=== PATIENT | female | born 1965 | race Caucasian/White ===

== ENCOUNTER 2020-11-16 09:58 | Outpatient (REF) | payer MEDICAID, SELFPAY ==
--- NOTE | ~2020-11-16 | MR_ITS ---
EXAMINATION: MR LUMBAR SPINE WITHOUT CONTRAST CLINICAL INFORMATION: Lumbago with sciatica. COMPARISON: None TECHNIQUE: MRI of the lumbar spine was obtained using routine sequences without contrast. FINDINGS: The lumbar vertebral bodies maintain normal heights. There is minimal anterolisthesis of L4 on L5. No significant lumbar disc height loss is seen. Mild endplate edema is seen inferiorly at T12. Edema is seen within the right-sided L4 and L5 pedicle compatible with stress response. The distal spinal cord appears normal. The conus medullaris terminates normally at the L1-L2 level. The visualized paraspinal muscles and intra-abdominal and pelvic contents are within normal limits. SPINAL LEVELS: L1-L2: No posterior disc abnormality. No spinal canal or neural foraminal stenosis. L2-L3: No posterior disc abnormality. No spinal canal or neural foraminal stenosis. L3-L4: No posterior disc abnormality. Mild facet arthropathy. No spinal canal or neural foraminal stenosis. L4-L5: Mild anterolisthesis related to moderate to severe facet arthropathy. Mild disc bulging. No spinal canal stenosis. No significant neural foraminal narrowing. L5-S1: Disc bulging with moderate facet arthropathy. No spinal canal or neural foraminal stenosis. MR/MR lumbar spine wo con IMPRESSION: Mild degenerative spondylotic changes. No spinal canal stenosis or nerve root compression identified. Minimal grade 1 anterolisthesis seen at L4-L5 related to facet arthropathy. Stress response seen within the right L4 and L5 pedicle.
== END 2020-11-16 09:59 | disposition home or self-care (01) ==
LOC: HO.MRI 09:58
PROVIDERS: PCP Family Medicine; Visit Provider Family Medicine
DX: M54.42 Lumbago with sciatica, left side (principal)
CPT/HCPCS: 72148

== ENCOUNTER → 2021-01-02 10:48 | Outpatient (BNVA) | payer MEDICAID, SELFPAY | PROVIDERS: Visit Provider Orthopaedic Surgery | DX: M67.431 Ganglion, right wrist (principal) | CPT/HCPCS: 99202 ==

== ENCOUNTER 2021-01-24 07:50 | Day surgery (SDC) | payer MEDICAID, SELFPAY ==
[2021-01-17 19:49] VITALS: BMI 31.7
--- NOTE | 2021-01-23 12:44 | P.CONAN_ITS ---
Documented by User: Ann Howard NP 01/23/21 12:45 HPI - Anesthesia Eval Consult details Narrative: 55yo F for Right Excision of Volar Wrist Ganglion PMFSH Active Problems Active Problems: All Active Problems (Updated 01/17/21 @ 19:48 by Nydia Bradshaw RN) Ganglion cyst of volar aspect of right wrist (Acute) Past Medical History Medical History Asthma Back pain COVID-19 vaccine administered Hypertension Kidney injury Post-menopausal Urinary incontinence Surgical History Surgical History History of kidney surgery Social History Social History Are you a primary healthcare economics consultant to a significant other at home: No Do you presently have visiting nurse or other home services: No Patient Tobacco Use Status: Current everyday Tobacco user Tobacco use type: Cigarette Years Smoked: 20 Smoked in Last 30 Days: Yes Patient Interested in Nicotine Replacement: No Patient Given Instructions on How to Stop Smoking: No Use of substances other than those prescribed or required for medical reasons: Yes Substance Use Frequency: Weekly Have you been hit, kicked, punched, or otherwise hurt by someone within the past year? 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 Allergies Allergy/AdvReac Type Severity Reaction Status Date / Time codeine [CODEINE] Allergy Unknown UNKNNOWN Verified 01/24/21 08:07 lisinopril Allergy rash Verified 01/24/21 08:07 Home Medications Medication Instructions Recorded Confirmed Last Taken Type acetaminophen 325 mg capsule 325 mg PO QID PRN 01/02/21 01/17/21 Unknown History amlodipine 2.5 mg tablet 40 mg PO DAILY 01/02/21 01/17/21 01/24/21 05:30 History apixaban 2.5 mg tablet (Eliquis) 2.5 mg PO BID 01/02/21 01/17/21 01/21/21 History atorvastatin 10 mg tablet 10 mg PO BEDTIME 01/02/21 01/17/21 Unknown History clonidine HCl 0.1 mg tablet 0.1 mg PO BID 01/02/21 01/17/21 01/24/21 05:30 History cyclobenzaprine 5 mg tablet 5 mg PO BEDTIME 01/02/21 01/17/21 Unknown History duloxetine 20 mg capsule,delayed 20 mg PO BID 01/02/21 01/17/21 01/24/21 05:30 History release gabapentin 100 mg capsule 100 mg PO DAILY 01/02/21 01/17/21 Unknown History Exam Exam Date and Time: January 23, 2021 1244 Height,Weight and Vital Signs: Height 5 ft 4 in Weight 83.915 kg Assessment and Plan Assessment Anesthesia Assessment: Chart Reviewed Documented by User: Sav Amaya MD 01/24/21 11:58 [facility] Past Medical History Medical History Asthma Back pain COVID-19 vaccine administered Hypertension Kidney injury Post-menopausal Urinary incontinence Family History Family history of problems with anesthesia: No Surgical History Surgical History History of kidney surgery History of Problems with Anesthesia: No Social History Social History Are you a primary healthcare economics consultant to a significant other at home: No Do you presently have visiting nurse or other home services: No Patient Tobacco Use Status: Current everyday Tobacco user Tobacco use type: Cigarette Years Smoked: 20 Smoked in Last 30 Days: Yes Patient Interested in Nicotine Replacement: No Patient Given Instructions on How to Stop Smoking: No Use of substances other than those prescribed or required for medical reasons: Yes Substance Use Frequency: Weekly Have you been hit, kicked, punched, or otherwise hurt by someone within the past year? 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 Allergies Allergy/AdvReac Type Severity Reaction Status Date / Time codeine [CODEINE] Allergy Unknown UNKNNOWN Verified 01/24/21 08:07 lisinopril Allergy rash Verified 01/24/21 08:07 Home Medications Medication Instructions Recorded Confirmed Last Taken Type acetaminophen 325 mg capsule 325 mg PO QID PRN 01/02/21 01/17/21 Unknown History amlodipine 2.5 mg tablet 40 mg PO DAILY 01/02/21 01/17/21 01/24/21 05:30 History apixaban 2.5 mg tablet (Eliquis) 2.5 mg PO BID 01/02/21 01/17/21 01/21/21 History atorvastatin 10 mg tablet 10 mg PO BEDTIME 01/02/21 01/17/21 Unknown History clonidine HCl 0.1 mg tablet 0.1 mg PO BID 01/02/21 01/17/21 01/24/21 05:30 History cyclobenzaprine 5 mg tablet 5 mg PO BEDTIME 01/02/21 01/17/21 Unknown History duloxetine 20 mg capsule,delayed 20 mg PO BID 01/02/21 01/17/21 01/24/21 05:30 History release gabapentin 100 mg capsule 100 mg PO DAILY 01/02/21 01/17/21 Unknown History Exam Airway Mallampati Class: III TM Dist: >3cm Neck ROM: Full Denture: Upper and Lower Assessment and Plan Assessment Anesthesia Assessment: Anesthesia Plan Discussed Final Anesthetic Review Family History of Problems with Anesthesia: No History of Problems with Anesthesia: No ASA Class: III Final Preanesthetic Review: No Changes in Pt Med Stat, Meds/Allgs Chart Reviewed, Consent Obtained/Reviewed and Anes Risks/Benef Reviewed Patient Risk: Intermediate Procedure Risk: Low Anesthetic Plan Anesthetic Plan: GA Disposition: Standard PACU
[2021-01-24] VITALS (7 sets, daily range): BP systolic 125–144; BP diastolic 59–82; PULSE 71–84; RESP 16–20; TEMP 36.1–36.9; O2SAT 93–100
[2021-01-24] MEDS: Lactated Ringers 1,000 ML 100 ML IVCONT (08:24)
--- NOTE | 2021-01-24 10:57 | MHC.SHP ---
Pre-Procedural Eval Section A Date of Service: 01/24/21 The patient is an INPATIENT: No Changes since office visit: No Cold of Flu in the past 2 weeks, No New Medical Problems, No Changes in Medication and No Patient answered all questions The History & Physical has been completed within 30 days and I have reviewed it.: Yes Section B Chief Complaint: ganglion Allergies: Allergies Allergy/AdvReac Type Severity Reaction Status Date / Time codeine [CODEINE] Allergy Unknown UNKNNOWN Verified 01/24/21 08:07 lisinopril Allergy rash Verified 01/24/21 08:07 Plan I have reviewed the history and physical and performed a pertinent physical examination on my patient. No changes have occurred unless specified.
--- NOTE | 2021-01-24 10:57 | W.PM.OPN ---
Operative Note Operative Note Date of Service: 01/24/21 Narrative: Operative Note Narrative: Preop diagnosis: 1. Right Volar wrist ganglion Postop diagnosis: Same Procedure: 1. Right Volar wrist ganglion excision 2. Right radial artery mobilization Surgeon: Katty Crisostomo MD Anesthesia: General Findings: Multi lobular right volar wrist ganglion situated about the radial artery approximately 2.5 cm proximal to the distal wrist crease Implants: None Tourniquet time: 17 minutes EBL: 5.0 ml Specimen: Volar wrist ganglion Drains: None Complications: None Disposition: Brought to the recovery room in stable condition Plan: Follow-up in 10-14 days for wound check, suture removal and to check pathology Indications: The patient is 55 years old with a right volar wrist ganglion . The risks and benefits of operative treatment, including but not limited to risk of damage to blood vessels, nerves, tendons, infection, recurrence, persistent pain or numbness, incomplete resolution of preoperative symptoms, or need for further surgery were discussed with the patient and they wished to proceed with surgery. Procedure: Once consent was obtained patient was brought back to the operating suite and placed in the operating table in a supine position. . Perioperative antibiotics and anesthesia was administered by the anesthesia team. A tourniquet was applied to the proximal aspect of the right upper extremity and the limb was prepped and draped in a standard surgical fashion. The limb was elevated exsanguinated with Esmarch bandage and the tourniquet inflated to 250 mm of mercury for a total tourniquet time of 17 minutes. A 3 cm longitudinal incision was made centered over the patient's right volar wrist ganglion. The incision was made through the skin the subcutaneous tissues using a 15. Blade. Careful dissection was then made down to the level of the volar wrist ganglion using tenotomy scissors. The ganglion was noted to be multi lobular and situated about the radial artery approximately 2.5 cm proximal to the distal wrist crease. Bipolar electrocautery was utilized to cauterize several of the small arterial branches from about the ganglion. The ganglion was then carefully dissected free from the radial artery using tenotomy and iris scissors. The stalk to the ganglion was then isolated and cauterized using bipolar electrocautery. The ganglion was then removed and placed on the back table to be sent for histopathology. It contained clear viscous fluid consistent with a ganglion. At this point the tourniquet was deflated and hemostasis obtained with a brief period of local pressure and bipolar electrocautery. The wound was copiously irrigated with normal saline. The subcutaneous layer was closed with 4-0 Vicryl suture, and the skin edges were reapproximated with 5-0 nylon suture. The wound was infiltrated with some 1% lidocaine with epinephrine for postop pain control and a sterile dressing was applied. The patient appears to have tolerated the procedure well and with no complications. All digits were well vascularized conclusion of the case.
== END 2021-01-24 13:09 | disposition home or self-care (01) ==
PROVIDERS: PCP Family Medicine; Visit Provider Orthopaedic Surgery
PROC: (CPT 25111; principal; 2021-01-24 09:40)
DX: M67.431 Ganglion, right wrist (principal); I10 Essential (primary) hypertension; Z79.899 Other long term (current) drug therapy; Z88.8 Allergy status to other drugs, medicaments and biological substances; F17.210 Nicotine dependence, cigarettes, uncomplicated
CPT/HCPCS: 25111; 88304; J0690; J1100; J2250; J2405; J3010

== ENCOUNTER 2021-02-04 12:10 | Outpatient (REF) | payer MEDICAID, SELFPAY ==
--- NOTE | ~2021-02-04 | MM_ITS ---
EXAMINATION: MM SCREENING DIGITAL BREAST TOMOSYNTHESIS, BILATERAL CLINICAL INFORMATION: Screening. Asymptomatic. Age 55. No prior breast imaging. Family history breast cancer, mother. The lifetime risk of breast cancer based on the Tyrer-Cuzick Model is 14%. COMPARISON: None (current study represents initial baseline exam). TECHNIQUE: Digital breast tomosynthesis is performed in both the craniocaudal and mediolateral oblique views along with computer-aided detection (CAD). Synthesized 2D images are generated from the tomosynthesis. FINDINGS: There are scattered areas of fibroglandular density (ACR BI-RADS breast composition Category b). There are no significant masses, abnormal calcifications, or other abnormalities. There are 2 dermal lesions overlying the upper outer left breast, both marked with skin markers as well. Skin contours are otherwise smooth. MM/MM tomosynthesis screening BI IMPRESSION: No mammographic evidence of malignancy. ASSESSMENT: BI-RADS 1: Negative RECOMMENDATION: Routine annual mammography screening. This patient's information was entered into a reminder system with a target due date for their next mammogram.
== END 2021-02-04 12:11 | disposition home or self-care (01) ==
LOC: HO.MAMMO 12:10
PROVIDERS: Visit Provider Family Medicine
DX: Z12.31 Encounter for screening mammogram for malignant neoplasm of breast (principal)
CPT/HCPCS: 77063; 77067

== ENCOUNTER → 2021-02-05 13:24 | Outpatient (BNVA) | payer MEDICAID, SELFPAY | PROVIDERS: PCP Family Medicine; Visit Provider Orthopaedic Surgery | DX: M67.431 Ganglion, right wrist (principal) | CPT/HCPCS: 99212 ==

== ENCOUNTER 2021-02-15 09:00 | Outpatient (RCR) | payer MEDICAID, SELFPAY | END 2021-02-21 07:55 | disposition home or self-care (01) | LOC: HO.PT 09:00 | PROVIDERS: PCP Family Medicine; Visit Provider Family Medicine | DX: M54.42 Lumbago with sciatica, left side (principal) | CPT/HCPCS: 97110; 97112; 97162; 97530 ==

== ENCOUNTER 2021-02-22 16:42 | Emergency (ER) | payer MEDICAID, SELFPAY ==
--- NOTE | ~2021-02-22 | CT_ITS ---
EXAMINATION: CT ABDOMEN AND PELVIS WITHOUT CONTRAST CLINICAL INFORMATION: Bilateral flank pain. Rule out kidney stone. COMPARISON: None. TECHNIQUE: Multidetector volumetric imaging was performed from the superior aspect of the liver through the pubic symphysis. Sagittal and coronal reformatted images were obtained on the technologist's workstation. This CT examination was performed using dose optimization techniques as appropriate, variously including the following: *Automated exposure control *Adjustment of mA and/or kV according to patient size (this includes techniques or standardized protocols for targeted exams where dose is matched to indication/reason for exam; i.e. extremities or head) *Use of iterative reconstruction technique DLP: 637 mGy-cm FINDINGS: LUNG BASES: Mild subsegmental atelectases with subtle mosaic attenuation of the lung parenchyma likely reflecting some degree of air trapping. No focal consolidation or pleural effusion. LIVER, GALLBLADDER, AND BILIARY TREE: The liver is normal in size, shape, and attenuation. No focal hepatic lesion or biliary ductal dilatation is present. The gallbladder is contracted without significant inflammatory changes or surrounding free fluid to suspect acute cholecystitis. There is no biliary ductal dilatation. PANCREAS: Fatty infiltration. No discrete lesions. The main pancreatic duct is nondilated. No surrounding inflammatory changes. SPLEEN: Unremarkable. ADRENAL GLANDS: Unremarkable. KIDNEYS AND URETERS: The kidneys are normal in size, shape, and attenuation. There is a 1.3 cm fat-containing lesion in the lateral surface of the right kidney (image 65 of series 7) likely an angiomyolipoma not requiring further workup. There is a 2 cm parapelvic cyst or calyceal diverticulum in the lower pole of the left kidney measuring simple fluid in attenuation. No hydronephrosis, hydroureter, or calculi seen. No perinephric stranding. BLADDER: Unremarkable. GASTROINTESTINAL TRACT: The stomach is mildly distended with food debris. The small bowel is nondilated. Normal appendix. No pericolic inflammatory changes. No bowel obstruction. ABDOMINAL WALL: Tiny fat-containing umbilical hernia. LYMPH NODES: No lymphadenopathy by size criteria. VASCULAR: Scattered atherosclerotic disease. The abdominal aorta is of normal diameter. PELVIC VISCERA: No adnexal lesions. OSSEOUS STRUCTURES: No acute or aggressive osseous abnormalities. There are a few nonaggressive appearing sclerotic lesions in the pelvis, for example in the left iliac bone on image 63 of series 3 which are likely bone islands. CT/CT abdomen pelvis wo con IMPRESSION: No acute abnormalities within the abdomen or pelvis to explain the patient's symptoms. Specifically, there is no evidence of nephrolithiasis or hydronephrosis.
[2021-02-22 16:58] VITALS: BP 134/70; PULSE 95; RESP 18; TEMP 36.9; O2SAT 97; BMI 32.9
[2021-02-22 20:01] LABS: MANUAL DIFF FLAG NO
[2021-02-22 20:03] LABS: Appearance Urine HAZY; Color Urine YELLOW; Glucose Urine UA NEG (NEG); Leukocyte Esterase Urine NEG (NEG); Nitrite Urine NEG (NEG); Urine Blood NEG (NEG); Urine Ketones NEG (NEG); Urine Protein NEG (NEG-TRACE)
[2021-02-22 20:05] LABS: Basophils Absolute Auto 0.1 X10*3/uL (0.0-0.2); Basophils Percent Auto 0.4 % (0-2); Eosinophils Absolute Auto 0.2 X10*3/uL (0.0-0.4); Eosinophils Percent Auto 1.6 % (0-4); Hematocrit 39.4 % (37.0-47.0); Hemoglobin 13.2 g/dl (12.0-16.0); Imm Gran Abs Auto 0.06 X10*3/uL (0.00-0.03); Imm Gran Pct Auto 0.4 % (0.0-0.4); Lymphocytes Absolute Auto 4.4 X10*3/uL (1.2-4.9); Lymphocytes Percent Auto 31.5 % (20-40); Mean Corpuscular HGB Conc 33.5 g/dl (31.0-35.0); Mean Corpuscular Hemoglobin 31.4 pg (27.0-33.0); Mean Corpuscular Volume 93.8 fL (80.0-98.0); Mean Platelet Volume 9.3 fL (9.4-12.3); Monocytes Absolute Auto 0.8 X10*3/uL (0.1-1.2); Monocytes Percent Auto 5.9 % (2-11); Neutrophils Absolute Auto 8.4 x10*3/uL (2.0-8.3); Neutrophils Percent Auto 60.2 % (45-73); Platelet Count 247 X10*3/uL (160-400); Red Cell Distribution Width 13.2 % (11.0-16.0)
[2021-02-22 20:22] LABS: Alanine Aminotransferase 13 U/L (0-31); Alkaline Phosphatase 104 U/L (39-117); Anion Gap 13 (12-20); Aspartate Amino Transferase 14 U/L (5-31); Bilirubin Total 0.2 mg/dL (0.0-1.0); Blood Urea Nitrogen 15 mg/dL (9-16); Calcium 8.9 mg/dL (8.4-10.2); Carbon Dioxide 28 mmol/L (22-29); Chloride 105 mmol/L (96-108); Creatinine Clr Calc Pharmacy 85.8; Estimated Glomerular Filt Rate > 60; Glucose Random 95 mg/dL (60-115); Lipase 88 U/L (8-78); Potassium 3.6 mmol/L (3.3-5.1); Sodium 142 mmol/L (135-145); Total Protein 6.8 g/dL (6.5-8.0)
[2021-02-22 20:43] LABS: Bacteria Urine TRACE /LPF; RBC Urine 0 /HPF (0); Squamous Epithelial Cell Urine 3+ /LPF; WBC Urine 0-2 /HPF (0-4)
--- NOTE | 2021-02-22 20:55 | ED_ITS ---
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 Patient states that the flank pain is constant, it begins as a dull pain, and then it turns into stabbing pain, she states it is a 10/10 on both sides. Nothing makes this pain better or worse. The pain to her suprapubic region, is intermittent, and a dull pain, free of radiation, she states she gets this type of pain from time to time. She states she was seen earlier at the clinic for the same symptoms, where they did a urine sample, and they told her she had blood in her urine, which made her worried. She has not visualized blood in her urine. She states that at baseline she has trouble controlling her bladder, and she has been wearing depends since February, but this is nothing new or acute for her. She also states that she has back pain, however this is chronic in nature. She states this pain is not similar to the pain she had when she had a blood blot, she described that pain as it felt like i was in labor . She denies urinary frequency, urgency, bowel incontinence, weakness, sensory deficits, paresthesias, numbness, tingling, chest pain, shortness of breath, fevers, chills, difficulties ambulating. Patient denies trauma to the area and doesnt recall what she was doing when the pain started. MD elicited complaint: other (b/l flank pain ) Pertinent past history: prior back pain (chronic back pain requiring chronic pain meds for managemnt ) Onset (ago): day(s) (3) Timing: constant Severity: severe Pain scale (0-10): 10 Similar Symptoms Previously: Yes Quality: dull and stabbing Location: left flank and right flank Radiation: none Exacerbating factors: none Relieving factors: none Associated symptoms: denies other symptoms Treatments prior to arrival: other (gabapentin, hydrocodone-acetaminophen) Work related injury: No Related Data Home Medications Medication Instructions Recorded Confirmed acetaminophen 325 mg capsule 325 mg PO QID PRN 01/02/21 01/17/21 amlodipine 2.5 mg tablet 40 mg PO DAILY 01/02/21 01/17/21 apixaban 2.5 mg tablet (Eliquis) 2.5 mg PO BID 01/02/21 01/17/21 atorvastatin 10 mg tablet 10 mg PO BEDTIME 01/02/21 01/17/21 clonidine HCl 0.1 mg tablet 0.1 mg PO BID 01/02/21 01/17/21 cyclobenzaprine 5 mg tablet 5 mg PO BEDTIME 01/02/21 01/17/21 duloxetine 20 mg capsule,delayed 20 mg PO BID 01/02/21 01/17/21 release gabapentin 100 mg capsule 100 mg PO DAILY 01/02/21 01/17/21 Previous Rx's Medication Instructions Recorded hydrocodone 5 mg-acetaminophen 325 1 - 2 tab PO Q6H PRN #10 tab 01/24/21 mg tablet hydrocodone 5 mg-acetaminophen 325 1 - 2 tab PO Q6H PRN #15 tab 01/24/21 mg tablet hydrocodone 5 mg-acetaminophen 325 1 tab PO Q8H PRN #8 tab 02/22/21 mg tablet Allergies Allergy/AdvReac Type Severity Reaction Status Date / Time codeine [CODEINE] Allergy Unknown UNKNNOWN Verified 02/05/21 13:58 lisinopril Allergy rash Verified 02/05/21 13:58 Review of Systems Review of Systems: Constitutional : No Fever, No Chills ENT/Mouth : No sore throat Eyes: No Eye Pain, No Swelling, No Redness Cardiovascular : No Chest Pain, No SOB Respiratory : No Cough, No Sputum, No Wheezing Gastrointestinal : No Nausea, No Vomiting, No Diarrhea, positive abdominal pain Genitourinary : No Dysuria, No urinary frequency, No Hematuria, positive Flank Pain, No hesitancy Musculoskeletal : No joint pain, No Myalgias Skin : No Skin Lesions, No rash Neuro : No Weakness, No Numbness, No Headache Psych : No Anxiety/Panic, No Depression Heme/Lymph: No Bruising, No Lymphadenopathy Endocrine : No Polyuria, No Polydipsia All other systems reviewed and are negative PMFSH Past Medical History Attestation statement: The following information was validated with the patient. Source: old records reviewed and nursing notes reviewed Medical History Asthma Back pain COVID-19 vaccine administered Hypertension Kidney injury Post-menopausal Urinary incontinence Surgical History History of kidney surgery Social History Social History Are you a primary home care assistant to a significant other at home: No Do you presently have visiting nurse or other home services: No Patient Tobacco Use Status: Current everyday Tobacco user Tobacco use type: Cigarette Years Smoked: 20 Advance Directives: No Advance Directives Information Provided: Yes Patient : No Current occupational status: unemployed 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 Oriented X3. No acute distress. ? No accessory muscle use Head: Normal external exam. Normocephalic. Atraumatic. ? Eyes: PERRLA. EOMI. Conjunctiva and sclera normal. Eyelids normal. ? ENT: Pharynx normal. Uvula midline. Moist mucous membranes. ? No trismus noted.? No drooling noted.? No muffled voice noted. Neck: ?Soft full range of motion, no JVD CVS: ?Heart regular rate and rhythm no murmurs and rubs Respiratory: ?Breath sounds are clear to auscultation bilaterally. No wheezing or stridor.? No accessory muscle use noted. Abdomen: ?Soft + tender to suprapubic region, no rebound or guarding positive bowel sounds Skin: Skin warm and dry.? Normal skin color.? Normal skin turgor. No rashes/lesions/lacerations noted. Back: + bilateral CVA tenderness, No paraspinous tenderness to cervical, lumbar, thoracic, sacral region, No midline tenderness Extremities: No lower extremity edema. ? Extremities exhibit normal range of motion.? Extremities nontender. Neuro: Oriented X 3.? No motor deficit to bilateral upper and lower extr emities.? No sensory deficit to bilateral upper and lower extremities.? Reflexes normal 2+ upper and lower extremities. Steady gait. No ataxia. Hand mass spectroscopist normal. No saddle paresthesia Course Reevaluation(s) Reevaluation #1: Lab show no acute infection, no anemia, BUN creatinine normal, liver functions normal, chemistry shows no electrolyte abnormalities, coags normal, lipase slightly elevated however a CT of the abdomen pelvis was done which showed no acute abnormalities, and no nephrolithiasis or hydronephrosis UA negative. Based off laboratory studies, imaging kidney stone is unlikely. Patient's pain improved with Toradol, she appears more comfortable, and she states that it has gotten much better. Patient's pain is likely musculoskeletal in nature. Unlikely that this is any type of embolic event patient's pain has significantly improved with Toradol. This case was discussed with who agrees that this is is likely musculoskeletal in nature, and unlikley embolic. Patient will be DC home with pain medication, she has been encouraged to follow-up with her primary care provider, and has been told to return to the emergency department with new or worsening symptoms. I attest that I have reviewed patients [employer], and at the time prescribing the patient a controlled substance is appropriate based off of patients diagnosis and treatment plan. Time: 22:43 Reevaluation #2: Reviewed discharge instructions, and laboratory findings with the patient, she states she is feeling better at this time. She states she will try to follow up with her primary care provider next week. Safe for discharge home. Vital signs stable. Time: 22:52 MDM - Back Pain/Injury MDM Narrative Medical decision making narrative: 9:10 pm 55-year-old female past medical history significant for HTN, HLD, chronic back pain, urinary incontinence, hx of blood clot to one of the vessels to right kidney on eliquis presents to the emergency department with 3 days of progressively worsening 10/10 bilateral flank pain, described as dull initially, progressing to stabbing pain, and suprapubic abdominal pain that is intermittent in nature. Patient offers no other complaints at this time. Denies numbness, tingling, weakness, fevers, chills, nausea, vomiting, chest pain, shortness of breath, urinary frequency/urgency, hematuria. Patient is not an IV drug user Upon physical examination patient is comfortably resting on the stretcher, in no acute distress. Lungs are clear to auscultation bilaterally, S1 and S2 are appreciated free of murmurs. Abdomen is soft slightly tender to the suprapubic region, nondistended, with normoactive bowel sounds. Patient has 5/5 strength upper and lower extremities. 2+ pulses equal in bilateral upper and lower extremities. Reflexes to upper and lower extremities 2+. No focal neuro deficits. Hand mass spectroscopist strength normal, sensory and motor intact to bilateral upper, and lower extremities. No saddle paresthesias. Patient ambulating with a steady gait, no ataxia. Vital signs are stable, patient is not febrile Patient's history and physical exam were not consistent with cauda equina or epidural abscess. Plan at this time is to obtain basic labs, urine, PTT, PT INR, PT CT abdomen and pelvis without contrast. Patient will be given Toradol for pain and fluids. Medical Records Attestation: I reviewed the patient's medical records. Lab Data Attestation: I reviewed the patient's lab results. Result diagrams: 02/22/21 19:55 02/22/21 19:55 Labs: Lab Results 02/22/21 02/22/21 02/22/21 Range/Units 19:40 19:55 19:55 WBC 14.0 H (4.8-10.8) X10*3/uL RBC 4.20 (4.20-5.50) X10*6/uL Hgb 13.2 (12.0-16.0) g/dl Hct 39.4 (37.0-47.0) % MCV 93.8 (80.0-98.0) fL MCH 31.4 (27.0-33.0) pg MCHC 33.5 (31.0-35.0) g/dl RDW 13.2 (11.0-16.0) % Plt Count 247 (160-400) X10*3/uL MPV 9.3 L (9.4-12.3) fL Immature Gran % (Auto) 0.4 (0.0-0.4) % Neut % (Auto) 60.2 (45-73) % Lymph % (Auto) 31.5 (20-40) % [place] % (Auto) 5.9 (2-11) % Eos % (Auto) 1.6 (0-4) % Baso % (Auto) 0.4 (0-2) % Lymph # (Auto) 4.4 (1.2-4.9) X10*3/uL [place] # (Auto) 0.8 (0.1-1.2) X10*3/uL Eos # (Auto) 0.2 (0.0-0.4) X10*3/uL Baso # (Auto) 0.1 (0.0-0.2) X10*3/uL Abs Immat Gran (auto) 0.06 H (0.00-0.03) X10*3/uL Absolute Neuts (auto) 8.4 H (2.0-8.3) x10*3/uL Absolute Nucleated RBC 0.000 (0.0-0.012) X10*3/uL Nucleated RBC % (auto) 0.0 (0.0-0.2) /100WBC PT (9.9-13.0) SEC INR (0.9-1.1) APTT (24.1-38.0) SEC Sodium 142 (135-145) mmol/L Potassium 3.6 (3.3-5.1) mmol/L Chloride 105 (96-108) mmol/L Carbon Dioxide 28 (22-29) mmol/L Anion Gap 13 (12-20) BUN 15 (9-16) mg/dL Creatinine 0.81 (0.5-1.4) mg/dL Estim Creat Clear Calc 85.8 Estimated GFR > 60 Random Glucose 95 (60-115) mg/dL Calcium 8.9 (8.4-10.2) mg/dL Total Bilirubin 0.2 (0.0-1.0) mg/dL AST 14 (5-31) U/L ALT 13 (0-31) U/L Alkaline Phosphatase 104 (39-117) U/L Total Protein 6.8 (6.5-8.0) g/dL Albumin 4.0 (3.5-5.0) g/dL Lipase 88 H (8-78) U/L Urine Color YELLOW Urine Appearance HAZY Urine pH 6.0 (5.0-8.0) Ur Specific [place] 1.020 (1.005-1.025) Urine Protein NEG (NEG-TRACE) MG/DL Urine Glucose (UA) NEG (NEG) MG/DL Urine Ketones NEG (NEG) MG/DL Urine Blood NEG (NEG) Urine Nitrite NEG (NEG) Ur Leukocyte Esterase NEG (NEG) Urine RBC 0 (0) /HPF Urine WBC 0-2 (0-4) /HPF Ur Squamous Epith Cells 3+ /LPF Urine Bacteria TRACE /LPF 02/22/21 Range/Units 21:21 WBC (4.8-10.8) X10*3/uL RBC (4.20-5.50) X10*6/uL Hgb (12.0-16.0) g/dl Hct (37.0-47.0) % MCV (80.0-98.0) fL MCH (27.0-33.0) pg MCHC (31.0-35.0) g/dl RDW (11.0-16.0) % Plt Count (160-400) X10*3/uL MPV (9.4-12.3) fL Immature Gran % (Auto) (0.0-0.4) % Neut % (Auto) (45-73) % Lymph % (Auto) (20-40) % [place] % (Auto) (2-11) % Eos % (Auto) (0-4) % Baso % (Auto) (0-2) % Lymph # (Auto) (1.2-4.9) X10*3/uL [place] # (Auto) (0.1-1.2) X10*3/uL Eos # (Auto) (0.0-0.4) X10*3/uL Baso # (Auto) (0.0-0.2) X10*3/uL Abs Immat Gran (auto) (0.00-0.03) X10*3/uL Absolute Neuts (auto) (2.0-8.3) x10*3/uL Absolute Nucleated RBC (0.0-0.012) X10*3/uL Nucleated RBC % (auto) (0.0-0.2) /100WBC PT 11.2 (9.9-13.0) SEC INR 1.0 (0.9-1.1) APTT 36.4 (24.1-38.0) SEC Sodium (135-145) mmol/L Potassium (3.3-5.1) mmol/L Chloride (96-108) mmol/L Carbon Dioxide (22-29) mmol/L Anion Gap (12-20) BUN (9-16) mg/dL Creatinine (0.5-1.4) mg/dL Estim Creat Clear Calc Estimated GFR Random Glucose (60-115) mg/dL Calcium (8.4-10.2) mg/dL Total Bilirubin (0.0-1.0) mg/dL AST (5-31) U/L ALT (0-31) U/L Alkaline Phosphatase (39-117) U/L Total Protein (6.5-8.0) g/dL Albumin (3.5-5.0) g/dL Lipase (8-78) U/L Urine Color Urine Appearance Urine pH (5.0-8.0) Ur Specific [place] (1.005-1.025) Urine Protein (NEG-TRACE) MG/DL Urine Glucose (UA) (NEG) MG/DL Urine Ketones (NEG) MG/DL Urine Blood (NEG) Urine Nitrite (NEG) Ur Leukocyte Esterase (NEG) Urine RBC (0) /HPF Urine WBC (0-4) /HPF Ur Squamous Epith Cells /LPF Urine Bacteria /LPF Imaging Data CT scan - abdomen: Attestation: I personally reviewed and interpreted this imaging study as follows: Radiologist's impression: CT/CT abdomen pelvis wo con IMPRESSION: No acute abnormalities within the abdomen or pelvis to explain the patient's symptoms. Specifically, there is no evidence of nephrolithiasis or hydronephrosis.? Critical Care Time Critical Care Time Critical Care Time: No Discharge Plan Discharge Clinical Impression: Bilateral flank pain, Abdominal pain, suprapubic Patient Disposition: Home, Self-Care Instructions: Flank Pain (ED) Additional Instructions: Take your medications as prescribed. Follow-up with your primary care provider this week. Return to the emergency department with new or worsening symptoms. In case of emergency call 911 Prescriptions: New hydrocodone-acetaminophen 5-325 mg tablet 1 tab PO Q8H PRN (Reason: pain) Qty: 8 RF: 0 No Action hydrocodone-acetaminophen 5-325 mg tablet 1 - 2 tab PO Q6H PRN (Reason: pain) Qty: 15 RF: 0 hydrocodone-acetaminophen 5-325 mg tablet 1 - 2 tab PO Q6H PRN (Reason: pain) Qty: 10 RF: 0 Referrals: Raina Cantu [Primary Care Provider] - 3 days Stand Alone Forms: Work/School Release
[2021-02-22 21:13] VITALS: BP 125/70; PULSE 71; RESP 16; TEMP 36.6; O2SAT 96
[2021-02-22] MEDS: 0.9 % Sodium Chloride 1,000 ML 999 ML IV (21:23)
[2021-02-22] MEDS: Ketorolac Tromethamine 15 MG/ML VIAL IVPUSH (21:25)
[2021-02-22 21:44] LABS: Prothrombin Time 11.2 SEC (9.9-13.0)
[2021-02-22 21:46] LABS: Partial Thromboplastin Time 36.4 SEC (24.1-38.0)
[2021-02-22 22:28] VITALS: RESP 16
[2021-02-22 22:59] VITALS: BP 132/65; PULSE 80; RESP 16; O2SAT 95
== END 2021-02-22 23:02 | disposition home or self-care (01) ==
PROVIDERS: Physician Assistant; Emergency Provider Emergency Medicine Emergency Medical Services; PCP Nurse Practitioner
DX: R10.9 Unspecified abdominal pain (principal); R10.30 Lower abdominal pain, unspecified; I10 Essential (primary) hypertension; E78.5 Hyperlipidemia, unspecified; Z79.899 Other long term (current) drug therapy; Z79.01 Long term (current) use of anticoagulants; Z79.02 Long term (current) use of antithrombotics/antiplatelets; F17.200 Nicotine dependence, unspecified, uncomplicated; Z86.718 Personal history of other venous thrombosis and embolism
CPT/HCPCS: 36415; 74176; 80053; 81001; 83690; 85025; 85610; 85730; 96361; 96374; 99284; J1885

== ENCOUNTER → 2021-03-25 09:25 | Outpatient (BNVA) | payer MEDICAID, SELFPAY | PROVIDERS: PCP Family Medicine | DX: R32 Unspecified urinary incontinence (principal) | CPT/HCPCS: 51798; 99202 ==

== ENCOUNTER 2021-03-29 15:12 | Emergency (ER) | payer MEDICAID, SELFPAY ==
--- NOTE | ~2021-03-29 | XR_ITS ---
EXAMINATION: LEFT FOOT AND ANKLE X-RAYS CLINICAL INFORMATION: Pain post fall COMPARISON: None TECHNIQUE: 3 views of the left foot and 3 views of the left ankle FINDINGS: Left foot: Bone alignment is normal. No fracture or dislocation is seen. Joint spaces are normal. Soft tissues are normal. Left ankle: Bone alignment is normal. No fracture or dislocation is seen. The ankle mortise is normal. Soft tissues are normal. XR/XR ankle LT min 3V IMPRESSION: Unremarkable exam.
--- NOTE | ~2021-03-29 | XR_ITS ---
EXAMINATION: LEFT FOOT AND ANKLE X-RAYS CLINICAL INFORMATION: Pain post fall COMPARISON: None TECHNIQUE: 3 views of the left foot and 3 views of the left ankle FINDINGS: Left foot: Bone alignment is normal. No fracture or dislocation is seen. Joint spaces are normal. Soft tissues are normal. Left ankle: Bone alignment is normal. No fracture or dislocation is seen. The ankle mortise is normal. Soft tissues are normal. XR/XR foot LT min 3V IMPRESSION: Unremarkable exam.
[2021-03-29 16:23] VITALS: BP 146/78; PULSE 89; RESP 20; TEMP 36.6; O2SAT 97; BMI 32.8
[2021-03-29] MEDS: Acetaminophen 325 MG TABLET 650 MG PO (20:21)
--- NOTE | 2021-03-29 21:09 | ED_ITS ---
HPI - Fall General Chief Complaint: Fall Stated Complaint: Fall/L ankle pain Time Seen by Provider: 03/29/21 19:41 Source: patient Mode of arrival: ambulatory Limitations: no limitations History of Present Illness HPI Narrative: 55 yo F past medical history significant for hypertension, chronic back pain, hyperlipidemia, urinary incontinence, hx of blood clot to a vessel of right kidney on Eliquis presents to the emergency department with complaints of left ankle pain since this morning. Patient tells me that she was climbing a ladder, in she fell off of the ladder while coming down, she tells me that she landed on her left side onto her foot/ankle. She tells me that she has been having foot/ankle pain since this time, she is having difficulty ambulating, she is ambulating with a limp, and reports that she cannot put much weight on to her left side. She tells me that when she fell she did not hit her head or lose consciousness. She denies chest pain, nausea, vomiting, headache, dizziness, vision changes, shortness of breath, fevers, chills, numbness, tingling. complaint: fall Onset (ago): hour(s) (8) Fall witnessed: no Place fall occurred: home Loss of consciousness: none Prolonged down time: no Symptoms prior to fall: none Location of injury: other (left ankle ) Related Data Home Medications Medication Instructions Recorded Confirmed acetaminophen 325 mg capsule 325 mg PO QID PRN 01/02/21 01/17/21 amlodipine 2.5 mg tablet 40 mg PO DAILY 01/02/21 01/17/21 apixaban 2.5 mg tablet (Eliquis) 2.5 mg PO BID 01/02/21 01/17/21 atorvastatin 10 mg tablet 10 mg PO BEDTIME 01/02/21 01/17/21 clonidine HCl 0.1 mg tablet 0.1 mg PO BID 01/02/21 01/17/21 cyclobenzaprine 5 mg tablet 5 mg PO BEDTIME 01/02/21 01/17/21 duloxetine 20 mg capsule,delayed 20 mg PO BID 01/02/21 01/17/21 release gabapentin 100 mg capsule 100 mg PO DAILY 01/02/21 01/17/21 Previous Rx's Medication Instructions Recorded hydrocodone 5 mg-acetaminophen 325 1 - 2 tab PO Q6H PRN #10 tab 01/24/21 mg tablet hydrocodone 5 mg-acetaminophen 325 1 - 2 tab PO Q6H PRN #15 tab 01/24/21 mg tablet hydrocodone 5 mg-acetaminophen 325 1 tab PO Q8H PRN #8 tab 02/22/21 mg tablet Allergies Allergy/AdvReac Type Severity Reaction Status Date / Time codeine [CODEINE] Allergy Unknown UNKNNOWN Verified 03/25/21 09:27 lisinopril Allergy rash Verified 03/25/21 09:27 Review of Systems Review of Systems: Constitutional : No Weight loss, No Fever, No Chills, No Fatigue, No Malaise ENT/Mouth : No sore throat, No Rhinorrhea Eyes: No Eye Pain, No Swelling, No Redness Cardiovascular : No Chest Pain, No SOB, No Dyspnea on Exertion, No Orthopnea, No Edema, No Palpitations Respiratory : No Cough, No Sputum, No Wheezing Gastrointestinal : No Nausea, No Vomiting, No Diarrhea, No Constipation, No abdominal Pain, No Hematochezia, No Melena Genitourinary : No Dysuria, No Urinary Frequency, No Hematuria, Musculoskeletal : + joint pain, No Myalgias, + Joint Swelling Skin : No Skin Lesions, No rash Neuro : No Weakness, No Numbness, No Dizziness, No Headache All other systems reviewed and are negative Yes all other systems are reviewed and are negative [facility] Past Medical History Attestation statement: The following information was validated with the patient. Source: old records reviewed and nursing notes reviewed Medical History Asthma Back pain COVID-19 vaccine administered Hypertension Kidney injury Post-menopausal Urinary incontinence Surgical History History of kidney surgery Social History Social History Are you a primary pediatric care coordinator to a significant other at home: No Do you presently have visiting nurse or other home services: No Patient Tobacco Use Status: Current everyday Tobacco user Tobacco use type: Cigarette Years Smoked: 20 Advance Directives: No Advance Directives Information Provided: No Current occupational status: unemployed 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 Appearance: Alert.? Oriented X3.? No acute distress.? Head: Normocephalic, atraumatic, no step-offs or deformities Eyes: Pupils equal, round and reactive to light.? ENT: Pharynx normal.? Neck: Normal inspection.? Neck supple.? CVS: Normal heart rate and rhythm.? Pulses normal.? Respiratory: No respiratory distress.? Breath sounds normal.? Abdomen: Soft and nontender.? Skin: Skin warm and dry.? Normal skin color.? Normal skin turgor.? Extremities: No lower extremity edema.?+ swollen left ankle, pain to palpation over entire foot/ankle, no ecchymosis overlying skin changes. 2+ pulses equal bilateral to bilateral lower extremities to dorsalis pedis and posterior tibialis. Patient reports pain with movement of toes on left side, right side within normal limits. No evident ligament or tendon involvement. Back: No midline tenderness, no C-spine tenderness, full range of motion, no CVA tenderness bilaterally Neuro: Oriented X 3.? No motor deficit.? No sensory deficit. Course Reevaluation(s) Reevaluation #1: X-ray of foot and ankle unremarkable. Plan at this time is to place patient in an Aircast, and give patient crutches. She has been advised to return to the emergency department with new or worsening symptoms, I have advised her to follow-up with her PCP, and or orthopedics if symptoms do not resolve within 1-2 weeks. Patient is safe for discharge home. Time: 21:00 MDM - Fall [facility] Narrative Medical decision making narrative: 1940 55-year-old female presents to the emergency department with left ankle pain status post fall off ladder earlier today at home. Patient did not hit her head when she fell, no loss of consciousness. She does not report headache, dizziness, vision changes. Patient tells me that she is on Eliquis, although she did not hit her head I offered for her to get a head CT, but she tells me she does not want as she did not hit her head or lose consciousness. She reiterates that she was strictly here for left ankle pain. Upon physical examination there is a swollen left ankle, pain to palpation over entire foot/ankle, no ecchymosis overlying skin changes. 2+ pulses equal bilateral to bilateral lower extremities to dorsalis pedis and posterior tibialis. Patient reports pain with movement of toes on left side, right side within normal limits. No evident ligament or tendon involvement. The rest of physical examination is benign. Plan at this time is to obtain an x-ray. Medical Records Attestation: I reviewed the patient's medical records. Lab Data Attestation: I reviewed the patient's lab results. Critical Care Time Critical Care Time Critical Care Time: No Discharge Plan Discharge Clinical Impression: Ankle sprain, Fall Patient Disposition: Home, Self-Care Instructions: Ankle Sprain (ED), Crutch Instructions (ED), R.I.C.E. Treatment (ED), Fall Prevention (ED) Additional Instructions: Take your medications as prescribed. Your x-ray showed no fracture. Take ibuprofen every 6 hours, Tylenol every 4 hours as needed for pain. Follow-up with your primary care provider this week. Follow-up with orthopedics if symptoms do not improve within 1-2 weeks Return to the emergency department with new or worsening symptoms. In case of emergency call 911 Prescriptions: No Action hydrocodone-acetaminophen 5-325 mg tablet 1 - 2 tab PO Q6H PRN (Reason: pain) Qty: 15 RF: 0 hydrocodone-acetaminophen 5-325 mg tablet 1 - 2 tab PO Q6H PRN (Reason: pain) Qty: 10 RF: 0 hydrocodone-acetaminophen 5-325 mg tablet 1 tab PO Q8H PRN (Reason: pain) Qty: 8 RF: 0 Referrals: Cali Cortés MD [Physician] - 2 weeks Mary Martin MD [Primary Care Provider] - 2 days Stand Alone Forms: Work/School Release Interventions: ED Discharge Assessment Last Done: 03/29/21 20:41 Discharge Date/Time: 03/29/21 19:52
== END 2021-03-29 19:52 | disposition home or self-care (01) ==
PROVIDERS: Emergency Provider Internal Medicine; PCP Family Medicine
DX: S93.402A Sprain of unspecified ligament of left ankle, initial encounter (principal); M25.572 Pain in left ankle and joints of left foot; W11.XXXA Fall on and from ladder, initial encounter; Y93.9 Activity, unspecified; Y92.009 Unspecified place in unspecified non-institutional (private) residence as the place of occurrence of the external cause; Y99.9 Unspecified external cause status; F17.210 Nicotine dependence, cigarettes, uncomplicated; Z71.6 Tobacco abuse counseling; Z79.899 Other long term (current) drug therapy
CPT/HCPCS: 73610; 73630; 99283; 99284

== ENCOUNTER → 2021-05-27 09:19 | Outpatient (BNVA) | payer MEDICAID, SELFPAY | PROVIDERS: PCP Nurse Practitioner | DX: N81.10 Cystocele, unspecified (principal) | CPT/HCPCS: 57160; 99212 ==

== ENCOUNTER → 2021-05-30 11:05 | Outpatient (BNVA) | payer MEDICAID, SELFPAY | PROVIDERS: PCP Nurse Practitioner; Visit Provider Surgery Vascular Surgery | DX: I73.9 Peripheral vascular disease, unspecified (principal); I70.1 Atherosclerosis of renal artery | CPT/HCPCS: 99202 ==

== ENCOUNTER → 2021-06-03 08:13 | Outpatient (BNVA) | payer MEDICAID, SELFPAY | PROVIDERS: PCP Nurse Practitioner ==

== ENCOUNTER 2021-06-18 09:43 | Outpatient (REF) | payer MEDICAID, SELFPAY ==
--- NOTE | ~2021-06-18 | XR_ITS ---
EXAMINATION: XR HAND, RIGHT CLINICAL INFORMATION: Right hand pain. COMPARISON: None TECHNIQUE: PA, lateral, and oblique views of the right hand. FINDINGS: No acute fracture or dislocation. Mild joint space narrowing with tiny marginal osteophytes at the 1st metacarpophalangeal joint. No osseous erosion. No abnormal soft tissue calcification. 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
== END 2021-06-18 09:44 | disposition home or self-care (01) ==
LOC: HO.HOSX 09:43
PROVIDERS: PCP Nurse Practitioner
DX: M65.4 Radial styloid tenosynovitis [de Quervain] (principal); N81.10 Cystocele, unspecified; N39.41 Urge incontinence; F17.210 Nicotine dependence, cigarettes, uncomplicated; Z87.39 Personal history of other diseases of the musculoskeletal system and connective tissue; Z79.01 Long term (current) use of anticoagulants; Z96.0 Presence of urogenital implants; Z46.6 Encounter for fitting and adjustment of urinary device
CPT/HCPCS: 20550; 57160; 73130; 99212; J1100

== ENCOUNTER 2021-06-25 08:17 | Outpatient (REF) | payer MEDICAID, SELFPAY ==
--- NOTE | ~2021-06-25 | US_ITS ---
EXAMINATION: COLOR-FLOW DUPLEX IMAGING OF THE BILATERAL LOWER EXTREMITY ARTERIAL SYSTEM. VELOCITY MEASUREMENTS THROUGHOUT THE FEMORAL ARTERIES WITH ANKLE-BRACHIAL PERIPHERAL ARTERIAL TESTING. CLINICAL INFORMATION: This is a 55-year-old female with peripheral vascular disease. History of hypertension and smoking. RIGHT FEMORAL RUNOFF VELOCITIES: The right common femoral artery measures 62 cm/s and monophasic. The right profunda femoral artery is 31 cm/s and is monophasic. Right proximal superficial femoral artery measures 47 cm/s and monophasic. Mid superficial femoral artery is 41 cm/s and monophasic. Distal right superficial femoral artery measures 37 cm/s and is monophasic. Right popliteal velocity measures 24 cm/s and is monophasic. The posterior tibial artery velocity measures 23 cm/s and was monophasic. The right ankle-brachial index is 0.60. LEFT FEMORAL RUNOFF VELOCITIES: The left common femoral artery measures 189 cm/s and triphasic. The left profunda femoral artery is 115 cm/s and is triphasic. Left proximal superficial femoral artery measures 89 cm/s and triphasic. Mid superficial femoral artery is 113 cm/s and triphasic. Distal left superficial femoral artery measures 101 cm/s and is triphasic. Left popliteal velocity measures 55 cm/s and is triphasic. The posterior tibial artery velocity measures 83 cm/s and was triphasic. The left ankle-brachial index is 1.31. US/US arterial duplex LE BI IMPRESSION: 1. RIGHT SIDE: There are low velocities and monophasic waveforms throughout the right lower extremity. There is severe disease in the right ankle-brachial index. This is suspicious for hemodynamically significant inflow disease. 2. LEFT SIDE: There are normal velocities with normal waveforms and normal ankle-brachial index throughout the left lower extremity without evidence of hemodynamically significant stenosis.
--- NOTE | ~2021-06-25 | US_ITS ---
EXAMINATION: US RETROPERITONEAL LIMITED (RENAL ONLY) CLINICAL INFORMATION: This is a 55-year-old female with atherosclerosis of the renal arteries. Possible renal vascular hypertension.. COMPARISON: Comparison is made to a limited CT scan dated 02/22/2021. TECHNIQUE: Bilateral renal ultrasound with renovascular Doppler was performed. FINDINGS: The right kidney measures 10.8 x 4.8 x 4.8 cm. The angiomyolipoma noted on the previous CT scan is not apparent on the current study. There is no evidence of hydronephrosis. There is normal echogenicity to the kidney with normal cortical medullary differentiation. No stone or mass is seen. The left kidney measures 11.7 x 5.9 x 4.9 cm. There is normal echogenicity to the kidney with normal cortical medullary differentiation. There is no stone or mass. Color Doppler with spectral waveform analysis and flow was performed. The aorta measures 64 cm/s. The right renal artery measured 136-166 cm/s. The left renal artery measured 97-342 cm/s. The renal aortic ratio was 2.6 on the right and 5.3 on the left. There was no post stenotic turbulence. The renal veins appear to be patent. US/US renal BI IMPRESSION: 1. There is elevation of the left renal aortic ratio and the distal left renal artery velocity. This is suspicious for hemodynamically significant left renal artery stenosis. 2. There is likely early stenosis on the right side but it is not hemodynamically significant present time.
--- NOTE | ~2021-06-25 | US_ITS ---
EXAMINATION: COLOR-FLOW DUPLEX IMAGING OF THE BILATERAL LOWER EXTREMITY ARTERIAL SYSTEM. VELOCITY MEASUREMENTS THROUGHOUT THE FEMORAL ARTERIES WITH ANKLE-BRACHIAL PERIPHERAL ARTERIAL TESTING. CLINICAL INFORMATION: This is a 55-year-old female with peripheral vascular disease. History of hypertension and smoking. RIGHT FEMORAL RUNOFF VELOCITIES: The right common femoral artery measures 62 cm/s and monophasic. The right profunda femoral artery is 31 cm/s and is monophasic. Right proximal superficial femoral artery measures 47 cm/s and monophasic. Mid superficial femoral artery is 41 cm/s and monophasic. Distal right superficial femoral artery measures 37 cm/s and is monophasic. Right popliteal velocity measures 24 cm/s and is monophasic. The posterior tibial artery velocity measures 23 cm/s and was monophasic. The right ankle-brachial index is 0.60. LEFT FEMORAL RUNOFF VELOCITIES: The left common femoral artery measures 189 cm/s and triphasic. The left profunda femoral artery is 115 cm/s and is triphasic. Left proximal superficial femoral artery measures 89 cm/s and triphasic. Mid superficial femoral artery is 113 cm/s and triphasic. Distal left superficial femoral artery measures 101 cm/s and is triphasic. Left popliteal velocity measures 55 cm/s and is triphasic. The posterior tibial artery velocity measures 83 cm/s and was triphasic. The left ankle-brachial index is 1.31. US/US GENA complete IMPRESSION: 1. RIGHT SIDE: There are low velocities and monophasic waveforms throughout the right lower extremity. There is severe disease in the right ankle-brachial index. This is suspicious for hemodynamically significant inflow disease. 2. LEFT SIDE: There are normal velocities with normal waveforms and normal ankle-brachial index throughout the left lower extremity without evidence of hemodynamically significant stenosis.
--- NOTE | ~2021-06-25 | US_ITS ---
EXAMINATION: US RETROPERITONEAL LIMITED (RENAL ONLY) CLINICAL INFORMATION: This is a 55-year-old female with atherosclerosis of the renal arteries. Possible renal vascular hypertension.. COMPARISON: Comparison is made to a limited CT scan dated 02/22/2021. TECHNIQUE: Bilateral renal ultrasound with renovascular Doppler was performed. FINDINGS: The right kidney measures 10.8 x 4.8 x 4.8 cm. The angiomyolipoma noted on the previous CT scan is not apparent on the current study. There is no evidence of hydronephrosis. There is normal echogenicity to the kidney with normal cortical medullary differentiation. No stone or mass is seen. The left kidney measures 11.7 x 5.9 x 4.9 cm. There is normal echogenicity to the kidney with normal cortical medullary differentiation. There is no stone or mass. Color Doppler with spectral waveform analysis and flow was performed. The aorta measures 64 cm/s. The right renal artery measured 136-166 cm/s. The left renal artery measured 97-342 cm/s. The renal aortic ratio was 2.6 on the right and 5.3 on the left. There was no post stenotic turbulence. The renal veins appear to be patent. US/US renal doppler IMPRESSION: 1. There is elevation of the left renal aortic ratio and the distal left renal artery velocity. This is suspicious for hemodynamically significant left renal artery stenosis. 2. There is likely early stenosis on the right side but it is not hemodynamically significant present time.
== END 2021-06-25 08:18 | disposition home or self-care (01) ==
LOC: HO.US 08:17
PROVIDERS: Visit Provider Surgery Vascular Surgery
DX: I73.9 Peripheral vascular disease, unspecified (principal); I70.1 Atherosclerosis of renal artery
CPT/HCPCS: 76775; 93923; 93925; 93975

== ENCOUNTER → 2021-07-01 09:14 | Outpatient (BNVA) | payer MEDICAID, SELFPAY | PROVIDERS: PCP Nurse Practitioner; Visit Provider Surgery Vascular Surgery | DX: I73.9 Peripheral vascular disease, unspecified (principal) | CPT/HCPCS: 99212 ==

== ENCOUNTER 2021-07-05 09:40 | Outpatient (REF) | payer MEDICAID, SELFPAY ==
[2021-07-05 11:01] LABS: Blood Urea Nitrogen 16 mg/dL (9-16); Estimated Glomerular Filt Rate > 60
== END 2021-07-05 09:41 | disposition home or self-care (01) ==
LOC: HO.LAB 09:40
PROVIDERS: PCP Nurse Practitioner; Visit Provider Surgery Vascular Surgery
DX: I73.9 Peripheral vascular disease, unspecified (principal)
CPT/HCPCS: 36415; 82565; 84520

== ENCOUNTER 2021-07-08 08:07 | Outpatient (REF) | payer MEDICAID, SELFPAY ==
--- NOTE | ~2021-07-08 | CT_ITS ---
EXAMINATION: CT ANGIOGRAPHY LEGS WITH RUNOFF CLINICAL INFORMATION: Peripheral vascular disease, unspecified. COMPARISON: Ultrasound 07/07/2021, CT 02/22/2021. TECHNIQUE: Noncontrast localizing sequences were obtained. Timing bolus was administered with region of interest on the proximal abdominal aorta. Subsequently, multidetector volumetric CT angiography of the abdomen, pelvis with lower extremity runoff was performed following the uneventful intravenous administration of 100 mL Omnipaque 350. Repeat series extending from the level of the knees to the feet was obtained for further evaluation of the runoff vessels. Coronal sagittal reformatted images were generated from the axial source data. Images were evaluated on independent dedicated 3-D workstation and 3-D images were reconstructed with concurrent radiologist supervision and subsequently interpreted. This CT examination was performed using dose optimization techniques as appropriate, variously including the following: *Automated exposure control *Adjustment of mA and/or kV according to patient size (this includes techniques or standardized protocols for targeted exams where dose is matched to indication/reason for exam; i.e. extremities or head) *Use of iterative reconstruction technique DLP: 763 mGy-cm FINDINGS: VASCULAR: The distal thoracic aorta is normal in caliber. The proximal abdominal aorta is normal in caliber. There is calcified and noncalcified disease below the level of renal cyst and focal ectasia of the aorta just beyond the origin of the inferior mesenteric artery to a diameter of 1.8 cm. The celiac trunk, superior mesenteric, and inferior mesenteric arteries are well opacified and widely patent. There are single renal artery to each kidney. The renal arteries are widely patent. No stenosis. The right common iliac artery is occluded and stenotic from its origin with reformation at the level of its bifurcation. The right external and internal iliac arteries are patent and without stenosis. Small amount of calcified and noncalcified plaque along the common femoral without significant stenosis. The profunda femoris is widely patent. The superficial femoral artery is widely patent from its origin. Popliteal artery is widely patent. The anterior tibial, posterior tibial and peroneal arteries are patent with focal occlusion of the dorsalis pedis as it crosses the talonavicular joint. The left common iliac artery is patent with calcified and noncalcified plaque, which does not result in hemodynamically significant stenosis. There is possible focal ulceration of plaque within the posterior aspect of the common iliac just before its bifurcation. The external and internal iliac arteries are well opacified. The common femoral, superficial femoral, and profunda femoris arteries are normal in caliber. The popliteal artery is normal in caliber. The runoff vessels are patent to the foot, though the anterior tibial artery is relatively diminutive. Unremarkable appearance of the venous structures for an arterial phase of contrast. NONVASCULAR: Lung bases are clear. No pleural effusion. Imaged heart is unremarkable. The liver is normal in size, shape and overall attenuation. No focal hepatic lesions identified. No intrahepatic or extrahepatic duct dilation. The gallbladder is unremarkable. Mild fatty infiltration of the head of the pancreas, which is otherwise unremarkable. No pancreatic duct dilation. The spleen is not enlarged. There is heterogeneous enhancement secondary to arterial phase of contrast. The adrenal glands are unremarkable. The kidneys are normal in size and overall attenuation. There is mild bilateral lobulation and several foci of renal cortical thinning on the right, possible scarring, similar to prior. There are no renal calculi, hydronephrosis, ureteral calculi or hydroureter. Bladder is partially distended and normal in contour. Unremarkable CT appearance of the uterus. No adnexal lesions are seen. The distal esophagus and stomach are unremarkable. The small and large bowel are normal in course and caliber. There is a normal appendix. There are no bowel wall inflammatory changes or abnormal wall thickening. No free intraperitoneal fluid. No abdominopelvic or retroperitoneal lymphadenopathy is seen. No significant hernia of the abdominal wall is identified. There is a densely sclerotic 8 mm structure within the left iliac (image 476, series 8), which is unchanged from the prior study and likely represents a bone island. There is bilateral facet arthropathy at L4-L5. 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 There is focal occlusion of the dorsalis pedis as it crosses the talonavicular joint, otherwise the right lower extremity arterial vasculature is patent. Patent left lower extremity arterial vasculature without hemodynamically significant stenosis. Note again made of multifocal right renal cortical thinning, possibly representing scarring.
[2021-07-08] MEDS: iohexoL 350 MG/ML 100 ML INFUS..BTL IV (09:10)
== END 2021-07-08 08:08 | disposition home or self-care (01) ==
LOC: HO.CT 08:07
PROVIDERS: PCP Nurse Practitioner; Visit Provider Surgery Vascular Surgery
DX: I73.9 Peripheral vascular disease, unspecified (principal); I70.219 Atherosclerosis of native arteries of extremities with intermittent claudication, unspecified extremity
CPT/HCPCS: 75635; Q9967

== ENCOUNTER → 2021-07-29 09:07 | Outpatient (BNVA) | payer MEDICAID, SELFPAY | PROVIDERS: PCP Nurse Practitioner; Visit Provider Surgery Vascular Surgery | DX: I73.9 Peripheral vascular disease, unspecified (principal) | CPT/HCPCS: 99212 ==

== ENCOUNTER 2021-07-30 09:00 | Outpatient (RCR) | payer MEDICAID, SELFPAY ==
--- NOTE | 2021-06-19 14:07 | MHC.PT.EP ---
[facility] [place] Office [place] Office [address] Sidra Cai [address] [phone] F: [phone] F: [phone] F: [phone] F: [phone] Physical Therapy Plan of Care Date of Evaluation: 06/19/21 Date of Surgery: none Diagnosis: urinary incontinence Assessment: The patient has painful and limited lumbar ROM. Grossly deconditioned strength in her legs. Poor trunk control, poor body mechanics. She lives a relatively sedentary lifestyle. The patient asked to defer her internal exam today, which will be important to decide her therapy prognosis. At this point I started her with posture education, gave her bladder log, list of bladder irritants, and education on how these diet changes can impact her urine output. She was given instructions on bladder retraining and to get on a bladder schedule. I instructed her on every two hours. (she was only going twice) I also educated her on how to control intraabdominal pressure and how this can affect incontinence. She is a good candidate for skilled Pelvic Floor Therapy. Frequency and Duration: The patient will be seen 1 Short Term Goals: 1. Improve sitting posture to reduce strain on lumbar 2. Educate her on bladder irritants 3. Review sitting and sleeping posture and review intraabdominal pressure and its affect on incontinence. Shelter Goals: Pt to be able to reduce pad usage to less than 5/day. pt to be independent with symptom management Pt to be able to achieve a good bladder schedule that works for her lifestyle and reduce nocturia to less than 3x/night Tr Manual therapy to restore motion and function. Therapeutic exercise to improve strength and flexibility. Neuromuscular re-education for posture and balance. Therapeutic activities to return to functional activities of daily living Pelvic Floor Therapy. Electronically signed by: Mary Fernando PT DPT Please sign and return to therapist. Thank you for your referral.
--- NOTE | 2021-07-30 11:09 | MHC.PT.PR ---
[place] [facility] [place] Office [place] Office [address] Sidra Cai 140 [facility] [phone] F: [phone] F: [phone] F: [phone] F: [phone] Physical Therapy Progress Note Diagnosis: urinary incontinence Date of Surgery: none Date of Evaluation: 06/19/21 Treatments to Date: 4 Cancellations to Date: No Shows to Date: Subjective: The patient consented to an internal exam. She reports she is peeing constantly and it comes out continuously. She is also soaking wet in the morning when she wakes up. Pain Score and Location: 7 Objective Measures: PERF scale 0/0/0/0 When I cued her to hold gas I felt a quick flicker of activity. However the patient was unable to recreate this contraction. The patient did not have a contraction during a cough. She was unable to bear down. Assessment: The patient had 0/5 power. I felt a 1/5 flicker with cues to hold gas. This likely means she has poor coordination. However, I think it would be beneficial to do EMG studies to assess muscular activity in the urogenital triangle. Pt is unaware of incontinence half the time and has constant urine leakage. Poor tone in anterior wall of pelvic floor, but no prolapse noted. I would be interested to assess her in standing. The patient was given rectal contractions for HEP since this initiated the best contraction. I reviewed bladder irritants, hydrating, and other education. Pt had some redness in skin likely from wearing wet diapers constantly. PT Plan: Frequency and Duration: The patient will be seen 1 Treatment Plan: Therapeutic Exercise Dynamic Therapeutic Activities Neuromuscular Re-ed Manual Therapies Home Exercise Program Patient Education Pelvic Floor Therapy Reviewed/ Agreed with Student Documentation: Therapist: Thank you once again for your referral.
== END 2021-09-03 08:04 | disposition home or self-care (01) ==
LOC: HO.PT 09:00
PROVIDERS: PCP Nurse Practitioner
DX: R32 Unspecified urinary incontinence (principal)
CPT/HCPCS: 97110; 97112; 97140; 97162; 97530

== ENCOUNTER → 2021-08-06 09:55 | Outpatient (BNVA) | payer MEDICAID, SELFPAY | PROVIDERS: PCP Nurse Practitioner | DX: Z46.6 Encounter for fitting and adjustment of urinary device (principal); N39.41 Urge incontinence | CPT/HCPCS: 99212 ==

== ENCOUNTER → 2021-08-13 09:50 | Outpatient (BNVA) | payer MEDICAID, SELFPAY | PROVIDERS: PCP Nurse Practitioner; Visit Provider Orthopaedic Surgery | DX: M65.4 Radial styloid tenosynovitis [de Quervain] (principal); R20.0 Anesthesia of skin; R20.2 Paresthesia of skin | CPT/HCPCS: 99212 ==

== ENCOUNTER 2021-09-23 10:37 | Day surgery (SDC) | payer MEDICAID, SELFPAY ==
--- NOTE | 2021-09-23 11:21 | W.PM.OPN ---
Operative Note Operative Note Date of Service: 09/23/21 Narrative: Operative Note Preop diagnosis: 1. right DeQuervain's tenosynovitis Postop diagnosis: 1. right DeQuervain's tenosynovitis Procedure: 1. right 1st dorsal compartment release Surgeon: Katty Crisostomo MD Anesthesia: local block using 1% lidocaine with epinephrine Findings: Thickened 1st dorsal compartment. EBL: Less than 5 mL Tourniquet time: None Specimens: None Complications: None Disposition: Brought to recovery room in stable condition Plan: Follow-up for 7-10 days for wound check and suture removal Indications: The patient is 56 years old, with right DeQuervain's tenosynovitis that has been unresponsive to nonoperative management. The risks and benefits of operative treatment including but not limited to risk of damage to blood vessels, nerves, tendons, infection, persistent pain, persistent symptoms, recurrence or possible need for additional surgery were discussed with the patient and the patient wishes to proceed with surgery. Procedure: Once consent was obtained a local block was performed in the preop area using a combination of 1% lidocaine with epinephrine. The patient was then brought back to the operating suite and placed on the operative table in supine position. A tourniquet was applied to the proximal aspect of the right upper extremity and the limb was prepped and draped in a standard surgical fashion. Once assured that we had a good block, a 1.5 cm longitudinal incision was made centered over the 1st dorsal compartment as it passed over the radial styloid of the right wrist. The incision was made through the skin to the subcutaneous tissues using a #15 blade. Careful dissection was made down to the level of the 1st dorsal compartment using tenotomy scissors, with care being taken to protect the nearby branches of the superficial radial nerve. Once the 1st dorsal compartment was exposed, A longitudinal incision was made in the 1st dorsal compartment 1st using a #15 blade, then using tenotomy scissors under direct visualization. The 1st dorsal compartment was noted to be thickened. Following our release, we saw smooth gliding abductor pollicis longus and extensor pollicis brevis tendons, which were both in a single compartment. Once satisfied with our 1st dorsal compartment release the wound was copiously irrigated with normal saline and hemostasis was obtained with a brief period of local pressure. The subcutaneous layer was closed with some 4-0 Vicryl suture, and the skin edges were reapproximated with some 5.0 nylon suture material. A sterile dressing was applied. The patient appears to have tolerated the procedure well and with no complications. All digits were well vascularized at the conclusion of the case.
--- NOTE | 2021-09-23 11:47 | MHC.SHP ---
Pre-Procedural Eval Section A Date of Service: 09/23/21 The patient is an INPATIENT: No Changes since office visit: No Cold of Flu in the past 2 weeks, No New Medical Problems, No Changes in Medication and No Patient answered all questions The History & Physical has been completed within 30 days and I have reviewed it.: Yes Section B Chief Complaint: Radial styloid tenosynovitis [de Quervain] Allergies: Allergies Allergy/AdvReac Type Severity Reaction Status Date / Time codeine [CODEINE] Allergy Unknown UNKNNOWN Verified 08/13/21 10:43 lisinopril Allergy rash Verified 08/13/21 10:43 Plan I have reviewed the history and physical and performed a pertinent physical examination on my patient. No changes have occurred unless specified.
[2021-09-23 11:54] VITALS: BP 130/81; PULSE 82; RESP 18; TEMP 36.9; O2SAT 97; BMI 30.2
[2021-09-23 13:22] VITALS: BP 121/69; PULSE 71; RESP 18; TEMP 36.3; O2SAT 96
== END 2021-09-23 13:31 | disposition home or self-care (01) ==
PROVIDERS: PCP Nurse Practitioner; Visit Provider Orthopaedic Surgery
PROC: (CPT 25000; principal; 2021-09-23 12:10)
DX: M65.4 Radial styloid tenosynovitis [de Quervain] (principal); R20.0 Anesthesia of skin; M25.531 Pain in right wrist; I10 Essential (primary) hypertension; J45.909 Unspecified asthma, uncomplicated; Z88.8 Allergy status to other drugs, medicaments and biological substances; Z98.890 Other specified postprocedural states; F17.210 Nicotine dependence, cigarettes, uncomplicated
CPT/HCPCS: 25000; J0171

== ENCOUNTER 2021-10-02 05:51 | Day surgery (SDC) | payer MEDICAID, SELFPAY ==
[2021-10-02] VITALS (11 sets, daily range): BP systolic 134–161; BP diastolic 60–82; PULSE 60–80; RESP 17–18; TEMP 35.6–36.5; O2SAT 94–96; BMI 30.9
[2021-10-02 06:41] LABS: MANUAL DIFF FLAG NO
[2021-10-02 06:48] LABS: Basophils Absolute Auto 0.1 X10*3/uL (0.0-0.2); Basophils Percent Auto 0.6 % (0-2); Eosinophils Absolute Auto 0.2 X10*3/uL (0.0-0.4); Eosinophils Percent Auto 1.9 % (0-4); Hematocrit 41.9 % (37.0-47.0); Hemoglobin 14.1 g/dl (12.0-16.0); Imm Gran Abs Auto 0.05 X10*3/uL (0.00-0.03); Imm Gran Pct Auto 0.5 % (0.0-0.4); Lymphocytes Absolute Auto 2.8 X10*3/uL (1.2-4.9); Lymphocytes Percent Auto 27.5 % (20-40); Mean Corpuscular HGB Conc 33.7 g/dl (31.0-35.0); Mean Corpuscular Hemoglobin 31.6 pg (27.0-33.0); Mean Corpuscular Volume 93.9 fL (80.0-98.0); Monocytes Absolute Auto 0.6 X10*3/uL (0.1-1.2); Monocytes Percent Auto 5.3 % (2-11); Neutrophils Absolute Auto 6.6 x10*3/uL (2.0-8.3); Neutrophils Percent Auto 64.2 % (45-73); Platelet Count 247 X10*3/uL (160-400); Red Blood Count 4.46 X10*6/uL (4.20-5.50); Red Cell Distribution Width 13.1 % (11.0-16.0); White Blood Count 10.3 X10*3/uL (4.8-10.8)
[2021-10-02 07:01] LABS: Blood Urea Nitrogen 19 mg/dL (9-16); Creatinine Clr Calc Pharmacy 86.3; Estimated Glomerular Filt Rate > 60
--- NOTE | 2021-10-02 09:00 | W.PM.OPN ---
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 Ultrasound-guided left common femoral access 2. Aortogram with bilateral lower extremity runoff Surgeon:Zacarias Harris M.D., FACS, RPVI Band Head Saw Operator:None Anesthesia: Local with moderate conscious sedation. Total intraservice moderate sedation time was 27 minutes. I monitored the patient's level of consciousness and physiologic status continuously throughout the procedure. Specimens:none Drains:none Estimated blood loss: Less than 10 ml Implant: None Indications: 56-year-old female with severe activity limiting claudication can barely walk block. She had preprocedure CT angiogram which demonstrated iliac stenosis/occlusion. She now presents for endovascular intervention The patient has signed the informed consent after reviewing risks, complications, benefits, and alternatives previously discussed with the patient. The patient was given the opportunity to ask any additional questions or voice any concerns. All questions were answered to the patient's satisfaction. Procedure in detail: Patient was brought to the angiography suite prior to which a time-out was called for patient identification and site verification. Bilateral groins were prepped and draped in the standard surgical fashion. Under ultrasound guidance left common femoral was punctured with micro puncture needle and wire. Subsequently a precision 5 Gabonese sheath was then placed. Bentson wire was advanced to the level of the aorta. 5 Gabonese Flush catheter was brought up and parked at the level of the renal arteries. Aortogram was then undertaken. Catheter was brought down to the level of the iliac bifurcation. Iliacs were subsequently imaged. I was unable to engage the right common iliac and pass a wire through. Through the bifurcation I subsequently imaged the right lower extremity. The catheter was then removed and we imaged the left lower extremity through the sheath. No intervention was indicated. Sheath was removed and direct pressure was held for 10 minutes. Patient tolerated the procedure well. Returned to recovery with stable vitals. Interpretation of films: 1. Ultrasound demonstrates appropriate femoral puncture. Image of which was saved. 2. Aortogram demonstrates appropriate caliber aorta. Minimal disease. Appropriate take-off of the renals. 3. 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 Right Leg Common femoral artery: Patent Profundus Femoris: No significant disease Superficial femoral artery: No significant disease Popliteal artery (p1,p2,p3): No significant disease Anterior tibial artery: Patent Peroneal artery: Patent to about the ankle and becomes diminutive Posterior tibial artery: Patent Dorsalis pedis/plantar arch: Incomplete 5. Left Leg Common femoral artery: Patent Profundus Femoris: No significant disease Superficial femoral artery: No significant disease Popliteal artery (p1,p2,p3): No significant disease Anterior tibial artery: Patent Peroneal artery: Patent to about the ankle and becomes diminutive Posterior tibial artery: Patent Dorsalis pedis/plantar arch: Incomplete Conclusion: 1. Successful diagnostic angiogram. No intervention indicated. Patient will require fem-fem bypass from left to right 2. Anticoagulation status: No change This note is constructed using voice recognition software. While every effort has been made to ensure accuracy, cone classifier tender errors may have been included. Thank you for allowing me to participate in the care of your patient. Yours sincerely, Zacarias Harris MD, FACS, R.P.V.I.
== END 2021-10-02 12:42 | disposition home or self-care (01) ==
PROVIDERS: PCP Nurse Practitioner; Visit Provider Surgery Vascular Surgery
DX: I70.211 Atherosclerosis of native arteries of extremities with intermittent claudication, right leg (principal); F17.210 Nicotine dependence, cigarettes, uncomplicated
CPT/HCPCS: 36245; 36415; 75630; 76937; 82565; 84520; 85025; 99152; 99153; C1769; C1887; J2250; J3010; Q9967

== ENCOUNTER → 2021-10-08 15:14 | Outpatient (BNVA) | payer MEDICAID, SELFPAY | PROVIDERS: PCP Nurse Practitioner; Visit Provider Surgery Vascular Surgery | DX: I73.9 Peripheral vascular disease, unspecified (principal) | CPT/HCPCS: 99212 ==

== ENCOUNTER → 2021-10-14 13:29 | Outpatient (BNVA) | payer MEDICAID, SELFPAY | PROVIDERS: PCP Nurse Practitioner; Referring Provider Surgery Vascular Surgery; Visit Provider Internal Medicine | DX: Z01.810 Encounter for preprocedural cardiovascular examination (principal); I73.9 Peripheral vascular disease, unspecified; I10 Essential (primary) hypertension; E78.5 Hyperlipidemia, unspecified; F17.210 Nicotine dependence, cigarettes, uncomplicated | CPT/HCPCS: 93005; 99202 ==

== ENCOUNTER → 2021-10-17 09:50 | Outpatient (REF) | payer MEDICAID, SELFPAY ==
--- NOTE | ~2021-10-17 | NM_ITS ---
Lexiscan Myocardial perfusion study Indication: Preoperative cardiovascular evaluation Technique: The patient was brought in for a Lexiscan perfusion study on 10/17/2021 and was injected 0.4 mg of Lexiscan intravenously. Within a minute of this injection 30 mCi of sestamibi was given intravenously. Images were obtained using the SPECT gamma camera interlaced with the gating device. Images were obtained in supine position. Resting perfusion study was performed on 10/18/2021. Patient was administered 30 mCi of sestamibi intravenously at rest. Images were then obtained in supine position. Total DLP 97mGy-cm. Images were processed with the software and compared side to side in short axis, horizontal long axis and vertical long axis views. Findings: Raw acquisition reviewed. The stress perfusion study showed no significant perfusion abnormality. Both uncorrected as well as CT attenuation corrected images were reviewed. The gated study shows low normal LV systolic function with calculated LVEF of 53%. LV cavity is normal in size. The gated study shows normal wall thickening and contraction of segments. Resting study shows no significant perfusion abnormality. Gating at rest reveals normal wall motion with ejection fraction at 55%. The findings are consistent with no definite reversible or fixed perfusion abnormality. NM/NM cardiolite stress test Impression: 1. Myocardial perfusion imaging study shows likely normal myocardial perfusion. 2. Gated LVEF is 53% during stress and 55% during rest. 3. Transient ischemic dilatation not present. EKG component of the test reported separately.
--- NOTE | 2021-10-17 10:02 | CA_ITS ---
Acquisition Time: 2021-10-17 10:46:30 Total Exercise Time: 00:02:00 Test Indications: PREOP Medications: SEE CHART Protocol: LEXISCAN Max HR: 111 BPM 66% of Pred: 166 BPM Max BP: 124/078 mmHG Max Work Load: 1.0 METS Pharmacological stress atest with Lexiscan injection, while sitting and kicking her legs, without anginal symptoms, without arrythmia, with normotensive response to injection, with nondiagnostic EKG for ischemia. In recovery she reported abdominal discomfort that was treated with Aminophylline 75mg IVP to reverse Lexiscan with resolution of symptom. Nuclear images pending. Test reviewed with Dr Mendieta. Referred By: Destin Mendieta Overread By: ATUL VAUGHAN
--- NOTE | 2021-10-17 10:02 | CA_ITS ---
Transthoracic Echocardiogram Patient (Last, First, Middle): Yael Gudino M Gender: Female Date of : 1965 Age: 56 Procedure Date: 10/17/2021 Procedure Type: Transthoracic Echocardiogram Location: OP Height: 160.02 cm Weight: 83.46 kg BSA: 1.87 m2 Heart Rate: bpm BP: 117 / 76 mmHg Regional Account Executive: TO Referring MD: Destin Mendieta MD Symptoms: Z01.810 - Encounter for preprocedural cardiovascular examination Study Quality: Adequate ECG Rhythm: Sinus Conclusions: - The left ventricular systolic function is normal. The visually estimated ejection fraction is between 60-65%. - No obvious valvular pathology seen on this study. Findings Left Ventricle Normal left ventricular cavity size. There is mildly increased left ventricular wall thickness. The left ventricular systolic function is normal. The visually estimated ejection fraction is between 60-65%. There is no evidence of regional wall motion abnormalities. Diastolic function is normal for age. There is moderate septal and moderate basal asymmetric hypertrophy. Right Ventricle Normal right ventricular cavity size and systolic function. Atria Both atria are normal in size. Aortic Valve There is a normal trileaflet aortic valve. There is no aortic valve stenosis. There is no aortic valve regurgitation. Mitral Valve The mitral valve appears normal. There is no mitral valve regurgitation. There is no mitral valve stenosis. Pulmonic Valve The pulmonic valve is likely normal. Tricuspid Valve There is trace tricuspid valve regurgitation. The pulmonary artery systolic pressure is normal. Great Vessels The aortic annulus, sinuses of valsalva, and asc aorta are normal in size. Venous The inferior vena cava is normal in size and collapses greater than 50% with inspiration. Pericardium/Pleural There is no evidence of pericardial effusion. Prior Study Comparison No prior study available for comparison. Recommendations, Care & Conclusions No obvious valvular pathology seen on this study. Measurements 2D Linear Measurements IVSd: 1.28 0.6-0.9/0.6-1.0 cm LVIDd: 3.75 3.9-5.3/4.2-5.9 cm LVIDd Index: 2.01 2.4-3.2/2.2-3.1 cm/m2 LVIDs: 2.65 2.0-3.6 cm LVPWd: 1.03 0.7-1.1 cm LA Diam: 3.10 2.7-3.8/3.0-4.0 cm LAIDs Index: 1.66 1.5-2.3 cm/m2 LV Mass: 176.60 67-162/88-224 g LV Mass Index: 94.44 43-95/49-115 g/m2 LVOT Diam: 2.30 3.0+(-)1.3 cm 2D Systolic Function EF 4C: 50.30 >55% EF 2C: 61.30 >55% EF BiP: 56.10 >55% Mitral Valve MV Pk E: 0.48 MV PK A: 0.81 MV Decel Time: 148.00 E/A: 0.60 E'Lateral: 11.40 E'Medial: 7.72 E/E' Med: 6.20 E/E' Lat: 4.20 PHT: 43.00 MVA PHT: 5.12 Decel Bamberg: 3.22 Aortic Valve AoV Pk Dominguez: 1.12 AoV Mn Dominguez: 0.68 AoV VTI: 0.20 AoV Pk Grad: 5.00 Aov Mn Grad: 2.00 BROOKS Cont.VTI: 3.54 LVOT LVOT Pk Dominguez: 0.98 LVOT Mn Dominguez: 0.63 LVOT VTI: 0.17 LVOT Pk Grad: 4.00 LVOT Mn Grad: 2.00 LVOT Diam: 2.30 LVOT Area: 4.15 Diastolic Function MV Pk E: 0.48 MV Pk A: 0.81 E/A: 0.60 E'Medial: 7.72 E/E' Med: 6.20 E' Laterial: 11.40 E/E' Lat: 4.20 Right Ventricle TAPSE (mm): 21.70 TVS' Dominguez: 10.90 Tricuspid Valve RA Press: 3.00 Great Vessels Aorta Sinus of Valsalva: 3.24 2.0-3.5 cm Ao Asc: 3.10 2.1-3.4 cm Updated in Other Vendor System with Status of Final Destin Mendieta MD electronically signed on 10/19/2021 10:59:10 AM with status of Final
== END ==
LOC: HO.CARD 09:50
PROVIDERS: PCP Nurse Practitioner; Visit Provider Internal Medicine
DX: Z01.810 Encounter for preprocedural cardiovascular examination (principal)
CPT/HCPCS: 78452; 93017; 93306; A9500; J0280; J2785

== ENCOUNTER 2021-10-28 07:20 | Inpatient (IN) | payer MEDICAID, SELFPAY ==
[2021-10-16 13:52] VITALS: BP 121/68; PULSE 116; RESP 18; O2SAT 98; BMI 32.4
--- NOTE | 2021-10-16 14:34 | P.CONAN_ITS ---
Documented by User: Ann Howard NP 10/25/21 10:09 HPI - Anesthesia Eval Consult details Narrative: 56yo F Femoral Femoral Bypass Graft Cardiac cleared Myocardial perfusion imaging study shows likely normal perfusion.? Echocardiogram with normal LVEF, 60-65%; moderate septal hypertrophy but otherwise unremarkable. Overall, may proceed with vascular surgery as planned.? Intermediate cardiac risk. Pt with signif mid-lower back pain - no opioids - concern regarding position during OR PMFSH Active Problems Active Problems: All Active Problems (Updated 10/14/21 @ 14:19 by Destin Mendieta MD) Ganglion cyst of volar aspect of right wrist (Acute) Urinary incontinence (Acute) Bladder prolapse, female, acquired (Acute) PAD (peripheral artery disease) (Acute) Right renal artery stenosis (Acute) Urge incontinence (Acute) De Quervain's tenosynovitis, right (Acute) Numbness and tingling in right hand (Acute) Smoker (Acute) Preoperative cardiovascular examination (Acute) Essential hypertension (Acute) Other and unspecified hyperlipidemia (Acute) Past Medical History Medical History (Updated 10/14/21 @ 14:19 by Destin Mendieta MD) Asthma Back pain Bladder prolapse, female, acquired COVID-19 vaccine administered Hypertension Kidney injury Post-menopausal Urge incontinence Urinary incontinence Family History Family History (Updated 10/14/21 @ 13:53 by SETH Blood) Father No problems noted. Mother No problems noted. Family history of problems with anesthesia: No Surgical History Surgical History (Updated 10/16/21 @ 14:18 by Viviana Ruby RN) History of kidney surgery History of right oophorectomy S/P aortogram History of Problems with Anesthesia: No Social History Social History (Updated 10/14/21 @ 13:53 by SETH Blood) Household Members Other:: mother Are you a primary healthcare financial analyst to a significant other at home: No Do you presently have visiting nurse or other home services: No Patient Tobacco Use Status: Current everyday Tobacco user Tobacco use type: Cigarette Cigarette Packs Per Day: 0.5 Cigarettes Per Day: 10 Years Smoked: 25+ Smoked in Last 30 Days: Yes Patient Interested in Nicotine Replacement: Yes Patient Given Instructions on How to Stop Smoking: Yes Date Education Initiated: 10/16/21 Second Hand Smoke Exposure: No Use of substances other than those prescribed or required for medical reasons: No Have you been hit, kicked, punched, or otherwise hurt by someone within the past year? 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 Meds Allergies Allergy/AdvReac Type Severity Reaction Status Date / Time lisinopril Allergy Severe Facial Verified 10/15/21 10:08 Swelling, throat closing codeine [CODEINE] AdvReac Severe blacked Verified 10/15/21 10:08 out Home Medications Medication Instructions Recorded Confirmed Last Taken Type acetaminophen 325 mg capsule 325 mg PO QID PRN Pain 01/02/21 10/15/21 Unknown History atorvastatin 10 mg tablet 10 mg PO BEDTIME 01/02/21 10/15/21 Unknown History clonidine HCl 0.1 mg tablet 0.1 mg PO BID 01/02/21 10/15/21 01/24/21 05:30 History cyclobenzaprine 5 mg tablet 5 mg PO BEDTIME 01/02/21 10/15/21 Unknown History duloxetine 20 mg capsule,delayed 20 mg PO BID 01/02/21 10/15/21 01/24/21 05:30 History release gabapentin 100 mg capsule 100 mg PO BEDTIME 01/02/21 10/15/21 Unknown History amlodipine 2.5 mg tablet 2.5 mg PO DAILY 10/14/21 10/15/21 Unknown History apixaban 5 mg tablet (Eliquis) 5 mg PO BID 10/14/21 10/15/21 10/24/21 History docusate sodium 100 mg capsule 100 mg PO BID 10/16/21 10/16/21 Unknown History (Colace) Exam Exam Date and Time: October 16, 2021 1434 Height,Weight and Vital Signs: Height 5 ft 3 in Weight 83 kg Last Vital Signs Pulse 116 H 10/16/21 13:52 Resp 18 10/16/21 13:52 BP 121/68 10/16/21 13:52 Pulse Ox 98 10/16/21 13:52 O2 Del Method 10/16/21 13:52 Pertinent Lab Results Pertinent Lab Results: Lab Results 10/16/21 10/16/21 10/16/21 Range/Units 15:00 15:07 15:07 WBC 8.8 (4.8-10.8) X10*3/uL RBC 4.63 (4.20-5.50) X10*6/uL Hgb 14.8 (12.0-16.0) g/dl Hct 43.7 (37.0-47.0) % MCV 94.4 (80.0-98.0) fL MCH 32.0 (27.0-33.0) pg MCHC 33.9 (31.0-35.0) g/dl RDW 13.3 (11.0-16.0) % Plt Count 240 (160-400) X10*3/uL MPV 9.6 (9.4-12.3) fL Absolute Nucleated RBC 0.000 (0.0-0.012) X10*3/uL Nucleated RBC % (auto) 0.0 (0.0-0.2) /100WBC PT 11.7 (10.0-13.1) SEC INR 1.0 (0.9-1.1) APTT 37.0 (24.1-38.0) SEC Sodium (135-145) mmol/L Potassium (3.3-5.1) mmol/L Chloride (96-108) mmol/L Carbon Dioxide (22-29) mmol/L Anion Gap (12-20) BUN (9-16) mg/dL Creatinine (0.5-1.4) mg/dL Estim Creat Clear Calc Estimated GFR Random Glucose (60-115) mg/dL Calcium (8.4-10.2) mg/dL Total Bilirubin (0.0-1.0) mg/dL AST (5-31) U/L ALT (0-31) U/L Alkaline Phosphatase (39-117) U/L Total Protein (6.5-8.0) g/dL Albumin (3.5-5.0) g/dL Triglycerides mg/dL Cholesterol mg/dL LDL Cholesterol, Calc mg/dl HDL Cholesterol mg/dL Blood Type O Positive Antibody Screen NEGATIVE 10/16/21 Range/Units 15:07 WBC (4.8-10.8) X10*3/uL RBC (4.20-5.50) X10*6/uL Hgb (12.0-16.0) g/dl Hct (37.0-47.0) % MCV (80.0-98.0) fL MCH (27.0-33.0) pg MCHC (31.0-35.0) g/dl RDW (11.0-16.0) % Plt Count (160-400) X10*3/uL MPV (9.4-12.3) fL Absolute Nucleated RBC (0.0-0.012) X10*3/uL Nucleated RBC % (auto) (0.0-0.2) /100WBC PT (10.0-13.1) SEC INR (0.9-1.1) APTT (24.1-38.0) SEC Sodium 139 (135-145) mmol/L Potassium 4.4 D (3.3-5.1) mmol/L Chloride 106 (96-108) mmol/L Carbon Dioxide 23 (22-29) mmol/L Anion Gap 14 (12-20) BUN 14 (9-16) mg/dL Creatinine 0.98 (0.5-1.4) mg/dL Estim Creat Clear Calc 66.9 Estimated GFR 59 Random Glucose 98 (60-115) mg/dL Calcium 9.6 D (8.4-10.2) mg/dL Total Bilirubin 0.4 (0.0-1.0) mg/dL AST 22 D (5-31) U/L ALT 22 (0-31) U/L Alkaline Phosphatase 97 (39-117) U/L Total Protein 7.4 (6.5-8.0) g/dL Albumin 4.3 (3.5-5.0) g/dL Triglycerides 269 mg/dL Cholesterol 341 mg/dL LDL Cholesterol, Calc 243 mg/dl HDL Cholesterol 45 mg/dL Blood Type Antibody Screen Narrative Narrative: EKG 09/2021 sinus rhythm at 97/Min; right atrial enlargement; no significant ST-T changes and otherwise unremarkable ECHO 09/2021 Conclusions: - The left ventricular systolic function is normal.? The visually estimated ejection fraction is between 60-65%. ? - No obvious valvular pathology seen on this study.?? NM cardiolite stress test 09/2021 Impression: ? 1.? Myocardial perfusion imaging study shows likely normal myocardial perfusion. 2.? Gated LVEF is 53% during stress and 55% during rest. 3. Transient ischemic dilatation not present. ? EKG component of the test reported separately. Airway Mallampati Class: I TM Dist: >3cm Neck ROM: Full Denture: Upper and Lower Heart: Tachy, RR Lungs: CTAB Assessment and Plan Assessment Anesthesia Assessment: Anesthesia Plan Discussed, Smoking Cess. Discussed and PAT Visit Final Anesthetic Review Family History of Problems with Anesthesia: No History of Problems with Anesthesia: No Documented by User: Sarah Rivers MD 10/28/21 07:40 [facility] Active Problems Active Problems: All Active Problems (Updated 10/14/21 @ 14:19 by Destin Mendieta MD) Ganglion cyst of volar aspect of right wrist (Acute) Urinary incontinence (Acute) Bladder prolapse, female, acquired (Acute) PAD (peripheral artery disease) (Acute). Last dose eliquis 10/24/21 Right renal artery stenosis (Acute) Urge incontinence (Acute) De Quervain's tenosynovitis, right (Acute) Numbness and tingling in right hand (Acute) Smoker (Acute) Preoperative cardiovascular examination (Acute) Essential hypertension (Acute) Other and unspecified hyperlipidemia (Acute) Denies LEON Denies TIA, CVA, chest pain Past Medical History Medical History (Updated 10/14/21 @ 14:19 by Destin Mendieta MD) Asthma Back pain Bladder prolapse, female, acquired COVID-19 vaccine administered Hypertension Kidney injury Post-menopausal Urge incontinence Urinary incontinence Family History Family History (Updated 10/14/21 @ 13:53 by Megan Vera Melinda) Father No problems noted. Mother No problems noted. Surgical History Surgical History (Updated 10/16/21 @ 14:18 by Viviana Ruby RN) History of kidney surgery History of right oophorectomy S/P aortogram Social History Social History (Updated 10/14/21 @ 13:53 by Megan Vera Melinda) Household Members Other:: mother Are you a primary healthcare financial analyst to a significant other at home: No Do you presently have visiting nurse or other home services: No Patient Tobacco Use Status: Current everyday Tobacco user Tobacco use type: Cigarette Cigarette Packs Per Day: 0.5 Cigarettes Per Day: 10 Years Smoked: 25+ Smoked in Last 30 Days: Yes Patient Interested in Nicotine Replacement: Yes Patient Given Instructions on How to Stop Smoking: Yes Date Education Initiated: 10/16/21 Second Hand Smoke Exposure: No Use of substances other than those prescribed or required for medical reasons: No Have you been hit, kicked, punched, or otherwise hurt by someone within the past year? 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 Meds Allergies Allergy/AdvReac Type Severity Reaction Status Date / Time lisinopril Allergy Severe Facial Verified 10/15/21 10:08 Swelling, throat closing codeine [CODEINE] AdvReac Severe blacked Verified 10/15/21 10:08 out Home Medications Medication Instructions Recorded Confirmed Last Taken Type acetaminophen 325 mg capsule 325 mg PO QID PRN Pain 01/02/21 10/15/21 Unknown History atorvastatin 10 mg tablet 10 mg PO BEDTIME 01/02/21 10/15/21 Unknown History clonidine HCl 0.1 mg tablet 0.1 mg PO BID 01/02/21 10/15/21 01/24/21 05:30 History cyclobenzaprine 5 mg tablet 5 mg PO BEDTIME 01/02/21 10/15/21 Unknown History duloxetine 20 mg capsule,delayed 20 mg PO BID 01/02/21 10/15/21 01/24/21 05:30 History release gabapentin 100 mg capsule 100 mg PO BEDTIME 01/02/21 10/15/21 Unknown History amlodipine 2.5 mg tablet 2.5 mg PO DAILY 10/14/21 10/15/21 Unknown History apixaban 5 mg tablet (Eliquis) 5 mg PO BID 10/14/21 10/15/21 10/24/21 History docusate sodium 100 mg capsule 100 mg PO BID 10/16/21 10/16/21 Unknown History (Colace) Exam Height,Weight and Vital Signs: Height 5 ft 3 in Weight 83 kg Last Vital Signs Pulse 116 H 10/16/21 13:52 Resp 18 10/16/21 13:52 BP 121/68 10/16/21 13:52 Pulse Ox 98 10/16/21 13:52 O2 Del Method 10/16/21 13:52 Vital Signs Temp Pulse Resp BP Pulse Ox O2 Del Method 10/28/21 06:10 96.8 F 71 18 113/63 96 Room Air Airway Mallampati Class: II Heart: RRR Assessment and Plan Assessment Anesthesia Assessment: Chart Reviewed Final Anesthetic Review NPO: Yes ASA Class: III Final Preanesthetic Review: No Changes in Pt Med Stat, Meds/Allgs Chart Reviewed, Consent Obtained/Reviewed and Anes Risks/Benef Reviewed Patient Risk: Intermediate Procedure Risk: Intermediate Assessment/Block/Sedation in SS: Assess/Block/Sedation-SS Anesthetic Plan Anesthetic Plan: GA and Other (Arterial line) Disposition: Standard PACU and Inp. Admit - ICU
[2021-10-16 15:33] LABS: Hematocrit 43.7 % (37.0-47.0); Hemoglobin 14.8 g/dl (12.0-16.0); Mean Corpuscular HGB Conc 33.9 g/dl (31.0-35.0); Mean Corpuscular Volume 94.4 fL (80.0-98.0); Mean Platelet Volume 9.6 fL (9.4-12.3); Platelet Count 240 X10*3/uL (160-400); Red Blood Count 4.63 X10*6/uL (4.20-5.50); Red Cell Distribution Width 13.3 % (11.0-16.0); White Blood Count 8.8 X10*3/uL (4.8-10.8)
[2021-10-16 15:39] LABS: Prothrombin Time 11.7 SEC (10.0-13.1)
[2021-10-16 15:59] LABS: Alanine Aminotransferase 22 U/L (0-31); Albumin Level 4.3 g/dL (3.5-5.0); Alkaline Phosphatase 97 U/L (39-117); Anion Gap 14 (12-20); Aspartate Amino Transferase 22 U/L (5-31); Bilirubin Total 0.4 mg/dL (0.0-1.0); Blood Urea Nitrogen 14 mg/dL (9-16); Calcium 9.6 mg/dL (8.4-10.2); Carbon Dioxide 23 mmol/L (22-29); Chloride 106 mmol/L (96-108); Cholesterol 341 mg/dL; Creatinine Clr Calc Pharmacy 66.9; Estimated Glomerular Filt Rate 59; Glucose Random 98 mg/dL (60-115); HDL Cholesterol 45 mg/dL; LDL Cholesterol Calculated 243 mg/dl; Potassium 4.4 mmol/L (3.3-5.1); Sodium 139 mmol/L (135-145); Total Protein 7.4 g/dL (6.5-8.0); Triglycerides 269 mg/dL
[2021-10-28] VITALS (26 sets, daily range): BP systolic 95–149; BP diastolic 51–88; PULSE 59–84; RESP 9–28; TEMP 36–36.4; O2SAT 91–99
[2021-10-28] MEDS: Lactated Ringers 1,000 ML 100 ML IVCONT (06:53)
[2021-10-28 07:04] LABS: Hematocrit 41.6 % (37.0-47.0); Hemoglobin 13.8 g/dl (12.0-16.0); Mean Corpuscular HGB Conc 33.2 g/dl (31.0-35.0); Mean Corpuscular Hemoglobin 31.2 pg (27.0-33.0); Mean Corpuscular Volume 93.9 fL (80.0-98.0); Mean Platelet Volume 9.3 fL (9.4-12.3); Platelet Count 226 X10*3/uL (160-400); Red Blood Count 4.43 X10*6/uL (4.20-5.50); Red Cell Distribution Width 13.2 % (11.0-16.0); White Blood Count 8.8 X10*3/uL (4.8-10.8)
[2021-10-28 07:11] LABS: INTERNATIONAL NORM RATIO 0.9 (0.9-1.1); Prothrombin Time 10.8 SEC (10.0-13.1)
[2021-10-28 07:13] LABS: Partial Thromboplastin Time 35.2 SEC (24.1-38.0)
[2021-10-28 07:18] LABS: COVID-19 Test Negative (Negative)
--- NOTE | 2021-10-28 07:21 | MHC.SHP ---
Pre-Procedural Eval Section A Date of Service: 10/28/21 The patient is an INPATIENT: No Changes since office visit: Yes Patient answered all questions The History & Physical has been completed within 30 days and I have reviewed it.: Yes Section B Chief Complaint: PVD Allergies: Allergies Allergy/AdvReac Type Severity Reaction Status Date / Time lisinopril Allergy Severe Facial Verified 10/15/21 10:08 Swelling, throat closing codeine [CODEINE] AdvReac Severe blacked Verified 10/15/21 10:08 out Plan I have reviewed the history and physical and performed a pertinent physical examination on my patient. No changes have occurred unless specified.
[2021-10-28 07:24] LABS: Anion Gap 12 (12-20); Blood Urea Nitrogen 20 mg/dL (9-16); Calcium 8.6 mg/dL (8.4-10.2); Carbon Dioxide 23 mmol/L (22-29); Chloride 108 mmol/L (96-108); Creatinine Clr Calc Pharmacy 74.5; Estimated Glomerular Filt Rate > 60; Glucose Random 113 mg/dL (60-115); Potassium 4.7 mmol/L (3.3-5.1); Sodium 138 mmol/L (135-145)
--- NOTE | 2021-10-28 10:40 | P.OP_ITS ---
Operative Note Operative Note Date of Service: 10/28/21 Narrative: Operative note by [facility] Preoperative diagnosis: Atherosclerosis with activity limiting claudication Postoperative diagnosis: Same Procedure: Femoral to femoral bypass ([id number]) Surgeon:Zacarias Harris M.D. Structural Steel Erector: Anurag Anesthesia: General Specimens: None Drains: None Estimated blood loss: 100 mL Indications: 56-year-old smoker with severe activity limiting claudication presents for operative intervention. She had undergone preprocedure CTA along with angiogram. She now presents for femoral to femoral bypass The patient has signed the informed consent after reviewing risks, complications, benefits, and alternatives previously discussed with the patient. The patient was given the opportunity to ask any additional questions or voice any concerns. All questions were answered to the patient's satisfaction. Procedure in detail: Patient was brought to the operating room prior to which a time-out was called for patient identification site verification. Bilateral groins were prepped and draped in standard surgical fashion. We created transverse incisions on bilateral groins overlying the common femoral artery. Cutdown was created all the way down through to skin subcu to overlying tissue fascia on to the common femoral artery. Bilaterally we were able to isolate the common femoral profundus and SFA with silastic loops. Once this was done 80 tunnel was created using an aortic clamp. A red rubber catheter was then passed. This was a free tunnel. Once this was accomplished 5000 units of systemic heparin was administered. After 5 minutes of circulation time we then turned our attention to the right groin. This was clamped off and we made an arteriotomy with an 11 blade. Once this was done a Jackson Propaten 6 x 50 graft was then trimmed and subsequently anastomosed with this CV 5 suture in a circumferential manner. Prior to closure we flushed clear. We then flushed out the graft. Once this was all accomplished we then brought the graft through the tunnel. We trimmed the graft down and in a similar fashion we circumferentially anastomosed with a CV 5 Jackson suture. 2-3 interrupted 6 0 in 7 0 Prolene sutures had to be placed on both sides for adequate hemostasis. Once this was all accomplished we thoroughly irrigated out both groins. We used electrocautery to obtain hemostasis no was also placed. This was once cleared out and Tisseel sealant was placed in both locations. Once this was accomplished we closed off the deep layer with 2-0 Polysorb superficial layer with 3-0 poly Sorb and finally skin with a skin stapler. Sterile dressings were applied. At the end the case sponge instrument counts were correct. Patient tolerated the procedure well. Returned to recovery with stable vitals. This note is constructed using voice recognition software. While every effort has been made to ensure accuracy, rd lab technician errors may have been included. Thank you for allowing me to participate in the care of your patient. Yours sincerely, Zacarias Harris MD, FACS, R.P.V.I.
[2021-10-28] MEDS: oxyCODONE HCl Immed Release 5 MG TABLET PO (11:46)
[2021-10-28] MEDS: fentaNYL citrate/PF 100 MCG/2 ML VIAL 50 MCG IVPUSH ×2 (11:56→12:01)
--- NOTE | 2021-10-28 12:12 | PC.NURSE ---
Dr. Harris notified of tennis ball size hematoma to left groin. pressure applied and medicated for discomfort.
--- NOTE | 2021-10-28 12:24 | PHA.MEDREC ---
Pharmacy Consult ? Medication Reconciliation Pharmacy has completed the medication reconciliation.
[2021-10-28] MEDS: 0.9 % Sodium Chloride 1,000 ML 80 ML IVCONT ×2 (15:48→23:54)
[2021-10-28] MEDS: ceFAZolin Sodium/Dextrose,Iso 2 GM/50 ML PIGGYBACK IV (15:49)
[2021-10-28] MEDS: 0.9 % Sodium Chloride Flush 3 ML SYRINGE IVFLUSH ×2 (16:15→23:52)
[2021-10-28] MEDS: Morphine Sulfate 2 MG/ML CARTRIDGE IVPUSH ×2 (18:39→23:15)
--- NOTE | 2021-10-28 18:53 | PC.NURSE ---
1341-pt arrived to 259 from PACU on bed with RN. VSS. able to palpate pedal pulses +2, post tibial +1, pulses also dopplered. Noted hematoma on left groin. leida marked. COPYIST informed about left groin area when pt arrived. surgeon aware. continuing to monitor. Pt denies numbness or tingling x4. 1500- pedal and post tibial pulses checked and palpated. pt denies N/T 1600-pedal and post tibial pulses checked and palpated. pt denies N/T. slight temperature difference in left foot, slightly cooler than right foot. Both feet still warm, <3 sec cap refill. bilateral groin sites stable 1700-pedal and post tibial pulses checked and palpated. pt denies N/T. 1800-pedal pulse +1, post tibial dopplered. pt denies N/T. bilateral feet warm, cap refill <3 sec. pt denies N/T. left and rt groin remains unchanged
--- NOTE | 2021-10-28 19:35 | P.HPCC_ITS ---
History of Present Illness Date of Service: 10/28/21 Attending physician on admission: Zacarias Harris Chief Complaint: Severe peripheral vascular disease Mrs. Gudino was admitted to the ICU for hemod and vascular monitoring following fem-fem bypass in the OR by Dr. Harris. The patient is a 56 yo lady w PMH of smoking and severe claudication.? 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 PMHx also includes asthma, hypertension, dyslipidemia. Preoperative echocardiogram showed normal left ventricular ejection fraction with moderate septal hypertrophy, normal right heart, otherwise unremarkable.? Myocardial perfusion imaging showed normal perfusion.? On pharmacological stress test, she had no anginal symptoms, no arrhythmia, and normotensive response to injection, with nondiagnostic EKG. Intraop surgical course and general endotracheal anesthetic was unremarkable.? She was extubated in the operating room and taken to the PACU in stable condition.? She had a small left groin hematoma postoperatively.? She is now admitted to the ICU for overnight monitoring of her wounds and hemodynamics. In the ICU, she is fully awake, breathing easy, and is hungry.? Heart rate is 70, blood pressure 127/63, breathing easy with sat 97% on room air.? Temperature is 97.4 degrees.? No JVD with the head of the bed at 30 degrees.? Abdomen is mildly obese, benign.? Externally, both groin wounds look clean, with dry dressings, and no grossly visible hematoma.? On palpation, she has a mild left groin hematoma, maybe 1.5 ?x 10 cm.? The right foot is slightly but noticeably warmer than the left.? I could inconsistently palpate both right foot pulses and the left posterior tibial pulse; all 4 pulses are easily dopplerable. LABORATORY DATA:? Preop labs from 2 weeks ago include a hemoglobin of 14.8, BUN/creatinine 14/0.98. IMPRESSION:? 56-year-old woman with severe peripheral vascular disease and disabling claudication.? No demonstrable cardiac risk factors.? Status post fem- fem bypass.? Did very well intraoperatively.? Has a minor left groin hematoma. Admit ICU for overnight monitoring of her wound and hemodynamics.? Flat in bed, no more than 30 degrees head up till the morning.? Follow-up per Dr. Harris. ADDENDUM at 19:30:? The patient continues to do very well.? Had dinner with no problems.? Of necessity, the patient will be triaged tonight to [facility] [place]. Harris has given his approval. ?A-line removed.? [facility] nurses informed about the need for the patient to stay flat. [facility] Past Medical History Medical History Asthma Back pain Bladder prolapse, female, acquired COVID-19 vaccine administered Hypertension Kidney injury Post-menopausal Urge incontinence Urinary incontinence Family History Family History (Updated 10/28/21 @ 14:09 by Dea Flynn, JADA) Father Lung cancer Mother No problems noted. Surgical History Surgical History History of kidney surgery History of right oophorectomy S/P aortogram Social History Social History (Updated 10/28/21 @ 14:11 by Dea Flynn RN) Household Members Other:: mother Are you a primary resident care technician to a significant other at home: No Do you presently have visiting nurse or other home services: No Patient Tobacco Use Status: Former Tobacco user Quit Date: 10/26/21 Tobacco use type: Cigarette Cigarette Packs Per Day: 0.5 (quit 10/26/21) Cigarettes Per Day: 10.0 Years Smoked: 25+ Smoked in Last 30 Days: Yes e-Cigarette/Vaping Use: Never Used Frequency of e-Cigarette/Vaping Use: no Patient Interested in Nicotine Replacement: Yes Patient Given Instructions on How to Stop Smoking: Yes Date Education Initiated: 10/28/21 Second Hand Smoke Exposure: No Use of substances other than those prescribed or required for medical reasons: No Substance Use Type: Marijuana and Caffiene Substance Use Frequency: Daily Substance Use Frequency Other:: BID Have you been hit, kicked, punched, or otherwise hurt by someone within the past year? 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 Meds Allergies Allergy/AdvReac Type Severity Reaction Status Date / Time lisinopril Allergy Severe Facial Verified 10/15/21 10:08 Swelling, throat closing codeine [CODEINE] AdvReac Severe blacked Verified 10/15/21 10:08 out Active Medications: Current Medications Acetaminophen (Acetaminophen 325 Mg Tablet) 650 mg PO Q6H PRN PRN Reason: Pain, Mild (Pain Scale 1-3) Albuterol Sulfate (Albuterol Sulfate (0.083%) 2.5 Mg/3 Ml Vial.Neb) 2.5 mg INHALE ONCE PRN PRN Reason: Shortness of Breath/Wheezing Amlodipine Besylate (Amlodipine Besylate 10 Mg Tablet) 10 mg PO DAILY [facility]; Protocol Clonidine HCl (Clonidine Hcl 0.2 Mg Tablet) 0.2 mg PO BID [facility]; Protocol Cyclobenzaprine HCl (Cyclobenzaprine Hcl 10 Mg Tablet) 10 mg PO TID PRN PRN Reason: Muscle Spasm Docusate Sodium (Docusate Sodium 100 Mg Capsule) 100 mg PO BID [facility] Duloxetine HCl (Duloxetine Hcl 30 Mg Capsule.Dr) 30 mg PO DAILY [facility] Fentanyl (Fentanyl Citrate/Pf 100 Mcg/2 Ml Vial) 50 mcg IVPUSH Q5M PRN; Protocol PRN Reason: Pain, Severe (Pain Scale 7-10) Last Admin: 10/28/21 12:01 Dose: 50 mcg Fentanyl (Fentanyl Citrate/Pf 100 Mcg/2 Ml Vial) 25 mcg IVPUSH Q5M PRN; Protocol PRN Reason: Pain, Moderate (Pain Scale 4-6 Gabapentin (Gabapentin 100 Mg Capsule) 100 mg PO BEDTIME [facility] Hydrochlorothiazide (Hydrochlorothiazide 25 Mg Tablet) 25 mg PO DAILY [facility]; Protocol Hydromorphone HCl (Hydromorphone Hcl 0.5 Mg/0.5 Ml Syringe) 0.25 mg IVPUSH Q5M PRN; Protocol PRN Reason: Pain, Severe (Pain Scale 7-10) Lactated Ringer's (Lr) 1,000 mls @ 100 mls/hr IVCONT .Q10H [facility] Last Admin: 10/28/21 18:28 Dose: Not Given Promethazine HCl 6.25 mg/ (Sodium Chloride) 50.25 mls @ 201 mls/hr IV ONCE PRN PRN Reason: Nausea and Vomiting Sodium Chloride (Ns) 1,000 mls @ 80 mls/hr IVCONT .[id number] [facility] Last Admin: 10/28/21 15:48 Dose: 80 mls/hr Morphine Sulfate (Morphine Sulfate 2 Mg/Ml Cartridge) 2 mg IVPUSH Q4H PRN; Protocol PRN Reason: Pain, Severe (Pain Scale 7-10) Last Admin: 10/28/21 18:39 Dose: 2 mg Ondansetron HCl (Ondansetron Hcl 4 Mg/2 Ml Vial) 4 mg IVPUSH ONCE PRN PRN Reason: Nausea and Vomiting Ondansetron HCl (Ondansetron Hcl 4 Mg/2 Ml Vial) 4 mg IVPUSH Q8H PRN PRN Reason: Nausea and Vomiting Oxycodone HCl (Oxycodone Hcl Immed Release 5 Mg Tablet) 5 mg PO Q4H PRN PRN Reason: Pain, Moderate (Pain Scale 4-6 Last Admin: 10/28/21 11:46 Dose: 5 mg Sodium Chloride (0.9 % Sodium Chloride Flush 3 Ml Syringe) [facility] Last Admin: 10/28/21 16:15 Dose: 3 ml Home Medications Medication Instructions Recorded Confirmed Last Taken Type acetaminophen 325 mg capsule 325 mg PO QID PRN Pain 01/02/21 10/15/21 Unknown History gabapentin 100 mg capsule 100 mg PO BEDTIME 01/02/21 10/15/21 Unknown History apixaban 5 mg tablet (Eliquis) 5 mg PO BID 10/14/21 10/15/21 10/24/21 History docusate sodium 100 mg capsule 100 mg PO BID 10/16/21 10/16/21 Unknown History (Colace) amlodipine 10 mg tablet 1 tab PO DAILY blood pressure 10/28/21 10/28/21 Unknown History clonidine HCl 0.2 mg tablet 1 tab PO BID 10/28/21 10/28/21 Unknown History cyclobenzaprine 10 mg tablet 1 tab PO TID PRN Muscle Spasm 10/28/21 10/28/21 Unknown History duloxetine 30 mg capsule,delayed 1 cap PO DAILY 10/28/21 10/28/21 Unknown History release duloxetine 60 mg capsule,delayed 1 cap PO DAILY 10/28/21 10/28/21 Unknown History release hydrochlorothiazide 25 mg tablet 1 tab PO DAILY 10/28/21 10/28/21 Unknown History Physical Exam Vital Signs: Vital Signs: Last Vital Signs Temp 97.4 F 10/28/21 16:00 Pulse 71 10/28/21 19:00 Resp 22 H 10/28/21 19:00 BP 124/86 10/28/21 19:00 Pulse Ox 94 10/28/21 19:00 O2 Del Method 10/28/21 19:00 O2 Flow Rate 2 10/28/21 19:00 BMI result Body Mass Index 32.4 Results Labs CBC and Chem 7: 10/28/21 06:43 10/28/21 06:43 Labs: Laboratory Results - last 24 hr 10/28/21 10/28/21 10/28/21 06:40 06:43 06:43 MCV 93.9 MCH 31.2 MCHC 33.2 RDW 13.2 Plt Count 226 MPV 9.3 L Absolute Nucleated RBC 0.000 Nucleated RBC % (auto) 0.0 PT 10.8 INR 0.9 APTT 35.2 Anion Gap Estim Creat Clear Calc Estimated GFR Random Glucose Calcium COVID-19 (JARAD) Negative COVID-19 Clin Com See Note 10/28/21 06:43 MCV MCH MCHC RDW Plt Count MPV Absolute Nucleated RBC Nucleated RBC % (auto) PT INR APTT Anion Gap 12 Estim Creat Clear Calc 74.5 Estimated GFR > 60 Random Glucose 113 Calcium 8.6 D COVID-19 (JARAD) COVID-19 Clin Com
[2021-10-28] MEDS: Docusate Sodium 100 MG CAPSULE PO (21:12)
[2021-10-28] MEDS: cloNIDine HCL 0.2 MG TABLET PO (21:12)
[2021-10-28] MEDS: Gabapentin 100 MG CAPSULE PO (21:12)
--- NOTE | 2021-10-28 21:45 | PC.NURSE ---
Assumed care at approx 1945 - patient resting, no distress. Pedal pulses faint, but palpable. Patient moving bilat feet and reports having sensation to bilat feet. Left foot slightly cooler than right. A-line removed by Siddhartha PA - pressure held for 3+ min. No issues with bleeding or swelling at site. dressing site clean dry and intact on left wrist. Order to transfer to [place] [id number]. Report given to Prabhu ELIAS. Preparing patient for transfer at this time.
[2021-10-28] MEDS: ondansetron HCL 4 MG/2 ML VIAL IVPUSH (23:54)
[2021-10-29] VITALS (7 sets, daily range): BP systolic 102–195; BP diastolic 56–92; PULSE 70–83; RESP 14–20; TEMP 36.6–37; O2SAT 95–98; BMI 36.1
[2021-10-29] MEDS: Morphine Sulfate 2 MG/ML CARTRIDGE IVPUSH (03:39)
[2021-10-29] MEDS: ondansetron HCL 4 MG/2 ML VIAL IVPUSH (06:15)
[2021-10-29] MEDS: Prochlorperazine Edisylate 10 MG/2 ML VIAL 5 MG IVPUSH (06:32)
--- NOTE | 2021-10-29 06:42 | PC.NURSE ---
CARE ASSUMED 23:15....ALERT..ORIENTED X3....BILATERAL FEMORAL DRESSINGS INTACT...DORSALIS PULSES AUDIBLE WITH DOPPLER...RIGHT STRONGER THAN LEFT..RIGHT FOOT WARM..LEFT FOOT COOLER....C/O BACK PAIN D/T BEDREST RESTRICTION...MORPHINE PER JUN...INTERMITTANT NAUSEA/VOMITED GREEN EMESIS...ZOFRAN AT HS AND THIS AM ..REMAINED NAUSEOUS..DR LAURENT UPDATED..COMPAZINE 5 MG IV X1 ORDERED/GIVEN....TO ASSESS RESPONSE
[2021-10-29 06:53] LABS: MANUAL DIFF FLAG NO
[2021-10-29 07:06] LABS: Basophils Percent Auto 0.3 % (0-2); Eosinophils Percent Auto 0.1 % (0-4); Hematocrit 40.3 % (37.0-47.0); Hemoglobin 13.5 g/dl (12.0-16.0); Imm Gran Abs Auto 0.07 X10*3/uL (0.00-0.03); Imm Gran Pct Auto 0.5 % (0.0-0.4); Lymphocytes Absolute Auto 2.9 X10*3/uL (1.2-4.9); Lymphocytes Percent Auto 18.9 % (20-40); Mean Corpuscular HGB Conc 33.5 g/dl (31.0-35.0); Mean Corpuscular Hemoglobin 31.5 pg (27.0-33.0); Mean Corpuscular Volume 94.2 fL (80.0-98.0); Mean Platelet Volume 9.1 fL (9.4-12.3); Monocytes Absolute Auto 1.1 X10*3/uL (0.1-1.2); Monocytes Percent Auto 7.1 % (2-11); Neutrophils Absolute Auto 11.2 x10*3/uL (2.0-8.3); Neutrophils Percent Auto 73.1 % (45-73); Platelet Count 211 X10*3/uL (160-400); Red Blood Count 4.28 X10*6/uL (4.20-5.50); Red Cell Distribution Width 13.1 % (11.0-16.0); White Blood Count 15.3 X10*3/uL (4.8-10.8)
[2021-10-29 07:33] LABS: Anion Gap 11 (12-20); Blood Urea Nitrogen 16 mg/dL (9-16); Calcium 8.4 mg/dL (8.4-10.2); Carbon Dioxide 26 mmol/L (22-29); Chloride 106 mmol/L (96-108); Estimated Glomerular Filt Rate > 60; Glucose Random 154 mg/dL (60-115); Potassium 3.9 mmol/L (3.3-5.1); Sodium 139 mmol/L (135-145)
--- NOTE | 2021-10-29 08:45 | MHC.CM.PN ---
Pt reports she lives in an apartment with her mother. She is independent at home/community, does not receive any home services. Pt's PCP is Raina Cantu. She is CECILIA vidal'wagner x3 ([employer]). Pt reports she has HCP, a copy has been requested. Bri, pt's sister will transport home. D/C Plan: Home (self Care) vs Home with [facility] Service.
--- NOTE | 2021-10-29 10:22 | HO.VASCPN ---
Subjective Subjective Date of Service: 10/29/21 Patient reports: no new complaints, feels better and vomiting Interval history: 56-year-old female postop day 1 status post fem-fem bypass. Appears to be doing well. She was transferred out of the ICU due to bed shortage. A line has been removed but appears to be hemodynamically stable. This morning she appeared to be relatively comfortable. No complaints of the lower extremities. She did have some nausea overnight which appears to have been relieved with some Zofran. She is tolerating some p.o. at the current time. Physical Exam Vital Signs: Vital Signs: Last Vital Signs Temp 98.0 F 10/29/21 08:17 Pulse 79 10/29/21 08:17 Resp 16 10/29/21 08:17 BP 181/91 H 10/29/21 08:17 Pulse Ox 96 10/29/21 08:17 O2 Del Method 10/29/21 08:17 O2 Flow Rate 2 10/28/21 17:00 BMI result Body Mass Index 36.1 Const: General: cooperative, healthy appearing and no acute distress Orientation/consciousness: oriented to person, oriented to place and oriented to time HEENT: Head: Yes normal to inspection Neck: Carotids: no bruits Chest: Chest palpation & inspection: normal inspection of the chest Resp: Effort & Inspection: normal respiratory effort and able to speak in complete sentences Auscultation: clear to auscultation bilaterally Cardio: Rate: regular rate Heart sounds: S1 normal heart sound present and S2 normal heart sound present GI: Inspection: Yes normal to inspection Skin: Other: Bilateral groins dressing clean dry intact left side has a small hematoma and is tender General skin exam: no rashes or lesions noted Neuro: General: oriented to person, oriented to place, oriented to time and CN's II-XI intact bilaterally Extrem: General: Yes normal to inspection, Yes full ROM and Yes no clubbing, cyanosis or edema Psych: Appearance: grossly normal and well kempt Speech and movement: Normal speech and movement present Affect: normal affect Progress Note: A&P Assessment and plan (1) PAD (peripheral artery disease): Status: Acute Assessment and Plan: In short patient is doing well status post fem-fem bypass. Nausea seems to be a little bit of an issue and hopefully will improve with time. At the current time will remove George Hep-Lock IV fluids encourage p.o. intake. Will plan for bed rest today. If stable tomorrow will start with ambulation. Thank you for allowing us to assist in this patient's care. Time Spent With Patient Time: Total time spent is greater than 50% in coordination of care (as documented) at patient's floor/unit and/or counseling patient: Procedures Date of Service Date of Service: 10/29/21 Quality Stroke Does the patient have a stroke diagnosis?: No VTE Prior VTE?: No VTE Risk Level:: Surgical - moderate VTE Device Contraindication: Procedure Contraindicated VTE Drug Contraindication: N/A - Med Ordered
[2021-10-29] MEDS: 0.9 % Sodium Chloride Flush 3 ML SYRINGE IVFLUSH ×3 (10:55→20:02)
[2021-10-29] MEDS: oxyCODONE HCl Immed Release 5 MG TABLET PO ×3 (10:55→21:48)
[2021-10-29] MEDS: Docusate Sodium 100 MG CAPSULE PO ×2 (10:56→20:02)
[2021-10-29] MEDS: amLODIPine Besylate 10 MG TABLET PO (10:56)
[2021-10-29] MEDS: DULoxetine HCl 30 MG CAPSULE.DR PO (10:56)
[2021-10-29] MEDS: Heparin Sodium,Porcine 5,000 UNIT/ML VIAL 5000 UNIT SUBCUT ×2 (10:56→17:57)
[2021-10-29] MEDS: cloNIDine HCL 0.2 MG TABLET PO ×2 (10:56→20:02)
[2021-10-29] MEDS: hydroCHLOROthiazide 25 MG TABLET PO (10:56)
--- NOTE | 2021-10-29 11:17 | HO.POSTANES ---
Post Anesthesia Evaluation Post Anesthesia Evaluation Vital Signs: Vital Signs Temp Pulse Resp BP Pulse Ox O2 Del Method 10/29/21 07:41 96 Nasal Cannula 10/29/21 08:17 98.0 F 79 16 181/91 H 96 Nasal Cannula 10/29/21 04:00 98.6 F 77 20 166/83 H 96 Room Air 10/29/21 00:00 98.4 F 70 16 113/64 96 Room Air Anesthesia: General Mental Status: Awake Pain Control: Satisfactory Nausea/Vomiting: None Hydration: Adequate Anesthesia-Related Issues: No Anes. Related Issues
[2021-10-29] MEDS: Lactated Ringers 1,000 ML 100 ML IVCONT (12:11)
--- NOTE | 2021-10-29 14:54 | P.PNIM_ITS ---
Subjective Subjective Date of Service: 10/29/21 Interval History: consult requested for medical mgmt pt seen and examined rpoerts pain controlled reports nausea earlier but now better Physical Exam Vital Signs: Vital Signs: Last Vital Signs Temp 97.9 F 10/29/21 12:00 Pulse 74 10/29/21 12:00 Resp 18 10/29/21 12:00 BP 195/92 H 10/29/21 12:00 Pulse Ox 98 10/29/21 12:00 O2 Del Method 10/29/21 12:00 O2 Flow Rate 2 10/28/21 17:00 BMI result Body Mass Index 36.1 Const: Other: General - no acute distress, appears comfortable Cardiovascular - regular rate and rhythm, S1-S2 Lungs - normal respiratory effort, clear to auscultation bilaterally, no wheezing Abdomen - soft, nontender, no rebound or guarding Neuro - awake and alert, no focal deficits Objective Data Active Medications Acetaminophen (Acetaminophen 325 Mg Tablet) 650 mg PO Q6H PRN PRN Reason: Pain, Mild (Pain Scale 1-3) Albuterol Sulfate (Albuterol Sulfate (0.083%) 2.5 Mg/3 Ml Vial.Neb) 2.5 mg INHALE ONCE PRN PRN Reason: Shortness of Breath/Wheezing Amlodipine Besylate (Amlodipine Besylate 10 Mg Tablet) 10 mg PO DAILY [facility]; Protocol Last Admin: 10/29/21 10:56 Dose: 10 mg Documented By: YESSI Clonidine HCl (Clonidine Hcl 0.2 Mg Tablet) 0.2 mg PO BID [facility]; Protocol Last Admin: 10/29/21 10:56 Dose: 0.2 mg Documented By: YESSI Cyclobenzaprine HCl (Cyclobenzaprine Hcl 10 Mg Tablet) 10 mg PO TID PRN PRN Reason: Muscle Spasm Docusate Sodium (Docusate Sodium 100 Mg Capsule) 100 mg PO BID [facility] Last Admin: 10/29/21 10:56 Dose: 100 mg Documented By: YESSI Duloxetine HCl (Duloxetine Hcl 30 Mg Capsule.Dr) 30 mg PO DAILY [facility] Last Admin: 10/29/21 10:56 Dose: 30 mg Documented By: YESSI Fentanyl (Fentanyl Citrate/Pf 100 Mcg/2 Ml Vial) 50 mcg IVPUSH Q5M PRN; Protocol PRN Reason: Pain, Severe (Pain Scale 7-10) Last Admin: 10/28/21 12:01 Dose: 50 mcg Documented By: SHADIA Fentanyl (Fentanyl Citrate/Pf 100 Mcg/2 Ml Vial) 25 mcg IVPUSH Q5M PRN; Protocol PRN Reason: Pain, Moderate (Pain Scale 4-6 Gabapentin (Gabapentin 100 Mg Capsule) 100 mg PO BEDTIME [facility] Last Admin: 10/28/21 21:12 Dose: 100 mg Documented By: FRANKLYN Heparin Sodium (Porcine) (Heparin Sodium,Porcine 5,000 Unit/Ml Vial) 5,000 unit SUBCUT Q8H [facility] Last Admin: 10/29/21 10:56 Dose: 5,000 unit Documented By: YESSI Hydrochlorothiazide (Hydrochlorothiazide 25 Mg Tablet) 25 mg PO DAILY [facility]; Protocol Last Admin: 10/29/21 10:56 Dose: 25 mg Documented By: YESSI Hydromorphone HCl (Hydromorphone Hcl 0.5 Mg/0.5 Ml Syringe) 0.25 mg IVPUSH Q5M PRN; Protocol PRN Reason: Pain, Severe (Pain Scale 7-10) Promethazine HCl 6.25 mg/ (Sodium Chloride) 50.25 mls @ 201 mls/hr IV ONCE PRN PRN Reason: Nausea and Vomiting Morphine Sulfate (Morphine Sulfate 2 Mg/Ml Cartridge) 2 mg IVPUSH Q4H PRN; Protocol PRN Reason: Pain, Severe (Pain Scale 7-10) Last Admin: 10/29/21 03:39 Dose: 2 mg Documented By: MARIAM Ondansetron HCl (Ondansetron Hcl 4 Mg/2 Ml Vial) 4 mg IVPUSH Q8H PRN PRN Reason: Nausea and Vomiting Last Admin: 10/29/21 06:15 Dose: 4 mg Documented By: MARIAM Oxycodone HCl (Oxycodone Hcl Immed Release 5 Mg Tablet) 5 mg PO Q4H PRN PRN Reason: Pain, Moderate (Pain Scale 4-6 Last Admin: 10/29/21 10:55 Dose: 5 mg Documented By: YESSI Sodium Chloride (0.9 % Sodium Chloride Flush 3 Ml Syringe) 3 ml IVFLUSH QSHIFT [facility] Last Admin: 10/29/21 10:55 Dose: 3 ml Documented By: YESSI Labs CBC & Chem 7: 10/29/21 06:45 10/29/21 06:45 Labs: Laboratory Results - last 24 hr 10/29/21 10/29/21 06:45 06:45 MCV 94.2 MCH 31.5 MCHC 33.5 RDW 13.1 Plt Count 211 MPV 9.1 L Immature Gran % (Auto) 0.5 H Neut % (Auto) 73.1 H Lymph % (Auto) 18.9 L [facility] % (Auto) 7.1 Eos % (Auto) 0.1 Baso % (Auto) 0.3 Lymph # (Auto) 2.9 [facility] # (Auto) 1.1 Eos # (Auto) 0.0 Baso # (Auto) 0.0 Abs Immat Gran (auto) 0.07 H Absolute Neuts (auto) 11.2 H Absolute Nucleated RBC 0.000 Nucleated RBC % (auto) 0.0 Anion Gap 11 L Estim Creat Clear Calc 87.0 Estimated GFR > 60 Random Glucose 154 H Calcium 8.4 Assessment and Plan (1) PAD (peripheral artery disease): Status: Acute Plan 56 yo F s/p Fem-fem bipass, medical consult requested medical mgmt 1. HTN mostly controlled with elevation around noon time due to distress prior to check BP repeat bp now continue her baseline bp meds 2. Mood continue baselinemeds 3. PAD s/p bipass mgmt per vascular surgery will follow as needed Quality Stroke Does the patient have a stroke diagnosis?: No VTE Prior VTE?: No VTE Risk Level:: Surgical - moderate VTE Device Contraindication: Procedure Contraindicated VTE Drug Contraindication: N/A - Med Ordered
[2021-10-29] MEDS: Gabapentin 100 MG CAPSULE PO (20:01)
[2021-10-29] MEDS: Zolpidem Tartrate 5 MG TABLET PO (21:49)
[2021-10-30] VITALS (10 sets, daily range): BP systolic 92–141; BP diastolic 54–78; PULSE 73–87; RESP 15–20; TEMP 36.2–37.2; O2SAT 94–97; BMI 34.5
[2021-10-30] MEDS: oxyCODONE HCl Immed Release 5 MG TABLET PO ×3 (02:21→19:41)
[2021-10-30] MEDS: Heparin Sodium,Porcine 5,000 UNIT/ML VIAL 5000 UNIT SUBCUT ×3 (02:23→19:40)
[2021-10-30] MEDS: Morphine Sulfate 2 MG/ML CARTRIDGE IVPUSH ×2 (05:45→14:19)
[2021-10-30 06:29] LABS: Hematocrit 38.9 % (37.0-47.0); Hemoglobin 12.8 g/dl (12.0-16.0); Mean Corpuscular HGB Conc 32.9 g/dl (31.0-35.0); Mean Corpuscular Hemoglobin 31.2 pg (27.0-33.0); Mean Corpuscular Volume 94.9 fL (80.0-98.0); Mean Platelet Volume 9.5 fL (9.4-12.3); Platelet Count 208 X10*3/uL (160-400); Red Cell Distribution Width 13.3 % (11.0-16.0); White Blood Count 11.5 X10*3/uL (4.8-10.8)
[2021-10-30] MEDS: amLODIPine Besylate 10 MG TABLET PO (10:30)
[2021-10-30] MEDS: DULoxetine HCl 30 MG CAPSULE.DR PO (10:30)
[2021-10-30] MEDS: hydroCHLOROthiazide 25 MG TABLET PO (10:30)
[2021-10-30] MEDS: cloNIDine HCL 0.2 MG TABLET PO ×2 (10:30→21:13)
[2021-10-30] MEDS: Docusate Sodium 100 MG CAPSULE PO ×2 (10:30→21:13)
[2021-10-30] MEDS: 0.9 % Sodium Chloride Flush 3 ML SYRINGE IVFLUSH ×2 (10:31→19:40)
--- NOTE | 2021-10-30 10:52 | P.PNVS_ITS ---
Subjective Subjective Date of Service: 10/30/21 Patient reports: no new complaints and feels better Interval history: 56-year-old female status post fem-fem bypass and is now postop day 2. Reports that she is feeling better. She does have some numbness in the thigh. She has no other complaints. She has been up out of bed to a chair and been fairly comfortable. She is passing gas has not had a bowel movement as of yet. Physical Exam Vital Signs: Vital Signs: Last Vital Signs Temp 97.2 F 10/30/21 08:00 Pulse 77 10/30/21 08:00 Resp 20 10/30/21 08:00 BP 108/54 L 10/30/21 08:00 Pulse Ox 94 10/30/21 08:00 O2 Del Method 10/30/21 08:00 O2 Flow Rate 2 10/28/21 17:00 BMI result Body Mass Index 34.5 Const: General: cooperative, healthy appearing and no acute distress Orientation/consciousness: oriented to person, oriented to place and oriented to time HEENT: Head: Yes normal to inspection Neck: Carotids: no bruits Chest: Chest palpation & inspection: normal inspection of the chest Resp: Effort & Inspection: normal respiratory effort and able to speak in complete sentences Auscultation: clear to auscultation bilaterally Cardio: Rate: regular rate Heart sounds: S1 normal heart sound present and S2 normal heart sound present GI: Inspection: Yes normal to inspection Skin: Other: Bilateral groin incisions well healing left side mild hematoma General skin ex am: no rashes or lesions noted Wounds: no wounds Neuro: General: oriented to person, oriented to place, oriented to time and CN's II-XI intact bilaterally Extrem: General: Yes normal to inspection, Yes full ROM and Yes no clubbing, cyanosis or edema Psych: Appearance: grossly normal and well kempt Speech and movement: Normal speech and movement present Affect: normal affect Progress Note: A&P Assessment and plan (1) PAD (peripheral artery disease): Status: Acute Assessment and Plan: Patient appears to be doing relatively well status post fem-fem bypass. We will start physical therapy. Pain control for now. Would anticipate discharge tomorrow if everything is going well. Time Spent With Patient Time: Total time spent is greater than 50% in coordination of care (as documented) at patient's floor/unit and/or counseling patient: Procedures Date of Service Date of Service: 10/30/21 Quality Stroke Does the patient have a stroke diagnosis?: No VTE Prior VTE?: No VTE Risk Level:: Surgical - moderate VTE Device Contraindication: Procedure Contraindicated VTE Drug Contraindication: N/A - Med Ordered
--- NOTE | 2021-10-30 11:30 | MHC.CM.PN ---
Female 56 S/P Fem Fem Bipass POD#2 Patient OOB to chair today. DP home with out without services is the plan. Patient's sister Bri will provide transportation home. The patient confirmed that home with family transport is the DP.
[2021-10-30] MEDS: Gabapentin 100 MG CAPSULE PO (21:13)
[2021-10-31] MEDS: Morphine Sulfate 2 MG/ML CARTRIDGE IVPUSH ×2 (00:19→08:05)
[2021-10-31] MEDS: Heparin Sodium,Porcine 5,000 UNIT/ML VIAL 5000 UNIT SUBCUT ×2 (01:06→10:54)
[2021-10-31] MEDS: traZODone HCL 50 MG TABLET PO (01:08)
[2021-10-31] MEDS: 0.9 % Sodium Chloride Flush 3 ML SYRINGE IVFLUSH ×2 (01:09→08:06)
[2021-10-31 03:31] VITALS: BP 116/61; PULSE 94; RESP 16; TEMP 36.7; O2SAT 95
[2021-10-31 06:00] VITALS: BMI 34.5
[2021-10-31 07:00] VITALS: O2SAT 100
[2021-10-31 08:00] VITALS: BP 131/73; PULSE 88; RESP 18; TEMP 36.4; O2SAT 100
[2021-10-31] MEDS: DULoxetine HCl 30 MG CAPSULE.DR PO (08:05)
[2021-10-31] MEDS: cloNIDine HCL 0.2 MG TABLET PO (08:05)
[2021-10-31] MEDS: hydroCHLOROthiazide 25 MG TABLET PO (08:05)
[2021-10-31] MEDS: Docusate Sodium 100 MG CAPSULE PO (08:05)
[2021-10-31] MEDS: amLODIPine Besylate 10 MG TABLET PO (08:06)
--- NOTE | 2021-10-31 09:37 | PM.DS ---
DS: Providers Provider Date of Service: 10/31/21 Date of admission: 10/28/21 07:20 Primary care physician: Raina Cantu Consults: 10/28/21 19:42 Consult to Hospitalist Routine Consulting Provider: Hospitalist Reason For Exam: Medical management s/p fem-fem bypass DS: Diagnosis Discharge Diagnosis (1) PAD (peripheral artery disease): Status: Acute DS: Summary Hospital Course Hospital Course: Patient underwent femoral to femoral bypass on 10/28/21. No incidence postoperatively. She did have a small left groin hematoma. It was stable and did not demonstrate in any expansion. She was transferred out of the unit of to a monitored floor. She progressively improved throughout the week. She was walking with physical therapy yesterday. She is passing flatus. No other complaints. Time Spent with Patient Time attestation: Total time spent providing and/or coordinating discharge services: Discharge coordination time: Greater than 30 minutes Quality: Safe Use of Opioids Does Pt have an Active Cancer Diagnosis on the Problem List?: No Quality: Stroke Does the patient have a stroke diagnosis?: No Physical Exam Vital Signs: Vital Signs: Last Vital Signs Temp 97.5 F 10/31/21 08:00 Pulse 88 10/31/21 08:00 Resp 18 10/31/21 08:00 BP 131/73 10/31/21 08:00 Pulse Ox 100 10/31/21 08:00 O2 Del Method 10/31/21 08:00 O2 Flow Rate 2 10/28/21 17:00 BMI result Body Mass Index 34.5 Const: General: cooperative, healthy appearing and no acute distress Orientation/consciousness: oriented to person, oriented to place and oriented to time HEENT: Head: Yes normal to inspection Neck: Carotids: no bruits Chest: Chest palpation & inspection: normal inspection of the chest Resp: Effort & Inspection: normal respiratory effort and able to speak in complete sentences Auscultation: clear to auscultation bilaterally Cardio: Rate: regular rate Heart sounds: S1 normal heart sound present and S2 normal heart sound present GI: Inspection: Yes normal to inspection Skin: Other: Bilateral groins healing well General skin exam: no rashes or lesions noted Wounds: no wounds Neuro: General: oriented to person, oriented to place, oriented to time and CN's II-XI intact bilaterally Extrem: General: Yes normal to inspection, Yes full ROM and Yes no clubbing, cyanosis or edema Psych: Appearance: grossly normal and well kempt Speech and movement: Normal speech and movement present Affect: normal affect Discharge Plan Discharge Patient Disposition: Home, Self-Care Discharge Diagnosis: Status post peripheral bypass Referrals: Raina Cantu [Primary Care Provider] - 1 Week Discharge Medications: New aspirin 81 mg capsule 81 mg PO DAILY Qty: 90 0RF oxycodone-acetaminophen [Percocet] 5-325 mg tablet 1 tab PO TID PRN (Reason: pain) Qty: 14 0RF Rx Instructions: Partial Fill upon patient request. Continued docusate sodium [Colace] 100 mg Capsule 100 mg PO BID clonidine HCl 0.2 mg tablet 1 tab PO BID amlodipine 10 mg tablet 1 tab PO DAILY hydrochlorothiazide 25 mg tablet 1 tab PO DAILY duloxetine 30 mg capsule,delayed release(DR/EC) 1 cap PO DAILY duloxetine 60 mg capsule,delayed release(DR/EC) 1 cap PO DAILY cyclobenzaprine 10 mg tablet 1 tab PO TID PRN (Reason: Muscle Spasm) gabapentin 100 mg capsule 100 mg PO BEDTIME acetaminophen 325 mg capsule 325 mg PO QID PRN (Reason: Pain) solifenacin [Vesicare] 10 mg tablet 10 mg PO DAILY 60 Days Qty: 60 0RF Uresta pessary See Rx Instructions .ROUTE .COMPLEX Qty: 1 0RF Rx Instructions: Patient will call to place her order; Patient will call to place her order Eliquis 5 mg tablet 5 mg PO BID Discharge Orders: Discharge Order (Routine); Ordered 10/31/21 Ordered By: Zacarias Harris Diet: Advance to usual diet Activity on Discharge: As tolerated Stand Alone Forms: Patient Portal Discharge page Activity Restrictions/Additional Instructions: Skin joycelyn were used. Please take dressings off and may shower on Thursday Take it easy today and you may ambulate around the house. Within 24 hours you can resume normal activity You may climb a flight of stairs as tolerated Do not lift anything heavier than a gallon of milk. See Dr. Harris in follow-up in approximately 2 weeks time. You should already have an appointment if not please call my office at [phone] Please resume Eliquis when you go home and start a baby aspirin daily. In addition Percocet for pain medications If you notice excessive bleeding from the groin please immediately call my office or return to the emergency room. Care Plan Goals: Ambulate better Health Concerns: Peripheral vascular disease Plan of Treatment: Surveillance follow-up of bypass Assessment: Peripheral vascular disease
[2021-10-31 10:51] VITALS: BP 131/73; PULSE 88; O2SAT 100
[2021-10-31 12:00] VITALS: BP 137/74; PULSE 108; RESP 18; TEMP 36; O2SAT 95
--- NOTE | 2021-10-31 12:21 | MHC.CM.PN ---
Female 56 s/p fem/fem bipass She is discharged home today. No home services have been ordered. Patient has arranged for transportation home.
[2021-10-31] MEDS: Acetaminophen 325 MG TABLET 650 MG PO (13:36)
[2021-10-31] MEDS: oxyCODONE HCl Immed Release 5 MG TABLET PO (13:37)
== END 2021-10-31 17:08 | disposition home or self-care (01) | DRG 181 ==
LOC: HO.SSSA 07:24 → HO.ICU 12:31 → HO.IMC 23:01
PROVIDERS: Nurse Practitioner; Admitting Provider Surgery Vascular Surgery; PCP Nurse Practitioner; Visit Provider Surgery Vascular Surgery
PROC: 041K0JJ Bypass Right Femoral Artery to Left Femoral Artery with Synthetic Substitute, Open Approach (ICD-10-PCS; principal; 2021-10-28 07:30)
DX: I70.211 Atherosclerosis of native arteries of extremities with intermittent claudication, right leg (principal); F39 Unspecified mood [affective] disorder; I10 Essential (primary) hypertension; Z79.01 Long term (current) use of anticoagulants; Z87.891 Personal history of nicotine dependence; Z88.5 Allergy status to narcotic agent; Z88.8 Allergy status to other drugs, medicaments and biological substances; Z79.899 Other long term (current) drug therapy
CPT/HCPCS: 36415; 80048; 80053; 80061; 85025; 85027; 85610; 85730; 86850; 86900; 86901; 87635; 97116; 97162; C1768; J0131; J0690; J1100; J1170; J2250; J2270; J2370; J2405; J2795; J3010

== ENCOUNTER → 2021-11-05 09:30 | Outpatient (BNVA) | payer MEDICAID, SELFPAY | PROVIDERS: PCP Nurse Practitioner | DX: R32 Unspecified urinary incontinence (principal) | CPT/HCPCS: 99212 ==

== ENCOUNTER → 2021-11-14 08:47 | Outpatient (BNVA) | payer MEDICAID, SELFPAY | PROVIDERS: PCP Nurse Practitioner; Visit Provider Surgery Vascular Surgery | DX: I73.9 Peripheral vascular disease, unspecified (principal) | CPT/HCPCS: 99212 ==

== ENCOUNTER 2021-11-21 09:21 | Outpatient (REF) | payer MEDICAID, SELFPAY ==
--- NOTE | 2021-11-21 | EMG_ITS ---
Bilateral median and ulnar motor and sensory studies were performed, bilateral radial and sensory studies were performed, and paraspinal muscles were tested with a needle. IMPRESSION: 1. [id number] bilateral median neuropathy across carpal tunnel. 2. Mild bilateral ulnar neuropathy across cubital tunnel. MD JODEE Wilhelm/SHO / [id number]
== END 2021-11-21 09:22 | disposition home or self-care (01) ==
LOC: HO.NEURO 09:21
PROVIDERS: PCP Nurse Practitioner; Visit Provider Orthopaedic Surgery
DX: R20.0 Anesthesia of skin (principal); R20.2 Paresthesia of skin; M79.641 Pain in right hand; M79.642 Pain in left hand
CPT/HCPCS: 95886; 95911

== ENCOUNTER → 2021-12-05 15:39 | Outpatient (BNVA) | payer MEDICAID, SELFPAY | PROVIDERS: PCP Nurse Practitioner; Visit Provider Surgery Vascular Surgery | DX: I73.9 Peripheral vascular disease, unspecified (principal) | CPT/HCPCS: 99212 ==

== ENCOUNTER → 2021-12-10 08:47 | Outpatient (BNVA) | payer MEDICAID, SELFPAY | PROVIDERS: Visit Provider Orthopaedic Surgery | DX: G56.03 Carpal tunnel syndrome, bilateral upper limbs (principal); G56.23 Lesion of ulnar nerve, bilateral upper limbs | CPT/HCPCS: 99212 ==

== ENCOUNTER 2022-02-13 08:00 | Outpatient (REF) | payer MEDICAID, SELFPAY ==
--- NOTE | ~2022-02-13 | MM_ITS ---
EXAMINATION: MM SCREENING DIGITAL BREAST TOMOSYNTHESIS, BILATERAL CLINICAL INFORMATION: Screening. Asymptomatic. The lifetime risk of breast cancer based on the Tyrer-Cuzick Model is 13.6%. COMPARISON: Mammography: February 04, 2021 TECHNIQUE: Digital breast tomosynthesis is performed in both the craniocaudal and mediolateral oblique views along with computer-aided detection (CAD). Synthesized 2D images are generated from the tomosynthesis. FINDINGS: There are scattered areas of fibroglandular density (ACR BI-RADS breast composition Category b). There are no significant masses, abnormal calcifications, or other abnormalities. MM/MM tomosynthesis screening BI IMPRESSION: No significant changes from prior exam. ASSESSMENT: BI-RADS 1: Negative RECOMMENDATION: Routine annual mammography screening. This patient's information was entered into a reminder system with a target due date for their next mammogram.
== END 2022-02-13 08:01 | disposition home or self-care (01) ==
LOC: HO.MAMMO 08:00
PROVIDERS: PCP Nurse Practitioner; Visit Provider Nurse Practitioner
DX: Z12.31 Encounter for screening mammogram for malignant neoplasm of breast (principal)
CPT/HCPCS: 77063; 77067

== ENCOUNTER 2022-02-25 14:12 | Outpatient (REF) | payer MEDICAID, SELFPAY ==
--- NOTE | ~2022-02-25 | US_ITS ---
EXAMINATION: COLOR-FLOW DUPLEX IMAGING OF THE BILATERAL LOWER EXTREMITY ARTERIAL SYSTEM. VELOCITY MEASUREMENTS THROUGHOUT THE FEMORAL ARTERIES. CLINICAL INFORMATION: The patient is a 55 year-old woman who presents with peripheral arterial disease and risk factors include hypertension and tobacco use. RIGHT FEMORAL RUNOFF VELOCITIES: The right common femoral artery peak systolic velocity is 107 cm/s. The waveform is monophasic. The right profunda femoral artery peak systolic velocity is 29 cm/s. The waveform is monophasic. The right proximal superficial femoral artery peak systolic velocity is 74 cm/s. The waveform is monophasic. The right mid superficial femoral artery peak systolic velocity is 72 cm/s. The waveform is monophasic. The right distal superficial femoral artery peak systolic velocity is 50 cm/s. The waveform is monophasic. The right popliteal artery peak systolic velocity is 42 cm/s. The waveform is monophasic. The right proximal posterior tibial artery peak systolic velocity is 37 cm/s. The waveform is monophasic. The right mid posterior tibial artery peak systolic velocity is 45 cm/s. The waveform is monophasic. The right distal posterior tibial artery peak systolic velocity is 44 cm/s. The waveform is monophasic. LEFT FEMORAL RUNOFF VELOCITIES: The left common femoral artery peak systolic velocity is 169 cm/s. The waveform is triphasic. The left profunda femoral artery peak systolic velocity is 82 cm/s. The waveform is triphasic. The left proximal superficial femoral artery peak systolic velocity is 156 cm/s. The waveform is triphasic. The left mid superficial femoral artery peak systolic velocity is 134 cm/s. The waveform is triphasic. The left distal superficial femoral artery peak systolic velocity is 145 cm/s. The waveform is triphasic. The left proximal popliteal artery peak systolic velocity is 96 cm/s. The waveform is triphasic. The left distal popliteal artery peak systolic velocity is 92 cm/s. The waveform is triphasic. The left proximal posterior tibial artery peak systolic velocity is 73 cm/s. The waveform is monophasic. The left mid posterior tibial artery peak systolic velocity is 104 cm/s. The waveform is monophasic. The left distal posterior tibial artery peak systolic velocity is 119 cm/s. The waveform is monophasic. TRANSFEMORAL BYPASS GRAFT: Occluded. US/US arterial duplex LE BI IMPRESSION: 1. There is hemodynamically significant right lower extremity outflow disease. 2. No hemodynamically significant left lower extremity arterial disease is noted. 3. There is an occluded transfemoral bypass graft.
== END 2022-02-25 14:13 | disposition home or self-care (01) ==
LOC: HO.US 14:12
PROVIDERS: Visit Provider Surgery Vascular Surgery
DX: I73.9 Peripheral vascular disease, unspecified (principal)
CPT/HCPCS: 93925; 99212

== ENCOUNTER 2022-02-27 05:52 | Day surgery (SDC) | payer MEDICAID, SELFPAY ==
--- NOTE | 2022-02-25 13:17 | HO.ANESPROP2 ---
Documented by User: Ann Howard NP 02/26/22 13:28 HPI - Anesthesia Eval Consult details Narrative: 56yo F for Right Cubital Tunnel Release, Right Carpal Tunnel Release s/p fem-fem bypass 10/2021 with GETA. 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 No DVT/embolism since fem-fem bypass. OK to hold per PCP, not to stop ASA. PMFSH Active Problems Active Problems: All Active Problems (Updated 12/10/21 @ 09:07 by Danish Shah) Cubital tunnel syndrome, bilateral (Acute) Carpal tunnel syndrome on both sides (Acute) Ganglion cyst of volar aspect of right wrist (Acute) Urinary incontinence (Acute) Bladder prolapse, female, acquired (Acute) PAD (peripheral artery disease) (Acute) Right renal artery stenosis (Acute) Urge incontinence (Acute) De Quervain's tenosynovitis, right (Acute) Numbness and tingling in right hand (Acute) Smoker (Acute) Preoperative cardiovascular examination (Acute) Essential hypertension (Acute) Other and unspecified hyperlipidemia (Acute) Past Medical History Medical History Asthma Back pain Bladder prolapse, female, acquired COVID-19 vaccine administered DVT (deep venous thrombosis) Hypertension Kidney injury Post-menopausal Urge incontinence Urinary incontinence Family History Family History Father Lung cancer Mother No problems noted. Family history of problems with anesthesia: No Surgical History Surgical History History of kidney surgery History of right oophorectomy S/P aortogram History of Problems with Anesthesia: No Social History Social History Household Members Other:: mother Are you a primary complex care nurse practitioner to a significant other at home: No Do you presently have visiting nurse or other home services: No Patient Tobacco Use Status: Current everyday Tobacco user Tobacco use type: Cigarette Cigarette Packs Per Day: 0.5 Cigarettes Per Day: 10.0 Years Smoked: 25+ e-Cigarette/Vaping Use: Never Used Patient Interested in Nicotine Replacement: No Second Hand Smoke Exposure: No Substance Use Type: Marijuana and Caffiene Substance Use Frequency: Daily Are you DNR?: No Advance Directives: No Advance Directives Information Provided: Yes Nutrition Risks: No Nutritional Risk service: No Current occupational status: unemployed 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 Meds Allergies Allergy/AdvReac Type Severity Reaction Status Date / Time lisinopril Allergy Severe Facial Verified 02/27/22 06:30 Swelling, throat closing codeine [CODEINE] AdvReac Severe blacked Verified 02/27/22 06:30 out Home Medications Medication Instructions Recorded Confirmed Last Taken Type acetaminophen 325 mg capsule 325 mg PO QID PRN Pain 01/02/21 02/27/22 Unknown History gabapentin 100 mg capsule 100 mg PO BEDTIME 01/02/21 02/27/22 Unknown History apixaban 5 mg tablet (Eliquis) 5 mg PO BID 10/14/21 02/27/22 10/24/21 History docusate sodium 100 mg capsule 100 mg PO BID 10/16/21 02/27/22 Unknown History (Colace) amlodipine 10 mg tablet 1 tab PO DAILY blood pressure 10/28/21 02/27/22 Unknown History clonidine HCl 0.2 mg tablet 1 tab PO BID 10/28/21 02/27/22 Unknown History cyclobenzaprine 10 mg tablet 1 tab PO TID PRN Muscle Spasm 10/28/21 02/27/22 Unknown History duloxetine 30 mg capsule,delayed 1 cap PO DAILY 10/28/21 02/27/22 Unknown History release duloxetine 60 mg capsule,delayed 1 cap PO DAILY 10/28/21 02/27/22 Unknown History release hydrochlorothiazide 25 mg tablet 1 tab PO DAILY 10/28/21 02/27/22 Unknown History Exam Exam Date and Time: February 25, 2022 1317 Pertinent Lab Results Pertinent Lab Results: Laboratory Tests 10/29/21 10/30/21 06:45 05:27 WBC 11.5 H Hgb 12.8 Hct 38.9 Plt Count 208 Sodium 139 Potassium 3.9 Chloride 106 Carbon Dioxide 26 BUN 16 Creatinine 0.80 Narrative Narrative: EKG 09/2021 sinus rhythm at 97/Min; right atrial enlargement; no significant ST-T changes and otherwise unremarkable ECHO 09/2021 Conclusions: - The left ventricular systolic function is normal.? The visually estimated ejection fraction is between 60-65%. ? - No obvious valvular pathology seen on this study.?? NM cardiolite stress test 09/2021 Impression: ? 1.? Myocardial perfusion imaging study shows likely normal myocardial perfusion. 2.? Gated LVEF is 53% during stress and 55% during rest. 3. Transient ischemic dilatation not present. ? EKG component of the test reported separately. Assessment and Plan Assessment Anesthesia Assessment: Chart Reviewed Final Anesthetic Review Family History of Problems with Anesthesia: No History of Problems with Anesthesia: No Documented by User: Walter Garnica MD 02/27/22 08:52 PMFSH Past Medical History Medical History Asthma Back pain Bladder prolapse, female, acquired COVID-19 vaccine administered DVT (deep venous thrombosis) Hypertension Kidney injury Post-menopausal Urge incontinence Urinary incontinence Family History Family History Father Lung cancer Mother No problems noted. Surgical History Surgical History History of kidney surgery History of right oophorectomy S/P aortogram Social History Social History Household Members Other:: mother Are you a primary complex care nurse practitioner to a significant other at home: No Do you presently have visiting nurse or other home services: No Patient Tobacco Use Status: Current everyday Tobacco user Tobacco use type: Cigarette Cigarette Packs Per Day: 0.5 Cigarettes Per Day: 10.0 Years Smoked: 25+ e-Cigarette/Vaping Use: Never Used Patient Interested in Nicotine Replacement: No Second Hand Smoke Exposure: No Substance Use Type: Marijuana and Caffiene Substance Use Frequency: Daily Are you DNR?: No Advance Directives: No Advance Directives Information Provided: Yes Nutrition Risks: No Nutritional Risk service: No Current occupational status: unemployed 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 Meds Allergies Allergy/AdvReac Type Severity Reaction Status Date / Time lisinopril Allergy Severe Facial Verified 02/27/22 06:30 Swelling, throat closing codeine [CODEINE] AdvReac Severe blacked Verified 02/27/22 06:30 out Home Medications Medication Instructions Recorded Confirmed Last Taken Type acetaminophen 325 mg capsule 325 mg PO QID PRN Pain 01/02/21 02/27/22 Unknown History gabapentin 100 mg capsule 100 mg PO BEDTIME 01/02/21 02/27/22 Unknown History apixaban 5 mg tablet (Eliquis) 5 mg PO BID 10/14/21 02/27/22 10/24/21 History docusate sodium 100 mg capsule 100 mg PO BID 10/16/21 02/27/22 Unknown History (Colace) amlodipine 10 mg tablet 1 tab PO DAILY blood pressure 10/28/21 02/27/22 Unknown History clonidine HCl 0.2 mg tablet 1 tab PO BID 10/28/21 02/27/22 Unknown History cyclobenzaprine 10 mg tablet 1 tab PO TID PRN Muscle Spasm 10/28/21 02/27/22 Unknown History duloxetine 30 mg capsule,delayed 1 cap PO DAILY 10/28/21 02/27/22 Unknown History release duloxetine 60 mg capsule,delayed 1 cap PO DAILY 10/28/21 02/27/22 Unknown History release hydrochlorothiazide 25 mg tablet 1 tab PO DAILY 10/28/21 02/27/22 Unknown History Exam Airway Mallampati Class: II TM Dist: >3cm Neck ROM: Full Denture: Upper and Lower Loose/Missing/Broken Teeth: Yes Heart: [id number] Lungs: cta b/l Assessment and Plan Assessment Anesthesia Assessment: Anesthesia Plan Discussed Final Anesthetic Review NPO: Yes ASA Class: III Final Preanesthetic Review: No Changes in Pt Med Stat, Meds/Allgs Chart Reviewed, Consent Obtained/Reviewed and Anes Risks/Benef Reviewed Patient Risk: Intermediate Procedure Risk: Intermediate Assessment/Block/Sedation in SS: Assess/Block/Sedation-SS Anesthetic Plan Anesthetic Plan: GA and Agree w/ Assess. and Plan Disposition: Standard PACU
[2022-02-27] VITALS (7 sets, daily range): BP systolic 105–144; BP diastolic 53–67; PULSE 67–78; RESP 16–18; TEMP 36.3–36.4; O2SAT 93–98; BMI 32.5
[2022-02-27] MEDS: Lactated Ringers 1,000 ML 100 ML IVCONT (06:18)
--- NOTE | 2022-02-27 07:41 | MHC.SHP ---
Pre-Procedural Eval Section A Date of Service: 02/27/22 The patient is an INPATIENT: No Changes since office visit: No Cold of Flu in the past 2 weeks, No New Medical Problems, No Changes in Medication and No Patient answered all questions The History & Physical has been completed within 30 days and I have reviewed it.: Yes Section B Chief Complaint: Carpal tunnel syndrome, Lesion of ulnar nerve, Allergies: Allergies Allergy/AdvReac Type Severity Reaction Status Date / Time lisinopril Allergy Severe Facial Verified 02/27/22 06:30 Swelling, throat closing codeine [CODEINE] AdvReac Severe blacked Verified 02/27/22 06:30 out Plan I have reviewed the history and physical and performed a pertinent physical examination on my patient. No changes have occurred unless specified.
--- NOTE | 2022-02-27 07:42 | W.PM.OPN ---
Operative Note Operative Note Date of Service: 02/27/22 Narrative: Operative Note Narrative: Preop diagnosis: 1. Right Cubital tunnel syndrome 2. Right carpal tunnel syndrome Postop diagnosis: Same Procedure: 1. Right Cubital Tunnel Release 2. Right carpal tunnel release Surgeon: Katty Crisostomo MD Anesthesia: General Anesthesia Findings: [ ] Thickening and fibrosis about the ulnar nerve at the cubital tunnel Implants: none Tourniquet time: [ ] minutes EBL: 5.0 ml Specimen: none Drains: None Complications: None Disposition: Brought to the recovery room in stable condition Plan: Follow-up in 10-14 days for wound check, and suture removal Indications: The patient is 56 years old with right cubital tunnel syndrome and right carpal tunnel syndrome . The risks and benefits of operative treatment, including but not limited to risk of damage to blood vessels, nerves, tendons, infection, recurrence, persistent pain or numbness, incomplete resolution of preoperative symptoms, or need for further surgery were discussed with the patient and they wished to proceed with surgery. Procedure: Once consent was obtained patient was brought back to the operating suite and placed in the operating table in a supine position. Perioperative antibiotics and anesthesia was administered by the anesthesia team. The limb was prepped and draped in a standard surgical fashion, and a sterile tourniquet applied to the proximal aspect of the right upper extremity. The limb was elevated exsanguinated with Esmarch bandage and the tourniquet inflated to 250 mm of mercury for a total tourniquet time of 24 minutes. A 6 cm gently curved but longitudinally oriented incision was made centered over the cubital tunnel of the right upper extremity. Incision was made through the skin to the subcutaneous tissues using a # 15 Blade. I then dissected down to the level of the medial epicondyle and the cubital tunnel using tenotomy scissors. Care was taken to protect the lateral antebrachial cutaneous nerve. The ulnar nerve was identified just posterior to the medial intermuscular septum. The ulnar nerve was released in a proximal to distal direction using tenotomy in iris scissors while directly visualizing and protecting the ulnar nerve. Thickening and fibrosis was appreciated about the ulnar nerve as it passed through the cubital tunnel. The ulnar nerve was assessed as I passed the elbow through full flexion and extension and was found to remain stable within its groove. At this point the tourniquet was deflated and hemostasis obtained with a brief period of local pressure and bipolar electrocautery. The wound was copiously irrigated with normal saline. The subcutaneous layer was closed with 4-0 Vicryl suture, and the skin edges were reapproximated with 5-0 nylon suture. The wound was infiltrated with some % plain ropivacaine for postop pain control and sterile dressings and a posterior splint was applied. The patient appears to have tolerated the procedure well and with no complications. All digits were well vascularized conclusion of the case.
== END 2022-02-27 11:25 | disposition home or self-care (01) ==
PROVIDERS: PCP Nurse Practitioner; Visit Provider Orthopaedic Surgery
PROC: (CPT 64718; principal; 2022-02-27 07:30)
PROC: (CPT 64721; 2022-02-27 07:30)
DX: G56.01 Carpal tunnel syndrome, right upper limb (principal); G56.21 Lesion of ulnar nerve, right upper limb; R20.0 Anesthesia of skin; J45.909 Unspecified asthma, uncomplicated; I10 Essential (primary) hypertension; Z79.01 Long term (current) use of anticoagulants; Z79.899 Other long term (current) drug therapy; Z88.8 Allergy status to other drugs, medicaments and biological substances; Z87.891 Personal history of nicotine dependence; Z86.718 Personal history of other venous thrombosis and embolism
CPT/HCPCS: 64721; 64718; J0690; J1100; J1170; J2250; J2405; J2795; J3010

== ENCOUNTER → 2022-03-04 13:44 | Outpatient (BNVA) | payer MEDICAID, SELFPAY | PROVIDERS: PCP Registered Nurse; Visit Provider Surgery Vascular Surgery | DX: Z01.818 Encounter for other preprocedural examination (principal); I73.9 Peripheral vascular disease, unspecified; Z79.01 Long term (current) use of anticoagulants | CPT/HCPCS: 99202; 99212 ==

== ENCOUNTER → 2022-03-19 09:58 | Outpatient (BNVA) | payer MEDICAID, SELFPAY | PROVIDERS: PCP Registered Nurse; Visit Provider Urology | DX: N39.41 Urge incontinence (principal); Z87.442 Personal history of urinary calculi; F17.210 Nicotine dependence, cigarettes, uncomplicated | CPT/HCPCS: 51798; 99212 ==

== ENCOUNTER → 2022-05-14 08:52 | Outpatient (BNVA) | payer MEDICAID, SELFPAY | PROVIDERS: PCP Registered Nurse; Visit Provider Orthopaedic Surgery | DX: Z01.818 Encounter for other preprocedural examination (principal); G56.03 Carpal tunnel syndrome, bilateral upper limbs | CPT/HCPCS: 99212 ==

== ENCOUNTER → 2022-08-26 08:41 | Outpatient (BNVA) | payer MEDICAID, SELFPAY | PROVIDERS: PCP Registered Nurse; Visit Provider Orthopaedic Surgery | DX: G56.03 Carpal tunnel syndrome, bilateral upper limbs (principal); G56.23 Lesion of ulnar nerve, bilateral upper limbs; M65.311 Trigger thumb, right thumb | CPT/HCPCS: 99212 ==

== ENCOUNTER 2022-09-01 05:59 | Day surgery (SDC) | payer MEDICAID, SELFPAY ==
[2022-08-28 10:30] VITALS: BMI 30.9
[2022-09-01 06:27] VITALS: BP 144/79; PULSE 83; RESP 16; TEMP 36.1; O2SAT 96
[2022-09-01] MEDS: Lactated Ringers 1,000 ML 50 ML IVCONT (06:39)
--- NOTE | 2022-09-01 08:51 | P.CONAN_ITS ---
HPI - Anesthesia Eval Consult details Narrative: for left CTS and cubital tunnel release PMFSH Active Problems Active Problems: All Active Problems (Updated 08/28/22 @ 11:21 by Viviana Ruby, RN) Ganglion cyst of volar aspect of right wrist (Acute) PAD (peripheral artery disease) (Acute) Right renal artery stenosis (Acute) De Quervain's tenosynovitis, right (Acute) Numbness and tingling in right hand (Acute) Smoker (Acute) Preoperative cardiovascular examination (Acute) Essential hypertension (Acute) Other and unspecified hyperlipidemia (Acute) Carpal tunnel syndrome on both sides (Acute) Cubital tunnel syndrome, bilateral (Acute) Pre-op examination (Acute) Chronic anticoagulation (Acute) Urinary incontinence (Acute) Nicotine dependence (Acute) UTI (urinary tract infection) (Acute) Trigger thumb, right thumb (Acute) Urinary incontinence (Acute) Bladder prolapse, female, acquired (Acute) Urge incontinence (Acute) Past Medical History Medical History Asthma Back pain Bladder prolapse, female, acquired COVID-19 vaccine administered DVT (deep venous thrombosis) Hypertension Kidney injury No natural teeth Post-menopausal Urge incontinence Urinary incontinence Family History Family History Father Lung cancer Mother No problems noted. Family history of problems with anesthesia: No Surgical History Surgical History History of carpal tunnel release History of kidney surgery History of right oophorectomy S/P aortogram S/P femoral-femoral bypass surgery History of Problems with Anesthesia: No Social History Social History Household Members Other:: mother Are you a primary childcare center director to a significant other at home: No Do you presently have visiting nurse or other home services: No Patient Tobacco Use Status: Former Tobacco user Quit Date: 10/2021 Tobacco use type: Cigarette Years Smoked: 25+ e-Cigarette/Vaping Use: Never Used Second Hand Smoke Exposure: No Use of substances other than those prescribed or required for medical reasons: No Substance Use Type: Marijuana and Caffiene Have you been hit, kicked, punched, or otherwise hurt by someone within the past year? 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 Allergies Allergy/AdvReac Type Severity Reaction Status Date / Time lisinopril Allergy Severe Facial Verified 09/01/22 06:25 Swelling, throat closing codeine [CODEINE] AdvReac Severe blacked Verified 09/01/22 06:25 out Active Medications: Current Medications Lactated Ringer's (Lr) 1,000 mls @ 50 mls/hr IVCONT .Q20H CHICHI Last Admin: 09/01/22 06:39 Dose: 50 mls/hr Home Medications Medication Instructions Recorded Confirmed Last Taken Type acetaminophen 325 mg capsule 325 mg PO QID PRN Pain 01/02/21 08/28/22 Unknown History gabapentin 100 mg capsule 100 mg PO BEDTIME 01/02/21 08/28/22 Unknown History apixaban 5 mg tablet (Eliquis) 5 mg PO BID 10/14/21 08/28/22 08/29/22 History docusate sodium 100 mg capsule 100 mg PO BID 10/16/21 08/28/22 Unknown History (Colace) amlodipine 10 mg tablet 1 tab PO DAILY blood pressure 10/28/21 08/28/22 09/01/22 05:00 History cyclobenzaprine 10 mg tablet 1 tab PO TID PRN Muscle Spasm 10/28/21 08/28/22 Unknown History duloxetine 30 mg capsule,delayed 1 cap PO DAILY 10/28/21 08/28/22 Unknown History release hydrochlorothiazide 25 mg tablet 1 tab PO DAILY 10/28/21 08/28/22 Unknown History atorvastatin 40 mg tablet 40 mg PO DAILY 03/04/22 08/28/22 Unknown History buspirone 5 mg tablet 5 mg PO BID 03/04/22 08/28/22 Unknown History gabapentin 300 mg capsule 300 - 600 mg PO TID 03/04/22 08/28/22 Unknown History naloxone 4 mg/actuation nasal spray 0 spray intranasal 03/04/22 03/19/22 Unknown History sennosides 8.6 mg-docusate sodium 2 tab PO DAILY 03/04/22 03/19/22 Unknown History 50 mg tablet (Senna-S) chlorthalidone 25 mg tablet 25 mg PO QAM 05/14/22 08/28/22 Unknown History clonidine HCl 0.1 mg tablet 0.1 mg PO BEDTIME 08/28/22 08/28/22 Unknown History Exam Exam Date and Time: September 01, 2022 0851 Height,Weight and Vital Signs: Height 5 ft 4 in Weight 81.647 kg Last Vital Signs Temp 96.9 F 09/01/22 06:27 Pulse 83 09/01/22 06:27 Resp 16 09/01/22 06:27 BP 144/79 H 09/01/22 06:27 Pulse Ox 96 09/01/22 06:27 O2 Del Method Room Air 09/01/22 06:27 Airway Mallampati Class: I TM Dist: >3cm Neck ROM: Full Denture: Upper and Lower Heart: rrr Lungs: cta Assessment and Plan Assessment Anesthesia Assessment: Anesthesia Plan Discussed, Smoking Cess. Discussed and Chart Reviewed Final Anesthetic Review Family History of Problems with Anesthesia: No History of Problems with Anesthesia: No ASA Class: III Final Preanesthetic Review: No Changes in Pt Med Stat, Meds/Allgs Chart Reviewed, Consent Obtained/Reviewed and Anes Risks/Benef Reviewed Patient Risk: Intermediate Procedure Risk: Low Anesthetic Plan Anesthetic Plan: GA Disposition: Standard PACU
[2022-09-01 09:22] VITALS: BP 138/83; PULSE 76; RESP 20; TEMP 36.2; O2SAT 94
[2022-09-01 09:27] VITALS: BP 160/85; PULSE 66; RESP 20; O2SAT 94
[2022-09-01 09:32] VITALS: BP 152/76; PULSE 67; RESP 20; O2SAT 95
[2022-09-01 09:37] VITALS: BP 144/90; PULSE 76; RESP 20; O2SAT 96
[2022-09-01 09:49] VITALS: BP 150/84; PULSE 70; RESP 20; TEMP 36.3; O2SAT 96
--- NOTE | 2022-09-01 09:53 | P.OP_ITS ---
Operative Note Operative Note Date of Service: 09/01/22 Narrative: Operative Note Narrative: Preop diagnosis: 1. Left Cubital tunnel syndrome 2. Left carpal tunnel syndrome Postop diagnosis: Same Procedure: 1. left Cubital Tunnel Release 2. Left carpal tunnel release Surgeon: Katty Crisostomo MD Anesthesia: General Anesthesia Findings: Thickening and fibrosis about the ulnar nerve at the cubital tunnel. Mild hourglass deformity of the ulnar nerve at the proximal aspect of the cubital tunnel. Implants: none Tourniquet time: 39 minutes EBL: 5.0 ml Specimen: none Drains: None Complications: None Disposition: Brought to the recovery room in stable condition Plan: Follow-up in 10-14 days for wound check, and suture removal Indications: The patient is 57 years old with left cubital tunnel syndrome and left carpal tunnel syndrome . The risks and benefits of operative treatment, including but not limited to risk of damage to blood vessels, nerves, tendons, infection, recurrence, persistent pain or numbness, incomplete res olution of preoperative symptoms, or need for further surgery were discussed with the patient and they wished to proceed with surgery. Procedure: Once consent was obtained patient was brought back to the operating suite and placed in the operating table in a supine position. Perioperative antibiotics and anesthesia was administered by the anesthesia team. The limb was prepped and draped in a standard surgical fashion, and a sterile tourniquet applied to the proximal aspect of the left upper extremity. The limb was elevated exsanguinated with Esmarch bandage and the tourniquet inflated to 250 mm of mercury for a total tourniquet time of 39 minutes. A 6 cm gently curved but longitudinally oriented incision was made centered over the cubital tunnel of the left upper extremity. Incision was made through the skin to the subcutaneous tissues using a # 15 Blade. I then dissected down to the level of the medial epicondyle and the cubital tunnel using tenotomy scissors. Care was taken to protect the lateral antebrachial cutaneous nerve. The ulnar nerve was identified just posterior to the medial intermuscular septum. The ulnar nerve was released in a proximal to distal direction using tenotomy in iris scissors while directly visualizing and protecting the ulnar nerve. Thickening and fibrosis was appreciated about the ulnar nerve as it passed through the cubital tunnel. she also had a mild hourglass deformity of the ulnar nerve at the proximal aspect of the cubital tunnel. The ulnar nerve was assessed as I passed the elbow through full flexion and extension and was found to remain stable within its groove. Once assured that we had a good block, a 2.0 cm longitudinal incision was made centered over the Left carpal tunnel. The incision was made through the skin to the subcutaneous tissues using a #15 blade. Dissection was made down to the level of the transverse carpal ligament with care being taken to protect the palmar cutaneous nerve. Once the transverse carpal ligament was clearly visualized, a longitudinal incision was made in the transverse carpal ligament 1st using a #15 blade, then using tenotomy scissors under direct visualization. Care was taken to look for and protect the motor branch of the median nerve when seen in this area. Once satisfied with our carpal tunnel release the wound was irrigated with normal saline. At this point the tourniquet was deflated and hemostasis obtained with a brief period of local pressure and bipolar electrocautery. The wound was copiously irrigated with normal saline. The subcutaneous layer was closed with 4-0 Vicryl suture, and the skin edges were reapproximated with 5-0 nylon suture. The wound was infiltrated with some 0.25% plain Marcaine for postop pain control and sterile dressings and a posterior splint was applied. The patient appears to have tolerated the procedure well and with no complications. All digits were well vascularized conclusion of the case.
--- NOTE | 2022-09-01 09:53 | MHC.SHP ---
Pre-Procedural Eval Section A Date of Service: 09/01/22 The patient is an INPATIENT: No Changes since office visit: No Cold of Flu in the past 2 weeks, No New Medical Problems, No Changes in Medication and No Patient answered all questions The History & Physical has been completed within 30 days and I have reviewed it.: Yes Section B Chief Complaint: Lesion of ulnar nerve,Carpal tunnel syndrome, Allergies: Allergies Allergy/AdvReac Type Severity Reaction Status Date / Time lisinopril Allergy Severe Facial Verified 09/01/22 06:25 Swelling, throat closing codeine [CODEINE] AdvReac Severe blacked Verified 09/01/22 06:25 out Plan I have reviewed the history and physical and performed a pertinent physical examination on my patient. No changes have occurred unless specified. Time Spent With Patient Time: Total time managing care of this patient today ____ minutes.
== END 2022-09-01 12:10 | disposition home or self-care (01) ==
PROVIDERS: PCP Registered Nurse; Visit Provider Orthopaedic Surgery
PROC: (CPT 64718; principal; 2022-09-01 07:30)
PROC: (CPT 64721; 2022-09-01 07:30)
DX: G56.02 Carpal tunnel syndrome, left upper limb (principal); G56.22 Lesion of ulnar nerve, left upper limb; R20.0 Anesthesia of skin; J45.909 Unspecified asthma, uncomplicated; I82.409 Acute embolism and thrombosis of unspecified deep veins of unspecified lower extremity; I10 Essential (primary) hypertension; Z79.01 Long term (current) use of anticoagulants; Z79.82 Long term (current) use of aspirin; Z79.899 Other long term (current) drug therapy; Z98.890 Other specified postprocedural states; Z88.8 Allergy status to other drugs, medicaments and biological substances; F15.90 Other stimulant use, unspecified, uncomplicated; F12.90 Cannabis use, unspecified, uncomplicated; Z87.891 Personal history of nicotine dependence
CPT/HCPCS: 64721; 64718; J0690; J2370; J2405; J2795; J3010

== ENCOUNTER 2022-09-16 12:43 | Outpatient (REF) | payer MEDICAID, SELFPAY ==
--- NOTE | ~2022-09-16 | US_ITS ---
EXAMINATION: NONINVASIVE ASSESSMENT OF THE ARTERIES OF BOTH LOWER EXTREMITIES WITH PVR EXAM AND BILATERAL LOWER EXTREMITY DUPLEX Mary Mancia MD CLINICAL INFORMATION: Peripheral vascular disease TECHNIQUE: Ankle pulse volume recordings, ankle pressure measurements and ankle brachial indices were obtained of the lower extremity arterial system bilaterally in addition to duplex Doppler techniques with wave form analysis and measurement of velocities in the common femoral, profunda femoral, superficial femoral, popliteal and tibial arteries. The study was performed only at rest. COMPARISON: Arterial duplex on 06/25/21 FINDINGS: a) AT REST: RIGHT LE. The right ankle-brachial index is: 0.69 * >0.97-1.25 = normal - no significant arterial disease * 0.75-0.96 = mild peripheral arterial disease * 0.5-0.74 = moderate peripheral arterial disease * <0.50 = severe peripheral arterial disease 2. Right ankle pressure: abormal 3. Right ankle PVR waveform: Abnormal 4. Right direct duplex Doppler findings: Common femoral artery: 52 cm/s, monophasic Profunda femoris artery: 35 cm/s, monophasic Superficial femoral artery (proximal): 51 cm/s, monophasic Superficial femoral artery (mid): 50 cm/s, monophasic Superficial femoral artery (distal): 39 cm/s, monophasic Proximal Popliteal artery: 25 cm/s, monophasic Mid posterior tibial artery: 24 cm/s, monophasic Occluded femoral-femoral bypass. LEFT LE. The left ankle-brachial index is: 1.09 * >0.97-1.25 = normal - no significant arterial disease * 0.75-0.96 = mild peripheral arterial disease * 0.5-0.74 = moderate peripheral arterial disease * <0.50 = severe peripheral arterial disease 2. Left ankle pressure: normal. 3. Left ankle PVR waveform: Abnormal 4. Left direct duplex Doppler findings: Common femoral artery: 89 cm/s, Multiphasic Profunda femoris artery: 74 cm/s, monophasic Superficial femoral artery (proximal): 120 cm/s, Multiphasic Superficial femoral artery (mid): 107 cm/s, Multiphasic Superficial femoral artery (distal): 123 cm/s, Multiphasic Proximal Popliteal artery: 73 cm/s, Multiphasic Mid posterior tibial artery: 92 cm/s, Multiphasic US/US arterial duplex LE BI IMPRESSION: RIGHT LEG: Moderate peripheral arterial disease with monophasic flow throughout the right lower extremity. Chronically occluded femoral-femoral bypass. LEFT LEG: No significant stenosis in the left lower extremity.
== END 2022-09-16 12:44 | disposition home or self-care (01) ==
LOC: HO.US 12:43
PROVIDERS: PCP Registered Nurse; Visit Provider Surgery Vascular Surgery
DX: I70.213 Atherosclerosis of native arteries of extremities with intermittent claudication, bilateral legs (principal); G56.03 Carpal tunnel syndrome, bilateral upper limbs; G56.23 Lesion of ulnar nerve, bilateral upper limbs; M65.311 Trigger thumb, right thumb
CPT/HCPCS: 93925; 99212

== ENCOUNTER 2022-10-28 09:50 | Outpatient (AMB) | payer MEDICAID, SELFPAY ==
--- NOTE | 2022-10-28 09:53 | A.OFFVIS_ITS ---
Intake Intake Visit Reasons: Follow Up US 09/16 Intake Note: overdue 6 mo follow up s/p Arterial US 09/16/22 w/ hx of Fem-Fem bypass (left to right) 10/28/2021. Pt states she still has same issues from before the surgery, has Right LE burning and can't walk for a half block. States she lives on the second floor and has difficulty going up and down the stairs, has to sit after using the stairs Accompanied by: Self / Same As Patient Allergies lisinopril Allergy (Severe, Verified 10/28/22 09:58) Facial Swelling, throat closing codeine [CODEINE] Adverse Reaction (Severe, Verified 10/28/22 09:58) blacked out HPI Follow Up US 09/16 HPI Details Very pleasant 57-year-old female presents for follow-up regarding peripheral vascular disease. She has had a prior femoral to femoral bypass which occluded fairly shortly after the graft was placed she reports she is doing fairly reasonably well but continues to have the right lower extremity discomfort. She is concerned about it. She now presents for follow-up with noninvasive testing [facility] Medical History Asthma Back pain Bladder prolapse, female, acquired COVID-19 vaccine administered DVT (deep venous thrombosis) Hypertension Kidney injury No natural teeth Post-menopausal Urge incontinence Urinary incontinence Surgical History History of carpal tunnel release History of kidney surgery History of right oophorectomy S/P aortogram S/P femoral-femoral bypass surgery Family History Father Lung cancer Mother No problems noted. 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 Review of Systems Const All systems reviewed & are unremarkable except as noted in HPI and below Reports no additional complaints ENT Reports Normal hearing present Card Denies chest pain, Denies chest pain at rest, Denies chest pain with activity and Denies pedal edema Resp Denies cough GI Denies abdominal pain Musc Denies abnormal gait, Denies muscle cramps and Denies radiating pain into limb Skin/Breast Denies skin ulcer and Denies wounds Neuro Reports Normal hearing present and Denies abnormal gait Psych Reports no additional complaints Physical Exam Const General: cooperative, healthy appearing and comfortable Orientation/consciousness: oriented to person, oriented to place and oriented to time HEENT Head: Yes normal to inspection Neck Neck: Yes normal visual inspection Carotids: no bruits Chest Chest palpation & inspection: normal inspection of the chest Resp Effort & Inspection: normal respiratory effort and able to speak in complete sentences Auscultation: clear to auscultation bilaterally, no crackles, no rales, no rhonchi and no wheezes Cardio Other: Bilateral DP signals Rate: regular rate Rhythm: regular rhythm Heart sounds: S1 normal heart sound present and S2 normal heart sound present Bruits: no carotid bruits Peripheral pulses: Peripheral pulses 2+ throughout GI Inspection: Yes normal to inspection Skin Wounds: no wounds Hair: normal Neuro General: oriented to person, oriented to place and oriented to time Cranial nerves: Yes CN's II-XII intact bilaterally and Yes Normal hearing present Cognition (Neuro): normal cognition Motor exam (neuro): 5/5 motor strength present throughout Extrem Other: venous exam: No significant superficial varicosities or spider telangiectasias, minimal edema General: No clubbing, No cyanosis and No edema Psych Appearance: grossly normal Mental Status: mental status grossly normal Speech and movement: Normal speech and movement present Results Reviewed Results Reviewed: Noninvasive arterial testing demonstrates GENA on the right of 0.69 and on the left of 1.09 right side has inflow disease. Written report and images were reviewed. Assessment & Plan Assessment & Plan (1) PAD (peripheral artery disease): Comment: 10/28/2021 - femoral to femoral bypass (left to right) Code(s): I73.9 - Peripheral vascular disease, unspecified Plan: In short she has progressive pain on the right lower extremity. To better elucidate where the disease processes we will obtain a CT angiogram with runoff. We did discuss routine risk factor modification and she will follow up with us after testing. Thank you for allowing us to assist in her care. If there are questions or concerns please do not hesitate to contact us. Orders: Orders Blood Urea Nitrogen Today I73.9 - Peripheral vascular disease, unspecified Creatinine Today I73.9 - Peripheral vascular disease, unspecified CT angio abd aorta runoff 1 Week I73.9 - Peripheral vascular disease, unspecified Coding Level of Care Code Est Pt Level 4 (14137) Diagnoses PAD (peripheral artery disease) I73.9
== END 2022-10-28 10:27 | disposition home or self-care (01) ==
LOC: HO.HVS 09:50
PROVIDERS: PCP Registered Nurse; Visit Provider Surgery Vascular Surgery
DX: I73.9 Peripheral vascular disease, unspecified (principal)
CPT/HCPCS: 99214

== ENCOUNTER → 2022-10-28 09:50 | Outpatient (BNVA) | payer MEDICAID, SELFPAY | PROVIDERS: PCP Registered Nurse; Visit Provider Surgery Vascular Surgery | DX: I73.9 Peripheral vascular disease, unspecified (principal) | CPT/HCPCS: 99212 ==

== ENCOUNTER 2022-11-18 08:47 | Outpatient (AMB) | payer MEDICAID, SELFPAY ==
--- NOTE | 2022-11-18 08:56 | A.OFFVIS_ITS ---
Intake Intake Visit Reasons: S/P L Cubital & CTR 09/01/22 Intake Note: Yael 57 yr old right hand dominant female who is S/P L Cubital V Trans & CTR 09/01/[address] Crisostomo, presents today with complains of cont' numbness and tenderness in elbow by her incision. States she is having sharp shooting pain radiating to her arm. Patient states she is also having weakness. Allergies lisinopril Allergy (Severe, Verified 11/18/22 09:00) Facial Swelling, throat closing codeine [CODEINE] Adverse Reaction (Severe, Verified 11/18/22 09:00) blacked out HPI S/P L Cubital & CTR 09/01/22 HPI Details Yael is a 57 year old right hand dominant woman who presents S/P left Carpal & Cubital tunnel release, DOS: 09/01/22. She continues to have numbness about her cubital tunnel incision, which she finds bothersome. She also complains of some pain about the base of her palm near her carpal tunnel surgery site. She has normal sensation in all digits bilaterally, and her nighttime symptoms improved.. She had a right trigger thumb we were going to discuss, but she says this resolved after she accidentally banged her thumb against a wall. She is currently unemployed on long-term disability due to back issues. [facility] Medical History Asthma Back pain Bladder prolapse, female, acquired COVID-19 vaccine administered DVT (deep venous thrombosis) Hypertension Kidney injury No natural teeth Post-menopausal Urge incontinence Urinary incontinence Surgical History History of carpal tunnel release History of kidney surgery History of right oophorectomy S/P aortogram S/P femoral-femoral bypass surgery Family History Father Lung cancer Mother No problems noted. 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 She can make a fist and extend all her digits Good elbow ROM Sensation is normal to the tips of all digits Good finger cross Good APB muscle belly firing of the left side Good ABduction & ADduction bilaterally She has an area of numbness just posterior to her elbow incision, as well as some hypersensitivity about her incision She has an area of achiness about her elbow incision and the base of her palm There is no ulnar nerve subluxation with elbow ROM Cap refill is brisk Her surgical incisions are all well healed on the right side. She no longer has visible locking and catching of her right thumb. EMG Nerve Conduction study: IMPRESSION:? 1. [id number] bilateral median neuropathy across carpal tunnel. 2. Mild bilateral ulnar neuropathy across cubital tunnel. ? M Anabella Calabrese MD 11/21/2021 Psych Appearance: grossly normal Affect: normal affect Attitude: cooperative Assessment & Plan Assessment & Plan (1) Carpal tunnel syndrome on both sides: Code(s): G56.03 - Carpal tunnel syndrome, bilateral upper limbs (2) Cubital tunnel syndrome, bilateral: Code(s): G56.23 - Lesion of ulnar nerve, bilateral upper limbs (3) Trigger thumb, right thumb: Code(s): M65.311 - Trigger thumb, right thumb Plan Assessment & Plan: 1. Left Carpal Tunnel syndrome, S/P release DOS: 09/01/22 With normal sensation and good resolution of her nighttime symptoms 2. Left Cubital tunnel syndrome, S/P release DOS: 09/01/22 With normal sensation and good resolution of her nighttime symptoms The patient appears to have some mild hypersensitivity about the carpal and cubital tunnel incisions, as well as an area of numbness just posterior to her cubital tunnel incision. There is no nerve subluxation with elbow ROM I explained to her that she may always have some numbness about the incision at the elbow but that should not affect function. I do want to help her with her hypersensitivity and have ordered OT hand therapy to work on desensitization training She can follow up prn 3. Right trigger thumb Resolved on its own If it returns she knows to contact the clinic to discuss treatment 4. Right Carpal Tunnel syndrome, S/P release 5. Right Cubital Tunnel syndrome, S/P release DOS: 02/27/22 With good resolution of her symptoms Scribed for Katty Crisostomo MD by Danish Shah, medical laboratory technicians, on 11/18/22 at 9:18 AM, EST. Coding Level of Care Code Global (23847) Diagnoses Carpal tunnel syndrome on both sides G56.03 Cubital tunnel syndrome, bilateral G56.23 Trigger thumb, right thumb M65.311
== END 2022-11-18 09:24 | disposition home or self-care (01) ==
PROVIDERS: Visit Provider Orthopaedic Surgery
DX: G56.03 Carpal tunnel syndrome, bilateral upper limbs (principal); G56.23 Lesion of ulnar nerve, bilateral upper limbs; M65.311 Trigger thumb, right thumb
CPT/HCPCS: 99024

== ENCOUNTER → 2022-11-18 08:47 | Outpatient (BNVA) | payer MEDICAID, SELFPAY | PROVIDERS: Visit Provider Orthopaedic Surgery ==

== ENCOUNTER 2022-11-26 07:18 | Outpatient (REF) | payer MEDICAID, SELFPAY ==
[2022-11-26 10:36] LABS: Blood Urea Nitrogen 13 mg/dL (9-16); Estimated Glomerular Filt Rate > 60
== END 2022-11-26 07:19 | disposition home or self-care (01) ==
LOC: HO.LAB 07:18
PROVIDERS: PCP Registered Nurse; Visit Provider Surgery Vascular Surgery
DX: I73.9 Peripheral vascular disease, unspecified (principal)
CPT/HCPCS: 36415; 82565; 84520

== ENCOUNTER 2022-12-04 07:39 | Outpatient (REF) | payer MEDICAID, SELFPAY ==
--- NOTE | ~2022-12-04 | CT_ITS ---
STUDY PERFORMED: CTA ABDOMEN, PELVIS AND LOWER EXTREMITY RUNOFF WITH CONTRAST HISTORY: Peripheral vascular disease. COMPARISON: CT scans dated 07/08/2021 and 02/22/2021. TECHNIQUE: Routine abdominal aorta and lower extremity runoff CTA protocol with contrast was performed. 100 mL of Omnipaque 350 was administered. Images were evaluated on independent dedicated 3-D workstation and 3-D images were reconstructed with concurrent radiologist supervision and subsequently interpreted. This CT examination was performed using dose optimization techniques as appropriate, variously including the following: *Automated exposure control *Adjustment of mA and/or kV according to patient size (this includes techniques or standardized protocols for targeted exams where dose is matched to indication/reason for exam; i.e. extremities or head) *Use of iterative reconstruction technique TOTAL DLP: 829 mGy-cm FINDINGS: VASCULAR: 1. Mesenteric Arteries:The celiac axis, superior mesenteric artery and inferior mesenteric artery appear patent. 2. Renal Arteries: There are single renal arteries bilaterally. The renal arteries appear patent proximally. 3. Infrarenal Abdominal Aorta: Atherosclerotic. No evidence of hemodynamically significant stenosis. 4. Right Lower Extremity Arterial Perfusion: Occlusion of the right common iliac artery. Reconstitution of the internal iliac artery, likely from lumbar collaterals. Reconstitution of the external iliac artery presumably by the inferior iliac artery. Occlusion of synthetic femoral-femoral bypass graft. Patent infrainguinal runoff to the ankle. 5. Left Lower Extremity Arterial Perfusion: Atherosclerotic common iliac artery, without evidence of hemodynamically significant stenosis. Patent internal iliac, external iliac, and infrainguinal arterial runoff to the ankle. NONVASCULAR: Lung Bases: The visualized lung bases appear unremarkable. No evidence of coronary arterial calcification. Heart normal in size. No pleural or pericardial effusion. Liver, Gallbladder and Biliary Tree: The liver appears unremarkable in size, shape, and attenuation. No focal hepatic lesion or biliary ductal dilatation is appreciated. Unremarkable appearance of the gallbladder. Pancreas: Unremarkable. Spleen: Unremarkable. Adrenal Glands: Unremarkable. Kidneys and Ureters: Multiple foci right renal cortical scarring, possibly related to old pyelonephritis or old emboli, not significantly changed compared with 07/08/2021. The kidneys otherwise appear unremarkable in size, shape, and attenuation. No hydronephrosis, hydroureter, or calculi seen. Bladder: Unremarkable. Gastrointestinal Tract: The small and large bowel appear unremarkable. No diverticulosis. Normal-appearing distal ileum and vermiform appendix. Abdominal Wall: No significant hernia is appreciated. Lymph Nodes: No adenopathy by size criteria. Pelvic Viscera: Unremarkable. Osseous Structures: Unremarkable. CT/CT angio abd aorta runoff IMPRESSION: Occlusion of the right common iliac artery. Reconstitution of the right internal iliac artery, likely from lumbar collaterals. Reconstitution of the right external iliac artery presumably by the inferior iliac artery. Occlusion of synthetic femoral-femoral bypass graft. Patent right infrainguinal runoff to the ankle. No evidence of hemodynamically significant stenosis involving the left runoff. Additional findings, as above.
[2022-12-04] MEDS: iohexoL 350 MG/ML 100 ML INFUS..BTL IV (08:43)
== END 2022-12-04 07:40 | disposition home or self-care (01) ==
LOC: HO.CT 07:39
PROVIDERS: Visit Provider Surgery Vascular Surgery
DX: I73.9 Peripheral vascular disease, unspecified (principal)
CPT/HCPCS: 75635; Q9967

== ENCOUNTER 2022-12-15 11:10 | Outpatient (AMB) | payer MEDICAID, SELFPAY ==
--- NOTE | 2022-12-15 11:14 | A.OFFVIS_ITS ---
Intake Vital Signs 12/15/22 11:32 Height 5 ft 4 in Weight 196 lb BMI 33.6 BP 140/66 H Blood Pressure Location Rt brachial Position Sitting Respiration 16 Pulse 81 Pulse Source Pulse Oximeter Pulse Oximetry (%) 96 Oxygen Delivery Method Room Air Intake Visit Reasons: Chronic Bilateral Low Back Pain W/O Sciatica Intake Note: patient comes in for initial visit was referred by PCP. Allergies lisinopril Allergy (Severe, Verified 12/15/22 11:32) Facial Swelling, throat closing codeine [CODEINE] Adverse Reaction (Severe, Verified 12/15/22 11:32) blacked out HPI HPI Comments History of Present Illness Details Yael is very pleasant 57 years old female who presents in my office with complain on lower back pain with radiation to the right lower extremity to the level of the mid nunez on anterior surface without further radiation down to the leg as well as sensation of numbness in the lateral surface of the thigh. She reports that this pain started in 2017 and she does not know if any events were prior to the pain causing the aggravation. She reports her pain level is 8 to 10/10 she reports that she cannot sleep normally because of he her pain she can do some activities of daily living she can take care of herself but she cannot function normally. She is currently unemployed. She reports that she walks with the walker on occasion. Weather changes in movements aggravates his pain and oral medications make her pain slightly better. In terms of tissue damage she reports her pain is pulsing throbbing pounding shooting stabbing lancinating hot burning dull sore hurting aching heavy tiring and exhausting sensation. She had an MRI of the lumbar spine results of which dictated as below. She had no physical therapy for her pain however she had chiropractic manipulations on her which were not helpful for her pain control. She tried NSAIDs and muscle relaxants without success to help her pain. She is taking recreational cannabis and she reports that cannabis takes ?an edge of her pain. ? Her past medical history significant for asthma and hypertension. She denies any surgical history. Social history she is unemployed individual stop smoking 3 months ago before that she was smoking 1 part per day. Denies drinking alcohol admits caffeinated beverages in admits recreational cannabis. [facility] Medical History Asthma Back pain Bladder prolapse, female, acquired COVID-19 vaccine administered DVT (deep venous thrombosis) Hypertension Kidney injury No natural teeth Post-menopausal Urge incontinence Urinary incontinence Surgical History History of carpal tunnel release History of kidney surgery History of right oophorectomy S/P aortogram S/P femoral-femoral bypass surgery Family History Father Lung cancer Mother No problems noted. 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6 Back/Spine/Pelvis Other: Flexing forward and flexing backwards aggravate her pain however flexing backwards aggravate her pain more than flexing forward. Patient is able to stand on bilateral tiptoes unable to stand on the right heel because of plantar fasciitis. However otherwise demonstrates normal strength of bilateral lower extremities. Loading test is positive bilaterally. Ramiro test is negative bilaterally, Gaenslen test is negative bilaterally. Tenderness on palpation in paraspinal as well as. Midline spinal lumbar spine. Results Reviewed Results Reviewed: Quotation from [facility] primary care physician note about MRI of the patient ?lumbar MRI from 11/06/2020 with the following results: Mild degenerative spondylitic changes. No spinal canal stenosis or nerve root compression identified. Minimal grade 1 anterolisthesis seen at L4-5 related to facet arthropathy. Stress response seen with the right L4 and L5 pedicle. Assessment & Plan Assessment & Plan (1) Low back pain: Code(s): M54.50 - Low back pain, unspecified (2) Spondylosis of lumbar region without myelopathy or radiculopathy: Code(s): M47.816 - Spondylosis without myelopathy or radiculopathy, lumbar region (3) Spondylolisthesis of lumbar region: Code(s): M43.16 - Spondylolisthesis, lumbar region (4) Chronic pain syndrome: Code(s): G89.4 - Chronic pain syndrome (5) Disc degeneration, lumbar: Code(s): M51.36 - Other intervertebral disc degeneration, lumbar region Plan Looks like this patient is suffering from spondylosis of lumbar spine. The radiation of the pain below the level of the knee make me think about degeneration as well as nerve root compression. However since she is not reporting any inciting events such is trauma car accident or fall in the past I would presume that changes since 2020 MRI are not that pronounced. I offered this patient and I will proceed with L2-L3 L4 bilateral diagnostic medial branch block to diagnose her pain properly. If this will not alleviate her pain I would consider sending her to a fresh MRI. Coding Level of Care Code New Pt Level 4 (53606) Diagnoses Low back pain M54.50 Spondylosis of lumbar region without myelopathy or radiculopathy M47.816 Spondylolisthesis of lumbar region M43.16 Chronic pain syndrome G89.4 Disc degeneration, lumbar M51.36
[2022-12-15 11:32] VITALS: BP 140/66; PULSE 81; RESP 16; O2SAT 96; BMI 33.6
== END 2022-12-15 11:46 | disposition home or self-care (01) ==
PROVIDERS: PCP Registered Nurse; Visit Provider Anesthesiology
DX: M54.50 Low back pain, unspecified (principal); M47.816 Spondylosis without myelopathy or radiculopathy, lumbar region; M43.16 Spondylolisthesis, lumbar region; G89.4 Chronic pain syndrome; M51.36 Other intervertebral disc degeneration, lumbar region
CPT/HCPCS: 99204

== ENCOUNTER → 2022-12-15 11:10 | Outpatient (BNVA) | payer MEDICAID, SELFPAY | PROVIDERS: PCP Registered Nurse; Visit Provider Anesthesiology | DX: M54.50 Low back pain, unspecified (principal); G89.4 Chronic pain syndrome; M51.36 Other intervertebral disc degeneration, lumbar region; M43.16 Spondylolisthesis, lumbar region; M47.816 Spondylosis without myelopathy or radiculopathy, lumbar region | CPT/HCPCS: 99202 ==

== ENCOUNTER 2022-12-30 06:06 | Outpatient (REF) | payer MEDICAID, SELFPAY ==
--- NOTE | ~2022-12-30 | FL_ITS ---
EXAMINATION: XR FLUOROSCOPY WITH IMAGES CLINICAL INFORMATION: Spondylosis without myelopathy or radiculopathy, lumbar region. COMPARISON: None available. TECHNIQUE: Fluoroscopy Supervised By: Dr. Jefferson Joe. Fluoroscopy Time: 0.5 minutes. Cumulative Dose: 11.6 mGy. DAP: 3.18 Gycm2. Images: 5. FINDINGS: Images demonstrate needle placement and contrast injection adjacent to the bilateral lateral L3-L4 and L5 vertebrae. FL/FL guidance in treatment room IMPRESSION: Fluoroscopy guidance for pain management procedure.
== END 2022-12-30 06:07 | disposition home or self-care (01) ==
LOC: CF 06:06
PROVIDERS: Visit Provider Anesthesiology
DX: M47.816 Spondylosis without myelopathy or radiculopathy, lumbar region (principal); M43.16 Spondylolisthesis, lumbar region; M51.36 Other intervertebral disc degeneration, lumbar region; G89.4 Chronic pain syndrome
CPT/HCPCS: 64493; 64494

== ENCOUNTER 2022-12-30 10:28 | Outpatient (AMB) | payer MEDICAID, SELFPAY ==
--- NOTE | 2022-12-30 10:49 | A.OFFVIS_ITS ---
Intake Vital Signs 12/30/22 14:25 12/30/22 14:26 Height 5 ft 4 in 5 ft 4 in Weight 196 lb 196 lb BMI 33.6 33.6 BP 126/80 124/76 Blood Pressure Location Lt brachial Rt brachial Position Sitting Sitting Respiration 18 14 Pulse 80 70 Pulse Source Pulse Oximeter Pulse Oximeter Pulse Oximetry (%) 94 95 Oxygen Delivery Method Room Air Room Air Comment pre-op post-op Intake Visit Reasons: Bilateral Diagnostic L2-L3-L4 Medial Branch Blocks Allergies lisinopril Allergy (Severe, Verified 12/30/22 14:27) Facial Swelling, throat closing codeine [CODEINE] Adverse Reaction (Severe, Verified 12/30/22 14:27) blacked out [facility] Medical History Asthma Back pain Bladder prolapse, female, acquired COVID-19 vaccine administered DVT (deep venous thrombosis) Hypertension Kidney injury No natural teeth Post-menopausal Urge incontinence Urinary incontinence Surgical History History of carpal tunnel release History of kidney surgery History of right oophorectomy S/P aortogram S/P femoral-femoral bypass surgery Family History Father Lung cancer Mother No problems noted. 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 Physical Exam Vital Signs: Last Vital Signs Pulse 70 12/30/22 14:26 Resp 14 12/30/22 14:26 BP 124/76 12/30/22 14:26 Pulse Ox 95 12/30/22 14:26 Oxygen Delivery Method Room Air 12/30/22 14:26 BMI result Body Mass Index 33.6 Assessment & Plan Assessment & Plan (1) Low back pain: Code(s): M54.50 - Low back pain, unspecified (2) Spondylosis of lumbar region without myelopathy or radiculopathy: Code(s): M47.816 - Spondylosis without myelopathy or radiculopathy, lumbar region (3) Spondylolisthesis of lumbar region: Code(s): M43.16 - Spondylolisthesis, lumbar region Plan: Diagnostic medial branch blockL2- L3- L4 bilateral.? ? ?Informed consent was explained to the patient. All questions were explained and? answered.? The patient was taken inside the operating room where she was positioned prone on the operating table. Time-out was performed delineating correct site, side, the nature of the procedure, patient's allergy, . All operating room staff was participating in OR time-out procedure. ? ? The lower back was prepped with ChloraPrep and draped with sterile towels.? C- arm was brought over the operating field and sq picture ofL3- L4- andf L5 were delineated on the screen.? Point of interest were delineated as confluence of superior articular process of L3, L4 and L5 vertebra bilaterally with corresponding transverse processes .? The projection of the point of interest to the skin were injected with the small amount of local anesthetic lidocaine 2% 1-1.5 cc.? After that 22 gauge 3.5 inch spinal needle was driven sequentially to the points of interest in tunnel vision fashion. After needles gently contacted the bone at the point of interests the needle was injected with small amount of the contrast.? The injection of the contrast did not demonstrate any intravascular or intrathecal spread of the contrast.? After that injection of the? ropivacaine 0.5%-1cc was performed at each needle location.??after that the needles were removed and Bandaids were applied. ? Upon completion of the injections? needle was? removed and sterile Band-Aids were applied.? The patient tolerated procedure very well. (4) Chronic pain syndrome: Code(s): G89.4 - Chronic pain syndrome (5) Disc degeneration, lumbar: Code(s): M51.36 - Other intervertebral disc degeneration, lumbar region Plan Looks like this patient is suffering from spondylosis of lumbar spine. The radiation of the pain below the level of the knee make me think about degeneration as well as nerve root compression. However since she is not reporting any inciting events such is trauma car accident or fall in the past I would presume that changes since 2020 MRI are not that pronounced. I offered this patient and I will proceed with L2-L3 L4 bilateral diagnostic medial branch block to diagnose her pain properly. If this will not alleviate her pain I would consider sending her to a fresh MRI. Orders: Orders FL guidance in treatment room Today M47.816 - Spondylosis without myelopathy or radiculopathy, lumbar region Coding Level of Care Code Procedure Only Diagnoses Low back pain M54.50 Spondylosis of lumbar region without myelopathy or radiculopathy M47.816 Spondylolisthesis of lumbar region M43.16 Chronic pain syndrome G89.4 Disc degeneration, lumbar M51.36
[2022-12-30 14:25] VITALS: BP 126/80; PULSE 80; RESP 18; O2SAT 94; BMI 33.6
[2022-12-30 14:26] VITALS: BP 124/76; PULSE 70; RESP 14; O2SAT 95; BMI 33.6
== END 2022-12-30 12:43 | disposition home or self-care (01) ==
LOC: HO.PMCPRC 10:28
PROVIDERS: PCP Registered Nurse; Visit Provider Anesthesiology
DX: M47.816 Spondylosis without myelopathy or radiculopathy, lumbar region (principal); M43.16 Spondylolisthesis, lumbar region; G89.4 Chronic pain syndrome; M51.36 Other intervertebral disc degeneration, lumbar region
CPT/HCPCS: 64493; 64494

== ENCOUNTER 2023-01-07 08:48 | Outpatient (AMB) | payer MEDICAID, SELFPAY ==
--- NOTE | 2023-01-07 08:52 | MHC.OFFVIS ---
Intake Vital Signs 01/07/23 08:57 Height 5 ft 4 in Weight 199 lb BMI 34.2 BP 124/64 Blood Pressure Location Lt brachial Position Sitting Respiration 16 Pulse 87 Pulse Source Pulse Oximeter Pulse Oximetry (%) 94 Oxygen Delivery Method Room Air Intake Visit Reasons: S/P BI DIAGNOSTIC L2, L3, L4 MBB 12/30/22/Confirmed Intake Note: patient comes in for post-op appointment. Allergies lisinopril Allergy (Severe, Verified 01/07/23 08:58) Facial Swelling, throat closing codeine [CODEINE] Adverse Reaction (Severe, Verified 01/07/23 08:58) blacked out HPI HPI Comments History of Present Illness Details Yael is back in my office after diagnostic medial branch block L2-L3 L4 bilateral. In the level of the block was chosen based on the location of the patient's spondylolisthesis L4-5. The patient came today in the office and she reported pain reduction only to 2 points from 8 pain went down 2. hours after the procedure to 6 out of 10 and after that pain returned to the basically pre injection level. The patient reports flexing forward aggravates her pain as well as prolonged sitting. I suspect vertebra genic pain in this patient. I will schedule her for fresh MRI to evaluate Modic type changes in the MRI. Prior: C/O lower back pain with radiation to the right lower extremity to the level of the mid nnuez on anterior surface without further radiation down to the leg as well as sensation of numbness in the lateral surface of the thigh. She reports that this pain started in 2017 and she does not know if any events were prior to the pain causing the aggravation. She reports her pain level is 8 to 10/10 she reports that she cannot sleep normally because of he her pain she can do some activities of daily living she can take care of herself but she cannot function normally. She is currently unemployed. She reports that she walks with the walker on occasion. Weather changes in movements aggravates his pain and oral medications make her pain slightly better. She had no physical therapy for her pain however she had chiropractic manipulations on her which were not helpful for her pain control. She tried NSAIDs and muscle relaxants without success to help her pain. She is taking recreational cannabis and she reports that cannabis takes ?an edge of her pain. ? Her past medical history significant for asthma and hypertension. She denies any surgical history. Social history she is unemployed individual stop smoking 3 months ago before that she was smoking 1 part per day. Denies drinking alcohol admits caffeinated beverages in admits recreational cannabis. [facility] Medical History Asthma Back pain Bladder prolapse, female, acquired COVID-19 vaccine administered DVT (deep venous thrombosis) Hypertension Kidney injury No natural teeth Post-menopausal Urge incontinence Urinary incontinence Surgical History History of carpal tunnel release History of kidney surgery History of right oophorectomy S/P aortogram S/P femoral-femoral bypass surgery Family History Father Lung cancer Mother No problems noted. 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 Review of Systems Const All systems reviewed & are unremarkable except as noted in HPI and below Physical Exam Vital Signs: Last Vital Signs Pulse 87 01/07/23 08:57 Resp 16 01/07/23 08:57 BP 124/64 01/07/23 08:57 Pulse Ox 94 01/07/23 08:57 Oxygen Delivery Method Room Air 01/07/23 08:57 BMI result Body Mass Index 34.2 Const General: cooperative, healthy appearing and no acute distress Chest Chest palpation & inspection: normal inspection of the chest Resp Effort & Inspection: normal respiratory effort, able to speak in complete sentences, normal respiratory pattern, no audible wheezes, no cough and respiratory effort not decreased Cardio Jugular venous distension: no JVD Back/Spine/Pelvis Other: Flexing forward and flexing backwards aggravate her pain however flexing backwards aggravate her pain more than flexing forward. Patient is able to stand on bilateral tiptoes unable to stand on the right heel because of plantar fasciitis. However otherwise demonstrates normal strength of bilateral lower extremities. Loading test is positive bilaterally. Ramiro test is negative bilaterally, Gaenslen test is negative bilaterally. Tenderness on palpation in paraspinal as well as. Midline spinal lumbar spine. Psych Appearance: grossly normal Mental Status: mental status grossly normal Speech and movement: Normal speech and movement present Affect: normal affect Attitude: cooperative Thought process: Normal thought process present Thought content: Normal thought content present Insight: Good insight present (Psych) Judgement: Good judgement present (Psych) Results Reviewed Results Reviewed: Quotation from [facility] primary care physician note about MRI of the patient ?lumbar MRI from 11/06/2020 with the following results: Mild degenerative spondylitic changes. No spinal canal stenosis or nerve root compression identified. Minimal grade 1 anterolisthesis seen at L4-5 related to facet arthropathy. Stress response seen with the right L4 and L5 pedicle. Assessment & Plan Assessment & Plan (1) Low back pain: Code(s): M54.50 - Low back pain, unspecified (2) Spondylosis of lumbar region without myelopathy or radiculopathy: Code(s): M47.816 - Spondylosis without myelopathy or radiculopathy, lumbar region (3) Spondylolisthesis of lumbar region: Code(s): M43.16 - Spondylolisthesis, lumbar region Plan: Diagnostic medial branch blockL2- L3- L4 bilateral.? ? ?Informed consent was explained to the patient. All questions were explained and? answered.? The patient was taken inside the (4) Chronic pain syndrome: Code(s): G89.4 - Chronic pain syndrome (5) Disc degeneration, lumbar: Code(s): M51.36 - Other intervertebral disc degeneration, lumbar region (6) Vertebrogenic low back pain: Code(s): M54.51 - Vertebrogenic low back pain Plan Looks like this patient is suffering from spondylosis of lumbar spine. Diagnostic medial branch block resulted in no pain improvement more than 10%. The radiation of the pain below the level of the knee make me think about disc degeneration as well as nerve root compression. I would like to repeat her MRI to evaluate her disc degeneration as well as possibly see Modic type changes in the vertebral bodies. I will see her after MRI is done. Orders: Orders MR lumbar spine wo con Today G89.4 - Chronic pain syndrome, M43.16 - Spondylolisthesis, lumbar region, M47.816 - Spondylosis without myelopathy or radiculopathy, lumbar region, M51.36 - Other intervertebral disc degeneration, lumbar region, M54.50 - Low back pain, unspecified Coding Level of Care Code Est Pt Level 4 (02799) Diagnoses Low back pain M54.50 Spondylosis of lumbar region without myelopathy or radiculopathy M47.816 Spondylolisthesis of lumbar region M43.16 Chronic pain syndrome G89.4 Disc degeneration, lumbar M51.36 Vertebrogenic low back pain M54.51
[2023-01-07 08:57] VITALS: BP 124/64; PULSE 87; RESP 16; O2SAT 94; BMI 34.2
== END 2023-01-07 09:31 | disposition home or self-care (01) ==
PROVIDERS: PCP Registered Nurse; Visit Provider Anesthesiology
DX: M47.816 Spondylosis without myelopathy or radiculopathy, lumbar region (principal); M43.16 Spondylolisthesis, lumbar region; G89.4 Chronic pain syndrome; M51.36 Other intervertebral disc degeneration, lumbar region; M54.51 Vertebrogenic low back pain
CPT/HCPCS: 99214

== ENCOUNTER → 2023-01-07 08:48 | Outpatient (BNVA) | payer MEDICAID, SELFPAY | PROVIDERS: PCP Registered Nurse; Visit Provider Anesthesiology | DX: M54.50 Low back pain, unspecified (principal); M47.816 Spondylosis without myelopathy or radiculopathy, lumbar region; M43.16 Spondylolisthesis, lumbar region; M51.36 Other intervertebral disc degeneration, lumbar region; M54.51 Vertebrogenic low back pain; G89.4 Chronic pain syndrome | CPT/HCPCS: 99212 ==

== ENCOUNTER 2023-01-27 14:07 | Outpatient (AMB) | payer MEDICAID, SELFPAY ==
--- NOTE | 2023-01-27 14:19 | MHC.OFFVIS ---
Intake Vital Signs 01/27/23 14:22 Height 5 ft 4 in Weight 199 lb BMI 34.2 Intake Visit Reasons: Follow up CTA runoff Intake Note: pt here sp CTA runoff on 12/04/22 also has hx of arterial US on 09/16/22 and hx of fem-fem bypass 10/28/21.Pt says everything is the same and she still has burning aarti down her right leg Allergies lisinopril Allergy (Severe, Verified 01/27/23 14:22) Facial Swelling, throat closing codeine [CODEINE] Adverse Reaction (Severe, Verified 01/27/23 14:22) blacked out HPI Follow up CTA runoff HPI Details Very pleasant 57-year-old female presents for follow-up regarding peripheral vascular disease. She had a prior fem-fem bypass which occluded shortly after. She had been doing fairly reasonably well. She continues to barely able to go about a quarter block. She has undergone CT angiogram. She continues to be concerned about this right lower extremity. She now presents for follow-up. [facility] Medical History No natural teeth DVT (deep venous thrombosis) Urge incontinence Bladder prolapse, female, acquired Post-menopausal COVID-19 vaccine administered Asthma Kidney injury Urinary incontinence Back pain Hypertension Surgical History History of carpal tunnel release S/P femoral-femoral bypass surgery S/P aortogram History of right oophorectomy History of kidney surgery Family History Father Lung cancer Mother No problems noted. 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 Review of Systems Const All systems reviewed & are unremarkable except as noted in HPI and below Reports no additional complaints ENT Reports Normal hearing present Card Denies chest pain, Denies chest pain at rest, Denies chest pain with activity and Denies pedal edema Resp Denies cough GI Denies abdominal pain Musc Denies abnormal gait, Denies muscle cramps and Denies radiating pain into limb Skin/Breast Denies skin ulcer and Denies wounds Neuro Reports Normal hearing present and Denies abnormal gait Psych Reports no additional complaints Physical Exam Vital Signs: BMI result Body Mass Index 34.2 Const General: cooperative, healthy appearing and comfortable Orientation/consciousness: oriented to person, oriented to place and oriented to time HEENT Head: Yes normal to inspection Neck Neck: Yes normal visual inspection Carotids: no bruits Chest Chest palpation & inspection: normal inspection of the chest Resp Effort & Inspection: normal respiratory effort and able to speak in complete sentences Auscultation: clear to auscultation bilaterally, no crackles, no rales, no rhonchi and no wheezes Cardio Other: Bilateral DP signal Rate: regular rate Rhythm: regular rhythm Heart sounds: S1 normal heart sound present and S2 normal heart sound present Bruits: no carotid bruits GI Inspection: Yes normal to inspection Skin Wounds: no wounds Hair: normal Neuro General: oriented to person, oriented to place and oriented to time Cranial nerves: Yes CN's II-XII intact bilaterally and Yes Normal hearing present Cognition (Neuro): normal cognition Motor exam (neuro): 5/5 motor strength present throughout Extrem Other: venous exam: No significant superficial varicosities or spider telangiectasias, minimal edema General: No clubbing, No cyanosis and No edema Psych Appearance: grossly normal Mental Status: mental status grossly normal Speech and movement: Normal speech and movement present Results Reviewed Results Reviewed: CT angio dated 12/04/2022 demonstrates occluded right common iliac with reconstitution of right internal iliac and external iliac. Left common iliac does appear to have some disease. Fem-fem bypass was occluded. Written report and images were reviewed Assessment & Plan Assessment & Plan (1) PAD (peripheral artery disease): Comment: 10/28/2021 - femoral to femoral bypass (left to right) Code(s): I73.9 - Peripheral vascular disease, unspecified Plan: In short patient has significant peripheral vascular disease. It does appear to be activity limiting. At the current time she has elected to manage this conservatively as she has to go to [place] care for her daughter with cancer. She will return in April. At that time I did discuss her options and she may be better served by a higher level care should larger operation be required. She was in agreement. She stated that she would call and follow-up after her return from [place]. Thank you for allowing us to assist in her care. If there are any questions or concerns please do not hesitate to contact us. Coding Level of Care Code Est Pt Level 4 (53133) Diagnoses PAD (peripheral artery disease) I73.9
[2023-01-27 14:22] VITALS: BMI 34.2
== END 2023-01-27 15:07 | disposition home or self-care (01) ==
PROVIDERS: PCP Registered Nurse; Visit Provider Surgery Vascular Surgery
DX: I73.9 Peripheral vascular disease, unspecified (principal)
CPT/HCPCS: 99214

== ENCOUNTER → 2023-01-27 14:07 | Outpatient (BNVA) | payer MEDICAID, SELFPAY | PROVIDERS: PCP Registered Nurse; Visit Provider Surgery Vascular Surgery | DX: I73.9 Peripheral vascular disease, unspecified (principal) | CPT/HCPCS: 99212 ==

== ENCOUNTER 2023-05-14 13:46 | Outpatient (AMB) | payer MEDICAID, SELFPAY ==
--- NOTE | 2023-05-14 13:49 | MHC.OFFVIS ---
Intake Vital Signs 05/14/23 13:56 Height 5 ft 4 in Weight 199 lb BMI 34.2 Intake Visit Reasons: follow up fem-fem bypass, no testing req Intake Note: Follow up s/p Fem-fem bypass 10/28/21 that has occluded , pt can only walk a quarter of a block, had last CTA w/ runoff 12/04/22, here to discuss further intervention Accompanied by: Self / Same As Patient Allergies lisinopril Allergy (Severe, Verified 05/14/23 14:00) Facial Swelling, throat closing codeine [CODEINE] Adverse Reaction (Severe, Verified 05/14/23 14:00) blacked out HPI follow up fem-fem bypass, no testing req HPI Details Very pleasant 57-year-old female presents for follow-up regarding peripheral vascular disease. She had a prior fem-fem bypass which occluded shortly thereafter. This was a bypass performed on 10/28/2021 and was from left to right. At that time she did have improvement. She did come in for a follow-up and subsequently underwent a CT angiogram which demonstrated right common iliac occlusion. She does have some left iliac disease. At that time she had elected to manage it conservatively as she had to go to [place] to care for her daughter with cancer. She returns back from her trip and is now concerned about her vascular status. Now presents for follow-up. [facility] Medical History No natural teeth DVT (deep venous thrombosis) Urge incontinence Bladder prolapse, female, acquired Post-menopausal COVID-19 vaccine administered Asthma Kidney injury Urinary incontinence Back pain Hypertension Surgical History History of carpal tunnel release S/P femoral-femoral bypass surgery S/P aortogram History of right oophorectomy History of kidney surgery Family History Father Lung cancer Mother No problems noted. Social History Household Members Other:: mother Are you a primary career development specialist to a significant other at home: No Do you presently have visiting nurse or other home services: No Comment: bilat pulses palpable, but left foot slightly more cool than right. 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 Review of Systems Const All systems reviewed & are unremarkable except as noted in HPI and below Reports no additional complaints ENT Reports Normal hearing present Card Denies chest pain, Denies chest pain at rest, Denies chest pain with activity and Denies pedal edema Resp Denies cough GI Denies abdominal pain Musc Denies abnormal gait, Denies muscle cramps and Denies radiating pain into limb Skin/Breast Denies skin ulcer and Denies wounds Neuro Reports Normal hearing present and Denies abnormal gait Psych Reports no additional complaints Physical Exam Vital Signs: BMI result Body Mass Index 34.2 Const General: cooperative, healthy appearing and comfortable Orientation/consciousness: oriented to person, oriented to place and oriented to time HEENT Head: Yes normal to inspection Neck Neck: Yes normal visual inspection Carotids: no bruits Chest Chest palpation & inspection: normal inspection of the chest Resp Effort & Inspection: normal respiratory effort and able to speak in complete sentences Auscultation: clear to auscultation bilaterally, no crackles, no rales, no rhonchi and no wheezes Cardio Other: Bilateral DP signals Rate: regular rate Rhythm: regular rhythm Heart sounds: S1 normal heart sound present and S2 normal heart sound present Bruits: no carotid bruits Peripheral pulses: Peripheral pulses 2+ throughout GI Inspection: Yes normal to inspection Skin Wounds: no wounds Hair: normal Neuro General: oriented to person, oriented to place and oriented to time Cranial nerves: Yes CN's II-XII intact bilaterally and Yes Normal hearing present Cognition (Neuro): normal cognition Motor exam (neuro): 5/5 motor strength present throughout Extrem Other: venous exam: No significant superficial varicosities or spider telangiectasias, minimal edema General: No clubbing, No cyanosis and No edema Psych Appearance: grossly normal Mental Status: mental status grossly normal Speech and movement: Normal speech and movement present Results Reviewed Results Reviewed: CT angiogram dated 12/04/2022 demonstrates the known right common iliac occlusion. Left common iliac has some mild to moderate disease. Fem-fem bypass is occluded. Images were reviewed. Assessment & Plan Assessment & Plan (1) PAD (peripheral artery disease): Comment: 10/28/2021 - femoral to femoral bypass (left to right) Code(s): I73.9 - Peripheral vascular disease, unspecified Plan: In short patient has an occluded fem-fem bypass. I do think she will need further surgery. I do think she would be better served at a tertiary care center as this will be a redo and may involve approaching the aorta. We will try to refer her to a tertiary care center and help coordinate the process. Thank you for allowing us to assist in her care. If there are any questions or concerns please do not hesitate to contact us. Coding Level of Care Code Est Pt Level 4 (21721) Diagnoses PAD (peripheral artery disease) I73.9
[2023-05-14 13:56] VITALS: BMI 34.2
== END 2023-05-14 14:21 | disposition home or self-care (01) ==
PROVIDERS: PCP Registered Nurse; Referring Provider Registered Nurse; Visit Provider Surgery Vascular Surgery
DX: I73.9 Peripheral vascular disease, unspecified (principal); I74.5 Embolism and thrombosis of iliac artery
CPT/HCPCS: 99214

== ENCOUNTER → 2023-05-14 13:46 | Outpatient (BNVA) | payer MEDICAID, SELFPAY | PROVIDERS: PCP Registered Nurse; Visit Provider Surgery Vascular Surgery | DX: I73.9 Peripheral vascular disease, unspecified (principal) | CPT/HCPCS: 99212 ==

== ENCOUNTER 2023-09-26 16:44 | Emergency (ER) | payer MEDICARE, MEDICAID, SELFPAY ==
--- NOTE | ~2023-09-26 | XR_ITS ---
EXAMINATION: XR FOOT, RIGHT CLINICAL INFORMATION: Toe trauma COMPARISON: None available. TECHNIQUE: AP, lateral, and oblique views of the right foot. FINDINGS: There is an intra-articular fracture involving the medial base of the proximal phalanx of the digit. There is a small plantar calcaneal spur. The bones and soft tissues are otherwise normal. No other fracture. Alignment is anatomic. Joint spaces are maintained. XR/XR foot RT min 3V IMPRESSION: Intra-articular fracture involving the medial base of the proximal phalanx of the fifth digit.
--- NOTE | 2023-09-26 17:37 | ED_ITS ---
HPI - Extremity Injury (Lower) General Chief Complaint: Extremity Injury, Lower Stated Complaint: ? broken toe rt foot Time Seen by Provider: 09/26/23 17:38 Source: patient Mode of arrival: wheelchair Limitations: no limitations History of Present Illness ED Provider: Tripp Jones PA-C HPI Narrative: 58-year-old female with history of peripheral arterial disease status post fem- fem bypass, HTN, mood disorder, on Eliquis for blood clot to the right kidney who presents to the ER for evaluation of right pinky toe pain after she accidentally kicked her metal bed frame while walking in her bedroom today. Pain with ambulation since. No open wounds on her feet. Pain is limited to the base of the 5th toe on the right foot. No other injuries. MD complaint: foot injury Onset (ago): hour(s) Type of Injury: blunt Place: home Severity: moderate Relieving factors: immobilization Exacerbating factors: weight bearing, movement and palpation Context: walking Associated symptoms: swelling and able to partially bear weight Other symptoms: none Related Data Home Medications ?Medication ?Instructions ?Recorded ?Confirmed acetaminophen 325 mg capsule 325 mg PO QID PRN Pain 01/02/21 08/28/22 gabapentin 100 mg capsule 100 mg PO BEDTIME 01/02/21 08/28/22 apixaban 5 mg tablet (Eliquis) 5 mg PO BID 10/14/21 08/28/22 docusate sodium 100 mg capsule 100 mg PO BID 10/16/21 08/28/22 (Colace) amlodipine 10 mg tablet 1 tab PO DAILY blood pressure 10/28/21 08/28/22 cyclobenzaprine 10 mg tablet 1 tab PO TID PRN Muscle Spasm 10/28/21 08/28/22 duloxetine 30 mg capsule,delayed 1 cap PO DAILY 10/28/21 08/28/22 release hydrochlorothiazide 25 mg tablet 1 tab PO DAILY 10/28/21 08/28/22 atorvastatin 40 mg tablet 40 mg PO DAILY 03/04/22 08/28/22 buspirone 5 mg tablet 5 mg PO BID 03/04/22 08/28/22 gabapentin 300 mg capsule 300 - 600 mg PO TID 03/04/22 08/28/22 naloxone 4 mg/actuation nasal spray 0 spray intranasal 03/04/22 03/19/22 sennosides 8.6 mg-docusate sodium 2 tab PO DAILY 03/04/22 03/19/22 50 mg tablet (Senna-S) chlorthalidone 25 mg tablet 25 mg PO QAM 05/14/22 08/28/22 clonidine HCl 0.1 mg tablet 0.1 mg PO BEDTIME 08/28/22 08/28/22 diclofenac sodium 1 % topical gel g topical BID 10/28/22 Previous Rx's ?Medication ?Instructions ?Recorded aspirin 81 mg capsule 81 mg PO DAILY #90 caps 10/31/21 peg 3350-electrolytes 236 240 ml PO Q10M 1 day #4,000 mL 03/04/22 gram-22.74 gram-6.74 gram-5.86 gram solution (Golytely) Allergies Allergy/AdvReac Type Severity Reaction Status Date / Time lisinopril Allergy Severe Facial Verified 09/26/23 17:39 Swelling, throat closing codeine [CODEINE] AdvReac Severe blacked Verified 09/26/23 17:39 out Review of Systems Review of Systems: Yes all other systems are reviewed and are negative [facility] Past Medical History Medical History No natural teeth DVT (deep venous thrombosis) Urge incontinence Bladder prolapse, female, acquired Post-menopausal COVID-19 vaccine administered Asthma Kidney injury Urinary incontinence Back pain Hypertension Surgical History History of carpal tunnel release S/P femoral-femoral bypass surgery S/P aortogram History of right oophorectomy History of kidney surgery Family History Family History Father Lung cancer Mother No problems noted. Social History Social History Household Members Other:: mother Are you a primary healthcare analyst to a significant other at home: No Do you presently have visiting nurse or other home services: No Comment: bilat pulses palpable, but left foot slightly more cool than right. 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 Oriented X3. No acute distress. HEENT: normal inspection CVS: Normal heart rate and rhythm. Pulses normal. Respiratory: No respiratory distress. Skin: Skin warm and dry. Normal skin color. Normal skin turgor. No rashes. Extremities: Right foot with swelling of the 5th digit, generalized. Diffuse tenderness of the entire pinky toe, neurovascularly intact. Nontender metatarsals. Nontender 4th digit. Ankle is normal to inspection Neuro: Oriented X 3. No motor deficit. No sensory deficit. Discharge Plan Discharge Clinical Impression: Broken toe Qualifiers: Encounter type: initial encounter Toe: lesser toe Fracture type: closed Phal anx: proximal Fracture alignment: nondisplaced Laterality: right Qualified Code(s): S92.514A - Nondisplaced fracture of proximal phalanx of right lesser toe(s), initial encounter for closed fracture Patient Disposition: Home, Self-Care Instructions: Toe Fracture (ED) Additional Instructions: Elevate and use ice several times per day. Take Tylenol as needed for pain. If you develop new or worsening symptoms call 911 or come back to the ER for further evaluation. Prescriptions: No Action docusate sodium [Colace] 100 mg Capsule 100 mg PO BID amlodipine 10 mg tablet 1 tab PO DAILY hydrochlorothiazide 25 mg tablet 1 tab PO DAILY duloxetine 30 mg capsule,delayed release(DR/EC) 1 cap PO DAILY cyclobenzaprine 10 mg tablet 1 tab PO TID PRN (Reason: Muscle Spasm) aspirin 81 mg capsule 81 mg PO DAILY Qty: 90 0RF clonidine HCl 0.1 mg Tablet 0.1 mg PO BEDTIME gabapentin 100 mg capsule 100 mg PO BEDTIME acetaminophen 325 mg capsule 325 mg PO QID PRN (Reason: Pain) Eliquis 5 mg tablet 5 mg PO BID peg 3350-electrolytes [Golytely] 236-22.74-6.74 -5.86 gram recon soln 240 ml PO Q10M 1 Days Qty: 4000 0RF Rx Instructions: until fecal effluent is clear; do not exceed a total volume of 2,000 mL atorvastatin 40 mg tablet 40 mg PO DAILY buspirone 5 mg tablet 5 mg PO BID sennosides-docusate sodium [Senna-S] 8.6-50 mg tablet 2 tab PO DAILY gabapentin 300 mg capsule 300 - 600 mg PO TID naloxone 4 mg/actuation spray,non-aerosol 0 spray intranasal chlorthalidone 25 mg tablet 25 mg PO QAM diclofenac sodium 1 % gel topical BID Interventions: ED Discharge Assessment Last Done: 09/26/23 17:51 Discharge Date/Time: 09/26/23 17:52 Print Language: Tristanian
[2023-09-26 17:38] VITALS: BP 150/68; PULSE 84; RESP 16; TEMP 36.6; O2SAT 99; BMI 33.3
[2023-09-26 17:51] VITALS: BP 150/68; PULSE 84; RESP 16; TEMP 36.6; O2SAT 99
== END 2023-09-26 17:52 | disposition home or self-care (01) ==
LOC: HO.ED 17:49
PROVIDERS: Emergency Provider Student in an Organized Health Care Education/Training Program; PCP Registered Nurse
DX: S92.514A Nondisplaced fracture of proximal phalanx of right lesser toe(s), initial encounter for closed fracture (principal); W22.03XA Walked into furniture, initial encounter; M79.674 Pain in right toe(s); I10 Essential (primary) hypertension; Z86.718 Personal history of other venous thrombosis and embolism; Z79.01 Long term (current) use of anticoagulants; Z87.891 Personal history of nicotine dependence; Y93.9 Activity, unspecified; Y92.032 Bedroom in apartment as the place of occurrence of the external cause; Y99.9 Unspecified external cause status
CPT/HCPCS: 73630; 99283

== ENCOUNTER 2023-10-28 13:45 | Outpatient (REF) | payer MEDICARE, MEDICAID, SELFPAY | END 2023-10-28 13:46 | disposition home or self-care (01) | LOC: HO.US 13:45 | PROVIDERS: PCP Registered Nurse; Visit Provider Internal Medicine | DX: Z13.89 Encounter for screening for other disorder (principal) ==

== ENCOUNTER 2023-10-29 08:37 | Outpatient (REF) | payer MEDICARE, MEDICAID, SELFPAY ==
[2023-10-29 12:04] LABS: Estimated Average Glucose 114 mg/dL; Hemoglobin A1c % 5.6 % (<6.0)
[2023-10-29 12:25] LABS: Alanine Aminotransferase 15 U/L (0-31); Albumin Level 4.1 g/dL (3.5-5.0); Alkaline Phosphatase 124 U/L (39-117); Anion Gap 14 (12-20); Aspartate Amino Transferase 21 U/L (5-31); Bilirubin Total 0.4 mg/dL (0.0-1.0); Blood Urea Nitrogen 13 mg/dL (9-16); Calcium 9.9 mg/dL (8.4-10.2); Carbon Dioxide 24 mmol/L (22-29); Chloride 107 mmol/L (96-108); Estimated Glomerular Filt Rate > 60; Glucose Random 103 mg/dL (60-115); Potassium 4.2 mmol/L (3.3-5.1); Sodium 141 mmol/L (135-145); Total Protein 7.8 g/dL (6.5-8.0)
[2023-10-29 12:27] LABS: TSH reflex Free T4 0.98 uIU/mL (0.32-4.0)
[2023-10-29 12:38] LABS: Vitamin B12 789 pg/mL (200-900)
[2023-10-30 21:33] LABS: RPR Rapid Plasma Reagin NON-REACTIVE (NON-REACTIVE)
== END 2023-10-29 08:38 | disposition home or self-care (01) ==
LOC: HO.HHCL 08:37
PROVIDERS: Visit Provider Internal Medicine
DX: Z13.89 Encounter for screening for other disorder (principal)
CPT/HCPCS: 36415; 80053; 82607; 82746; 83036; 83735; 84443; 86592

== ENCOUNTER 2023-10-29 09:43 | Outpatient (REF) | payer MEDICARE, MEDICAID, SELFPAY ==
--- NOTE | ~2023-10-29 | US_ITS ---
EXAMINATION: US VENOUS ULTRASOUND WITH DOPPLER LOWER EXTREMITY, RIGHT CLINICAL INFORMATION: Right leg edema. Evaluate for deep vein thrombosis. COMPARISON: None available. TECHNIQUE: Ultrasound of the deep veins is performed from the hip to the calf with compression sonography and color and pulse Doppler assessment. Spectral analysis with color-flow imaging is performed. FINDINGS: The common femoral vein is compressible and exhibits a normal phasic waveform; this suggests that the iliac veins are widely patent above. Within the proximal thigh, the visualized profunda femoris vein is normal. The saphenofemoral junction is normal. In region of an incision site the calf, the technologist has identified a small amount of fluid/edema and noncompressible thrombus of the greater saphenous vein in the proximal calf. Superficial femoral vein is patent in the proximal, mid and distal thigh. Popliteal vein is normal to the level of the trifurcation. On compression ramey scale and color Doppler images, the visualized posterior tibial and peroneal veins of the calf are patent. No evidence of Cantu's cyst. US/US venous duplex LE RT IMPRESSION: * No evidence of deep vein thrombosis in the right lower extremity. * There is thrombosis of the greater saphenous vein in the proximal calf which the mechatronics technologist describes as being located in region of an incision site.
== END 2023-10-29 09:44 | disposition home or self-care (01) ==
LOC: HO.US 09:43
PROVIDERS: PCP Registered Nurse; Visit Provider Internal Medicine
DX: R60.0 Localized edema (principal)
CPT/HCPCS: 36415; 80053; 82607; 82746; 83036; 83735; 84443; 86592; 93971

== ENCOUNTER 2024-01-14 09:18 | Outpatient (AMB) | payer MEDICARE, MEDICAID, SELFPAY ==
[2024-01-14 09:19] VITALS: BP 134/72; PULSE 90; O2SAT 99; BMI 33.6
--- NOTE | 2024-01-14 09:19 | A.OFFVIS_ITS ---
Vital Signs 3 01/14/24 09:19 Height 5 ft 4 in Weight 195 lb 12.328 oz BMI 33.6 BP 134/72 Blood Pressure Location Lt brachial Position Sitting Pulse 90 Pulse Source Pulse Oximeter Pulse Oximetry (%) 99 Oxygen Delivery Method Room Air Intake Visit Reasons: Early Satiety Intake Note: Yael presents in office today for a scheduled office visit to re-establish care. CC; Pt was last seen approximately 2 years ago. Pt now reports early satiety, severe abdominal bloating and distention, and difficulty with digestion. Pt reports onset of these sx after their recent procedure to remove blood clots from their stomach / GI tract. Pt reports that they frequently experience LUQ pain. Pt also reporting shortness of breath with any level of exertion. Pt denies any additional sx or concerns related to this presentation. Grant Administrator Required: No Allergies lisinopril Allergy (Severe, Verified 01/14/24 09:20) Facial Swelling, throat closing codeine [CODEINE] Adverse Reaction (Severe, Verified 01/14/24 09:20) blacked out HPI HPI Early Satiety: Details: Assessment & Plan (1) Pre-op examination: Code(s): Z01.818 - Encounter for other preprocedural examination Plan: This is her first colonoscopy She denies any bowel or upper GI problems. There are no prior problems with anesthesia or sedation. Her asthma is well controlled and she denies any cardiac problems. She is on Eliquis for a renal blood clot that is prescribed by her primary care provider. No ID problems No FHX of CRC or polyps (2) Chronic anticoagulation: Code(s): Z79.01 - FDC (current) use of anticoagulants Medications: New peg 3350-electrolytes 236-22.74-6.74 -5.86 gram (Golytely) until fecal effluent is clear; do not exceed a total volume of 2,000 mL 240 mL PO Q10M 1 day 4,000 mL 0RF Z12.11 - Encounter for screening for malignant neoplasm of colon COLONOSCOPY This was never obtained BIOPSY REVIEW OF [facility]ING AND RECORDS CT ANGIOGRAM FINDINGS: Abdominal aorta: Recently status post aortobifemoral bypass. The right limb of the bypass is completely occluded. The aortic body and left limb are patent. The little shell tribe aorta above the bypass demonstrates mild atherosclerosis, but no significant stenosis. The little shell tribe aorta below the bypass is occluded. Celiac axis: Patent. No significant stenosis. Superior mesenteric artery: Patent. No significant stenosis. Right renal artery: Single patent artery. No significant stenosis. Left renal artery: Single patent artery. No significant stenosis. Inferior mesenteric artery: Proximal segmental occlusion. Reconstitution via collaterals. Failed femoral to femoral artery bypass with the bypass graft containing air. Right side: Common iliac artery: Occluded. Internal iliac artery: Proximal occlusion. Reconstitution of major branches seen. External iliac artery: Patent diminutive artery. Common femoral artery: Occluded. Superficial femoral artery: Proximal reconstitution. No significant stenosis. Deep femoral artery: Proximal reconstitution. No significant stenosis. Popliteal artery: Patent. No significant stenosis. Anterior tibial artery: Patent to the ankle. No significant stenosis. Tibioperoneal trunk: Occluded. Posterior tibial artery: Reconstitution in the proximal lower leg. Then remains patent to the ankle. Peroneal artery: Segmental reconstitution in the mid lower leg. Dorsalis pedis: No enhancement seen. Plantar arteries: No enhancement seen. Left side: Common iliac artery: Proximal reconstitution of the little shell tribe artery via lumbar collaterals. Moderate focal proximal stenosis. Internal iliac artery: Patent. No significant stenosis. External iliac artery: Patent. No significant stenosis. Common femoral artery: Patent. No significant stenosis. Superficial femoral artery: Patent. No significant stenosis. Deep femoral artery: Patent. No significant stenosis. Popliteal artery: Patent. No significant stenosis. Anterior tibial artery: Patent to the foot. No significant stenosis. Tibioperoneal trunk: Patent. No significant stenosis. Posterior tibial artery: Patent to the foot. No significant stenosis. Peroneal artery: Patent to the ankle. No significant stenosis. Dorsalis pedis: Mild proximal enhancement seen. Plantar arteries: Mild proximal enhancement seen. 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 Visualized Chest: Above the imaging [id number]. No pleural effusion. Diaphragm: No acute abnormality. Liver: Diffuse low-attenuation throughout the visualized lower liver consistent with hepatic steatosis. Focal sparing around the gallbladder. No evidence of mass. Gallbladder: No CT evidence of gallbladder pathology. Bile ducts: No biliary ductal dilation. Spleen: The visualized lower portion is normal. Pancreas: Mild atrophy. No focal lesion or ductal dilatation. Adrenal glands: Normal. Kidneys and ureters: No hydronephrosis, stones, or suspicious masses. Scattered left retroperitoneal soft tissue stranding and air, consistent with the recent surgical procedure. Bladder: Decompressed around a George catheter balloon. Small amount of intraluminal air likely from instrumentation. Reproductive organs: Unremarkable. Stomach, small bowel, and large bowel: Diffuse fatty change throughout the wall the colon, which can be seen with chronic disease. No evidence of bowel obstruction or focal inflammation. Few scattered diverticula of the colon without evidence of acute diverticulitis. Appendix: Normal. Peritoneum and retroperitoneum: No ascites or pneumoperitoneum. No omental or mesenteric lesions. Postsurgical changes in the left retroperitoneum. Lymph nodes: No enlarged lymph nodes. Abdominal and pelvic wall: Diffuse subcutaneous emphysema and soft tissue stranding, consistent with recent surgical procedure. Lower extremities: Small left knee joint effusion. Bones: No acute abnormality. IMPRESSION: 1. 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 2. Proximal reconstitution of the right superficial and deep femoral arteries. 3. Single vessel runoff of the right lower extremity via the anterior tibial artery and occlusion of the tibioperoneal trunk. 4. Intact left limb of the aortobifemoral bypass with an intact CTA of the left lower extremity. WBC ?13.8 https://twidox/Ogin/Mibio/reports/mp_unified_driver?pa rameters=^MINE^,11 63570.0,416289297.0,85630715.0,262110330.0,1121.0,%22MP_REACH%22,%22../../res ources/UnifiedContent%22,%22mp_reach_v5%22,9# 12/23/23 14:39 -- -- RBC 4.91 https://twidox/Ogin/Mibio/reports/mp_unified_driver?pa rameters=^MINE^,11 18628.0,193838035.0,98056738.0,669708706.0,1121.0,%22MP_REACH%22,%22../../res ources/UnifiedContent%22,%22mp_reach_v5%22,9# 12/23/23 14:39 -- -- Hgb 15.0 https://twidox/Ogin/Mibio/reports/PolyMedix_unified_driver?pa rameters=^MINE^,11 95027.0,487904296.0,47545848.0,938503635.0,1121.0,%22MP_REACH%22,%22../../res Cache IQces/UnifiedContent%22,%22mp_reach_v5%22,9# 12/23/23 14:39 -- -- Hct ?45.9 https://twidox/Ogin/Mibio/reports/PolyMedix_[employer]_driver?pa rameters=^MINE^,11 76056.0,701302086.0,09561521.0,966369491.0,1121.0,%22MP_REACH%22,%22../../res Cache IQces/UnifiedContent%22,%22mp_reach_v5%22,9# 12/23/23 14:39 -- -- MCV 93.5 https://twidox/Ogin/Mibio/reports/[employer]_unified_driver?pa rameters=^MINE^,11 49152.0,806650869.0,48963942.0,877334664.0,1121.0,%22MP_REACH%22,%22../../res Cache IQces/UnifiedContent%22,%22mp_reach_v5%22,9# 12/23/23 14:39 -- -- MCH 30.5 https://twidox/Ogin/Mibio/reports/[employer]_unified_driver?pa rameters=^MINE^,11 32737.0,117767661.0,41020465.0,920414121.0,1121.0,%22MP_REACH%22,%22../../res ChoiceStream/UnifiedContent%22,%22mp_reach_v5%22,9# 12/23/23 14:39 -- -- MCHC ?32.7 https://twidox/Ogin/Mibio/reports/mp_unified_driver?pa rameters=^MINE^,11 72003.0,924899985.0,83590852.0,113915790.0,1121.0,%22MP_REACH%22,%22../../res ources/UnifiedContent%22,%22mp_reach_v5%22,9# 12/23/23 14:39 -- -- Platelet Count 280 https://twidox/Ogin/Mibio/reports/mp_unified_driver?pa rameters=^MINE^,119 5661.0,284650797.0,28875174.0,528146208.0,1121.0,%22MP_REACH%22,%22../../reso urces/UnifiedContent%22,%22mp_reach_v5%22,9# 12/23/23 14:39 -- -- RDW-SD ?47.2 https://twidox/Ogin/Mibio/reports/mp_unified_driver?pa rameters=^MINE^,11 95175.0,940894763.0,72708466.0,989580492.0,1121.0,%22MP_REACH%22,%22../../res ources/UnifiedContent%22,%22mp_reach_v5%22,9# 12/23/23 14:39 -- -- MPV 10.3 https://twidox/Ogin/Mibio/reports/mp_unified_driver?pa rameters=^MINE^,11 76962.0,666994733.0,08668957.0,685950252.0,1121.0,%22MP_REACH%22,%22../../res ources/UnifiedContent%22,%22mp_reach_v5%22,9# 12/23/23 14:39 -- -- Nucleated RBC (Automated) 0.0 https://twidox/Ogin/Mibio/reports/PolyMedix_unified_driver?pa rameters=^MINE^,119 5661.0,468437543.0,35602772.0,396298530.0,1121.0,%22MP_REACH%22,%22../../reso urces/UnifiedContent%22,%22mp_reach_v5%22,9# 12/23/23 14:39 -- -- Abs. NRBC 0.0 https://twidox/Ogin/Mibio/reports/PolyMedix_unified_driver?pa rameters=^MINE^,119 5661.0,981475482.0,37670492.0,837180868.0,1121.0,%22MP_REACH%22,%22../../reso urces/UnifiedContent%22,%22mp_reach_v5%22,9# 12/23/23 14:39 -- -- Abs. Neut ?10.2 https://twidox/Ogin/Mibio/reports/PolyMedix_unified_driver?pa rameters=^MINE^,11 63433.0,795788249.0,48625396.0,560003482.0,1121.0,%22MP_REACH%22,%22../../res ources/UnifiedContent%22,%22mp_reach_v5%22,9# 12/23/23 14:39 -- -- Abs. Lymph 2.7 https://twidox/Ogin/Mibio/reports/PolyMedix_[employer]_driver?pa rameters=^MINE^,119 5661.0,714504043.0,80189223.0,538092027.0,1121.0,%22MP_REACH%22,%22../../reso urces/UnifiedContent%22,%22mp_reach_v5%22,9# 12/23/23 14:39 -- -- Abs. [place] 0.6 https://twidox/Ogin/Mibio/reports/[employer]_driver?pa rameters=^MINE^,119 5661.0,774944114.0,23029584.0,155463709.0,1121.0,%22MP_REACH%22,%22../../reso urces/UnifiedContent%22,%22mp_reach_v5%22,9# 12/23/23 14:39 -- -- Abs. Eo 0.2 https://twidox/Ogin/Mibio/reports/[employer]_driver?pa rameters=^MINE^,119 5661.0,909969060.0,05881639.0,999456443.0,1121.0,%22MP_REACH%22,%22../../reso urces/UnifiedContent%22,%22mp_reach_v5%22,9# 12/23/23 14:39 -- -- Abs. Baso 0.0 https://twidox/Ogin/Mibio/reports/[employer]_driver?pa rameters=^MINE^,119 5661.0,297461413.0,44570858.0,382110166.0,1121.0,%22MP_REACH%22,%22../../reso urces/UnifiedContent%22,%22mp_reach_v5%22,9# 12/23/23 14:39 -- -- Neut % 73.6 https://twidox/Ogin/Mibio/reports/[employer]_driver?pa rameters=^MINE^,11 90806.0,522865171.0,16448956.0,359037727.0,1121.0,%22MP_REACH%22,%22../../res ources/UnifiedContent%22,%22mp_reach_v5%22,9# 12/23/23 14:39 -- -- Lymph % 19.6 https://twidox/Ogin/Mibio/reports/mp_unified_driver?pa rameters=^MINE^,11 85370.0,137177197.0,71283697.0,446401934.0,1121.0,%22MP_REACH%22,%22../../res ources/UnifiedContent%22,%22mp_reach_v5%22,9# 12/23/23 14:39 -- -- [place] % 4.6 https://twidox/Ogin/Mibio/reports/[employer]_driver?pa rameters=^MINE^,119 5661.0,695613750.0,73459487.0,312127556.0,1121.0,%22MP_REACH%22,%22../../reso urces/UnifiedContent%22,%22mp_reach_v5%22,9# 12/23/23 14:39 -- -- Eos % 1.5 https://twidox/Ogin/Mibio/reports/[employer]_driver?pa rameters=^MINE^,119 5661.0,191209712.0,88308407.0,574538085.0,1121.0,%22MP_REACH%22,%22../../reso urces/UnifiedContent%22,%22mp_reach_v5%22,9# 12/23/23 14:39 -- -- Baso % 0.3 https://twidox/Ogin/Mibio/reports/[employer]_driver?pa rameters=^MINE^,119 5661.0,201070161.0,94436996.0,004762079.0,1121.0,%22MP_REACH%22,%22../../reso urces/UnifiedContent%22,%22mp_reach_v5%22,9# 12/23/23 14:39 -- -- Imm Gran 0.4 https://twidox/Ogin/Mibio/reports/mp_unified_driver?pa rameters=^MINE^,119 5661.0,551647275.0,01971727.0,245044356.0,1121.0,%22MP_REACH%22,%22../../reso urces/UnifiedContent%22,%22mp_reach_v5%22,9# 12/23/23 14:39 -- -- Abs. Imm Gran 0.1 https://twidox/Ogin/Mibio/reports/Poly[employer]_driver?pa rameters=^MINE^,119 5661.0,588536883.0,37136710.0,574705242.0,1121.0,%22MP_REACH%22,%22../../reso urces/UnifiedContent%22,%22mp_reach_v5%22,9# 12/23/23 14:39 -- -- D-Dimer ?*2.74 https://twidox/Ogin/Mibio/reports/Poly[employer]ix_[employer]_driver?pa rameters=^MINE^,119 5661.0,769632275.0,17728919.0,958181127.0,1121.0,%22MP_REACH%22,%22../../reso urces/UnifiedContent%22,%22mp_reach_v5%22,9# 12/23/23 14:39 -- -- Hold Lavender Top SPECIMEN DISCARDED AFTER 24 HOURS. https://twidox/Ogin/Mibio/reports/Poly[employer]ix_[employer]_driver?pa rameters=^MINE^, 7974912.0,902060052.0,73938226.0,793830563.0,1121.0,%22MP_REACH%22,%22../../r esources/UnifiedContent%22,%22mp_reach_v5%22,9# 12/23/23 14:39 -- -- -CHEMISTRY (18) Sodium 139 https://twidox/Ogin/Mibio/reports/Poly[employer]ix_[employer]_driver?pa rameters=^MINE^,119 5661.0,317023247.0,19801560.0,848178439.0,1121.0,%22MP_REACH%22,%22../../reso urces/UnifiedContent%22,%22mp_reach_v5%22,9# 12/23/23 14:39 -- -- Potassium 4.7 https://twidox/Ogin/Mibio/reports/[employer]_driver?pa rameters=^MINE^,119 5661.0,675398980.0,84249449.0,891557986.0,1121.0,%22MP_REACH%22,%22../../reso urces/UnifiedContent%22,%22mp_reach_v5%22,9# 12/23/23 14:39 -- -- Chloride 103 https://twidox/Ogin/Mibio/reports/[employer]_driver?pa rameters=^MINE^,119 5661.0,087618121.0,10131794.0,375457304.0,1121.0,%22MP_REACH%22,%22../../reso urces/UnifiedContent%22,%22mp_reach_v5%22,9# 12/23/23 14:39 -- -- Bicarbonate Level 26 https://twidox/Ogin/Mibio/reports/[employer]_driver?pa rameters=^MINE^,1195 661.0,131851995.0,63555545.0,134523636.0,1121.0,%22MP_REACH%22,%22../../resou rces/UnifiedContent%22,%22mp_reach_v5%22,9# 12/23/23 14:39 -- -- Anion Gap 10 https://twidox/Ogin/Mibio/reports/mp_unified_driver?pa rameters=^MINE^,1195 661.0,211504716.0,49264626.0,294152379.0,1121.0,%22MP_REACH%22,%22../../resou rces/UnifiedContent%22,%22mp_reach_v5%22,9# 12/23/23 14:39 -- -- Glucose Level ?119 https://twidox/Ogin/Mibio/reports/mp_unified_driver?pa rameters=^MINE^,119 5661.0,936722269.0,27019875.0,031339515.0,1121.0,%22MP_REACH%22,%22../../reso urces/UnifiedContent%22,%22mp_reach_v5%22,9# 12/23/23 14:39 -- -- BUN 14 https://twidox/Ogin/Mibio/reports/mp_unified_driver?pa rameters=^MINE^,1195 661.0,265373960.0,44259426.0,849413935.0,1121.0,%22MP_REACH%22,%22../../resou rces/UnifiedContent%22,%22mp_reach_v5%22,9# 12/23/23 14:39 -- -- Creatinine-Blood ?1.08 https://twidox/Ogin/Mibio/reports/mp_unified_driver?pa rameters=^MINE^,11 16244.0,017448481.0,06592792.0,539454656.0,1121.0,%22MP_REACH%22,%22../../res ources/UnifiedContent%22,%22mp_reach_v5%22,9# 12/23/23 14:39 -- -- Estimated GFR Creatinine *60 https://twidox/Ogin/Mibio/reports/[employer]_driver?pa rameters=^MINE^,119 5661.0,103544036.0,08123866.0,221359816.0,1121.0,%22MP_REACH%22,%22../../reso urces/UnifiedContent%22,%22mp_reach_v5%22,9# 12/23/23 14:39 -- -- Calcium 9.6 https://twidox/Ogin/Mibio/reports/[employer]_driver?pa rameters=^MINE^,119 5661.0,751858474.0,36594684.0,840463856.0,1121.0,%22MP_REACH%22,%22../../reso urces/UnifiedContent%22,%22mp_reach_v5%22,9# 12/23/23 14:39 -- -- Protein, Total 7.3 https://twidox/Ogin/Mibio/reports/[employer]_driver?pa rameters=^MINE^,119 5661.0,727445961.0,34624790.0,049886061.0,1121.0,%22MP_REACH%22,%22../../reso urces/UnifiedContent%22,%22mp_reach_v5%22,9# 12/23/23 14:39 -- -- Albumin 4.3 https://twidox/Ogin/Mibio/reports/[employer]_driver?pa rameters=^MINE^,119 5661.0,515061618.0,84795235.0,209028159.0,1121.0,%22MP_REACH%22,%22../../reso urces/UnifiedContent%22,%22mp_reach_v5%22,9# 12/23/23 14:39 -- -- AG Ratio 1.4 https://twidox/Ogin/Mibio/reports/mp_[employer]_driver?pa rameters=^MINE^,119 5661.0,016265445.0,43910067.0,144234757.0,1121.0,%22MP_REACH%22,%22../../reso urces/UnifiedContent%22,%22mp_reach_v5%22,9# 12/23/23 14:39 -- -- Alkaline Phosphatase ?124 https://twidox/Ogin/Mibio/reports/[employer]_driver?pa rameters=^MINE^,119 5661.0,606566978.0,96166397.0,943210466.0,1121.0,%22MP_REACH%22,%22../../reso urces/UnifiedContent%22,%22mp_reach_v5%22,9# 12/23/23 14:39 -- -- AST (SGOT) 18 https://twidox/Ogin/Mibio/reports/mp_[employer]_driver?pa rameters=^MINE^,1195 661.0,173192836.0,14565067.0,824260961.0,1121.0,%22MP_REACH%22,%22../../resou rces/UnifiedContent%22,%22mp_reach_v5%22,9# 12/23/23 14:39 -- -- ALT (SGPT) 14 https://twidox/Ogin/Mibio/reports/mp_[employer]_driver?pa rameters=^MINE^,1195 661.0,250413691.0,85305961.0,839778077.0,1121.0,%22MP_REACH%22,%22../../resou rces/UnifiedContent%22,%22mp_reach_v5%22,9# 12/23/23 14:39 -- -- Bilirubin, Total 0.2 https://twidox/Ogin/Mibio/reports/mp_[employer]_driver?pa smiley=^MINE^,119 5661.0,101022038.0,86402750.0,900759722.0,1121.0,%22MP_REACH%22,%22../../reso urces/UnifiedContent%22,%22mp_reach_v5%22,9# 12/23/23 14:39 -- -- Hold Gel Top SPECIMEN DISCARDED AFTER 1 WEEK https://twidox/Ogin/Mibio/reports/mp_[employer]_driver?pa smiley=^MINE^,11 34310.0,640750517.0,08602266.0,407445668.0,1121.0,%22MP_REACH%22,%22../../res ources/UnifiedContent%22,%22mp_reach_v5%22,9# 12/23/23 14:39 -- -- -IMMUNOLOGY (19) THERE IS EXTENSIVE INFORMATION ABOUT THE SURGERY TO FIX HER THROMBI IN THE EXTREMITIES BUT NOTHING ABOUT THE LARGE SURGICAL SCAR THAT EXPLAINS WHAT HAPPENED IN THE ABDOMEN. TODAY'S VISIT PATIENT HAS BEEN LOST FOLLOW-UP SINCE 02/2022, IT APPEARS SHE WAS RE-REFERRED FOR EARLY SATIETY. She has had a complex history with blood clots. She is being investigated for potential clotting disorder at this time. Apparently she had a bilateral inguinal hernia repair in [place] and had continuing problems so she came to [place] for better medical care. Here she saw Dr. Harris who attempted to do hernia repair that required a mesh implant and in checking on this, because she also had a fem-pop bypass, she had pain and swelling and they discovered that she had more thrombi occluding the leg. 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 She was then sent to [facility] because of her complex presentation and had surgery to try to correct this and to remove the mesenteric artery occlusion. Apparently it was quite a long and large surgery given the delicate organs involved. Since then she has been having pain that manifest in the general left upper quadrant area towards the upper area of her long incision that will cause her to have bloating, early satiety, and of course pain. The pain will cause her to stop eating. Her bowels are generally somewhat slow she does not move them every day but when she does she feels that she has complete evacuation. It is difficult for her to determine if the pain is better or worse with bowel movements because she suffers chronic pain that is unremitting. She never had the colonoscopy because she went to [place] for these other complex issues which is understandable. I am going to try to get the discharge summary and a better idea of how she was treated from [facility] but at this time it is going to take a little more research. 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 At this time I think she may have some trauma to the stomach interfering with appropriate emptying so will get a gastric emptying study. Until I get a little more information gathered I do not want to initiate any new treatments since she has a complex surgical and fairly recent postop patient. Return office visit in 8 weeks [facility] Medical History No natural teeth DVT (deep venous thrombosis) Urge incontinence Bladder prolapse, female, acquired Post-menopausal COVID-19 vaccine administered Asthma Kidney injury Urinary incontinence Back pain Hypertension Surgical History History of carpal tunnel release S/P femoral-femoral bypass surgery S/P aortogram History of right oophorectomy History of kidney surgery Family History Father Lung cancer Mother No problems noted. Social History Household Members Other:: mother Are you a primary career portals teacher to a significant other at home: No Do you presently have visiting nurse or other home services: No Comment: bilat pulses palpable, but left foot slightly more cool than right. 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 Review of Systems Const Denies fatigue, Denies fever(s), Denies night sweats, Denies poor appetite and Denies weight loss ENT Reports Normal hearing present, Denies dysphagia, Denies odynophagia, Denies throat swelling and Denies tongue swelling Card Reports leg edema Resp Reports no additional complaints GI Details: Reports abdominal pain, Denies melena, Denies bloating, Denies hematochezia, Denies constipation, Denies GI cramping, Denies dysphagia, Denies excessive flatus, Reports early satiety, Denies heartburn, Denies diarrhea, Denies nausea, Denies odynophagia, Denies vomiting and Denies hematemesis Musc Reports back pain, Reports myalgias, Reports arthralgias and Reports radiating pain into limb Skin/Breast Denies pruritus, Denies lesions, Denies rash and Denies jaundice Neuro Reports Normal hearing present and Denies Abnormal speech present Endo Denies fatigue Aller/Immun Denies throat swelling and Denies tongue swelling Physical Exam Vital Signs: Last Vital Signs Pulse 90 01/14/24 09:19 BP 134/72 01/14/24 09:19 Pulse Ox 99 01/14/24 09:19 Oxygen Delivery Method Room Air 01/14/24 09:19 BMI result Body Mass Index 33.6 Const General: cooperative, no acute distress, well developed and well groomed Nutritional Appearance: well nourished and obese Orientation/consciousness: oriented to person, oriented to place and oriented to time Limitations: No language barrier HEENT Head: Yes normocephalic and Yes atraumatic Eyes General: appearance normal, both eyes and all related structures Pupils: Equal, round and reactive pupils present Neck Neck: Yes normal visual inspection and Yes no lymphadenopathy Thyroid: Thyroid normal Resp Effort & Inspection: normal respiratory effort and able to speak in complete sentences Auscultation: clear to auscultation bilaterally Cardio Rate: regular rate Rhythm: regular rhythm Heart sounds: Normal, physiologic split S2 sound present Peripheral pulses: radial pulses present and posterior tibial pulses present GI Inspection: Yes distended, Yes Abdominal panniculus present and Yes obesity Palpation (GI): Soft to palpation, Tenderness to palpation present (GI) in the LUQ, no guarding, not rigid and No hepatosplenomegaly present Percussion: Yes normal to percussion Auscultation: Hypoactive bowel sounds present Rectal Exam - Female: deferred Abdomen image: 2 1. well healing surgical scar Skin General skin exam: no rashes or lesions noted, turgor normal, skin not dry, no jaundice, No spider nevi and no striae Rashes: no rashes Nails: normal Neuro General: oriented to person, oriented to place and oriented to time Cranial nerves: Yes Equal, round and reactive pupils present and Yes Normal hearing present Speech: No Abnormal speech present Extrem General: Yes normal to inspection, No clubbing, No cyanosis and Yes edema Elbow/forearm/wrist images: 2 1. surgical scar Psych Appearance: grossly normal and well kempt Mental Status: mental status grossly normal Speech and movement: Normal speech and movement present Affect: normal affect Attitude: cooperative Thought process: Normal thought process present and not confabulating Thought content: Normal thought content present Insight: Limited insight present (Psych) Judgement: Limited judgement present (Psych) Results Reviewed Results Reviewed: REVIEW OF [facility] IMAGING AND RECORDS CT ANGIOGRAM FINDINGS: Abdominal aorta: Recently status post aortobifemoral bypass. The right limb of the bypass is completely occluded. The aortic body and left limb are patent. The little shell tribe aorta above the bypass demonstrates mild atherosclerosis, but no significant stenosis. The little shell tribe aorta below the bypass is occluded. Celiac axis: Patent. No significant stenosis. Superior mesenteric artery: Patent. No significant stenosis. Right renal artery: Single patent artery. No significant stenosis. Left renal artery: Single patent artery. No significant stenosis. Inferior mesenteric artery: Proximal segmental occlusion. Reconstitution via collaterals. Failed femoral to femoral artery bypass with the bypass graft containing air. Right side: Common iliac artery: Occluded. Internal iliac artery: Proximal occlusion. Reconstitution of major branches seen. External iliac artery: Patent diminutive artery. Common femoral artery: Occluded. Superficial femoral artery: Proximal reconstitution. No significant stenosis. Deep femoral artery: Proximal reconstitution. No significant stenosis. Popliteal artery: Patent. No significant stenosis. Anterior tibial artery: Patent to the ankle. No significant stenosis. Tibioperoneal trunk: Occluded. Posterior tibial artery: Reconstitution in the proximal lower leg. Then remains patent to the ankle. Peroneal artery: Segmental reconstitution in the mid lower leg. Dorsalis pedis: No enhancement seen. Plantar arteries: No enhancement seen. Left side: Common iliac artery: Proximal reconstitution of the little shell tribe artery via lumbar collaterals. Moderate focal proximal stenosis. Internal iliac artery: Patent. No significant stenosis. External iliac artery: Patent. No significant stenosis. Common femoral artery: Patent. No significant stenosis. Superficial femoral artery: Patent. No significant stenosis. Deep femoral artery: Patent. No significant stenosis. Popliteal artery: Patent. No significant stenosis. Anterior tibial artery: Patent to the foot. No significant stenosis. Tibioperoneal trunk: Patent. No significant stenosis. Posterior tibial artery: Patent to the foot. No significant stenosis. Peroneal artery: Patent to the ankle. No significant stenosis. Dorsalis pedis: Mild proximal enhancement seen. Plantar arteries: Mild proximal enhancement seen. 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 Visualized Chest: Above the imaging [id number]. No pleural effusion. Diaphragm: No acute abnormality. Liver: Diffuse low-attenuation throughout the visualized lower liver consistent with hepatic steatosis. Focal sparing around the gallbladder. No evidence of mass. Gallbladder: No CT evidence of gallbladder pathology. Bile ducts: No biliary ductal dilation. Spleen: The visualized lower portion is normal. Pancreas: Mild atrophy. No focal lesion or ductal dilatation. Adrenal glands: Normal. Kidneys and ureters: No hydronephrosis, stones, or suspicious masses. Scattered left retroperitoneal soft tissue stranding and air, consistent with the recent surgical procedure. Bladder: Decompressed around a George catheter balloon. Small amount of intraluminal air likely from instrumentation. Reproductive organs: Unremarkable. Stomach, small bowel, and large bowel: Diffuse fatty change throughout the wall the colon, which can be seen with chronic disease. No evidence of bowel obstruction or focal inflammation. Few scattered diverticula of the colon without evidence of acute diverticulitis. Appendix: Normal. Peritoneum and retroperitoneum: No ascites or pneumoperitoneum. No omental or mesenteric lesions. Postsurgical changes in the left retroperitoneum. Lymph nodes: No enlarged lymph nodes. Abdominal and pelvic wall: Diffuse subcutaneous emphysema and soft tissue stranding, consistent with recent surgical procedure. Lower extremities: Small left knee joint effusion. Bones: No acute abnormality. IMPRESSION: 1. 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 2. Proximal reconstitution of the right superficial and deep femoral arteries. 3. Single vessel runoff of the right lower extremity via the anterior tibial artery and occlusion of the tibioperoneal trunk. 4. Intact left limb of the aortobifemoral bypass with an intact CTA of the left lower extremity. WBC ?13.8 https://[email or web address]/Mibio/reports/[employer]_driver?pa rameters=^MINE^,11 47444.0,046280640.0,54978396.0,564355755.0,1121.0,%22MP_REACH%22,%22../../res ources/UnifiedContent%22,%22mp_reach_v5%22,9# 12/23/23 14:39 -- -- RBC 4.91 https://twidox/Ogin/Mibio/reports/[employer]_driver?pa rameters=^MINE^,11 49299.0,328562393.0,09126945.0,538574470.0,1121.0,%22MP_REACH%22,%22../../res ources/UnifiedContent%22,%22mp_reach_v5%22,9# 12/23/23 14:39 -- -- Hgb 15.0 https://twidox/Ogin/Mibio/reports/[employer]_driver?pa rameters=^MINE^,11 63304.0,710112820.0,55489586.0,336922049.0,1121.0,%22MP_REACH%22,%22../../res ources/UnifiedContent%22,%22mp_reach_v5%22,9# 12/23/23 14:39 -- -- Hct ?45.9 https://twidox/Ogin/Mibio/reports/[employer]_driver?pa rameters=^MINE^,11 28236.0,498659131.0,52106561.0,791981043.0,1121.0,%22MP_REACH%22,%22../../res ources/UnifiedContent%22,%22mp_reach_v5%22,9# 12/23/23 14:39 -- -- MCV 93.5 https://twidox/Ogin/Mibio/reports/mp_[employer]_driver?pa rameters=^MINE^,11 30721.0,814880375.0,23910116.0,572979269.0,1121.0,%22MP_REACH%22,%22../../res ources/UnifiedContent%22,%22mp_reach_v5%22,9# 12/23/23 14:39 -- -- MCH 30.5 https://twidox/Ogin/Mibio/reports/[employer]_driver?pa rameters=^MINE^,11 51693.0,163776697.0,37043308.0,606525027.0,1121.0,%22MP_REACH%22,%22../../res ources/UnifiedContent%22,%22mp_reach_v5%22,9# 12/23/23 14:39 -- -- MCHC ?32.7 https://twidox/Ogin/Mibio/reports/mp_[employer]_driver?pa rameters=^MINE^,11 50619.0,742074847.0,23824696.0,777662666.0,1121.0,%22MP_REACH%22,%22../../res ources/UnifiedContent%22,%22mp_reach_v5%22,9# 12/23/23 14:39 -- -- Platelet Count 280 https://twidox/Ogin/Mibio/reports/[employer]_driver?pa rameters=^MINE^,119 5661.0,590877964.0,92445495.0,312437667.0,1121.0,%22MP_REACH%22,%22../../reso urces/UnifiedContent%22,%22mp_reach_v5%22,9# 12/23/23 14:39 -- -- RDW-SD ?47.2 https://twidox/Ogin/Mibio/reports/[employer]_driver?pa rameters=^MINE^,11 63788.0,773429252.0,35354817.0,638938567.0,1121.0,%22MP_REACH%22,%22../../res ources/UnifiedContent%22,%22mp_reach_v5%22,9# 12/23/23 14:39 -- -- MPV 10.3 https://twidox/Ogin/Mibio/reports/[employer]_driver?pa rameters=^MINE^,11 36421.0,144569762.0,01015758.0,317098450.0,1121.0,%22MP_REACH%22,%22../../res ources/UnifiedContent%22,%22mp_reach_v5%22,9# 12/23/23 14:39 -- -- Nucleated RBC (Automated) 0.0 https://twidox/Ogin/Mibio/reports/mp_[employer]_driver?pa rameters=^MINE^,119 5661.0,571357292.0,06167239.0,840659961.0,1121.0,%22MP_REACH%22,%22../../reso urces/UnifiedContent%22,%22mp_reach_v5%22,9# 12/23/23 14:39 -- -- Abs. NRBC 0.0 https://twidox/Ogin/Mibio/reports/mp_unified_driver?pa rameters=^MINE^,119 5661.0,313374934.0,99592628.0,550319207.0,1121.0,%22MP_REACH%22,%22../../reso urces/UnifiedContent%22,%22mp_reach_v5%22,9# 12/23/23 14:39 -- -- Abs. Neut ?10.2 https://twidox/Ogin/Mibio/reports/[employer]_unified_driver?pa rameters=^MINE^,11 89106.0,607450035.0,61440777.0,499735985.0,1121.0,%22MP_REACH%22,%22../../res ources/UnifiedContent%22,%22mp_reach_v5%22,9# 12/23/23 14:39 -- -- Abs. Lymph 2.7 https://twidox/Ogin/Mibio/reports/[employer]_unified_driver?pa rameters=^MINE^,119 5661.0,264691328.0,13665214.0,255661143.0,1121.0,%22MP_REACH%22,%22../../reso urces/UnifiedContent%22,%22mp_reach_v5%22,9# 12/23/23 14:39 -- -- Abs. [place] 0.6 https://twidox/Ogin/Mibio/reports/mp_unified_driver?pa rameters=^MINE^,119 5661.0,976771871.0,24329777.0,791720005.0,1121.0,%22MP_REACH%22,%22../../reso urces/UnifiedContent%22,%22mp_reach_v5%22,9# 12/23/23 14:39 -- -- Abs. Eo 0.2 https://twidox/Ogin/Mibio/reports/mp_unified_driver?pa rameters=^MINE^,119 5661.0,079151904.0,87346072.0,911426806.0,1121.0,%22MP_REACH%22,%22../../reso urces/UnifiedContent%22,%22mp_reach_v5%22,9# 12/23/23 14:39 -- -- Abs. Baso 0.0 https://twidox/Ogin/Mibio/reports/[employer]_driver?pa rameters=^MINE^,119 5661.0,108738086.0,32205479.0,815729078.0,1121.0,%22MP_REACH%22,%22../../reso urces/UnifiedContent%22,%22mp_reach_v5%22,9# 12/23/23 14:39 -- -- Neut % 73.6 https://twidox/Ogin/Mibio/reports/[employer]_driver?pa rameters=^MINE^,11 40706.0,550637680.0,12465470.0,990767547.0,1121.0,%22MP_REACH%22,%22../../res ources/UnifiedContent%22,%22mp_reach_v5%22,9# 12/23/23 14:39 -- -- Lymph % 19.6 https://twidox/Ogin/Mibio/reports/[employer]_driver?pa rameters=^MINE^,11 35627.0,981314014.0,95935287.0,888306412.0,1121.0,%22MP_REACH%22,%22../../res ources/UnifiedContent%22,%22mp_reach_v5%22,9# 12/23/23 14:39 -- -- [place] % 4.6 https://twidox/Ogin/Mibio/reports/[employer]_driver?pa rameters=^MINE^,119 5661.0,808837306.0,05529150.0,456170147.0,1121.0,%22MP_REACH%22,%22../../reso urces/UnifiedContent%22,%22mp_reach_v5%22,9# 12/23/23 14:39 -- -- Eos % 1.5 https://twidox/Ogin/Mibio/reports/[employer]_driver?pa rameters=^MINE^,119 5661.0,668712618.0,79762538.0,557082706.0,1121.0,%22MP_REACH%22,%22../../reso urces/UnifiedContent%22,%22mp_reach_v5%22,9# 12/23/23 14:39 -- -- Baso % 0.3 https://twidox/Ogin/Mibio/reports/[employer]_driver?pa rameters=^MINE^,119 5661.0,255606692.0,62351024.0,592161944.0,1121.0,%22MP_REACH%22,%22../../reso urces/UnifiedContent%22,%22mp_reach_v5%22,9# 12/23/23 14:39 -- -- Imm Gran 0.4 https://twidox/Ogin/Mibio/reports/[employer]_unified_driver?pa rameters=^MINE^,119 5661.0,495829875.0,49682989.0,988612839.0,1121.0,%22MP_REACH%22,%22../../reso urces/UnifiedContent%22,%22mp_reach_v5%22,9# 12/23/23 14:39 -- -- Abs. Imm Gran 0.1 https://twidox/Ogin/Mibio/reports/[employer]_driver?pa rameters=^MINE^,119 5661.0,931834110.0,43242497.0,027672647.0,1121.0,%22MP_REACH%22,%22../../reso urces/UnifiedContent%22,%22mp_reach_v5%22,9# 12/23/23 14:39 -- -- D-Dimer ?*2.74 https://twidox/Ogin/Mibio/reports/[employer]_driver?pa rameters=^MINE^,119 5661.0,922447126.0,33464388.0,056429891.0,1121.0,%22MP_REACH%22,%22../../reso urces/UnifiedContent%22,%22mp_reach_v5%22,9# 12/23/23 14:39 -- -- Hold Lavender Top SPECIMEN DISCARDED AFTER 24 HOURS. https://twidox/Ogin/Mibio/reports/[employer]_driver?pa rameters=^MINE^, 2179324.0,807631552.0,72558216.0,653718312.0,1121.0,%22MP_REACH%22,%22../../r esources/UnifiedContent%22,%22mp_reach_v5%22,9# 12/23/23 14:39 -- -- -CHEMISTRY (18) Sodium 139 https://twidox/Ogin/Mibio/reports/[employer]_driver?pa rameters=^MINE^,119 5661.0,595465531.0,31783611.0,205782178.0,1121.0,%22MP_REACH%22,%22../../reso urces/UnifiedContent%22,%22mp_reach_v5%22,9# 12/23/23 14:39 -- -- Potassium 4.7 https://twidox/Ogin/Mibio/reports/mp_unified_driver?pa rameters=^MINE^,119 5661.0,020912797.0,52322116.0,177636815.0,1121.0,%22MP_REACH%22,%22../../reso urces/UnifiedContent%22,%22mp_reach_v5%22,9# 12/23/23 14:39 -- -- Chloride 103 https://twidox/Ogin/Mibio/reports/mp_[employer]_driver?pa rameters=^MINE^,119 5661.0,272153680.0,72811789.0,087646812.0,1121.0,%22MP_REACH%22,%22../../reso urces/UnifiedContent%22,%22mp_reach_v5%22,9# 12/23/23 14:39 -- -- Bicarbonate Level 26 https://twidox/Ogin/Mibio/reports/[employer]_driver?pa rameters=^MINE^,1195 661.0,555413995.0,89257122.0,256038081.0,1121.0,%22MP_REACH%22,%22../../resou rces/UnifiedContent%22,%22mp_reach_v5%22,9# 12/23/23 14:39 -- -- Anion Gap 10 https://twidox/Ogin/Mibio/reports/mp_[employer]_driver?pa rameters=^MINE^,1195 661.0,149109590.0,10603312.0,767203839.0,1121.0,%22MP_REACH%22,%22../../resou rces/UnifiedContent%22,%22mp_reach_v5%22,9# 12/23/23 14:39 -- -- Glucose Level ?119 https://twidox/Ogin/Mibio/reports/[employer]_unified_driver?pa rameters=^MINE^,119 5661.0,082125333.0,92303146.0,907594398.0,1121.0,%22MP_REACH%22,%22../../reso urces/UnifiedContent%22,%22mp_reach_v5%22,9# 12/23/23 14:39 -- -- BUN 14 https://twidox/Ogin/Mibio/reports/[employer]_driver?pa rameters=^MINE^,1195 661.0,258961492.0,73890463.0,934796663.0,1121.0,%22MP_REACH%22,%22../../resou rces/UnifiedContent%22,%22mp_reach_v5%22,9# 12/23/23 14:39 -- -- Creatinine-Blood ?1.08 https://twidox/Ogin/Mibio/reports/[employer]_driver?pa rameters=^MINE^,11 66672.0,881267919.0,98247625.0,507330669.0,1121.0,%22MP_REACH%22,%22../../res ources/UnifiedContent%22,%22mp_reach_v5%22,9# 12/23/23 14:39 -- -- Estimated GFR Creatinine *60 https://twidox/Ogin/Mibio/reports/mp_unified_driver?pa rameters=^MINE^,119 5661.0,448488377.0,91134102.0,933685402.0,1121.0,%22MP_REACH%22,%22../../reso urces/UnifiedContent%22,%22mp_reach_v5%22,9# 12/23/23 14:39 -- -- Calcium 9.6 https://twidox/Ogin/Mibio/reports/[employer]_driver?pa rameters=^MINE^,119 5661.0,377881959.0,75394127.0,115256311.0,1121.0,%22MP_REACH%22,%22../../reso urces/UnifiedContent%22,%22mp_reach_v5%22,9# 12/23/23 14:39 -- -- Protein, Total 7.3 https://twidox/Ogin/Mibio/reports/[employer]_driver?pa rameters=^MINE^,119 5661.0,667397715.0,64265509.0,729857698.0,1121.0,%22MP_REACH%22,%22../../reso urces/UnifiedContent%22,%22mp_reach_v5%22,9# 12/23/23 14:39 -- -- Albumin 4.3 https://twidox/Ogin/Mibio/reports/[employer]_driver?pa rameters=^MINE^,119 5661.0,316665320.0,10809727.0,101612804.0,1121.0,%22MP_REACH%22,%22../../reso urces/UnifiedContent%22,%22mp_reach_v5%22,9# 12/23/23 14:39 -- -- AG Ratio 1.4 https://twidox/Ogin/Mibio/reports/mp_[employer]_driver?pa rameters=^MINE^,119 5661.0,743819168.0,11700707.0,854715008.0,1121.0,%22MP_REACH%22,%22../../reso urces/UnifiedContent%22,%22mp_reach_v5%22,9# 12/23/23 14:39 -- -- Alkaline Phosphatase ?124 https://twidox/Ogin/Mibio/reports/[employer]_driver?pa rameters=^MINE^,119 5661.0,014102744.0,04180072.0,810402774.0,1121.0,%22MP_REACH%22,%22../../reso urces/UnifiedContent%22,%22mp_reach_v5%22,9# 12/23/23 14:39 -- -- AST (SGOT) 18 https://twidox/Ogin/Mibio/reports/[employer]_driver?pa rameters=^MINE^,1195 661.0,857177725.0,36862962.0,316707426.0,1121.0,%22MP_REACH%22,%22../../resou rces/UnifiedContent%22,%22mp_reach_v5%22,9# 12/23/23 14:39 -- -- ALT (SGPT) 14 https://twidox/Ogin/Mibio/reports/[employer]_driver?pa rameters=^MINE^,1195 661.0,941981330.0,31895885.0,822710474.0,1121.0,%22MP_REACH%22,%22../../resou rces/UnifiedContent%22,%22mp_reach_v5%22,9# 12/23/23 14:39 -- -- Bilirubin, Total 0.2 https://twidox/Ogin/Mibio/reports/[employer]_driver?pa rameters=^MINE^,119 5661.0,820307053.0,32013365.0,182682859.0,1121.0,%22MP_REACH%22,%22../../reso urces/UnifiedContent%22,%22mp_reach_v5%22,9# 12/23/23 14:39 -- -- Hold Gel Top SPECIMEN DISCARDED AFTER 1 WEEK https://twidox/[employer]/Mibio/reports/mp_unified_driver?pa ramangela=^CHAVEZ^,11 37244.0,830834621.0,59417126.0,876984680.0,1121.0,%22MP_REACH%22,%22../../res ources/UnifiedContent%22,%22mp_reach_v5%22,9# 12/23/23 14:39 -- -- -IMMUNOLOGY (19) THERE IS EXTENSIVE INFORMATION ABOUT THE SURGERY TO FIX HER THROMBI IN THE EXTREMITIES BUT NOTHING ABOUT THE LARGE SURGICAL SCAR THAT EXPLAINS WHAT HAPPENED IN THE ABDOMEN. 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 She has had a complex history with blood clots. She is being investigated for potential clotting disorder at this time. Apparently she had a bilateral inguinal hernia repair in [place] and had continuing problems so she came to [place] for better medical care. Here she saw Dr. Harris who attempted to do hernia repair that required a mesh implant and in checking on this, because she also had a fem-pop bypass, she had pain and swelling and they discovered that she had more thrombi occluding the leg. 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 She was then sent to [facility] because of her complex presentation and had surgery to try to correct this and to remove the mesenteric artery occlusion. Apparently it was quite a long and large surgery given the delicate organs involved. Since then she has been having pain that manifest in the general left upper quadrant area towards the upper area of her long incision that will cause her to have bloating, early satiety, and of course pain. The pain will cause her to stop eating. Her bowels are generally somewhat slow she does not move them every day but when she does she feels that she has complete evacuation. It is difficult for her to determine if the pain is better or worse with bowel movements because she suffers chronic pain that is unremitting. She never had the colonoscopy because she went to [place] for these other complex issues which is understandable. I am going to try to get the discharge summary and a better idea of how she was treated from [facility] but at this time it is going to take a little more research. 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 At this time I think she may have some trauma to the stomach interfering with appropriate emptying so will get a gastric emptying study. Until I get a little more information gathered I do not want to initiate any new treatments since she has a complex surgical and fairly recent postop patient. Return office visit in 8 weeks Orders: Orders 2 NM gastric emptying study 01/14/24 R68.81 - Early satiety, S35.239A - Unspecified injury of inferior mesenteric artery, initial encounter Coding Level of Care Code Est Pt Level 4 (02710) Diagnoses Abdominal pain R10.9 Early satiety R68.81 Injury of inferior mesenteric artery S35.239A Chronic anticoagulation Z79.01 Time Spent (min) 40
--- NOTE | 2024-01-14 09:19 | MHC.OFFVIS ---
Vital Signs 01/14/24 09:19 Height 5 ft 4 in Weight 195 lb 12.328 oz BMI 33.6 BP 134/72 Blood Pressure Location Lt brachial Position Sitting Pulse 90 Pulse Source Pulse Oximeter Pulse Oximetry (%) 99 Oxygen Delivery Method Room Air Intake Visit Reasons: Early Satiety Intake Note: Yael presents in office today for a scheduled office visit to re-establish care. CC; Pt was last seen approximately 2 years ago. Pt now reports early satiety, severe abdominal bloating and distention, and difficulty with digestion. Pt reports onset of these sx after their recent procedure to remove blood clots from their stomach / GI tract. Pt reports that they frequently experience LUQ pain. Pt also reporting shortness of breath with any level of exertion. Pt denies any additional sx or concerns related to this presentation. 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 There are no prior problems with anesthesia or sedation. Her asthma is well controlled and she denies any cardiac problems. She is on Eliquis for a renal blood clot that is prescribed by her primary care provider. 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 The right limb of the bypass is completely occluded. The aortic body and left limb are patent. The cocopah aorta above the bypass demonstrates mild atherosclerosis, but no significant stenosis. The cocopah aorta below the bypass is occluded. Celiac axis: Patent. No significant stenosis. Superior mesenteric artery: Patent. No significant stenosis. Right renal artery: Single patent artery. No significant stenosis. Left renal artery: Single patent artery. No significant stenosis. Inferior mesenteric artery: Proximal segmental occlusion. Reconstitution via collaterals. Failed femoral to femoral artery bypass with the bypass graft containing air. Right side: Common iliac artery: Occluded. Internal iliac artery: Proximal occlusion. Reconstitution of major branches seen. External iliac artery: Patent diminutive artery. Common femoral artery: Occluded. Superficial femoral artery: Proximal reconstitution. No significant stenosis. Deep femoral artery: Proximal reconstitution. No significant stenosis. Popliteal artery: Patent. No significant stenosis. Anterior tibial artery: Patent to the ankle. No significant stenosis. Tibioperoneal trunk: Occluded. Posterior tibial artery: Reconstitution in the proximal lower leg. Then remains patent to the ankle. Peroneal artery: Segmental reconstitution in the mid lower leg. Dorsalis pedis: No enhancement seen. Plantar arteries: No enhancement seen. Left side: Common iliac artery: Proximal reconstitution of the cocopah artery via lumbar collaterals. Moderate focal proximal stenosis. Internal iliac artery: Patent. No significant stenosis. External iliac artery: Patent. No significant stenosis. Common femoral artery: Patent. No significant stenosis. Superficial femoral artery: Patent. No significant stenosis. Deep femoral artery: Patent. No significant stenosis. Popliteal artery: Patent. No significant stenosis. Anterior tibial artery: Patent to the foot. No significant stenosis. Tibioperoneal trunk: Patent. No significant stenosis. Posterior tibial artery: Patent to the foot. No significant stenosis. Peroneal artery: Patent to the ankle. No significant stenosis. Dorsalis pedis: Mild proximal enhancement seen. Plantar arteries: Mild proximal enhancement seen. OTHER FINDINGS: Compliance Coordinator View Findings, Lines and Tubes: None. Visualized Chest: Above the imaging [id number]. No pleural effusion. Diaphragm: No acute abnormality. Liver: Diffuse low-attenuation throughout the visualized lower liver consistent with hepatic steatosis. Focal sparing around the gallbladder. No evidence of mass. Gallbladder: No CT evidence of gallbladder pathology. Bile ducts: No biliary ductal dilation. Spleen: The visualized lower portion is normal. Pancreas: Mild atrophy. No focal lesion or ductal dilatation. Adrenal glands: Normal. Kidneys and ureters: No hydronephrosis, stones, or suspicious masses. Scattered left retroperitoneal soft tissue stranding and air, consistent with the recent surgical procedure. Bladder: Decompressed around a George catheter balloon. Small amount of intraluminal air likely from instrumentation. Reproductive organs: Unremarkable. Stomach, small bowel, and large bowel: Diffuse fatty change throughout the wall the colon, which can be seen with chronic disease. No evidence of bowel obstruction or focal inflammation. Few scattered diverticula of the colon without evidence of acute diverticulitis. Appendix: Normal. Peritoneum and retroperitoneum: No ascites or pneumoperitoneum. No omental or mesenteric lesions. Postsurgical changes in the left retroperitoneum. Lymph nodes: No enlarged lymph nodes. Abdominal and pelvic wall: Diffuse subcutaneous emphysema and soft tissue stranding, consistent with recent surgical procedure. Lower extremities: Small left knee joint effusion. Bones: No acute abnormality. IMPRESSION: 1. 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 2. Proximal reconstitution of the right superficial and deep femoral arteries. 3. Single vessel runoff of the right lower extremity via the anterior tibial artery and occlusion of the tibioperoneal trunk. 4. Intact left limb of the aortobifemoral bypass with an intact CTA of the left lower extremity. WBC ?13.8https://[employer]/reports/mp_unified_driver?parameters=^MINE^,9100317.0,916604096.0,87389955.0,806518019.0,1121.0,%22MP_REACH%22,%22../../resources/UnifiedContent%22,%22mp_reach_v5%22,9# 12/23/23 14:39 -- -- RBC 4.91https://[employer]/reports/mp_unified_driver?parameters=^MINE^,1866254.0,806492915.0,58780211.0,935431532.0,1121.0,%22MP_REACH%22,%22../../resources/UnifiedContent%22,%22mp_reach_v5%22,9# 12/23/23 14:39 -- -- Hgb 15.0https://[employer]/reports/[employer]_Sol[employer]_driver?parameters=^MINE^,3261738.0,654773953.0,60222642.0,445626947.0,1121.0,%22MP_REACH%22,%22../../resources/UnifiedContent%22,%22mp_reach_v5%22,9# 12/23/23 14:39 -- -- Hct ?45.9https://[employer]/reports/[employer]_Solio_driver?parameters=^MINE^,8314963.0,901879169.0,78089967.0,023447537.0,1121.0,%22MP_REACH%22,%22../../resources/UnifiedContent%22,%22mp_reach_v5%22,9# 12/23/23 14:39 -- -- MCV 93.5https://[employer]/reports/[employer]_Solio_driver?parameters=^MINE^,4118156.0,832276227.0,26364232.0,093002958.0,1121.0,%22MP_REACH%22,%22../../resources/UnifiedContent%22,%22mp_reach_v5%22,9# 12/23/23 14:39 -- -- MCH 30.5https://[employer]/reports/[employer]_Solio_driver?parameters=^MINE^,5449107.0,541950606.0,66382005.0,672670642.0,1121.0,%22MP_REACH%22,%22../../resources/UnifiedContent%22,%22mp_reach_v5%22,9# 12/23/23 14:39 -- -- MCHC ?32.7https://[employer]/reports/mp_unified_driver?parameters=^MINE^,3994740.0,844991535.0,92237893.0,007145151.0,1121.0,%22MP_REACH%22,%22../../resources/UnifiedContent%22,%22mp_reach_v5%22,9# 12/23/23 14:39 -- -- Platelet Count 280https://[employer]/reports/mp_unified_driver?parameters=^MINE^,0152349.0,907276292.0,95647296.0,411805722.0,1121.0,%22MP_REACH%22,%22../../resources/UnifiedContent%22,%22mp_reach_v5%22,9# 12/23/23 14:39 -- -- RDW-SD ?47.2https://[employer]/reports/mp_unified_driver?parameters=^MINE^,7920292.0,247914553.0,31043817.0,001394361.0,1121.0,%22MP_REACH%22,%22../../resources/UnifiedContent%22,%22mp_reach_v5%22,9# 12/23/23 14:39 -- -- MPV 10.3https://[employer]/reports/mp_unified_driver?parameters=^MINE^,4299479.0,367308193.0,05461041.0,953103886.0,1121.0,%22MP_REACH%22,%22../../resources/UnifiedContent%22,%22mp_reach_v5%22,9# 12/23/23 14:39 -- -- Nucleated RBC (Automated) 0.0https://[employer]/reports/[employer]_unified_driver?parameters=^MINE^,7585473.0,443318400.0,37501675.0,322094169.0,1121.0,%22MP_REACH%22,%22../../resources/UnifiedContent%22,%22mp_reach_v5%22,9# 12/23/23 14:39 -- -- Abs. NRBC 0.0https://[employer]/reports/[employer]_unified_driver?parameters=^MINE^,6494340.0,822388700.0,94692331.0,766070137.0,1121.0,%22MP_REACH%22,%22../../resources/UnifiedContent%22,%22mp_reach_v5%22,9# 12/23/23 14:39 -- -- Abs. Neut ?10.2https://[employer]/reports/[employer]_unified_driver?parameters=^MINE^,7808660.0,388095580.0,85606444.0,604616507.0,1121.0,%22MP_REACH%22,%22../../resources/UnifiedContent%22,%22mp_reach_v5%22,9# 12/23/23 14:39 -- -- Abs. Lymph 2.7https://[employer]/reports/mp_unified_driver?parameters=^MINE^,7416462.0,413835593.0,07954797.0,933889506.0,1121.0,%22MP_REACH%22,%22../../resources/UnifiedContent%22,%22mp_reach_v5%22,9# 12/23/23 14:39 -- -- Abs. Highland 0.6https://[employer]/reports/mp_unified_driver?parameters=^MINE^,0229385.0,035761114.0,10267151.0,873217553.0,1121.0,%22MP_REACH%22,%22../../resources/UnifiedContent%22,%22mp_reach_v5%22,9# 12/23/23 14:39 -- -- Abs. Eo 0.2https://[employer]/reports/mp_unified_driver?parameters=^MINE^,4907873.0,284579612.0,45968350.0,942137715.0,1121.0,%22MP_REACH%22,%22../../resources/UnifiedContent%22,%22mp_reach_v5%22,9# 12/23/23 14:39 -- -- Abs. Baso 0.0https://[employer]/reports/[employer]_unified_driver?parameters=^MINE^,3310890.0,915370683.0,08548663.0,588121736.0,1121.0,%22MP_REACH%22,%22../../resources/UnifiedContent%22,%22mp_reach_v5%22,9# 12/23/23 14:39 -- -- Neut % 73.6https://[employer]/reports/mp_unified_driver?parameters=^MINE^,7855876.0,485893638.0,85851308.0,957408151.0,1121.0,%22MP_REACH%22,%22../../resources/UnifiedContent%22,%22mp_reach_v5%22,9# 12/23/23 14:39 -- -- Lymph % 19.6https://[employer]/reports/[employer]_Solio_driver?parameters=^MINE^,1193462.0,260744949.0,49620170.0,347618915.0,1121.0,%22MP_REACH%22,%22../../resources/UnifiedContent%22,%22mp_reach_v5%22,9# 12/23/23 14:39 -- -- Highland % 4.6https://[employer]/reports/[employer]_Solio_driver?parameters=^MINE^,1362921.0,758183283.0,64035545.0,394551281.0,1121.0,%22MP_REACH%22,%22../../resources/UnifiedContent%22,%22mp_reach_v5%22,9# 12/23/23 14:39 -- -- Eos % 1.5https://[employer]/reports/[employer]_Solio_driver?parameters=^MINE^,6253652.0,554003076.0,83179117.0,738049845.0,1121.0,%22MP_REACH%22,%22../../resources/UnifiedContent%22,%22mp_reach_v5%22,9# 12/23/23 14:39 -- -- Baso % 0.3https://[employer]/reports/[employer]_unified_driver?parameters=^MINE^,8890172.0,712994641.0,25134396.0,141340768.0,1121.0,%22MP_REACH%22,%22../../resources/UnifiedContent%22,%22mp_reach_v5%22,9# 12/23/23 14:39 -- -- Imm Gran 0.4https://[employer]/reports/[employer]_Solio_driver?parameters=^MINE^,6152781.0,404391321.0,12547745.0,120882050.0,1121.0,%22MP_REACH%22,%22../../resources/UnifiedContent%22,%22mp_reach_v5%22,9# 12/23/23 14:39 -- -- Abs. Imm Gran 0.1https://[employer]/reports/[employer]_Solio_driver?parameters=^MINE^,7702430.0,172546399.0,15592152.0,678634699.0,1121.0,%22MP_REACH%22,%22../../resources/UnifiedContent%22,%22mp_reach_v5%22,9# 12/23/23 14:39 -- -- D-Dimer ?*2.74https://[employer]/reports/[employer]_Solio_driver?parameters=^MINE^,6359467.0,982187292.0,51467637.0,179502981.0,1121.0,%22MP_REACH%22,%22../../resources/UnifiedContent%22,%22mp_reach_v5%22,9# 12/23/23 14:39 -- -- Hold Lavender Top SPECIMEN DISCARDED AFTER 24 HOURS.https://[employer]/reports/[employer]_Solio_driver?parameters=^MINE^,6249053.0,777855481.0,81171848.0,990108083.0,1121.0,%22MP_REACH%22,%22../../resources/UnifiedContent%22,%22mp_reach_v5%22,9# 12/23/23 14:39 -- -- -CHEMISTRY (18) Sodium 139https://[employer]/reports/[employer]_Solio_driver?parameters=^MINE^,7973881.0,819163528.0,17235077.0,032599972.0,1121.0,%22MP_REACH%22,%22../../resources/UnifiedContent%22,%22mp_reach_v5%22,9# 12/23/23 14:39 -- -- Potassium 4.7https://[employer]/reports/mp_unified_driver?parameters=^MINE^,1531685.0,586852321.0,29682421.0,703530672.0,1121.0,%22MP_REACH%22,%22../../resources/UnifiedContent%22,%22mp_reach_v5%22,9# 12/23/23 14:39 -- -- Chloride 103https://[employer]/reports/mp_unified_driver?parameters=^MINE^,7647395.0,396297708.0,86788320.0,176757286.0,1121.0,%22MP_REACH%22,%22../../resources/UnifiedContent%22,%22mp_reach_v5%22,9# 12/23/23 14:39 -- -- Bicarbonate Level 26https://[employer]/reports/mp_unified_driver?parameters=^MINE^,6861795.0,471464043.0,59206078.0,496520746.0,1121.0,%22MP_REACH%22,%22../../resources/UnifiedContent%22,%22mp_reach_v5%22,9# 12/23/23 14:39 -- -- Anion Gap 10https://[employer]/reports/mp_unified_driver?parameters=^MINE^,3646154.0,588947380.0,86117413.0,894259442.0,1121.0,%22MP_REACH%22,%22../../resources/UnifiedContent%22,%22mp_reach_v5%22,9# 12/23/23 14:39 -- -- Glucose Level ?119https://[employer]/reports/mp_Solio_driver?parameters=^MINE^,1277485.0,758349403.0,87013115.0,347624030.0,1121.0,%22MP_REACH%22,%22../../resources/UnifiedContent%22,%22mp_reach_v5%22,9# 12/23/23 14:39 -- -- BUN 14https://[employer]/reports/[employer]_Solio_driver?parameters=^MINE^,0819582.0,950214071.0,93137665.0,678524928.0,1121.0,%22MP_REACH%22,%22../../resources/UnifiedContent%22,%22mp_reach_v5%22,9# 12/23/23 14:39 -- -- Creatinine-Blood ?1.08https://[employer]/reports/[employer]_Solio_driver?parameters=^MINE^,1458651.0,879482000.0,69406349.0,928611515.0,1121.0,%22MP_REACH%22,%22../../resources/UnifiedContent%22,%22mp_reach_v5%22,9# 12/23/23 14:39 -- -- Estimated GFR Creatinine *60https://[employer]/reports/[employer]_Solio_driver?parameters=^MINE^,6417596.0,660848875.0,73332501.0,681449927.0,1121.0,%22MP_REACH%22,%22../../resources/UnifiedContent%22,%22mp_reach_v5%22,9# 12/23/23 14:39 -- -- Calcium 9.6https://[employer]/reports/[employer]_Solio_driver?parameters=^MINE^,3181826.0,746343717.0,80054544.0,818376377.0,1121.0,%22MP_REACH%22,%22../../resources/UnifiedContent%22,%22mp_reach_v5%22,9# 12/23/23 14:39 -- -- Protein, Total 7.3https://[employer]/reports/[employer]_Solio_driver?parameters=^MINE^,6290460.0,170795677.0,17774598.0,374442718.0,1121.0,%22MP_REACH%22,%22../../resources/UnifiedContent%22,%22mp_reach_v5%22,9# 12/23/23 14:39 -- -- Albumin 4.3https://[employer]/reports/[employer]_Solio_driver?parameters=^MINE^,4898194.0,624179355.0,40489438.0,188107583.0,1121.0,%22MP_REACH%22,%22../../resources/UnifiedContent%22,%22mp_reach_v5%22,9# 12/23/23 14:39 -- -- AG Ratio 1.4https://[employer]/reports/[employer]_Solio_driver?parameters=^MINE^,2534036.0,358105069.0,66459515.0,809892736.0,1121.0,%22MP_REACH%22,%22../../resources/UnifiedContent%22,%22mp_reach_v5%22,9# 12/23/23 14:39 -- -- Alkaline Phosphatase ?124https://[employer]/reports/[employer]_Sol[employer]_driver?parameters=^MINE^,1473238.0,413314706.0,32971188.0,577766722.0,1121.0,%22MP_REACH%22,%22../../resources/UnifiedContent%22,%22mp_reach_v5%22,9# 12/23/23 14:39 -- -- AST (SGOT) 18https://[employer]/reports/[employer]_Sol[employer]_driver?parameters=^MINE^,1097940.0,362019631.0,78154723.0,936140380.0,1121.0,%22MP_REACH%22,%22../../resources/UnifiedContent%22,%22mp_reach_v5%22,9# 12/23/23 14:39 -- -- ALT (SGPT) 14https://[employer]/reports/[employer]_Sol[employer]_driver?parameters=^MINE^,1715319.0,673475288.0,68401385.0,553860374.0,1121.0,%22MP_REACH%22,%22../../resources/UnifiedContent%22,%22mp_reach_v5%22,9# 12/23/23 14:39 -- -- Bilirubin, Total 0.2https://[employer]/reports/[employer]_Solio_driver?parameters=^MINE^,9745073.0,132410273.0,32030418.0,195128376.0,1121.0,%22MP_REACH%22,%22../../resources/UnifiedContent%22,%22mp_reach_v5%22,9# 12/23/23 14:39 -- -- Hold Gel Top SPECIMEN DISCARDED AFTER 1 [email or web address]_mobile/[employer]/reports/mp_unified_driver?parameters=^MINE^,6166819.0,381400301.0,10997917.0,848599307.0,1121.0,%22MP_REACH%22,%22../../resources/UnifiedContent%22,%22mp_reach_v5%22,9# 12/23/23 14:39 -- -- -IMMUNOLOGY (19) THERE IS EXTENSIVE INFORMATION ABOUT THE SURGERY TO FIX HER THROMBI IN THE EXTREMITIES BUT NOTHING ABOUT THE LARGE SURGICAL SCAR THAT EXPLAINS WHAT HAPPENED IN THE ABDOMEN. TODAY'S VISIT PATIENT HAS BEEN LOST FOLLOW-UP SINCE 02/2022, IT APPEARS SHE WAS RE-REFERRED FOR EARLY SATIETY. She has had a complex history with blood clots. She is being investigated for potential clotting disorder at this time. Apparently she had a bilateral inguinal hernia repair in [place] and had continuing problems so she came to [place] for better medical care. Here she saw Dr. Harris who attempted to do hernia repair that required a mesh implant and in checking on this, because she also had a fem-pop bypass, she had pain and swelling and they discovered that she had more thrombi occluding the leg. 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 She was then sent to [facility] because of her complex presentation and had surgery to try to correct this and to remove the mesenteric artery occlusion. Apparently it was quite a long and large surgery given the delicate organs involved. Since then she has been having pain that manifest in the general left upper quadrant area towards the upper area of her long incision that will cause her to have bloating, early satiety, and of course pain. The pain will cause her to stop eating. Her bowels are generally somewhat slow she does not move them every day but when she does she feels that she has complete evacuation. It is difficult for her to determine if the pain is better or worse with bowel movements because she suffers chronic pain that is unremitting. She never had the colonoscopy because she went to [place] for these other complex issues which is understandable. I am going to try to get the discharge summary and a better idea of how she was treated from [facility] but at this time it is going to take a little more research. 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 At this time I think she may have some trauma to the stomach interfering with appropriate emptying so will get a gastric emptying study. Until I get a little more information gathered I do not want to initiate any new treatments since she has a complex surgical and fairly recent postop patient. Return office visit in 8 weeks [facility] Medical History No natural teeth DVT (deep venous thrombosis) Urge incontinence Bladder prolapse, female, acquired Post-menopausal COVID-19 vaccine administered Asthma Kidney injury Urinary incontinence Back pain Hypertension Surgical History History of carpal tunnel release S/P femoral-femoral bypass surgery S/P aortogram History of right oophorectomy History of kidney surgery Family History Father Lung cancer Mother No problems noted. Social History Household Members Other:: mother Are you a primary wound care specialist to a significant other at home: No Do you presently have visiting nurse or other home services: No Comment: bilat pulses palpable, but left foot slightly more cool than right. 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 Review of Systems Const Denies fatigue, Denies fever(s), Denies night sweats, Denies poor appetite and Denies weight loss ENT Reports Normal hearing present, Denies dysphagia, Denies odynophagia, Denies throat swelling and Denies tongue swelling Card Reports leg edema Resp Reports no additional complaints GI Details: Reports abdominal pain, Denies melena, Denies bloating, Denies hematochezia, Denies constipation, Denies GI cramping, Denies dysphagia, Denies excessive flatus, Reports early satiety, Denies heartburn, Denies diarrhea, Denies nausea, Denies odynophagia, Denies vomiting and Denies hematemesis Musc Reports back pain, Reports myalgias, Reports arthralgias and Reports radiating pain into limb Skin/Breast Denies pruritus, Denies lesions, Denies rash and Denies jaundice Neuro Reports Normal hearing present and Denies Abnormal speech present Endo Denies fatigue Aller/Immun Denies throat swelling and Denies tongue swelling Physical Exam Vital Signs: Last Vital Signs Pulse 90 01/14/24 09:19 BP 134/72 01/14/24 09:19 Pulse Ox 99 01/14/24 09:19 Oxygen Delivery Method Room Air 01/14/24 09:19 BMI result Body Mass Index 33.6 Const General: cooperative, no acute distress, well developed and well groomed Nutritional Appearance: well nourished and obese Orientation/consciousness: oriented to person, oriented to place and oriented to time Limitations: No language barrier HEENT Head: Yes normocephalic and Yes atraumatic Eyes General: appearance normal, both eyes and all related structures Pupils: Equal, round and reactive pupils present Neck Neck: Yes normal visual inspection and Yes no lymphadenopathy Thyroid: Thyroid normal Resp Effort & Inspection: normal respiratory effort and able to speak in complete sentences Auscultation: clear to auscultation bilaterally Cardio Rate: regular rate Rhythm: regular rhythm Heart sounds: Normal, physiologic split S2 sound present Peripheral pulses: radial pulses present and posterior tibial pulses present GI Inspection: Yes distended, Yes Abdominal panniculus present and Yes obesity Palpation (GI): Soft to palpation, Tenderness to palpation present (GI) in the LUQ, no guarding, not rigid and No hepatosplenomegaly present Percussion: Yes normal to percussion Auscultation: Hypoactive bowel sounds present Rectal Exam - Female: deferred Abdomen image: 1. well healing surgical scar Skin General skin exam: no rashes or lesions noted, turgor normal, skin not dry, no jaundice, No spider nevi and no striae Rashes: no rashes Nails: normal Neuro General: oriented to person, oriented to place and oriented to time Cranial nerves: Yes Equal, round and reactive pupils present and Yes Normal hearing present Speech: No Abnormal speech present Extrem General: Yes normal to inspection, No clubbing, No cyanosis and Yes edema Elbow/forearm/wrist images: 1. surgical scar Psych Appearance: grossly normal and well kempt Mental Status: mental status grossly normal Speech and movement: Normal speech and movement present Affect: normal affect Attitude: cooperative Thought process: Normal thought process present and not confabulating Thought content: Normal thought content present Insight: Limited insight present (Psych) Judgement: Limited judgement present (Psych) Results Reviewed Results Reviewed: REVIEW OF [facility] IMAGING AND RECORDS CT ANGIOGRAM FINDINGS: Abdominal aorta: Recently status post aortobifemoral bypass. The right limb of the bypass is completely occluded. The aortic body and left limb are patent. The [place] aorta above the bypass demonstrates mild atherosclerosis, but no significant stenosis. The [place] aorta below the bypass is occluded. Celiac axis: Patent. No significant stenosis. Superior mesenteric artery: Patent. No significant stenosis. Right renal artery: Single patent artery. No significant stenosis. Left renal artery: Single patent artery. No significant stenosis. Inferior mesenteric artery: Proximal segmental occlusion. Reconstitution via collaterals. Failed femoral to femoral artery bypass with the bypass graft containing air. Right side: Common iliac artery: Occluded. Internal iliac artery: Proximal occlusion. Reconstitution of major branches seen. External iliac artery: Patent diminutive artery. Common femoral artery: Occluded. Superficial femoral artery: Proximal reconstitution. No significant stenosis. Deep femoral artery: Proximal reconstitution. No significant stenosis. Popliteal artery: Patent. No significant stenosis. Anterior tibial artery: Patent to the ankle. No significant stenosis. Tibioperoneal trunk: Occluded. Posterior tibial artery: Reconstitution in the proximal lower leg. Then remains patent to the ankle. Peroneal artery: Segmental reconstitution in the mid lower leg. Dorsalis pedis: No enhancement seen. Plantar arteries: No enhancement seen. Left side: Common iliac artery: Proximal reconstitution of the [place] artery via lumbar collaterals. Moderate focal proximal stenosis. Internal iliac artery: Patent. No significant stenosis. External iliac artery: Patent. No significant stenosis. Common femoral artery: Patent. No significant stenosis. Superficial femoral artery: Patent. No significant stenosis. Deep femoral artery: Patent. No significant stenosis. Popliteal artery: Patent. No significant stenosis. Anterior tibial artery: Patent to the foot. No significant stenosis. Tibioperoneal trunk: Patent. No significant stenosis. Posterior tibial artery: Patent to the foot. No significant stenosis. Peroneal artery: Patent to the ankle. No significant stenosis. Dorsalis pedis: Mild proximal enhancement seen. Plantar arteries: Mild proximal enhancement seen. OTHER FINDINGS: Compliance Coordinator View Findings, Lines and Tubes: None. Visualized Chest: Above the imaging [id number]. No pleural effusion. Diaphragm: No acute abnormality. Liver: Diffuse low-attenuation throughout the visualized lower liver consistent with hepatic steatosis. Focal sparing around the gallbladder. No evidence of mass. Gallbladder: No CT evidence of gallbladder pathology. Bile ducts: No biliary ductal dilation. Spleen: The visualized lower portion is normal. Pancreas: Mild atrophy. No focal lesion or ductal dilatation. Adrenal glands: Normal. Kidneys and ureters: No hydronephrosis, stones, or suspicious masses. Scattered left retroperitoneal soft tissue stranding and air, consistent with the recent surgical procedure. Bladder: Decompressed around a George catheter balloon. Small amount of intraluminal air likely from instrumentation. Reproductive organs: Unremarkable. Stomach, small bowel, and large bowel: Diffuse fatty change throughout the wall the colon, which can be seen with chronic disease. No evidence of bowel obstruction or focal inflammation. Few scattered diverticula of the colon without evidence of acute diverticulitis. Appendix: Normal. Peritoneum and retroperitoneum: No ascites or pneumoperitoneum. No omental or mesenteric lesions. Postsurgical changes in the left retroperitoneum. Lymph nodes: No enlarged lymph nodes. Abdominal and pelvic wall: Diffuse subcutaneous emphysema and soft tissue stranding, consistent with recent surgical procedure. Lower extremities: Small left knee joint effusion. Bones: No acute abnormality. IMPRESSION: 1. 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 2. Proximal reconstitution of the right superficial and deep femoral arteries. 3. Single vessel runoff of the right lower extremity via the anterior tibial artery and occlusion of the tibioperoneal trunk. 4. Intact left limb of the aortobifemoral bypass with an intact CTA of the left lower extremity. WBC ?[email or web address]?parameters=^MINE^,8695760.0,439650931.0,74923480.0,807985486.0,1121.0,%22MP_REACH%22,%22../../resources/UnifiedContent%22,%22mp_reach_v5%22,9# 12/23/23 14:39 -- -- RBC 4.91https://[employer]/reports/mp_unified_driver?parameters=^MINE^,3165765.0,529433080.0,78957354.0,012326592.0,1121.0,%22MP_REACH%22,%22../../resources/UnifiedContent%22,%22mp_reach_v5%22,9# 12/23/23 14:39 -- -- Hgb 15.0https://[employer]/reports/[employer]_unified_driver?parameters=^MINE^,7244564.0,291532258.0,08242596.0,554116161.0,1121.0,%22MP_REACH%22,%22../../resources/UnifiedContent%22,%22mp_reach_v5%22,9# 12/23/23 14:39 -- -- Hct ?45.9https://[employer]/reports/mp_unified_driver?parameters=^MINE^,6809207.0,793375195.0,10081925.0,863843476.0,1121.0,%22MP_REACH%22,%22../../resources/UnifiedContent%22,%22mp_reach_v5%22,9# 12/23/23 14:39 -- -- MCV 93.5https://[employer]/reports/[employer]_unified_driver?parameters=^MINE^,3301184.0,384115783.0,11735188.0,925108386.0,1121.0,%22MP_REACH%22,%22../../resources/UnifiedContent%22,%22mp_reach_v5%22,9# 12/23/23 14:39 -- -- MCH 30.5https://[employer]/reports/mp_Solio_driver?parameters=^MINE^,1958835.0,144910571.0,72007496.0,340599347.0,1121.0,%22MP_REACH%22,%22../../resources/UnifiedContent%22,%22mp_reach_v5%22,9# 12/23/23 14:39 -- -- MCHC ?32.7https://[employer]/reports/[employer]_Solio_driver?parameters=^MINE^,6139211.0,235381324.0,62205547.0,868325831.0,1121.0,%22MP_REACH%22,%22../../resources/UnifiedContent%22,%22mp_reach_v5%22,9# 12/23/23 14:39 -- -- Platelet Count 280https://[employer]/reports/[employer]_Solio_driver?parameters=^MINE^,5893915.0,574012613.0,19407060.0,121078240.0,1121.0,%22MP_REACH%22,%22../../resources/UnifiedContent%22,%22mp_reach_v5%22,9# 12/23/23 14:39 -- -- RDW-SD ?47.2https://[employer]/reports/[employer]_unified_driver?parameters=^MINE^,4125085.0,165660184.0,01072174.0,087007450.0,1121.0,%22MP_REACH%22,%22../../resources/UnifiedContent%22,%22mp_reach_v5%22,9# 12/23/23 14:39 -- -- MPV 10.3https://[employer]/reports/[employer]_Solio_driver?parameters=^MINE^,2974047.0,543791100.0,42353236.0,390418034.0,1121.0,%22MP_REACH%22,%22../../resources/UnifiedContent%22,%22mp_reach_v5%22,9# 12/23/23 14:39 -- -- Nucleated RBC (Automated) 0.0https://[employer]/reports/[employer]_Solio_driver?parameters=^MINE^,2678144.0,914543581.0,98862478.0,710994454.0,1121.0,%22MP_REACH%22,%22../../resources/UnifiedContent%22,%22mp_reach_v5%22,912/23/23 14:39 -- -- Abs. NRBC 0.0https://[employer]/reports/[employer]_Solio_driver?parameters=^MINE^,1428623.0,704613251.0,51604561.0,239304411.0,1121.0,%22MP_REACH%22,%22../../resources/UnifiedContent%22,%22mp_reach_v5%22,9# 12/23/23 14:39 -- -- Abs. Neut ?10.2https://[employer]/reports/[employer]_unified_driver?parameters=^MINE^,8244336.0,579374443.0,77250793.0,284912258.0,1121.0,%22MP_REACH%22,%22../../resources/UnifiedContent%22,%22mp_reach_v5%22,9# 12/23/23 14:39 -- -- Abs. Lymph 2.7https://[employer]/reports/mp_unified_driver?parameters=^MINE^,3178240.0,629564197.0,17757710.0,824049489.0,1121.0,%22MP_REACH%22,%22../../resources/UnifiedContent%22,%22mp_reach_v5%22,9# 12/23/23 14:39 -- -- Abs. Highland 0.6https://[employer]/reports/mp_unified_driver?parameters=^MINE^,8119696.0,048370033.0,09473884.0,981953101.0,1121.0,%22MP_REACH%22,%22../../resources/UnifiedContent%22,%22mp_reach_v5%22,9# 12/23/23 14:39 -- -- Abs. Eo 0.2https://[employer]/reports/mp_unified_driver?parameters=^MINE^,3977159.0,025944635.0,07621227.0,347355687.0,1121.0,%22MP_REACH%22,%22../../resources/UnifiedContent%22,%22mp_reach_v5%22,9# 12/23/23 14:39 -- -- Abs. Baso 0.0https://[employer]/reports/mp_unified_driver?parameters=^MINE^,8006724.0,733128216.0,59607982.0,665806383.0,1121.0,%22MP_REACH%22,%22../../resources/UnifiedContent%22,%22mp_reach_v5%22,9# 12/23/23 14:39 -- -- Neut % 73.6https://[employer]/reports/[employer]_unified_driver?parameters=^MINE^,9985758.0,611384604.0,63533523.0,570164601.0,1121.0,%22MP_REACH%22,%22../../resources/UnifiedContent%22,%22mp_reach_v5%22,9# 12/23/23 14:39 -- -- Lymph % 19.6https://[employer]/reports/mp_unified_driver?parameters=^MINE^,6973965.0,382731341.0,61489309.0,324566477.0,1121.0,%22MP_REACH%22,%22../../resources/UnifiedContent%22,%22mp_reach_v5%22,9# 12/23/23 14:39 -- -- Highland % 4.6https://[employer]/reports/[employer]_unified_driver?parameters=^MINE^,1402661.0,326335246.0,68727214.0,127930436.0,1121.0,%22MP_REACH%22,%22../../resources/UnifiedContent%22,%22mp_reach_v5%22,9# 12/23/23 14:39 -- -- Eos % 1.5https://[employer]/reports/[employer]_unified_driver?parameters=^MINE^,2794793.0,443348154.0,88863239.0,086089874.0,1121.0,%22MP_REACH%22,%22../../resources/[employer].Content%22,%22mp_reach_v5%22,9# 12/23/23 14:39 -- -- Baso % 0.3https://[employer]/reports/mp_unified_driver?parameters=^MINE^,0396655.0,370833085.0,69489806.0,972773677.0,1121.0,%22MP_REACH%22,%22../../resources/UnifiedContent%22,%22mp_reach_v5%22,9# 12/23/23 14:39 -- -- Imm Gran 0.4https://[employer]/reports/mp_unified_driver?parameters=^MINE^,2381836.0,064549702.0,85273346.0,967199954.0,1121.0,%22MP_REACH%22,%22../../resources/UnifiedContent%22,%22mp_reach_v5%22,9# 12/23/23 14:39 -- -- Abs. Imm Gran 0.1https://[employer]/reports/mp_Solio_driver?parameters=^MINE^,8256956.0,888221858.0,36791667.0,739726121.0,1121.0,%22MP_REACH%22,%22../../resources/UnifiedContent%22,%22mp_reach_v5%22,9# 12/23/23 14:39 -- -- D-Dimer ?*2.74https://[employer]/reports/mp_unified_driver?parameters=^MINE^,3914815.0,637413860.0,18435315.0,127575014.0,1121.0,%22MP_REACH%22,%22../../resources/UnifiedContent%22,%22mp_reach_v5%22,9# 12/23/23 14:39 -- -- Hold Lavender Top SPECIMEN DISCARDED AFTER 24 HOURS.https://[employer]/reports/[employer]_unified_driver?parameters=^MINE^,9467869.0,716371907.0,79675060.0,723289842.0,1121.0,%22MP_REACH%22,%22../../resources/UnifiedContent%22,%22mp_reach_v5%22,9# 12/23/23 14:39 -- -- -CHEMISTRY (18) Sodium 139https://[employer]/reports/[employer]_unified_driver?parameters=^MINE^,5788349.0,350313984.0,29055484.0,531331505.0,1121.0,%22MP_REACH%22,%22../../resources/UnifiedContent%22,%22mp_reach_v5%22,9# 12/23/23 14:39 -- -- Potassium 4.7https://[employer]/reports/[employer]_unified_driver?parameters=^MINE^,6885245.0,091318212.0,84789212.0,777848636.0,1121.0,%22MP_REACH%22,%22../../resources/UnifiedContent%22,%22mp_reach_v5%22,9# 12/23/23 14:39 -- -- Chloride 103https://[employer]/reports/[employer]_unified_driver?parameters=^MINE^,5695645.0,357208497.0,85611884.0,497541816.0,1121.0,%22MP_REACH%22,%22../../resources/UnifiedContent%22,%22mp_reach_v5%22,9# 12/23/23 14:39 -- -- Bicarbonate Level 26https://[employer]/reports/[employer]_unified_driver?parameters=^MINE^,5821612.0,309628267.0,59454135.0,388210495.0,1121.0,%22MP_REACH%22,%22../../resources/UnifiedContent%22,%22mp_reach_v5%22,9# 12/23/23 14:39 -- -- Anion Gap 10https://[employer]/reports/mp_unified_driver?parameters=^MINE^,7332188.0,102950667.0,40283485.0,814734164.0,1121.0,%22MP_REACH%22,%22../../resources/UnifiedContent%22,%22mp_reach_v5%22,9# 12/23/23 14:39 -- -- Glucose Level ?119https://[employer]/reports/mp_Solio_driver?parameters=^MINE^,8746530.0,847865408.0,66868456.0,266122556.0,1121.0,%22MP_REACH%22,%22../../resources/UnifiedContent%22,%22mp_reach_v5%22,9# 12/23/23 14:39 -- -- BUN 14https://[employer]/reports/[employer]_unified_driver?parameters=^MINE^,6151204.0,158042286.0,39118006.0,716440118.0,1121.0,%22MP_REACH%22,%22../../resources/UnifiedContent%22,%22mp_reach_v5%22,9# 12/23/23 14:39 -- -- Creatinine-Blood ?1.08https://[employer]/reports/mp_unified_driver?parameters=^MINE^,3356789.0,420503884.0,89146834.0,165695866.0,1121.0,%22MP_REACH%22,%22../../resources/UnifiedContent%22,%22mp_reach_v5%22,9# 12/23/23 14:39 -- -- Estimated GFR Creatinine *60https://[employer]/reports/mp_Solio_driver?parameters=^MINE^,1416649.0,971812542.0,67685510.0,742177729.0,1121.0,%22MP_REACH%22,%22../../resources/UnifiedContent%22,%22mp_reach_v5%22,9# 12/23/23 14:39 -- -- Calcium 9.6https://[employer]/reports/mp_Solio_driver?parameters=^MINE^,1839040.0,544390629.0,36841979.0,933603927.0,1121.0,%22MP_REACH%22,%22../../resources/UnifiedContent%22,%22mp_reach_v5%22,9# 12/23/23 14:39 -- -- Protein, Total 7.3https://[employer]/reports/mp_unified_driver?parameters=^MINE^,0628841.0,258474320.0,34723209.0,778347695.0,1121.0,%22MP_REACH%22,%22../../resources/UnifiedContent%22,%22mp_reach_v5%22,9# 12/23/23 14:39 -- -- Albumin 4.3https://[employer]/reports/mp_unified_driver?parameters=^MINE^,5723899.0,733340041.0,81988183.0,256628708.0,1121.0,%22MP_REACH%22,%22../../resources/UnifiedContent%22,%22mp_reach_v5%22,9# 12/23/23 14:39 -- -- AG Ratio 1.4https://[employer]/reports/[employer]_Solio_driver?parameters=^MINE^,9978884.0,699814688.0,56977312.0,488034705.0,1121.0,%22MP_REACH%22,%22../../resources/UnifiedContent%22,%22mp_reach_v5%22,9# 12/23/23 14:39 -- -- Alkaline Phosphatase ?124https://[employer]/reports/[employer]_Solio_driver?parameters=^MINE^,4378857.0,648116320.0,20065524.0,235049764.0,1121.0,%22MP_REACH%22,%22../../resources/UnifiedContent%22,%22mp_reach_v5%22,9# 12/23/23 14:39 -- -- AST (SGOT) 18https://[employer]/reports/[employer]_Solio_driver?parameters=^MINE^,9372632.0,586611452.0,06689417.0,046411745.0,1121.0,%22MP_REACH%22,%22../../resources/UnifiedContent%22,%22mp_reach_v5%22,9# 12/23/23 14:39 -- -- ALT (SGPT) 14https://[employer]/reports/[employer]_Solio_driver?parameters=^MINE^,8989318.0,605574692.0,35421117.0,490625209.0,1121.0,%22MP_REACH%22,%22../../resources/UnifiedContent%22,%22mp_reach_v5%22,9# 12/23/23 14:39 -- -- Bilirubin, Total 0.2https://[employer]/reports/mp_unified_driver?parameters=^MINE^,5240264.0,689711296.0,28957874.0,632366815.0,1121.0,%22MP_REACH%22,%22../../resources/[employer]Content%22,%22mp_reach_v5%22,9# 12/23/23 14:39 -- -- Hold Gel Top SPECIMEN DISCARDED AFTER 1 WEEKhttps://[employer]/reports/mp_unified_driver?parameters=^MINE^,7238303.0,277212003.0,34046951.0,816623725.0,1121.0,%22MP_REACH%22,%22../../resources/UnifiedContent%22,%22mp_reach_v5%22,9# 12/23/23 14:39 -- -- -IMMUNOLOGY (19) THERE IS EXTENSIVE INFORMATION ABOUT THE SURGERY TO FIX HER THROMBI IN THE EXTREMITIES BUT NOTHING ABOUT THE LARGE SURGICAL SCAR THAT EXPLAINS WHAT HAPPENED IN THE ABDOMEN. 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 She has had a complex history with blood clots. She is being investigated for potential clotting disorder at this time. Apparently she had a bilateral inguinal hernia repair in [place] and had continuing problems so she came to [place] for better medical care. Here she saw Dr. Harris who attempted to do hernia repair that required a mesh implant and in checking on this, because she also had a fem-pop bypass, she had pain and swelling and they discovered that she had more thrombi occluding the leg. 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 She was then sent to [facility] because of her complex presentation and had surgery to try to correct this and to remove the mesenteric artery occlusion. Apparently it was quite a long and large surgery given the delicate organs involved. Since then she has been having pain that manifest in the general left upper quadrant area towards the upper area of her long incision that will cause her to have bloating, early satiety, and of course pain. The pain will cause her to stop eating. Her bowels are generally somewhat slow she does not move them every day but when she does she feels that she has complete evacuation. It is difficult for her to determine if the pain is better or worse with bowel movements because she suffers chronic pain that is unremitting. She never had the colonoscopy because she went to [place] for these other complex issues which is understandable. I am going to try to get the discharge summary and a better idea of how she was treated from [facility] but at this time it is going to take a little more research. 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 At this time I think she may have some trauma to the stomach interfering with appropriate emptying so will get a gastric emptying study. Until I get a little more information gathered I do not want to initiate any new treatments since she has a complex surgical and fairly recent postop patient. Return office visit in 8 weeks Orders: Orders NM gastric emptying study 01/14/24 R68.81 - Early satiety, S35.239A - Unspecified injury of inferior mesenteric artery, initial encounter Coding Level of Care Code Est Pt Level 4 (33500) Diagnoses Abdominal pain R10.9 Early satiety R68.81 Injury of inferior mesenteric artery S35.239A Chronic anticoagulation Z79.01 Time Spent (min) 40
== END 2024-01-14 10:05 | disposition home or self-care (01) ==
PROVIDERS: PCP Registered Nurse; Visit Provider Nurse Practitioner
DX: R10.9 Unspecified abdominal pain (principal); R68.81 Early satiety; S35.239A Unspecified injury of inferior mesenteric artery, initial encounter; Z79.01 Long term (current) use of anticoagulants
CPT/HCPCS: 99214

== ENCOUNTER → 2024-01-14 09:18 | Outpatient (BNVA) | payer MEDICARE, MEDICAID, SELFPAY | PROVIDERS: PCP Registered Nurse; Visit Provider Nurse Practitioner | DX: R10.9 Unspecified abdominal pain (principal); R68.81 Early satiety; S35 Injury of blood vessels at abdomen, lower back and pelvis level; X58.XXXD Exposure to other specified factors, subsequent encounter; Z79.01 Long term (current) use of anticoagulants | CPT/HCPCS: 99212 ==

== ENCOUNTER 2024-07-20 12:22 | Outpatient (AMB) | payer MEDICARE, MEDICAID, SELFPAY ==
[2024-07-20 12:37] VITALS: BMI 33.3
--- NOTE | 2024-07-20 12:37 | MHC.OFFVIS ---
Vital Signs 07/20/24 12:37 Height 5 ft 4 in Weight 194 lb BMI 33.3 Intake Visit Reasons: OV- L Cubital V Trans & CTR 09/01/22 Intake Note: Yael 58 yr old female presents today for a new problem visit for her left hand. States she has a lump at the base of her 4th MCP on the carter aspect of hand. States this started in December and has had weakness in hand since. Pain is worse when she applies pressure. No injury she can recall. She is s/p left hand cubital and CTR from 09/01/22 states CTS have resolved. Allergies lisinopril Allergy (Severe, Verified 07/20/24 12:54) Facial Swelling, throat closing codeine [CODEINE] Adverse Reaction (Severe, Verified 07/20/24 12:54) blacked out HPI HPI OV- L Cubital V Trans & CTR 09/01/22: Details: Yael is a 58 year old right hand dominant woman who returns with a new complaint of a left palmar mass. She complains of mass in her left mid palm, in line with her left ring finger. She says this has been present since about December 2023. She denies any known injuries. She complains of weakness in her had since this mass developed, and says she has pain only when pressure is applied, such as gripping or steering wheel.. She says her sensation has improved and is now normal to the tips of all digits bilaterally She is currently unemployed on long-term disability due to back issues. [facility] Medical History No natural teeth DVT (deep venous thrombosis) Urge incontinence Bladder prolapse, female, acquired Post-menopausal COVID-19 vaccine administered Asthma Kidney injury Urinary incontinence Back pain Hypertension Surgical History History of carpal tunnel release S/P femoral-femoral bypass surgery S/P aortogram History of right oophorectomy History of kidney surgery Family History Father Lung cancer Mother No problems noted. Social History Household Members Other:: mother Are you a primary care professionals to a significant other at home: No Do you presently have visiting nurse or other home services: No Comment: bilat pulses palpable, but left foot slightly more cool than right. 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 Review of Systems Const All systems reviewed & are unremarkable except as noted in HPI and below Physical Exam Vital Signs: BMI result Body Mass Index 33.3 Const General: no acute distress and alert Orientation/consciousness: patient oriented x3 Neuro General: patient oriented x3 Extrem Other: Evaluation of Left Upper Extremity: The patient is alert, oriented, and in no acute distress Neuro: Median, Ulnar, Radial nerves motor and sensory intact and sensation is normal to the tips of all digits Vascular: Cap refill brisk ROM: She can make a fist and extend all her digits No locking or catching There is a Dupuytrens nodule just proximal to the mid-palmar crease, in line with the ring finger. No evidence of cords or contractures. 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 Left hand Dupuytrens nodule Nodule just proximal to the mid-palmar crease, in line with the ring finger No evidence of cords or contractures I educated her about this condition I discussed operative and non-operative treatment options I directed her to the [email or web address] website for more information No surgical intervention warranted at this time If her symptoms increase in severity, she can follow up to discuss treatment options If she is still having significant tenderness without improvement she will contact the clinic in 6 weeks to again be evaluated for this problem. 2. Left Carpal Tunnel syndrome, S/P release DOS: 09/01/22 Now with normal sensation and good resolution of her nighttime symptoms 3. Left Cubital tunnel syndrome, S/P release DOS: 09/01/22 Now with normal sensation and good resolution of her nighttime symptoms 4. Right trigger thumb Resolved on its own If it returns she knows to contact the clinic to discuss treatment 5. Right Carpal Tunnel syndrome, S/P release 6. Right Cubital Tunnel syndrome, S/P release DOS: 02/27/22 With good resolution of her symptoms Scribed for Katty Crisostomo MD by Danish Shah, front office medical assistant, on 07/20/24 at 1:10 PM, EST. 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
--- OUTSIDE RECORDS SUMMARY | 2024-07-20 14:56 | XMS_ITS | Encounter Summary ---
Author Organization [employer] Address [address] [place] [address] [address] [place] [address] Care Team Providers Care Fiber Picker Name Role Phone [facility] Primary Care Provider [phone] Reason for Visit * Reason Onset Date Comments Med Refill 10/14/2023 Encounter Details Date Type Department Care Team ([facility] st Contact Info) Description 10/14/2023 Telephone [facility] [address], [place] [id number] [facility] [address] [place] [address] Med Refill Social History Tobacco Use Types Packs/Day Years Used Date Smoking Tobacco: Every Day Cigarettes 0.5 10 Smokeless Tobacco: Never Alcohol Use Standard Drinks/Week Comments Never 0 (1 standard drink = 0.6 oz pur e alcohol) Depression Answer Date Recorded Patient Health Questionnaire-9 Score 0 11/19/2022 Housing Stability Answer Date Recorded What is your housing situation today? I do not have housing (Staying with others, in a hotel, in a fdc, living outside on the street, on a beach, in a car, or in a park 10/14/[address] you li ve. Do you have problems with any of the following? None of the above 10/14/2023 Food Insecurity Answer Date Recorded Within the past 12 months, y ou worried that your food would run out before you got money to buy more: Never True 02/09/2023 Within the past 12 months,th e food you bought just didn't last and you didn't have enough money to get more: Never True Transportation Answer Date Recorded In the past 12 months, has l ack of transportation kept you from medical appts, meetings, work or from getting things needed for daily living? No 02/09/2023 Utilities Answer Date Recorded In the past 12 months, has t he electric, gas, oil or water company threatened to shut off services in your home? No 02/09/2023 Depression Answer Date Recorded Patient Health Questionnaire-2 Score 0 11/19/2022 Comments Unknown Sex and Gender Information Value Date Recorded Sex Assigned at Female 02/17/2022 10:15 AM EDT Legal Sex Female 10:15 AM EDT Gender Identity Female 02/17/2022 10:15 AM EDT Sexual Orientation Straight 02/17/2022 10 :15 AM EDT documented as of this encounter Miscellaneous Notes * Telephone Encounter - Renee López LPN - 10/14/2023 3:37 PM EDT Medications pended to PCP. * Telephone Encounter - Cristo Kelly - 10/14/2023 3:26 PM EDT TC from pt requesting medication refill. Medications needing refill : amLODIPine (Norvasc) 10 MG tablet , aspirin 81 MG EC tablet , Acetaminophen 500 MG capsule , chlorthalidone (Hygroton) 25 MG tablet , cyclobenzaprine (Flexeril) 10 MG tablet , cloNIDine (Catapres) 0.2 MG tablet , DULoxetine (Cymbalta) 60 MG , gabapentin (Neurontin) 300 MG capsule Preferred Pharmacy [facility] documented in this encounter Plan of Treatment Not on file documented as of this encounter Visit Diagnoses Not on filedocumented in this encounter Additional Health Concerns Assessment Noted Time PHQ-9 Depression Total Score: 0 11/20/19 23 11:22 AM EDT documented as of this encounter Care Teams Fiber Picker Relationship Specialty Start Date End Date Alisia Ivory FNP [address] [place] [id number] PCP - General Family Medicine 12/10/21 documented as of this encounter
--- OUTSIDE RECORDS SUMMARY | 2024-07-20 14:56 | XMS_ITS | Clinical Summary ---
Author Organization [employer] Address [address] [place] [address] 7[address] [place] [address] Care Team Providers Care Habilitation Training Specialist Name Role Phone Alisia Ivory [facility] COACH Primary Care Provider Allergies Active Allergy Reactions Criticality Noted Date Comments Codeine 10/05/2020 Other reaction(s): Syncope Heparin Headache 05/20/2024 Other Reaction(s): Heparin therapy Lisinopril 10/05/2020 Other reaction(s): Facial swelling Medications Acetaminophen 500 MG capsule Take 2 capsules by mouth every 8 (eight) hours. Active senna-docusate (Senokot S) 8.6-50 MG tablet Take 2 tablets by mouth at bed time. 2 Active naloxone (Narcan) 4 mg/0.1 mL nasal spray Administer 0.1 mL into affected nostril(s). 2 Active busPIRone (Buspar) 5 MG tablet Take 1 tablet by mouth every 12 (twelve) hours. 2 Active atorvastatin (Lipitor) 40 MG tablet Take 1 tablet by mouth at bed time. 2 Active Chantix 0.5 MG tablet TAKE 1 TABLET (0.5MG) BY MOUTH ON DAYS 1-3, THEN 1 TABLET TWICE DAILY ON DAYS 4-7, THEN START 1MG TABLET PRESCRIPTION 2 Active nitrofurantoin, macrocrystal-mon ohydrate, (Macrobid) 100 MG capsule TAKE ONE CAPSULE BY MOUTH EVERY 12 HOURS FOR 7 DAYS MUST ADMINISTER WITH A MEAL/FOOD). 2 Active oxybutynin XL (Ditropan-XL) 10 MG 24 hr tablet TAKE 1 TABLET BY MOUTH DAILY (FOR OVER ACTIVE BLADDER). 2 Active nicotine (Nicoderm, Step 1) 21 MG/24HR patch APPLY 1 PATCH BY TRANSDERMAL ROUTE EVERY DAY AND REMOVE AT BEDTIME 2 Active Diclofenac Sodium 1 % gelIndications:R ight foot pain Apply topically to affected areas twice daily 150 g 1 3 Active Docusate Sodium (DSS) 100 MG capsule TAKE 1 CAPSULE BY MOUTH TWICE A DAY 180 capsule 3 4 Active DULoxetine (Cymbalta) [address] capsuleIndicatio ns:Chronic bilateral low back pain without sciatica TAKE 1 CAPSULE BY MOUTH EVERY DAY 90 capsule 3 4 Active apixaban (Eliquis) 5 MG tabletIndication s:Peripheral arterial disease (CMS/HCC) Take 1 tablet (5 mg) by mouth every 12 (twelve) hours. 60 tablet 11 4 Active aspirin 81 MG EC tabletIndication s:Peripheral arterial disease (CMS/HCC) TAKE 1 TABLET BY MOUTH EVERY DAY 90 tablet 3 4 Active cloNIDine (Catapres) 0.2 MG tabletIndication s:Peripheral arterial disease (CMS/HCC) Take 1 tablet (0.2 mg) by mouth at bedtime. 90 tablet 3 4 025 Active cyclobenzaprine (Flexeril) 10 MG tabletIndication s:Chronic bilateral low back pain without sciatica TAKE 1 TABLET BY MOUTH IF NEEDED IN THE MORNING, AT NOON, AND AT BEDTIME FOR MUSCLE SPASMS; (TAKE 1 TABLET 3 TIMES A DAY NEEDED). 90 tablet 3 4 Active gabapentin (Neurontin) 300 MG capsuleIndicatio ns:Chronic bilateral low back pain without sciatica TAKE 1 OR 2 CAPSULES BY MOUTH 3 TIMES A DAY 180 capsule 3 4 Active amLODIPine (Norvasc) 10 MG tablet TAKE 1 TABLET BY MOUTH AT BEDTIME. 90 tablet 1 5 Active budesonide-formo terol (Symbicort) 160-4.5 MCG/ACT inhalerIndicatio ns:Mild intermittent asthma in adult without complication 2 puffs every 4-6 hours as needed for cough or wheeze 1 each 11 5 Active albuterol 108 (90 Base) MCG/ACT inhalerIndicatio ns:Mild intermittent asthma in adult without complication Inhale 2 puffs every 6 (six) hours if needed for wheezing. 18 g 11 5 026 Active Skin Protectants, Misc. (eucerin) creamIndications :Peripheral arterial disease (CMS/HCC) Apply topically if needed for dry skin. 99 g 3 5 026 Active Active Problems Problem Noted Date Diagnosed Date S/P aortobifemoral bypass surgery 10/28/2023 Assessment & Plan (10/29/2023 2:06 PM EDT): In light of patient's recent procedure and symptoms I will order stat venous doppler and arterial doppler, she must follow with vascular surgeon and explain all her symptoms Healthcare maintenance 03/30/2022 Overview (10/15/2022): ?? Mammo: 01/2022 Bi-rads 1, + family hx of breast cancer (mom and aunt) referred for genetic screening 03/2022 Pap: 01/2021 NIL HPV neg, no hx of abnormal results C-scope: Cologuard ordered 03/2022 BMD: Routine age 67 HCV Screen: Neg 2020 HIV Screen: Neg 2020 Immunizations: Will go to vaccine clinic for flu and COVID booster Screening Labs: A1c: 5.5 2020 ?? Assessment & Plan (11/26/2022 7:31 PM EDT): ?? Will task RN's to request genetic packet to be resent ?? Complete cologuard Assessment & Plan (03/30/2022 9:01 PM EST): Mammo: 01/2022 Bi-rads 1 Pap: 01/2021 NIL HPV neg, no hx of abnormal results C-scope: Did not complete previously scheduled colonoscopy. Would like to do cologuard instead. Risks/benefits reviewed. BMD: Routine age 67 HCV Screen: Neg 2020 HIV Screen: Neg 2020 Immunizations: Will go to vaccine clinic for flu and COVID booster Screening Labs: A1c: 5.5 2020 Hyperlipidemia 10/16/2021 Overview (10/15/2022): ?? Atorvastatin 40mg daily Peripheral arterial disease 07/04/2021 Overview (10/15/2022): ?? S/P femoral-femoral bypass graft 10/2021 [facility]. Sees Dr. Kimberly meraz 6 months ?? Dual anti-platelet therapy with ASA and Eliquis ?? Continues to smoke approx 1/2 PPD. Has patches at home. Assessment & Plan (11/26/2022 7:30 PM EDT): Continue plan per vascular Encouraged smoking cessation Assessment & Plan (10/15/2022 8:51 AM EDT): ?? Continue DAPT ?? Continue to follow with Vascular ?? Declines smoking cessation at this time. Has patches at home Chronic low back pain 02/03/2021 Overview (11/26/2022): ?? Lumbar MRI from 10/2020 with the following results Mild degenerative spondylotic changes. No spinal canal stenosis or nerve root compression identified. Minimal grade 1 anterolisthesis seen at L4-L5 related to facet arthropathy. Stress response seen within the right L4 and L5 pedicle. ?? managed with gabapentin, duloxetine, flexeril ?? Referred to pain mngmt 03/2022 Assessment & Plan (11/26/2022 7:27 PM EDT): ?? Will resubmit referral to pain management ?? Discussed option of increasing gabapentin dose which patient declines at this time. Assessment & Plan (03/30/2022 9:06 PM EST): Referral to pain mngmt placed for possible steroid injections Will continue current medication regimen with plan to discuss COT and begin monitoring pain severity with PEG scales at follow up visit [employer] contact up to date Depressive disorder 02/03/2021 Urinary incontinence 02/03/2021 Overview (10/15/2022): ?? Hx of blood clot in R renal artery in 2017. Incontinent of urine since this time. Wears adult incontinence pads. Rx'd oxybutynin. ?? Followed by [facility] Essential hypertension 12/04/2020 Overview (02/17/2024): Amlodipine 10mg Maintenance: BMP: Pending Lipid Panel: Pending ASCVD Risk: Calculate pending updated labs EKG: Obtain baseline at f/u - Aerobic exercise to reduce BP. Initial goal of 30 min walk 3-5x/week. Increase as tolerated. - low-sodium diet (goal: <2g/day) and heart healthy diet such as DASH to reduce BP and prevent ASCVD. - Home BP monitoring 1-2 x day with goal of <140/90. - Seek immediate medical attention for chest pain, palpitations, SOB, syncope, or sudden changes in mental status. - Do not change or discontinue current prescriptions without first consulting health care provider Assessment & Plan (11/26/2022 7:29 PM EDT): ?? Initial BP elevated in office. Repeat WNL ?? Continue current regimen Assessment & Plan (10/15/2022 8:49 AM EDT): ?? BP elevated in office. Pt reports not taking medications today. .Reports home BP well controlled ?? Continue to monitor at home. Contact HC if 3 or more readings >140/90 Assessment & Plan (03/30/2022 9:21 PM EST): BP above goal in office; reports home readings between 130-140/ 70's Discontinue hydrochlorothiazide Start chlorthalidone 25mg once daily Continue amlodipine 10mg Repeat BMP 1 week Follow up 2 months Maintenance: BMP: 02/2022, WNL Lipid Panel: Ordered today ASCVD Risk: Calculate pending updated labs EKG: Obtain baseline at f/u - Aerobic exercise to reduce BP. Initial goal of 30 min walk 3-5x/week. Increase as tolerated. - low-sodium diet (goal: <2g/day) and heart healthy diet such as DASH to reduce BP and prevent ASCVD. - Home BP monitoring 1-2 x day with goal of <140/90. - Seek immediate medical attention for chest pain, palpitations, SOB, syncope, or sudden changes in mental status. - Do not change or discontinue current prescriptions without first consulting health care provider Resolved Problems Problem Noted Date Diagnosed Date Resolved Date Numbness and tingling sensation of skin 10/28/2023 02/17/2024 Early satiety 10/28/2023 02/17/2024 Leg edema, right 10/28/2023 02/17/2024 Cervical cancer screening 10/28/2023 Encounters Date Type Department Care Team Description 07/15/[address] [phone] Alisia Ivory FNP No Show 06/30/[address] [phone] Alisia Ivory FNP Lung screening 05/20/2024 9:30 AM EST Office Visit [address] [phone] Alisia Ivory FNP Mild intermittent asthma in adult without complication (Primary Dx); Left lower quadrant abdominal pain; Nodule of skin of left hand; Peripheral arterial disease (CMS/HCC); Encounter for colorectal cancer screening; Encounter for screening mammogram for breast cancer; Class 1 obesity due to excess calories with serious comorbidity and body mass index (BMI) of 33.0 to 33.9 in adult; Dietary counseling; Exercise counseling; Edentulous 05/20/[address] [address] Alisia Ivory FNP Medication Question 05/20/2024 Travel 05/19/[address] [address] Alisia Ivory FNP chart prep 05/17/[address] [phone] Alisia Ivory FNP 05/11/2024 Patient Outreach [address] [address] Alisia Ivory FNP Care Coordination (CHW outreach for [facility] housing search-referral completed ) 05/10/2024 Patient Outreach [address] [address] [facility] Pre-visit Planning (SDOH screening positive and tobacco screening positive) from Last 3 Months Immunizations Name Administration Dates Next Due Hep B, adult 05/11/2023,11/24/2022,10/24/2022 Influenza injectable quadriv alent preservative free 01/31/2021 Moderna Covid-19 Vaccine 12+ 11/19/2021, 07/03/2021,10/03/2020,2020 Pneumococcal Conjugate PCV 20 11/19/2022 Tdap 07/03/2021,10/11/2007 Zoster, Recombinant 10/18/2021,08/17/2021 Social History Tobacco Use Types Packs/Day Years Used Date Smoking Tobacco: Former Cigarettes 0.5 10 Q uit: 11/2023 Smokeless Tobacco: Never Alcohol Use Standard Drinks/Week Comments Never 0 (1 standard drink = 0.6 oz pur e alcohol) Depression Answer Date Recorded Patient Health Questionnaire-9 Score 0 02/17/2024 Patient Health Questionnaire-9 Score 0 02/17/2024 Last PHQ-9: Questionnaire Data Not on file 1 Housing Stability Answer Date Recorded What is your housing situation today? I do not have housing (Staying with others, in a hotel, in a usp, living outside on the street, on a [...] Date Recorded Patient Health Questionnaire-2 Score 0 02/17/2024 Internet Access Answer Date Recorded Internet Access Q1 Yes 12/21/2023 Internet Access Q2 Not on file 12/21/2023 Comments Unknown Sex and Gender Information Value Date Recorded Sex Assigned at Female 02/17/2022 10:15 AM EDT Legal Sex Female 10:15 AM EDT Gender Identity Female 02/17/2022 10:15 AM EDT Sexual Orientation Straight 02/17/2022 10 :15 AM EDT Last Filed Vital Signs Vital Sign Reading Time Taken Comments Blood Pressure 128/85 05/20/2024 9:39 AM EST Pulse 76 05/20/2024 9:39 AM EST Temperature 36.2 ??C (97.1 ??F) 05/20/2024 9:39 AM ES T Respiratory Rate 20 05/20/2024 9:39 AM EST Oxygen Saturation 97% 05/20/2024 9:39 AM EST Inhaled Oxygen Concentration - - Weight 88 kg (194 lb) 05/20/2024 9:39 AM EST Height 162.6 cm (5' 4 ) 05/20/2024 9:39 AM EST Body Mass Index 33.3 05/20/2024 9:39 AM EST Plan of Treatment Health Maintenance Due Date Last Done Comments CT Colonography 1967 Colonoscopy 1967 Colorectal Cancer Screening 1967 FIT DNA/Cologuard 1967 FIT 1967 FOBT 1967 Sigmoidoscopy 1967 Mammogram 02/13/2023 02/13/2022, 02/04/2021 COVID-19 Vaccine ( season) 2023 11/19/2021, 07/03/2021, 10/03/2020, Additional history exists Influenza Vaccine (#1) 2023 01/31/2021 Pap Smear 01/05/2024 01/04/2021 Depression Screening 02/16/2025 02/17/2024, 02/17/20 24 SDOH Screening 05/10/2025 05/10/2024 Alcohol/Substance Use Screening 05/20/2025 05/20/2024 Tobacco Screening 05/22/2025 05/22/2024 Lipid Panel 10/05/2025 10/05/2020 Cervical Cancer Screening 01/04/2026 HPV/Cotest 01/04/2026 01/04/2021 DTaP/Tdap/Td Vaccines (3 - Td or Tdap) 07/04/2031 07/03/2021, 10/11/2007 RSV Patients and Patients Aged 60 years or older (1 - 1-dose 75+ series) 08/22/2042 HIV Screening Completed 10/05/2020 Zoster Vaccines Completed 10/18/2021, 08/17/2021 Hepatitis C Screening Completed 10/13/2022, 021 Pneumococcal Vaccine: 50+ Years Completed 11/19/2022 Hepatitis B Vaccines Completed 05/11/2023, 11/24/2022, 10/24/2022 HIB Vaccines Aged Out No longer eligi ble based on patient's age to complete this topic HPV Vaccines Aged Out No longer eligi ble based on patient's age to complete this topic Hepatitis A Vaccines Aged Out No long er eligible based on patient's age to complete this topic IPV Vaccines Aged Out No longer eligi ble based on patient's age to complete this topic Meningococcal Vaccine Aged Out No luis f iman eligible based on patient's age to complete this topic RSV under 20 months Aged Out No longe r eligible based on patient's age to complete this topic Rotavirus Vaccines Aged Out No longer eligible based on patient's age to complete this topic Procedures Procedure Name Priority Date/Time Associated Diagnosis Comments HEPATITIS PANEL, GENERAL Routine 10/13/2022 11:35 AM EDT Healthcare maintenance MAMMOGRAM GENERIC Routine 02/13/2022 8:2 0 AM EDT HPV MRNA E6/E7 Routine 01/04/2021 12:00 AM EDT THINPREP PAP Routine 01/04/2021 12:00 AM EDT LIPID PANEL, STANDARD Routine 10/05/2020 10:33 AM EDT HIV 1/2 ANTIGEN/ANTIBODY, FOURTH GENERATION W/RFL Routine 10/05/2020 10:31 AM EDT from Last 3 Months or Most Recently Relevant to Health Maintenance Results * (ABNORMAL) Hepatitis Panel, General (10/13/2022 11:35 AM EDT) Hepatitis A Antibody Total REACTIVE( A) NON-REACT LEONELA [facility] [employer] Comment: For additional information, please refer to http://Mindjet/faq/AVD939 (This link is being provided for informational/ educational purposes only.) Hepatitis B Surface Antibody QL NON-REACT LEONELA NON-REACT LEONELA [facility] [employer] Hepatitis B Surface Ag NON-REACT LEONELA NON-REACT LEONELA [facility] [employer] Comment: For additional information, please refer to http://Mindjet/faq/QYN658 (This link is being provided for informational/ educational purposes only.) Hepatitis B Core Antibody Total NON-REACT LEONELA NON-REACT LEONELA [facility] [employer] Comment: For additional information, please refer to http://Mindjet/faq/AVG534 (This link is being provided for informational/ educational purposes only.) Hepatitis C Antibody NON-REACT LEONELA NON-REACT LEONELA [facility] [employer] Comment: HCV antibody was non-reactive. There is no laboratory evidence of HCV infection. In most cases, no further action is required. However, if recent HCV exposure is suspected, a test for HCV RNA (test code 33372) is suggested. For additional information please refer to http://Mindjet/faq/UPF94a0 (This link is being provided for informational/ educational purposes only.) 10/13/2022 11:3 5 AM EDT 10/13/2022 11:36 AM EDT Narrative [facility] - 10/14/2022 5:35 PM EDT FASTING:NO FASTING: NO [facility] LAB BLOOD ORDERABLES Final Re sult [facility] [address], [place] [address] [facility] [employer] [address] [place] [phone] * Mammography Report 1 (02/13/2022 8:20 AM EDT) Anatomical Region Laterality Modality Breast Bilateral Mammography 02/13/2022 8:20 AM EDT Narrative 02/17/2022 9:44 AM EDT Refer to the Notes tab for result details [facility] Procedure: Mammography Report 1 Procedure Note Provider, Nishi, - 07/13/2022 Refer to the Notes tab for result details [facility] Procedure: Mammography Report 1 [facility] MEN'S SWIM COACH IMG BI PROCEDURES Final Resul t * THINPREP PAP (01/04/2021 12:00 AM EDT) Clinical Information: None given [facility] COMMENT SEE COMMENT [facility] Comment: EXPLANATORY NOTE: ? The Pap is a screening test for cervical cancer. It is ?? not a diagnostic test and is subject to false negative ?? and false positive results. It is most reliable when a ?? satisfactory sample, regularly obtained, is submitted ?? with relevant clinical findings and history, and when ?? the Pap result is evaluated along with historic and ?? current clinical information. ?? Hydrological Technical Officer : SEE COMMENT [facility] Comment: JuvenalXM, CT(ASCP) CT screening location: [address] ??[id number] Interpretation/R esult: Negative for intraepithelial lesion or malignancy. [facility] LMP: NONE [facility]IVEN [facility] Prev. BX: NONE [facility]IVEN [facility] Prev. PAP: NONE [facility]IVEN [facility] SOURCE: None given [facility] Statement Of Adequacy: SEE COMMENT [facility] Comment: Satisfactory for evaluation. Endocervical/transformation zone component present. Age and/or menstrual status not provided 01/04/2021 Raina Cantu NP LAB PATHOLOGY ORDERABLES Final Result [facility] [address] * HPV mRNA E6/E7 (01/04/2021 12:00 AM EDT) Pathologist [facility] HPV nRNA E6/E7 Not Detected Not Detected [facility] Comment: Methodology: It Software Engineer-Mediated Amplification This assay detects E6/E7 viral messenger RNA (mRNA) from 14 high-risk HPV types (16,18,31,33,35,39,45,51,52,56,58,59,66,68). ? The analytical performance characteristics of this assay have been determined by [facility]. The modifications have not been cleared or approved by the FDA. This assay has been validated pursuant to the CLIA regulations and is used for clinical purposes. ?? For additional information, please refer to http://education.TravelerCar/faq/FEU323t7 (This link if provided for information/ educational purposes only.) 01/04/2021 Raina Cantu STOCK SAW OPERATOR LAB BLOOD ORDERABLES Final Resu lt [facility] [address] * (ABNORMAL) LIPID PANEL, STANDARD (10/05/2020 10:33 AM EDT) Pathologist [facility] Chol/HDLC Ratio 6.0(H) <5.0 (calc) [facility] Cholesterol, Total 269(H) <200 mg/dL [facility] HDL Cholesterol 45(L) > OR = 50 mg/dL [facility] LDL Cholesterol 192(H) mg/dL (calc) [facility] Comment: LDL-C levels > or = 190 mg/dL may indicate familial ?? hypercholesterolemia (FH). Clinical assessment and ?? measurement of blood lipid levels should be ?? considered for all first degree relatives of ?? patients with an FH diagnosis. ?? For questions about testing for familial hypercholesterolemia, please call [facility] Client Services at [phone]. Marvin Rayo, et al. J National Lipid Association ?? Recommendations for Patient-Centered Management of ?? Dyslipidemia: Part 1 Journal of Clinical Lipidology ?? 2015;9(2), 129-169. Reference range: <100 ?? Desirable range <100 mg/dL for primary prevention; ?? <70 mg/dL for patients with CHD or diabetic patients ?? with > or = 2 CHD risk factors. ?? LDL-C is now calculated using the Yudy ?? calculation, which is a validated novel method providing ?? better accuracy than the Friedewald equation in the ?? estimation of LDL-C. ?? Charles GARCÍA et al. LESLEY. 2013;310(19): 3241-2655 ?? (http://[employer] Studios.[employer]/faq/SXC939) Non-HDL Cholesterol 224(H) <130 mg/dL (calc) [facility] Comment: Non-HDL level > or = 220 is very high and may indicate ?? genetic familial hypercholesterolemia (FH). Clinical ?? assessment and measurement of blood lipid levels ?? should be considered for all first-degree relatives ?? of patients with an FH diagnosis. ?? For patients with diabetes plus 1 major ASCVD risk ?? factor, treating to a non-HDL-C goal of <100 mg/dL ?? (LDL-C of <70 mg/dL) is considered a therapeutic ?? option. Triglycerides 155(H) <150 mg/dL [facility] 10/05/2020 10:3 3 AM EDT us Mary Martin MD LAB BLOOD ORDERABLES Final Re sult [facility] [address] * HIV 1/2 ANTIGEN/ANTIBODY,FOURTH GENERATION W/RFL (10/05/2020 10:31 AM EDT) HIV-1/2 ANTIGEN AND ANTIBODIES, 4TH GENERATION W/ REFLEX NON-REACT LEONELA NON-REACT LEONELA [facility] Comment: HIV-1 antigen and HIV-1/HIV-2 antibodies were not detected. There is no laboratory evidence of HIV infection. ?? PLEASE NOTE: This information has been disclosed to you from records whose confidentiality may be protected by state law. ??If your state requires such protection, then the state law prohibits you from making any further disclosure of the information without the specific written consent of the person to whom it pertains, or as otherwise permitted by law. A general authorization for the release of medical or other information is NOT sufficient for this purpose. ? For additional information please refer to http://education.Dekko.Guides.co/faq/FNO579 (This link is being provided for informational/ educational purposes only.) ? The performance of this assay has not been clinically validated in patients less than 2 years old. ?? 10/05/2020 10:3 1 AM EDT us Mary Martin MD LAB BLOOD ORDERABLES Final Re sult [facility] [address] from Last 3 Months or Most Recently Relevant to Health Maintenance Insurance STANDARD MEDICARE Care Teams Habilitation Training Specialist Relationship Specialty Start Date End Date AltonAlisia amadorLAKE [address] [place] [id number] PCP - General Family Medicine 12/10/21
--- OUTSIDE RECORDS SUMMARY | 2024-07-20 14:56 | XMS_ITS | Continuity of Care Document ---
Author Organization Formerly [facility]. If a dditional information is needed, contact Health Information Management at [phone] Address [address] [place] [address] Phone Care Team Providers Care Track Hoe Operator Name Role Phone Unavailable Unavailable Unavailable Unavailable Unavailable Unavailable Unavailable Unavailable Unavailable Unavailable Unavailable Unavailable Unavailable Unavailable Unavailable Unavailable Unavailable Unavailable Problems Left shoulder pain Onset:27-Jun-2022 Valentina Chand MD Smoking status for patients 13 years old or older: 4 Never Smoker Onset:27-Jun-2022 Angioedema Onset:09-Mar-2020 Patricia White DO Smokes tobacco daily Onset:09-Mar-2020 Allergies and Adverse Reactions lisinopril(Allergy) Onset: 09-Mar-2020 Reaction:ANGIOEDEMA Codeine(Allergy) Onset: 09-Mar-2020 Reaction: I BLACK OUT Medications cyclobenzaprine hydrochlorid e 10 MG Oral Tablet;10 TID Start:09-Mar-2020 Comments:10 MG PO TID predniSONE 50 MG Oral Tablet ;50 Start:09-Mar-2020 Comments:50 MG PO DAILY amLODIPine 10 MG Oral Tablet ;10 Start:09-Mar-2020 Comments:10 MG PO DAILY lisinopril 10 MG Oral Tablet ;10 Start:09-Mar-2020 Comments:10 MG PO DAILY apixaban 5 MG Oral Tablet [E liquis];5 Start:09-Mar-2020 Comments:5 MG PO BID acetaminophen 325 MG Oral Ta blet;650 Q4H PRN Start:09-Mar-2020 Comments:650 MG PO Q4H PRN As Needed for PAIN diphenhydrAMINE hydrochlorid e 50 MG Oral Capsule;50 Start:09-Mar-2020 Comments:50 MG PO Q6H PRN As Needed for ALLERGIC REACTION
--- OUTSIDE RECORDS SUMMARY | 2024-07-20 14:56 | XMS_ITS | Encounter Summary ---
Author Organization [employer] Address [address] [facility] [address] [place] [address] Care Team Providers Care Tire Shop Manager Name Role Phone [place] [facility] Primary Care Provider [phone] Encounter Details Date Type Department Care Team ([facility] st Contact Info) Description 10/28/2023 Telephone [facility] [address] [place], [place] [phone] [place] Alisia [facility] [address] [place], [place] [phone] Social History Tobacco Use Types Packs/Day Years [...] AM EDT documented as of this encounter Plan of Treatment Not on file documented as of this encounter Visit Diagnoses Not on filedocumented in this encounter Additional Health Concerns Assessment Noted Time PHQ-9 Depression Total Score: 0 11/20/19 11:22 AM EDT documented as of this encounter Care Teams Tire Shop Manager Relationship Specialty Start Date End Date Alisia Ivory FNP [address] [place] [id number] PCP - General Family Medicine 12/10/21 documented as of this encounter
--- OUTSIDE RECORDS SUMMARY | 2024-07-20 14:56 | XMS_ITS | Encounter Summary ---
Author Organization [employer] Address [address] [place] [address] 7[address] [place] [address] Care Team Providers Care Multiple Drum Sander Helper Name Role Phone [place] [facility] Primary Care Provider [phone] Reason for Visit * Reason Onset Date Comments No Show 07/15/2024 Encounter Details Date Type Department Care Team ([facility] st Contact Info) Description 07/15/2024 Telephone [facility] MEDICINE [address] [place], [place] [phone] [facility] [address] [place], [place] [phone] No Show Social History Tobacco Use Types Packs/Day Years [...] with others, in a hotel, in a nursing home, living outside on the street, on a [...] encounter Miscellaneous Notes * Telephone Encounter - Loraine Qureshi - 07/15/2024 10:28 AM EDT Pt no showed to appt on 07/15/24 documented in this encounter Plan of Treatment Not on file documented as of this encounter Visit Diagnoses Not on filedocumented in this encounter Additional Health Concerns Assessment Noted Time PHQ-9 Depression Total Score: 0 02/17/20 24 11:24 AM EDT documented as of this encounter Care Teams Multiple Drum Sander Helper Relationship Specialty Start Date End Date DianelysAlisia FNP [address] [place] [address] PCP - General Family Medicine 12/10/21 documented as of this encounter
== END 2024-07-20 13:22 | disposition home or self-care (01) ==
LOC: HO.HOS 12:23
PROVIDERS: PCP Registered Nurse; Visit Provider Orthopaedic Surgery
DX: M72.0 Palmar fascial fibromatosis [Dupuytren] (principal)
CPT/HCPCS: 99213

== ENCOUNTER → 2024-07-20 12:22 | Outpatient (BNVA) | payer MEDICARE, MEDICAID, SELFPAY | PROVIDERS: PCP Registered Nurse; Visit Provider Orthopaedic Surgery | DX: M72.0 Palmar fascial fibromatosis [Dupuytren] (principal) | CPT/HCPCS: 99212 ==

== ENCOUNTER 2024-08-19 | Outpatient (REF) | payer MEDICARE, SELFPAY ==
--- OUTSIDE RECORDS SUMMARY | 2024-10-17 11:48 | XMS_ITS | Encounter Summary ---
Author Organization [employer] Address [address] [facility] 7 [place] [address] Care Team Providers Care Laser Engraver Name Role Phone [facility] Primary Care Provider [phone] Reason for Visit * Reason Onset Date Comments Med Refill 10/14/2023 Encounter Details Date Type Department Care Team ([facility] st Contact Info) Description 10/14/2023 Telephone [facility] MEDICINE [address] [place], [place] [phone] [facility] [address] [place] [address] Med Refill Social History Tobacco Use Types [...] with others, in a hotel, in a senior care, living outside on the street, on a [...] Preferred Pharmacy [facility] documented in this encounter Plan of Treatment Not on file documented as of this encounter Visit Diagnoses Not on filedocumented in this encounter Additional Health Concerns Assessment Noted Time PHQ-9 Depression Total Score: 0 11/20/19 23 11:22 AM EDT documented as of this encounter Care Teams Laser Engraver Relationship Specialty Start Date End Date Alisia Ivory FNP [address] [place] [id number] PCP - General Family Medicine 12/10/21 documented as of this encounter
== END 2024-08-19 00:01 | disposition home or self-care (01) ==
LOC: CF
PROVIDERS: PCP Registered Nurse; Visit Provider Physician Assistant Medical
DX: F17.210 Nicotine dependence, cigarettes, uncomplicated (principal); Z80.1 Family history of malignant neoplasm of trachea, bronchus and lung
CPT/HCPCS: G0296

== ENCOUNTER 2024-08-19 11:09 | Outpatient (AMB) | payer MEDICARE, SELFPAY ==
--- NOTE | 2024-08-19 07:51 | A.OFFVIS_ITS ---
Intake Visit Reasons: Former Smoker Allergies lisinopril Allergy (Severe, Verified 07/20/24 12:54) Facial Swelling, throat closing codeine [CODEINE] Adverse Reaction (Severe, Verified 07/20/24 12:54) blacked out HPI HPI Former Smoker: Details: Initial (telehealth) visit for this 58yo former smoker with a 22PYH. Patient started smoking at age 14 for 44 years at 1/2ppd. Quit for a period of 8 months but restarted due to stressors - loss of family members. . Reports marijuana use daily. Denies second hand smoke exposure. Denies exposure to chemicals or substances like asbestos. . Family history of lung cancer. Father passed lung cancer. maternal grandfather at 86. Denies personal history of cancers. Denies chest CT in last year. . Denies recent travel outside the [place]. Denies recent respiratory illness or recent hospitalization for respiratory issues. Historty testing positive for COVID. Admits receiving COVID Vaccine. . Denies fever, chills, new/worsening cough, hemoptysis, hoarseness or dysphagia. Denies significant chest pain, significant dyspnea or unintentional weight loss. Patient Lung Cancer Screening Questionnaire reviewed with patient by provider. . Shared Decision Making Completed. Patient meets criteria. Discussed in detail with patient, the risk vs benefit of LDCT screening. Patient consents to proceed with scan. Discussed and encouraged smoking cessation. [facility] Medical History (Updated 08/19/24 @ 11:09 by Aleisha Morrow PA-C) Nicotine dependence, cigarettes, uncomplicated Urge incontinence Urinary incontinence Trigger thumb, right thumb UTI (urinary tract infection) Carpal tunnel syndrome on both sides Numbness and tingling in right hand Spondylolisthesis of lumbar region Spondylosis of lumbar region without myelopathy or radiculopathy Vertebrogenic low back pain Early satiety Abdominal pain Chronic anticoagulation Other and unspecified hyperlipidemia PAD (peripheral artery disease) No natural teeth DVT (deep venous thrombosis) Bladder prolapse, female, acquired Post-menopausal COVID-19 vaccine administered Asthma Kidney injury Urinary incontinence Back pain Hypertension Surgical History (Updated 08/01/24 @ 14:37 by Aleisha Morrow PA-C) History of surgery on left wrist History of surgery on right wrist S/P femoral-femoral bypass surgery S/P aortogram History of right oophorectomy History of kidney surgery Family History Father Lung cancer Mother No problems noted. Social History (Updated 08/19/24 @ 11:10 by Aleisha Morrow PA-C) Household Members Other:: mother Are you a primary pet care assistant to a significant other at home: No Do you presently have visiting nurse or other home services: No Comment: bilat pulses palpable, but left foot slightly more cool than right. 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 Telehealth Telehealth Telehealth Platform: Telephone Location of provider rendering services: practice address Location of patient: address on file Patient Identification confirmed using: Name, : Yes Telehealth method: voice only Patient verbally consented to treatment: Yes Patient verbally consented to billing insurance company: Yes Patient informed of any privacy concerns related to visit: Yes Minutes spent on Phone/Video with Pt.: 15 Assessment & Plan Assessment & Plan (1) Nicotine dependence, cigarettes, uncomplicated: Comment: (onset 14yo, 1/2ppd x 44yrs, 22pyh) Code(s): F17.210 - Nicotine dependence, cigarettes, uncomplicated Category: Medical Plan: - SDM visit completed today in via phone - Patient meets criteria for LDCT for lung cancer screening purposes and is asymptomatic. - Smoking cessation counseling offered. Patients can always call [phone]. - Will arrange for a LDCT scan of the chest for screening purposes at [facility]. - Risks, benefits, and alternatives were discussed in detail and the patient agrees to proceed. - Risks discussed include but are not limited to: radiation exposure, anxiety during testing and while awaiting results, false negatives, false positives and possibility of additional intervention such as further imaging or surgical procedures for benign disease. - Benefits are obviously detection of lung cancer at an early stage which can lead to improved outcomes. - Discussed the importance of screening program compliance with adherence to yearly LDCT scan as scheduled - or sooner interval scans for personalized screening regimen. - Discussed follow up plan. Our office will send a letter discussing results and if needed set up phone call and office visit based on CT findings. - Patient educated on results categorization and the management decisions for suspicious findings potentially found on the screening LDCT scan. Any patient with a Lung RADS score of 3 or 4 will be reviewed by a multidisciplinary team at [facility] to form a plan of action in regards to scan findings. - If further work up is warranted for a suspicious lung finding this will be followed by the Lung Cancer Screening program in conjunction with the Thoracic Surgery Department at [facility]. - A copy of the office note and LDCT will be sent to the patient's PCP - as well as documentation on any associated further plans of care. - Incidental findings on LDCT are the PCP's responsibility. These findings are indicated with an S finding on the LDCT Assessment. A note discussing the findings will be sent to the PCP who is then responsible for further management. - All questions answered.? Coding Level of Care Code Lung Cancer Screening G0296 Diagnoses Nicotine dependence, cigarettes, uncomplicated F17.210
== END 2024-08-19 11:10 | disposition home or self-care (01) ==
LOC: HO.HPS 11:09
PROVIDERS: PCP Registered Nurse; Referring Provider Registered Nurse; Visit Provider Physician Assistant Medical
DX: F17.210 Nicotine dependence, cigarettes, uncomplicated (principal)
CPT/HCPCS: G0296

== ENCOUNTER 2025-01-13 12:06 | Outpatient (REF) | payer MEDICARE, SELFPAY ==
--- NOTE | ~2025-01-13 | XR_ITS ---
EXAMINATION: XR HIP 2 OR MORE VIEWS RIGHT HISTORY: pain with movement COMPARISON: There are no prior studies available for comparison. FINDINGS: Two views of the right hip are submitted. There is an oval lucency in the region of the lesser trochanter which is well circumscribed but without sclerotic margins. There may be additional smaller lesions in the intertrochanteric region. Osseous mineralization is otherwise normal. There is no fracture or dislocation. The joint space is maintained. The soft tissues are unremarkable. XR/XR hip RT min 2V IMPRESSION: Oval lucency in the region of the greater trochanter as described with possible additional lesions in the intertrochanteric region. Further evaluation with MRI is recommended. A preliminary report was sent to Dr. Salas on 01/13/2025 12:41 PM and immediately acknowledged. Electronically signed by: Elian Bauer MD 01/13/2025 12:41 PM EDT
--- OUTSIDE RECORDS SUMMARY | 2025-01-13 11:30 | XMS_ITS | Encounter Summary ---
Author Organization [employer] Address [address] [facility] 7 [place] [address] Care Team Providers Care Collar Turner Name Role Phone [facility] Primary Care Provider [phone] Reason for Visit * Reason Comments sick visit Encounter Details Date Type Department Care Team ([facility] st Contact Info) Description 01/13/2025 11:30 AM EDT Office Visit [facility] [address] [place], [place] [phone] Jerri Salas MD [address] [place], [place] [phone] SOB (shortness of breath) on exertion (Primary Dx); Right hip pain Social History Tobacco Use Types Packs/Day Years [...] 11:36 AM EDT documented in this encounter Plan of Treatment Scheduled Orders Name Type Priority Associated Diagnoses Orde r Schedule D-Dimer, Quantitative Lab STAT SOB (shortness of breath) on exertion Expected: 01/13/2025 (Approximate), Expires: 01/13/2026 Comprehensive Metabolic Panel Lab Routine SOB (shortness of breath) on exertion Expected: 01/13/2025 (Approximate), Expires: 01/13/2026 documented as of this encounter Procedures Procedure Name Priority Date/Time Associated Diagnosis Comments CBC WITH AUTO DIFFERENTIAL Routine 01/13/2025 12:30 PM EDT SOB (shortness of breath) on exertion XR HIP 2 OR 3 VIEWS RIGHT Routine 01/13/2025 12:25 PM EDT Right hip pain documented in this encounter Results * (ABNORMAL) CBC auto differential (01/13/2025 12:30 PM EDT) White Blood Count 13.9(H) 4.8 - 10.8 X10*3/uL [facility] Red Blood Count 4.89 4.20 - 5.50 X10*6/uL [facility] Hemoglobin 14.3 12.0 - 16.0 g/dl [facility] Hematocrit 43.6 37.0 - 47.0 % [facility] Mean Corpuscular Volume 89.2 80.0 - 98.0 fL [facility] Mean Corpuscular Hemoglobin 29.2 27.0 - 33.0 pg [facility] Mean Corpuscular HGB Conc 32.8 31.0 - 35.0 g/dl [facility] Red Cell Distribution Width 13.2 11.0 - 16.0 % [facility] Platelet Count 428(H) 160 - 400 X10*3/uL [facility] Mean Platelet Volume 9.0(L) 9.4 - 12.3 fL [facility] Neutrophils Percent Auto 61.5 45 - 73 % [facility] Imm Gran Pct Auto 0.5(H) 0.0 - 0.4 % [facility] Lymphocytes Percent Auto 29.7 20 - 40 % [facility] Monocytes Percent Auto 6.3 2 - 11 % [facility] Eosinophils Percent Auto 1.4 0 - 4 % [facility] Basophils Percent Auto 0.6 0 - 2 % [facility] NRBC Pct Auto 0.0 0.0 - 0.2 /100WBC [facility] Neutrophils Absolute Auto 8.6(H) 2.0 - 8.3 x10*3/uL [facility] Imm Gran Abs Auto 0.07(H) 0.00 - 0.03 X10*3/uL [facility] Lymphocytes Absolute Auto 4.1 1.2 - 4.9 X10*3/uL [facility] Monocytes Absolute Auto 0.9 0.1 - 1.2 X10*3/uL [facility] Eosinophils Absolute Auto 0.2 0.0 - 0.4 X10*3/uL [facility] Basophils Absolute Auto 0.1 0.0 - 0.2 X10*3/uL [facility] NRBC Abs Auto 0.000 0.0 - 0.012 X10*3/uL [facility] Blood Venous blood specimen / Unknown 01/13/2025 12:30 PM EDT 01/13/2025 12:58 PM EDT us Jerri Salas MD LAB BLOOD ORDERABLES Final Res ult Performing Organization Address City/State/[facility] Co de Phone Number [facility] [address] [place] [phone] * XR Hip 2 or 3 Views Right (01/13/2025 12:25 PM EDT) Anatomical Region Laterality Modality Lower Extremities, Hip Right Radiograp hic Imaging 01/13/2025 12:2 5 PM EDT Narrative 01/13/2025 12:44 PM EDT [address] [address] XRay Report Signed Patient: Yael Gudino MR#: [id number] : 1965 Acct:[id number] Age/Sex: 59 / F ADM Date: 01/13/25 Loc: HO.HHCX Attending Dr: Jerri Salas MD Ordering Physician: Jerri Salas Date of Service: 01/13/25 Procedure(s): XR hip RT min 2V Accession Number(s): [id number] cc: Jerri Salas Reason for Exam: pain [...] 01/13/25 1241 DD/ 1225 TD/TT: 01/13/25 1226 Senior Report Developer: Procedure Note Donotuseinterpreter, Image - 01/13/[address] [address] XRay Report Signed Patient: Yael Gudino [facility]#: [id number] : 1965Acct:[id number] Age/Sex: 59 / FADM Date: 01/13/25 Loc: HO.HHCX Attending Dr: Jerri Salas MD Ordering Physician: Jerri Salas Date of Service: 01/13/25 Procedure(s): XR hip RT min 2V Accession Number(s): [id number] cc: Jreri Salas Reason for Exam: pain with movement [...] 01/13/25 1241 DD/ 1225 TD/TT: 01/13/25 1226 Senior Report Developer: Jerri Salas MD IMG XR PROCEDURES Final Result documented in this encounter Visit Diagnoses Diagnosis SOB (shortness of breath) on exertion- Primary Shortness of breath Right hip pain Pain in joint, pelvic region and thigh documented in this encounter Additional Health Concerns Assessment Noted Time PHQ-9 Depression Total Score: 0 02/17/20 24 11:24 AM EDT documented as of this encounter Care Teams Collar Turner Relationship Specialty Start Date End Date Alisia Ivory FNP [address] [place] [phone] PCP - General Family Medicine 12/10/21 documented as of this encounter
[2025-01-13 13:04] LABS: MANUAL DIFF FLAG NO
[2025-01-13 13:34] LABS: Hematocrit 43.6 % (37.0-47.0); Hemoglobin 14.3 g/dl (12.0-16.0); Imm Gran Abs Auto 0.07 X10*3/uL (0.00-0.03); Imm Gran Pct Auto 0.5 % (0.0-0.4); Lymphocytes Absolute Auto 4.1 X10*3/uL (1.2-4.9); Mean Corpuscular HGB Conc 32.8 g/dl (31.0-35.0); Mean Corpuscular Hemoglobin 29.2 pg (27.0-33.0); Mean Corpuscular Volume 89.2 fL (80.0-98.0); NRBC Abs Auto 0.000 X10*3/uL (0.0-0.012); NRBC Pct Auto 0.0 /100WBC (0.0-0.2); Platelet Count 428 X10*3/uL (160-400); Red Blood Count 4.89 X10*6/uL (4.20-5.50); White Blood Count 13.9 X10*3/uL (4.8-10.8)
--- OUTSIDE RECORDS SUMMARY | 2025-01-13 13:53 | XMS_ITS | Encounter Summary ---
Author Organization [employer] Address [address] [facility] 7 [place] [address] Care Team Providers Care Manager Wellness Name Role Phone [facility] Primary Care Provider [phone] Reason for Visit * Reason Onset Date Comments Med Refill 10/14/2023 Encounter Details Date Type Department Care Team ([facility] st Contact Info) Description 10/14/2023 Telephone [facility] [address] [place], [place] [phone] [facility] [address] [place] [address] Med Refill Social History Tobacco Use Types [...] with others, in a hotel, in a [place] [facility] [place], living outside on the street, on a [...] Preferred Pharmacy [facility] documented in this encounter Plan of Treatment Not on file documented as of this encounter Visit Diagnoses Not on filedocumented in this encounter Additional Health Concerns Assessment Noted Time PHQ-9 Depression Total Score: 0 11/20/19 23 11:22 AM EDT documented as of this encounter Care Teams Manager Wellness Relationship Specialty Start Date End Date Alisia Ivory FNP [address] [place] [phone] PCP - General Family Medicine 12/10/21 documented as of this encounter
--- OUTSIDE RECORDS SUMMARY | 2025-01-13 13:53 | XMS_ITS | Encounter Summary ---
Author Organization [employer] Address [address] [facility] [address]t [place] [address] Care Team Providers Care Sour Bleaching Pleater Name Role Phone [facility] Primary Care Provider [phone] Encounter Details Date Type Department Care Team ([facility] st Contact Info) Description 10/28/2023 Telephone [facility] [address] [place], [place] [phone] [facility] [address] [place] [phone] Social History Tobacco Use Types Packs/Day Years [...] with others, in a hotel, in a skilled nursing, living outside on the street, on a [...] documented as of this encounter Care Teams Sour Bleaching Pleater Relationship Specialty Start Date End Date Alisia Ivory FNP [address] [place] [phone] PCP - General Family Medicine 12/10/21 documented as of this encounter
--- OUTSIDE RECORDS SUMMARY | 2025-01-13 13:53 | XMS_ITS | Encounter Summary ---
Author Organization [employer] Address [address] [facility] 7t [place] [address] Care Team Providers Care Slurry Man Name Role Phone [facility] Primary Care Provider [phone] Encounter Details Date Type Department Care Team (Latest Contact Info) Description 01/13/2025 Travel Social History Tobacco Use Types Packs/Day Years [...] with others, in a hotel, in a halfway, living outside on the street, on a [...] documented as of this encounter Care Teams Slurry Man Relationship Specialty Start Date End Date Alisia Ivory FNP [address] [place] [phone] PCP - General Family Medicine 12/10/21 documented as of this encounter
--- OUTSIDE RECORDS SUMMARY | 2025-01-13 13:53 | XMS_ITS | Clinical Summary ---
Author Organization [employer] Address [address] [facility] [facility] [address] [place] [address] Care Team Providers Care Boring Machine Set Up Operator Name Role Phone [facility] Primary Care Provider [phone] Allergies Active Allergy Reactions Criticality Noted Date Comments Codeine 10/05/2020 Other reaction(s): Syncope Heparin Headache 05/20/2024 Other Reaction(s): Heparin therapy Lisinopril 10/05/2020 Other reaction(s): Facial swelling Medications Acetaminophen 500 MG capsule Take 2 capsules by mouth every 8 (eight) hours. Active senna-docusate (Senokot S) 8.6-50 MG tablet Take 2 tablets by mouth at bed time. 11/07/19 22 Active naloxone (Narcan) 4 mg/0.1 mL nasal spray Administer 0.1 mL into affected nostril(s). 11/07/19 22 Active busPIRone (Buspar) 5 MG tablet Take 1 tablet by mouth every 12 (twelve) hours. 10/17/19 22 Active atorvastatin (Lipitor) 40 MG tablet Take 1 tablet by mouth at bed time. 11/27/19 22 Active Chantix 0.5 MG tablet TAKE 1 TABLET (0.5MG) BY MOUTH ON DAYS 1-3, THEN 1 TABLET TWICE DAILY ON DAYS 4-7, THEN START 1MG TABLET PRESCRIPTION 08/15/19 22 Active nitrofurantoin, macrocrystal-mo nohydrate, (Macrobid) 100 MG capsule TAKE ONE CAPSULE BY MOUTH EVERY 12 HOURS FOR 7 DAYS MUST ADMINISTER WITH A MEAL/FOOD). 03/19/20 22 Active oxybutynin XL (Ditropan-XL) 10 MG 24 hr tablet TAKE 1 TABLET BY MOUTH DAILY (FOR OVER ACTIVE BLADDER). 06/19/19 22 Active nicotine (Nicoderm, Step 1) 21 MG/24HR patch APPLY 1 PATCH BY TRANSDERMAL ROUTE EVERY DAY AND REMOVE AT BEDTIME 05/03/19 22 Active Diclofenac Sodium 1 % gelIndications: Right foot pain Apply topically to affected areas twice daily 150 g 1 10/14/19 23 Active apixaban (Eliquis) 5 MG tabletIndicatio ns:Peripheral arterial disease (CMS/HCC) Take 1 tablet (5 mg) by mouth every 12 (twelve) hours. 60 tablet 11 02/17/20 24 Active aspirin 81 MG EC tabletIndicatio ns:Peripheral arterial disease (CMS/HCC) TAKE 1 TABLET BY MOUTH EVERY DAY 90 tablet 3 02/17/20 24 Active cloNIDine (Catapres) 0.2 MG tabletIndicatio ns:Peripheral arterial disease (CMS/HCC) Take 1 tablet (0.2 mg) by mouth at bedtime. 90 tablet 3 02/17/20 24 2024 Active budesonide-form oterol (Symbicort) 160-4.5 MCG/ACT inhalerIndicati ons:Mild intermittent asthma in adult without complication 2 puffs every 4-6 hours as needed for cough or wheeze 1 each 05/20/19 25 Active albuterol 108 (90 Base) MCG/ACT inhalerIndicati ons:Mild intermittent asthma in adult without complication Inhale 2 puffs every 6 (six) hours if needed for wheezing. 18 g 11 05/20/19 25 2025 Active Skin Protectants, Misc. (eucerin) creamIndication s:Peripheral arterial disease (CMS/HCC) Apply topically if needed for dry skin. 99 g 3 05/20/19 25 2025 Active cyclobenzaprine (Flexeril) 10 MG tabletIndicatio ns:Chronic bilateral low back pain without sciatica TAKE 1 TABLET BY MOUTH IF NEEDED IN THE MORNING, AT NOON, AND AT BEDTIME FOR MUSCLE SPASMS; ((TAKE 1 TABLET 3 TIMES A DAY NEEDED)). 90 tablet 3 08/11/19 25 Active amLODIPine (Norvasc) 10 MG tablet TAKE 1 TABLET BY MOUTH AT BEDTIME. 90 tablet 1 11/23/19 25 Active gabapentin (Neurontin) 300 MG capsuleIndicati ons:Chronic bilateral low back pain without sciatica TAKE 1 OR 2 CAPSULES BY MOUTH 3 TIMES A DAY. 180 capsule 3 01/12/20 25 Active DULoxetine (Cymbalta) [address] capsuleIndicati ons:Chronic bilateral low back pain without sciatica TAKE ONE CAPSULE BY MOUTH EVERY DAY 90 capsule 3 01/12/20 25 Active docusate sodium (Colace) 100 MG capsule TAKE ONE CAPSULE BY MOUTH TWICE A DAY 180 capsule 3 01/12/20 25 Active Krysten Protect Moisture Barrier 12 % cream APPLY TOPICALLY IF NEEDED FOR DRY SKIN. 05/23/19 25 Active Docusate Sodium (DSS) 100 MG capsule TAKE 1 CAPSULE BY MOUTH TWICE A DAY 180 capsule 3 01/06/20 24 2024 Discontinued DULoxetine (Cymbalta) [address] capsuleIndicati ons:Chronic bilateral low back pain without sciatica TAKE 1 CAPSULE BY MOUTH EVERY DAY 90 capsule 3 02/17/20 24 2024 Discontinued gabapentin (Neurontin) 300 MG capsuleIndicati ons:Chronic bilateral low back pain without sciatica TAKE 1 OR 2 CAPSULES BY MOUTH 3 TIMES A DAY. 180 capsule 3 08/11/19 25 2024 Discontinued Active Problems Problem Noted Date Diagnosed Date Bladder prolapse, female, acquired 01/12/2025 Chronic anticoagulation 01/12/2025 Class 1 obesity 01/12/2025 Cubital tunnel syndrome, bilateral 01/12/2025 De Quervain's tenosynovitis, right 01/12/2025 Nicotine dependence 01/12/2025 Numbness and tingling in right hand 01/12/2025 Right renal artery stenosis 01/12/2025 Smoker 01/12/2025 Trigger thumb, right thumb 01/12/2025 Urge incontinence 01/12/2025 Carpal tunnel syndrome on both sides 01/12/2025 Ganglion cyst of volar aspect of right wrist Chest pain 11/10/2023 Deep vein thrombosis 11/10/2023 S/P aortobifemoral bypass surgery 10/28/2023 Assessment & Plan (10/29/2023 2:06 PM EDT): In light of patient's recent procedure and symptoms I will order stat venous doppler and arterial doppler, she must follow with vascular surgeon and explain all her symptoms Healthcare maintenance 03/30/2022 Overview (10/15/2022): Mammo: 01/2022 Bi-rads 1, + family hx of breast cancer (mom and aunt) referred for genetic screening 03/2022 Pap: 01/2021 NIL HPV neg, no hx of abnormal results C-scope: Cologuard ordered 03/2022 BMD: Routine age 67 HCV Screen: Neg 2020 HIV Screen: Neg 2020 Immunizations: Will go to vaccine clinic for flu and COVID booster Screening Labs: A1c: 5.5 2020 Assessment & Plan (11/26/2022 7:31 PM EDT): Will task RN's to request genetic packet to be resent Complete cologuard Assessment & Plan (03/30/2022 9:01 [...] A1c: 5.5 2020 Hyperlipidemia 10/16/2021 Overview (10/15/2022): Atorvastatin 40mg daily Peripheral arterial disease 07/04/2021 Overview (10/15/2022): S/P femoral-femoral bypass graft 10/2021 [facility] Vascular. Sees Dr. Harris qKrystal 6 months Dual anti-platelet therapy with ASA and Eliquis Continues to smoke approx 1/2 PPD. Has patches at home. Assessment & Plan (11/26/2022 7:30 PM EDT): Continue plan per vascular Encouraged smoking cessation Assessment & Plan (10/15/2022 8:51 AM EDT): Continue DAPT Continue to follow with Vascular Declines smoking cessation at this time. Has patches at home Chronic low back pain 02/03/2021 Overview (11/26/2022): Lumbar MRI from 10/2020 with the following results Mild degenerative spondylotic changes. No spinal canal stenosis or nerve root compression identified. Minimal grade 1 anterolisthesis seen at L4-L5 related to facet arthropathy. Stress response seen within the right L4 and L5 pedicle. managed with gabapentin, duloxetine, flexeril Referred to pain mngmt 03/2022 Assessment & Plan (11/26/2022 7:27 PM EDT): Will resubmit referral to pain management Discussed option of increasing gabapentin dose which patient declines at this time. Assessment & Plan (03/30/2022 9:06 PM EST): Referral to pain mngmt placed for possible steroid injections Will continue current medication regimen with plan to discuss COT and begin monitoring pain severity with PEG scales at follow up visit [employer]FA[employer]ER contact up to date Depressive disorder 02/03/2021 Urinary incontinence 02/03/2021 Overview (10/15/2022): Hx of blood clot in R renal artery in 2017. Incontinent of urine since this time. Wears adult incontinence pads. Rx'd oxybutynin. Followed by [facility] urology Essential hypertension 12/04/2020 Overview (02/17/2024): Amlodipine [...] Assessment & Plan (11/26/2022 7:29 PM EDT): Initial BP elevated in office. Repeat WNL Continue current regimen Assessment & Plan (10/15/2022 8:49 AM EDT): BP elevated in office. Pt reports not taking medications today. .Reports home BP well controlled Continue to monitor at home. Contact HC [...] Encounters Date Type Department Care Team Description 01/13/2025 11:30 AM EDT Office Visit [facility] [address] [place] [address] Jerri Salas MD SOB (shortness of breath) on exertion (Primary Dx); Right hip pain 01/13/2025 Travel 01/11/2025 Telephone [facility] [address] [place] [address] Alisia Ivory FNP Nurse Triage 01/11/2025 Refill [facility] [address] [place] [address] Alisia Ivory, RENTAL CAR DEL[employer]ER Chronic bilateral low back pain without sciatica 11/20/2024 Refill [facility] [address] [facility] [place] [address] Alisia Ivory FNP from Last 3 Months Immunizations Immunization Administration Dates Next Due Hep B, adult [...] 22 01/13/2025 11:36 AM EDT Oxygen Saturation 96% 09/16/2024 10:41 AM EDT Inhaled Oxygen Concentration - - Weight 78 kg (172 lb) 01/13/2025 11:36 AM EDT Height 162.6 cm (5' 4 ) 01/13/2025 11:36 AM EDT Body Mass Index 29.52 01/13/2025 11:36 AM EDT Plan of Treatment Health Maintenance Due Date Last Done Comments CT Colonography 1965 Colonoscopy 1965 Colorectal Cancer Screening 1965 FIT DNA/Cologuard 1967 FIT 1967 FOBT 1965 Sigmoidoscopy 1965 Disability Screening 1965 Mammogram 02/13/2023 02/13/2022, 02/04/2021 COVID-19 Vaccine ( season) 2024 11/19/2021, 07/03/2021, 10/03/2020, Additional history exists Influenza Vaccine (#1) 2024 01/31/2021 Depression Screening 02/16/2025 02/17/2024, 02/17/20 24 SDOH Screening 05/10/2025 05/10/2024 Alcohol/Substance Use Screening 05/20/2025 05/20/2024 Lipid Panel 10/05/2025 10/05/2020 Cervical Cancer Screening 01/04/2026 HPV/Cotest 01/04/2026 01/04/2021 Pap Smear 01/04/2026 01/04/2021 Tobacco Screening 01/13/2026 01/13/2025 DTaP/Tdap/Td Vaccines (3 - Td or Tdap) [...] patient's age to complete this topic Meningococcal B Vaccine Aged Out No l onger eligible based on patient's age to complete [...] 01/13/2025 12:25 PM EDT Right hip pain HEPATITIS PANEL, GENERAL Routine 10/13/2022 11:35 AM [...] Relevant to Health Maintenance Results * (ABNORMAL) CBC auto differential (01/13/2025 12:30 PM EDT) White Blood Count 13.9(H) 4.8 - 10.8 X10*3/uL [facility] Red Blood Count 4.89 4.20 - 5.50 X10*6/uL [facility] Hemoglobin 14.3 12.0 - 16.0 g/dl [facility] Hematocrit 43.6 37.0 - 47.0 % [facility] Mean Corpuscular Volume 89.2 80.0 - 98.0 fL [facility] Mean Corpuscular Hemoglobin 29.2 27.0 - 33.0 pg [facility] Mean Corpuscular HGB Conc 32.8 31.0 - 35.0 g/dl [facility] Red Cell Distribution Width 13.2 11.0 - 16.0 % [facility] Platelet Count 428(H) 160 - 400 X10*3/uL [facility] Mean Platelet Volume 9.0(L) 9.4 - 12.3 fL [facility] Neutrophils Percent Auto 61.5 45 - 73 % [facility] Imm Gran Pct Auto 0.5(H) 0.0 - 0.4 % [facility] Lymphocytes Percent Auto 29.7 20 - 40 % [facility] Monocytes Percent Auto 6.3 2 - 11 % [facility] Eosinophils Percent Auto 1.4 0 - 4 % [facility] Basophils Percent Auto 0.6 0 - 2 % [facility] NRBC Pct Auto 0.0 0.0 - 0.2 /100WBC [facility] Neutrophils Absolute Auto 8.6(H) 2.0 - 8.3 x10*3/uL [facility] Imm Gran Abs Auto 0.07(H) 0.00 - 0.03 X10*3/uL [facility] Lymphocytes Absolute Auto 4.1 1.2 - 4.9 X10*3/uL [facility] Monocytes Absolute Auto 0.9 0.1 - 1.2 X10*3/uL [facility] Eosinophils Absolute Auto 0.2 0.0 - 0.4 X10*3/uL [facility] Basophils Absolute Auto 0.1 0.0 - 0.2 X10*3/uL [facility] NRBC Abs Auto 0.000 0.0 - 0.012 X10*3/uL [facility] Blood Venous blood specimen / Unknown 01/13/2025 12:30 PM EDT 01/13/2025 12:58 PM EDT us Jerri Salas MD LAB BLOOD ORDERABLES Final Res ult Performing Organization Address City/State/[facility] Co de Phone Number [facility] [address] [place] [phone] * XR Hip 2 or 3 Views Right (01/13/2025 12:25 PM EDT) Anatomical Region Laterality Modality Lower Extremities, Hip Right Radiograp hic Imaging 01/13/2025 12:2 5 PM EDT Narrative 01/13/2025 12:44 PM EDT [address] [address] XRay Report Signed Patient: Yael Gudino MR#: [id number] : 1965 Acct:[id number] Age/Sex: 59 / F ADM Date: 01/13/25 [facility]: Jerri Salas MD Ordering Physician: Jerri Salas Date of Service: 01/13/25 Procedure(s): XR hip RT min 2V Accession Number(s): [id number] cc: Jerri Salas Reason for Exam: pain [...] Elian Bauer MD 01/13/2025 12:41 PM EDT Dictated By: Elian Bauer MD Signed By: <Electronically signed by Elian Bauer MD in OV> 01/13/25 1241 DD/ 1225 TD/TT: 01/13/25 1226 Clinic Coordinator: Procedure Note Donotuseinterpreter, Image - 01/13/[address] [address] XRay Report Signed Patient: Yael Gudino [facility]#: [id number] : 1965Acct:[id number] Age/Sex: 59 / FADM Date: 01/13/25 Loc: [facility] Attending Dr: Jerri Salas MD Ordering Physician: Jerri Salas Date of Service: 01/13/25 Procedure(s): XR hip RT min 2V Accession Number(s): [id number] cc: Jerri Salas Reason for Exam: pain [...] 01/13/25 1241 DD/ 1225 TD/TT: 01/13/25 1226 Clinic Coordinator: Jerri Salas MD IMG XR PROCEDURES Final Result * (ABNORMAL) Hepatitis Panel, General (10/13/2022 11:35 AM EDT) Hepatitis A Antibody Total REACTIVE( A) NON-REACT LEONELA [facility] Comment: For additional information, please refer to http://PhytoCeutica.LabDoor.[employer]/faq/HGX309 (This link is being provided for informational/ educational purposes only.) Hepatitis B Surface Antibody QL NON-REACT LEONELA NON-REACT LEONELA [facility] Hepatitis B Surface Ag NON-REACT LEONELA NON-REACT LEONELA [facility] Comment: For additional information, please refer to http://PhytoCeutica.Xetawave/faq/CNS649 (This link is being provided for informational/ educational purposes only.) Hepatitis B Core Antibody Total NON-REACT LEONELA NON-REACT LEONELA [facility] Comment: For additional information, please refer to http://PhytoCeutica.LabDoor.[employer]/faq/CNI263 (This link is being provided for informational/ educational purposes only.) Hepatitis C Antibody NON-REACT LEONELA NON-REACT LEONELA [facility] Comment: HCV antibody was non-reactive. There is no laboratory evidence of HCV infection. In most cases, no further action is required. However, if recent HCV exposure is suspected, a test for HCV RNA (test code 93221) is suggested. For additional information please refer to http://PhytoCeutica.Xetawave/faq/TRA32p6 (This link is being provided for informational/ educational purposes only.) 10/13/2022 11:3 5 AM EDT 10/13/2022 11:36 AM EDT Narrative [facility] - 10/14/2022 5:35 PM EDT FASTING:NO FASTING: NO [facility] LAB BLOOD ORDERABLES Final Re sult [facility] [address], [place] [address] [facility] [address] [place] [address] * Mammography Report 1 (02/13/2022 8:20 AM EDT) Anatomical Region Laterality Modality Breast Bilateral Mammography 02/13/2022 8:20 AM EDT Narrative 02/17/2022 9:44 AM EDT Refer to the Notes tab for result details [facility] Procedure: Mammography Report 1 Procedure Note Provider, MD Nishi - 07/13/2022 Refer to the Notes tab for result details [facility] Procedure: Mammography Report 1 [facility] RENTAL CAR DELIVERER IMG BI PROCEDURES Final Resul t * THINPREP PAP (01/04/2021 12:00 AM EDT) Clinical Information: None given [facility] COMMENT SEE COMMENT [facility] Comment: EXPLANATORY NOTE: The Pap is a screening test for cervical cancer. It is not a diagnostic test and is subject to false negative and false positive results. It is most reliable when a satisfactory sample, regularly obtained, is submitted with relevant clinical findings and history, and when the Pap result is evaluated along with historic and current clinical information. Breakdown Mill Operator : SEE COMMENT [facility] Comment: JUSTEN CT(ASCP) CT screening location: [place] [address] Interpretation/R esult: Negative for intraepithelial lesion or malignancy. [facility] LMP: NONE [facility]IVEN [facility] Prev. BX: NONE [facility] Prev. PAP: NONE [facility]IVEN [facility] SOURCE: None given [facility] Statement Of Adequacy: SEE COMMENT [facility] Comment: Satisfactory for evaluation. Endocervical/transformation zone component present. Age and/or menstrual status not provided 01/04/2021 Raina Cantu NP LAB PATHOLOGY ORDERABLES Final Result Performing Organization Address [facility]/ZIP Co de Phone Number [facility] [address] [place] [address], * HPV mRNA E6/E7 (01/04/2021 12:00 AM EDT) HPV nRNA E6/E7 Not Detected Not Detected [facility] Comment: Methodology: Junior Data Analyst-Mediated Amplification This assay detects E6/E7 viral messenger RNA (mRNA) from 14 high-risk HPV types (16,18,31,33,35,39,45,51,52,56,58,59,66,68). The analytical performance characteristics of this assay have been determined by [facility]. The modifications have not been cleared or approved by the FDA. This assay has been validated pursuant to the CLIA regulations and is used for clinical purposes. For additional information, please refer to http://education.LabDoor.[employer]/faq/UGH976t4 (This link if provided for information/ educational purposes only.) 01/04/2021 Raina Cantu NP LAB BLOOD ORDERABLES Final Resu lt Performing Organization Address [facility]/ZIP Co de Phone Number [facility] [address] * (ABNORMAL) LIPID PANEL, STANDARD (10/05/2020 10:33 AM EDT) Chol/HDLC Ratio 6.0(H) <5.0 (calc) [facility] Cholesterol, Total 269(H) <200 mg/dL [facility] HDL Cholesterol 45(L) > OR = 50 mg/dL [facility] LDL Cholesterol 192(H) mg/dL (calc) [facility] Comment: LDL-C levels > or = 190 mg/dL may indicate familial hypercholesterolemia (FH). Clinical assessment and measurement of blood lipid levels should be considered for all first degree relatives of patients with an FH diagnosis. For questions about testing for familial hypercholesterolemia, please call [facility] at [phone].INFO. Marvin T, et al. J National Lipid Association Recommendations for Patient-Centered Management of Dyslipidemia: Part 1 Journal of Clinical Lipidology 2015;9(2), 129-169. Reference range: <100 Desirable range <100 mg/dL for primary prevention; <70 mg/dL for patients with CHD or diabetic patients with > or = 2 CHD risk factors. LDL-C is now calculated using the Charles-Robledo calculation, which is a validated novel method providing better accuracy than the Friedewald equation in the estimation of LDL-C. Charles SS et al. LESLEY. 2013;310(19): 4225-5246 (http://education.[employer]/faq/NNI744) Non-HDL Cholesterol 224(H) <130 mg/dL (calc) [facility] Comment: Non-HDL level > or = 220 is very high and may indicate genetic familial hypercholesterolemia (FH). Clinical assessment and measurement of blood lipid levels should be considered for all first-degree relatives of patients with an FH diagnosis. For patients with diabetes plus 1 major ASCVD risk factor, treating to a non-HDL-C goal of <100 mg/dL (LDL-C of <70 mg/dL) is considered a therapeutic option. Triglycerides 155(H) <150 mg/dL [facility] 10/05/2020 10:3 3 AM EDT us Mary Martin MD LAB BLOOD ORDERABLES Final Re sult [facility] [address] * HIV 1/2 ANTIGEN/ANTIBODY,FOURTH GENERATION W/RFL (10/05/2020 10:31 AM EDT) HIV-1/2 ANTIGEN AND ANTIBODIES, 4TH GENERATION W/ REFLEX NON-REACT LEONELA NON-REACT LEONELA [facility] Comment: HIV-1 antigen and HIV-1/HIV-2 antibodies were not detected. There is no laboratory evidence of HIV infection. PLEASE NOTE: This information has been disclosed to you from records whose confidentiality may be protected by state law. If your state requires such protection, then the state law prohibits you from making any further disclosure of the information without the specific written consent of the person to whom it pertains, or as otherwise permitted by law. A general authorization for the release of medical or other information is NOT sufficient for this purpose. For additional information please refer to http://education.Xetawave/faq/ZWK199 (This link is being provided for informational/ educational purposes only.) The performance of this assay has not been clinically validated in patients less than 2 years old. 10/05/2020 10:3 1 AM EDT us Mary Martin MD LAB BLOOD ORDERABLES Final Re sult [facility] [address] from Last 3 Months or Most Recently Relevant to Health Maintenance Insurance [facility] STANDARD MEDICARE Care Teams Boring Machine Set Up Operator Relationship Specialty Start Date End Date Alisia Ivory FNP [address] [place] [address] PCP - General Family Medicine 12/10/21
--- OUTSIDE RECORDS SUMMARY | 2025-01-13 13:53 | XMS_ITS | Encounter Summary ---
Author Organization [employer] Address [address] [facility] 7 [place] [address] Care Team Providers Care Mis Manager Name Role Phone [facility] Primary Care Provider [phone] Reason for Visit * Reason Onset Date Comments Nurse Triage 01/11/2025 Encounter Details Date Type Department Care Team ([facility] st Contact Info) Description 01/11/2025 Telephone [facility] MEDICINE [address] [place], [place] [phone] [facility] [address] [place], [place] [phone] Nurse Triage Social History Tobacco Use Types Packs/Day Years [...] with others, in a hotel, in a snf, living outside on the street, on a [...] encounter Miscellaneous Notes * Telephone Encounter - Ruba Salazar RN - 01/11/2025 11:54 AM EDT called pt to triage, spoke to pt. pt states 2 weeks duration of right hip pain, that radiates down into her right knee. pt denies known injury, fevers, or other associated symptoms. no significant swelling and no bruising. pt also states a small, soft spot on her forehead that is tender to touch without known injury. advised that the sick visit is mostly geared to the most significant problem and if at the end of the visit the provider has time, she may address the other problem/problems. advised home care: rest, fluids, avoid exertion for now, OTC pain reliever as needed, ice, heat, and callback as needed. given appt Thursday with red team provider at 11:30 for exam. follow up visit may be scheduled with PCP if needed. insurance verified. Protocol Used: Hip Pain (Adult) Protocol-Based Disposition: See in Office or Video Visit within 3 Days Positive Triage Question: * Moderate pain (e.g., interferes with normal activities, limping) and present > 3 days * All higher-acuity triage questions were negative Care Advice Discussed: * Reassurance and Education - Hip Pain * Pain Medicines * Rest Your Hip for the Next Couple Days * Reasons To Call Back - Moderate pain (such as limping) lasts more than 3 days - Mild pain lasts more than 7 days - Signs of infection occur (such as spreading redness, warmth, fever) - You become worse * Telephone Encounter - Cherie Cordon - 01/11/2025 11:38 AM EDT Symptoms: Leg Pain - Not From Injury, Hip Pain - Not From Injury, Knee Pain - Not From Injury Outcome: Talk to a nurse or provider within 15 minutes Reason: Can't walk (unless normally can't walk) The caller accepted this outcome. Contact pt at [phone] documented in this encounter Plan of Treatment Not on file documented as of this encounter Visit Diagnoses Not on filedocumented in this encounter Additional Health Concerns Assessment Noted Time PHQ-9 Depression Total Score: 0 02/17/20 24 11:24 AM EDT documented as of this encounter Care Teams Mis Manager Relationship Specialty Start Date End Date Alisia Ivory FNP [address] [place] [id number] PCP - General Family Medicine 12/10/21 documented as of this encounter
--- OUTSIDE RECORDS SUMMARY | 2025-01-13 13:53 | XMS_ITS | Encounter Summary ---
Author Organization [employer] Address [address] [facility] 7 [place] [address] Care Team Providers Care Centrifugal Supervisor Name Role Phone [facility] Primary Care Provider [phone] Reason for Visit * Reason Comments Med Refill Encounter Details Date Type Department Care Team ([facility] st Contact Info) Description 01/11/2025 Refill [facility] MEDICINE [address] [place], [place] [phone] [facility] [address] [place], [place] [phone] Chronic bilateral low back pain without sciatica Social History Tobacco Use Types Packs/Day Years [...] with others, in a hotel, in a longterm, living outside on the street, on a [...] documented as of this encounter Visit Diagnoses Diagnosis Chronic bilateral low back pain without sciatica documented in this encounter Additional Health Concerns Assessment Noted Time PHQ-9 Depression Total Score: 0 02/17/20 24 11:24 AM EDT documented as of this encounter Care Teams Centrifugal Supervisor Relationship Specialty Start Date End Date Alisia Ivory FNP [address] [place] [address] PCP - General Family Medicine 12/10/21 documented as of this encounter
[2025-01-13 14:00] LABS: Alanine Aminotransferase 11 U/L (0-31); Albumin Level 4.2 g/dL (3.5-5.0); Alkaline Phosphatase 179 U/L (39-117); Anion Gap 13 (12-20); Aspartate Amino Transferase 17 U/L (5-31); Blood Urea Nitrogen 9 mg/dL (9-16); Calcium 9.4 mg/dL (8.4-10.2); Carbon Dioxide 27 mmol/L (22-29); Chloride 104 mmol/L (96-108); Estimated Glomerular Filt Rate > 60; Potassium 4.3 mmol/L (3.3-5.1); Sodium 140 mmol/L (135-145); Total Protein 8.0 g/dL (6.5-8.0)
== END 2025-01-13 12:07 | disposition home or self-care (01) ==
LOC: HO.HHCX 12:06
PROVIDERS: PCP General Practice; Visit Provider General Practice
DX: R06.02 Shortness of breath (principal); M25.551 Pain in right hip
CPT/HCPCS: 36415; 73502; 80053; 85025

== ENCOUNTER → 2025-01-13 12:13 | Outpatient (BNV) | payer MEDICARE, MEDICAID, SELFPAY | PROVIDERS: PCP General Practice; Visit Provider Radiology Diagnostic Radiology | DX: M25.551 Pain in right hip (principal) | CPT/HCPCS: 73502 ==

== ENCOUNTER 2025-01-18 15:06 | Outpatient (REF) | payer MEDICARE, MEDICAID, SELFPAY ==
--- OUTSIDE RECORDS SUMMARY | 2025-01-13 11:30 | XMS_ITS | Encounter Summary ---
Author Organization [employer] Address [address] [facility] [address] [place] [address] Care Team Providers Care Director Food Safety Name Role Phone [place] [facility] Primary Care Provider [phone] Reason for Referral * Consultation (Routine) - Authorized Specialty Diagnoses / Procedures Referred By Contac t Referred To Contact Hematology and Oncology Diagnoses Deep vein thrombosis (DVT) of proximal lower extremity, unspecified chronicity, unspecified laterality (HCC) Chronic anticoagulation Elevated platelet count Jerri Salas MD [address] [place] [address] Phone: tel: fax: Hematology & Oncology, [address] Phone: tel: fax: Referral ID Status Reason Start Date Expiration Date Visits Requested Visits Authorized [id number] Authorized Specialty Services Required 01/16/2025 01/16/2026 1 1 * Imaging (STAT) - Authorized Specialty Diagnoses / Procedures Referred By Contac t Referred To Contact Radiology Diagnoses Right hip pain Procedures MR Hip w/o Contrast Right Jerri Salas MD [address] [place] [address] Phone: tel: fax: [address] Phone: tel: fax: Referral ID Status Reason Start Date Expiration Date V isits Requested Visits Authorized [id number] Authorized 01/16/2025 01/16/2026 1 1 * Imaging (Routine) - Authorized Specialty Diagnoses / Procedures Referred By Contac t Referred To Contact Radiology Diagnoses Scalp lesion Procedures US SOFT TISSUE Jerri Salas MD [address] [place] [address] Phone: tel: fax: [address] Phone: tel: fax: Referral ID Status Reason Start Date Expiration Date V isits Requested Visits Authorized [id number] Authorized 01/16/2025 01/16/2026 1 1 Reason for Visit * Reason Comments sick visit Encounter Details Date Type Department Care Team (Latest Contact Info) Description 01/13/2025 11:30 AM EDT Office Visit [facility] MED[facility]INE [address], [place] [phone] Jerri Salas MD [address], [place] [phone] Right hip pain (Primary Dx); SOB (shortness of breath) on exertion; Scalp lesion; Right foot pain; Peripheral arterial disease (CMS/HCC); Mild intermittent asthma in adult without complication; Deep vein thrombosis (DVT) of proximal lower extremity, unspecified chronicity, unspecified laterality (CMS/HCC); S/P aortobifemoral bypass surgery; Chronic anticoagulation; Screening for colon cancer; Elevated platelet count Social History Tobacco Use Types Packs/Day Years [...] with others, in a hotel, in a care home, living outside on the street, on [...] AM EDT documented as of this encounter Last Filed Vital Signs Vital Sign Reading Time Taken Comments Blood Pressure 118/64 01/13/2025 11:36 AM EDT Pulse 81 01/13/2025 11:36 AM EDT Temperature 36.9 C (98.4 F) 01/13/2025 11:36 AM EDT Respiratory Rate 22 01/13/2025 11:36 AM EDT Oxygen Saturation - - Inhaled Oxygen Concentration - - Weight 78 kg (172 lb) 01/13/2025 11:36 AM EDT Height 162.6 cm (5' 4 ) 01/13/2025 11:36 AM EDT Body Mass Index 29.52 01/13/2025 11:36 AM EDT documented in this encounter Progress Notes * Jerri Salas MD - 01/13/2025 11:30 AM EDT SUBJECTIVE: Yael Gudino is a 59 y.o. female who presents for acute visit. Denies recent illness, ER visit, or hospitalization. Accompanied by daughter, who is legally deaf. Acute Concerns: - Persistent right hip and leg pain radiating to the knee, worsening over the past 3 weeks, with associated difficulty ambulating and nocturnal discomfort - Concern for possible blood clot recurrence and new onset dyspnea and palpitations with exertion - Localized scalp pain with suspected cyst and associated headaches Chronic conditions: Lower extremity pain and functional limitation - Reports onset of leg pain approximately 3 weeks ago, initially localized to the area of cartilagein the groin, now radiating down to the knee - Describes pain as worsening by the end of the day, resulting in limping, especially at night - Difficulty getting comfortable at night, waking up five to six times due to pain - Describes pain as severe enough to interfere with sleep and daily activities, including difficulty going up and down stairs (must take one step at a time) and needing to lift leg to get into a car - Reports pain aggravated after taking [employer] school shopping at the mall, suspects possible overexertion - Reports legs feel like this (implied stiffness or abnormal sensation) - Denies any specific injury or trauma to the leg History of blood clots and related surgeries - History of blood clot removal surgeries, including procedures in the groin and abdomen for blood clots in the stomach and legs - Reports ongoing issues since surgeries - Underwent a prolonged surgery lasting approximately five and a half hours - Reports three ultrasounds performed since surgery, with no new blood clots detected. Followed at [facility]. 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 Benoit with recurrent thrombosis post op and thromectomy of right limg of aortobifemoral bypass grass, R EIA, SFA, and profunda from groin, R tibioperoneal trunk, PT and perioneal thrmboendarterectomy with vein patch angioplasty of tibioperonal trunk. 10/07/23-aortia/iliac duplex with patent bypass. R TBI 0.7; left TBI 0.44. Chronic RLE DVT. 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 Head pain and scalp lesion - Reports a spot on the head present for a while, described as painful during the day and feeling like a pocket of fluid at night - Reports associated headache localized to the area of the lesion - Denies recollection of any head trauma Shortness of breath and palpitations - Reports inability to go up to the second floor using stairs due to feeling like about to pass out, heart racing, and inability to catch breath - States these symptoms have been present since the most recent surgery Cannabis use for pain management - Former tobacco smoker - Reports daily use of smoked marijuana and occasional edibles for self- medication of pain, preferring this over prescribed medications during the day due to sedative effects of those medications she is not up-to date with colon and breast cancer screening. Cologuard submitted 01/2024 but not suitable for processing, Mammo 01/2022 Birads 1 Patient Active Problem List Diagnosis Date Noted Cannabis use, unspecified, uncomplicated 01/16/2025 Scalp lesion 01/16/2025 SOB (shortness of breath) on exertion 01/16/2025 Right hip pain 01/16/2025 Bladder prolapse, female, acquired 01/12/2025 Chronic anticoagulation 01/12/2025 Class 1 obesity 01/12/2025 Cubital tunnel syndrome, bilateral 01/12/2025 De Quervain's tenosynovitis, right 01/12/2025 Nicotine dependence 01/12/2025 Numbness and tingling in right hand 01/12/2025 Right renal artery stenosis (CMS/HCC) 01/12/2025 Smoker 01/12/2025 Trigger thumb, right thumb 01/12/2025 Urge incontinence 01/12/2025 Carpal tunnel syndrome on both sides 01/12/2025 Ganglion cyst of volar aspect of right wrist 01/12/2025 Chest pain 11/10/2023 Deep vein thrombosis (CMS/HCC) 11/10/2023 S/P aortobifemoral bypass surgery 10/28/2023 Healthcare maintenance 03/30/2022 Hyperlipidemia 10/16/2021 Peripheral arterial disease (CMS/HCC) 07/04/2021 Chronic low back pain 02/03/2021 Depressive disorder 02/03/2021 Urinary incontinence 02/03/2021 Essential hypertension 12/04/2020 Surgical History[1] Social History Social History Narrative Current living environment: Lives with mom Children: 5 adult children, grand kids and great grand kids Tobacco Use: <1/2PPD since age 12-13; quit 2023 Alcohol Use: Occasional Marijuana Use: Smokes daily Other drug use: None [employer] Sexually Active: Yes Partners are: [facility] LMP: Menopause age 48 Review of Systems Constitutional: Negative. Respiratory: Positive for shortness of breath. Cardiovascular: Negative. Gastrointestinal: Negative. Negative for abdominal distention and abdominal pain. Musculoskeletal: Positive for arthralgias and back pain. OBJECTIVE: Vitals: 01/13/25 1136 BP: 118/64 BP Location: Left arm Patient Position: Sitting BP Cuff Size: Large adult Pulse: 81 Resp: 22 Temp: 98.4 ??F (36.9 ??C) TempSrc: Oral Weight: 172 lb (78 kg) Height: 5' 4 (1.626 m) Physical Exam Vitals and nursing note reviewed. Constitutional: Appearance: Normal appearance. HENT: Head: Normocephalic and atraumatic. Cardiovascular: Rate and Rhythm: Normal rate and regular rhythm. Pulses: Normal pulses. Heart sounds: Normal heart sounds. Pulmonary: Effort: Pulmonary effort is normal. Breath sounds: Normal breath sounds. Musculoskeletal: General: Tenderness present. No swelling or deformity. Right lower leg: No edema. Left lower leg: No edema. Skin: General: Skin is warm and dry. Neurological: General: No focal deficit present. Mental Status: She is alert and oriented to person, place, and time. Psychiatric: Mood and Affect: Mood normal. Behavior: Behavior normal. 01/13/25 Hip Xray FINDINGS: Two views of the right hip are submitted. There is an oval lucency in the region of the lesser trochanter which is well circumscribed but without sclerotic margins. There may be additional smaller lesions in the intertrochanteric region. Osseous mineralization is otherwise normal. There is no fracture or dislocation. The joint space is maintained. The soft tissues are unremarkable. XR/XR hip RT min 2V IMPRESSION: Oval lucency in the region of the greater trochanter as described with possible additional lesions in the intertrochanteric region. Further evaluation with MRI is recommended. A preliminary report was sent to Dr. Salas on 01/13/2025 12:41 PM and immediately acknowledged. ASSESSMENT/PLAN Assessment & Plan SOB (shortness of breath) on exertion: - Dyspnea on exertion with associated tachycardia and near-syncope, concerning for possible recurrence of thromboembolic disease given prior history of multiple blood clots and recent surgery. - Ordered D-dimer and blood counts to evaluate for possible thromboembolic disease. If D-dimer is elevated, will obtain ultrasound of groin and CT scan of lungs. Results to be reviewed and patient brian contacted with results. Right hip pain: - Right hip pain with radiation, possibly due to arthritis or post-surgical changes, with concern for recurrence of thromboembolic disease given history. - Ordered right hip X-ray. Advised to complete imaging at radiology. Will review results and followup as needed. Subcutaneous scalp mass: - Subcutaneous scalp mass likely consistent with a cyst. - Ordered ultrasound of scalp mass to confirm diagnosis. If confirmed as cyst, referral to surgery for excision. Appointments - Home evaluation appointment with [facility] to assess bathing, cooking, dressing, shopping and mobility (to be scheduled upon receipt of signed HIPAA release) - Follow-up consultation with Dr. Crump (referral sent via [facility] website; scheduling to be arranged) Problem List Items Addressed This Visit Peripheral arterial disease ([facility]/HCC) Overview S/P femoral-femoral bypass graft 10/2021 [facility]. Sees Dr. Harris q. 6 months Dual anti-platelet therapy with ASA and Eliquis Continues to smoke approx 1/2 PPD. Has patches at home. Relevant Medications aspirin 81 MG EC tablet S/P aortobifemoral bypass surgery Relevant Medications aspirin 81 MG EC tablet Chronic anticoagulation Current Assessment & Plan On this for history of multiple DVTs, in R lower extremity. D-dimer pending. Continue Eliquis and ASA. No reports of bleeding Relevant Medications aspirin 81 MG EC tablet Other Relevant Orders Referral to Hematology / Oncology Deep vein thrombosis (CMS/HCC) Relevant Medications Diclofenac Sodium 1 % gel aspirin 81 MG EC tablet Other Relevant Orders Referral to Hematology / Oncology Scalp lesion Relevant Medications Krysten Protect Moisture Barrier 12 % cream Other Relevant Orders US SOFT TISSUE SOB (shortness of breath) on exertion Relevant Medications aspirin 81 MG EC tablet Other Relevant Orders D-Dimer, Quantitative CBC auto differential (Completed) Comprehensive Metabolic Panel (Completed) Right hip pain - Primary Current Assessment & Plan R hip pain and limited range of motion, xray with new lucency visible, recommend MRI. This has beenordered and communicated to patient. Also with rise in alk phos, concerning for malignancy. Will update screening, Cologuard re-ordered and urged to make ammo appointment muna. Relevant Medications Diclofenac Sodium 1 % gel aspirin 81 MG EC tablet Other Relevant Orders XR Hip 2 or 3 Views Right (Completed) MR Hip w/o Contrast Right Other Visit Diagnoses Right foot pain Relevant Medications Diclofenac Sodium 1 % gel aspirin 81 MG EC tablet Mild intermittent asthma in adult without complication Relevant Medications budesonide-formoterol (Symbicort) 160-4.5 MCG/ACT inhaler Screening for colon cancer Relevant Orders Cologuard?? colon cancer screening Elevated platelet count Relevant Orders Referral to Hematology / Oncology Follow Up: per PCP recall or sooner prn Allergies[2] Current Medications[3] This note was drafted using Ambient (AI) technology. The patient/patient's guardian has been informed and has consented to the use of this technology: Yes [1] Past Surgical History: Procedure Laterality Date CARPAL TUNNEL RELEASE Right FEMORAL BYPASS [2] Allergies Allergen Reactions Codeine Other reaction(s): Syncope Heparin Headache Other Reaction(s): Heparin therapy Lisinopril Other reaction(s): Facial swelling [3] Current Outpatient Medications: Krysten Protect Moisture Barrier 12 % cream, APPLY TOPICALLY IF NEEDED FOR DRY SKIN., Disp: , Rfl: albuterol 108 (90 Base) MCG/ACT inhaler, Inhale 2 puffs every 6 (six) hours if needed for wheezing., Disp: 18 g, Rfl: 11 amLODIPine (Norvasc) 10 MG tablet, TAKE 1 TABLET BY MOUTH AT BEDTIME., Disp: 90 tablet, Rfl: 1 apixaban (Eliquis) 5 MG tablet, Take 1 tablet (5 mg) by mouth every 12 (twelve) hours., Disp: 60 tablet, Rfl: 11 aspirin 81 MG EC tablet, TAKE 1 TABLET BY MOUTH EVERY DAY, Disp: 90 tablet, Rfl: 3 atorvastatin (Lipitor) 40 MG tablet, Take 1 tablet by mouth at bed time., Disp: , Rfl: budesonide-formoterol (Symbicort) 160-4.5 MCG/ACT inhaler, 2 puffs every 4-6 hours as needed for cough or wheeze, Disp: 1 each, Rfl: 11 cloNIDine (Catapres) 0.2 MG tablet, Take 1 tablet (0.2 mg) by mouth at bedtime., Disp: 90 tablet, Rfl: 3 cyclobenzaprine (Flexeril) 10 MG tablet, TAKE 1 TABLET BY MOUTH IF NEEDED IN THE MORNING, AT NOON, AND AT BEDTIME FOR MUSCLE SPASMS; ((TAKE 1 TABLET 3 TIMES A DAY NEEDED))., Disp: 90 tablet, Rfl: 3 Diclofenac Sodium 1 % gel, Apply topically to affected areas twice daily, Disp: 150 g, Rfl: 3 docusate sodium (Colace) 100 MG capsule, TAKE ONE CAPSULE BY MOUTH TWICE A DAY, Disp: 180 capsule, Rfl: 3 DULoxetine (Cymbalta) [address] capsule, TAKE ONE CAPSULE BY MOUTH EVERY DAY, Disp: 90 capsule, Rfl:3 gabapentin (Neurontin) 300 MG capsule, TAKE 1 OR 2 CAPSULES BY MOUTH 3 TIMES A DAY., Disp: 180 capsule, Rfl: 3 Skin Protectants, Misc. (eucerin) cream, Apply topically if needed for dry skin., Disp: 99 g, Rfl: 3 documented in this encounter Miscellaneous Notes * Assessment & Plan Note - Jerri Salas MD - 01/16/2025 7:59 AM EDTAssociated Problem(s): Chronic anticoagulation On this for history of multiple DVTs, in R lower extremity. D-dimer pending. Continue Eliquis and ASA. No reports of bleeding * Assessment & Plan Note - Jerri Salas MD - 01/16/2025 7:59 AM EDTAssociated Problem(s): Right hip pain R hip pain and limited range of motion, xray with new lucency visible, recommend MRI. This has beenordered and communicated to patient. Also with rise in alk phos, concerning for malignancy. Will update screening, Cologuard re-ordered and urged to make ammo appointment muna. documented in this encounter Plan of Treatment Upcoming Encounters Date Type Department Care Team (Late st Contact Info) Description 02/20/2025 10:30 AM EST Office Visit [facility] MEDICINE [address] [place] [address] [place], [place], [employer] [address], [place] [phone] Scheduled Orders Name Type Priority Associated Diagnoses Orde r Schedule D-Dimer, Quantitative Lab STAT SOB (shortness of breath) on exertion Expected: 01/13/2025 (Approximate), Expires: 01/13/2026 US SOFT TISSUE Imaging Routine Scalp lesion Expected: 01/16/2025, Expires: 01/16/2026 MR Hip w/o Contrast Right Imaging STAT Right hip pain Expected: 01/16/2025, Expires: 01/16/2026 Cologuard colon cancer screening Lab Routine Screening for colon cancer Ordered: 01/16/2025 Scheduled Referrals Name Type Priority Associated Diagnoses Orde r Schedule Referral to Hematology / Oncology Outpatient Referral Routine Deep vein thrombosis (DVT) of proximal lower extremity, unspecified chronicity, unspecified laterality (CMS/HCC) Chronic anticoagulation Elevated platelet count Expected: 01/16/2025 (Approximate), Expires: 01/16/2026 documented as of this encounter Procedures Procedure Name Priority Date/Time Associated Diagnosis Comments CBC WITH AUTO DIFFERENTIAL Routine 01/13/2025 12:30 PM EDT SOB (shortness of breath) on exertion COMPREHENSIVE METABOLIC PANEL Routine 01/13/2025 12:30 PM EDT SOB (shortness of breath) on exertion XR HIP 2 OR 3 VIEWS RIGHT Routine 01/13/2025 12:25 PM EDT Right hip pain documented in this encounter Results * (ABNORMAL) Comprehensive Metabolic Panel (01/13/2025 12:30 PM EDT) [facility] Sodium 140 135 - 145 mmol/L [facility] Potassium 4.3 3.3 - 5.1 mmol/L [facility] Chloride 104 96 - 108 mmol/L [facility] Carbon Dioxide 27 22 - 29 mmol/L [facility] Anion Gap 13 12 - 20 [facility] Urea Nitrogen (BUN) 9 9 - 16 mg/dL [facility] Creatinine, Serum 0.67 0.5 - 1.4 mg/dL [facility] Estimated Glomerular Filt Rate >60 [facility] Comment:Chronic Kidney Disea se: Estimated GFR < 60 mL/min/1.56o3Errycy Kidney Disease: Estimated GFR < 15 mL/min/1.73m2 Glucose 87 60 - 115 mg/dL [facility] Calcium 9.4 8.4 - 10.2 mg/dL [facility] Bilirubin, Total 0.3 0.0 - 1.0 mg/dL [facility] Aspartate Amino Transferase 17 5 - 31 U/L [facility] Alanine Aminotransferase 11 0 - 31 U/L [facility] Total Protein 8.0 6.5 - 8.0 g/dL [facility] Albumin Level 4.2 3.5 - 5.0 g/dL [facility] Alkaline Phosphatase 179(H) 39 - 117 U/L [facility] Blood Venous blood specimen / Unknown 01/13/2025 12:30 PM EDT 01/13/2025 1:11 PM EDT us Jerri Salas MD LAB BLOOD ORDERABLES Final Res ult [facility] [address] [place] [address] [phone] * (ABNORMAL) CBC auto differential (01/13/2025 12:30 PM EDT) White Blood Count 13.9(H) 4.8 - 10.8 X10*3/uL [facility] Red Blood Count 4.89 4.20 - 5.50 X10*6/uL [facility] Hemoglobin 14.3 12.0 - 16.0 g/dl [facility] Hematocrit 43.6 37.0 - 47.0 % [facility] Mean Corpuscular Volume 89.2 80.0 - 98.0 fL [facility] Mean Corpuscular Hemoglobin 29.2 27.0 - 33.0 pg [facility] Mean Corpuscular HGB Conc 32.8 31.0 - 35.0 g/dl [facility] Red Cell Distribution Width 13.2 11.0 - 16.0 % [facility] Platelet Count 428(H) 160 - 400 X10*3/uL [facility] Mean Platelet Volume 9.0(L) 9.4 - 12.3 fL [facility] Neutrophils Percent Auto 61.5 45 - 73 % [facility] Imm Gran Pct Auto 0.5(H) 0.0 - 0.4 % [facility] Lymphocytes Percent Auto 29.7 20 - 40 % [facility] Monocytes Percent Auto 6.3 2 - 11 % [facility] Eosinophils Percent Auto 1.4 0 - 4 % [facility] Basophils Percent Auto 0.6 0 - 2 % [facility] NRBC Pct Auto 0.0 0.0 - 0.2 /100WBC [facility] Neutrophils Absolute Auto 8.6(H) 2.0 - 8.3 x10*3/uL [facility] Imm Gran Abs Auto 0.07(H) 0.00 - 0.03 X10*3/uL [facility] Lymphocytes Absolute Auto 4.1 1.2 - 4.9 X10*3/uL [facility] Monocytes Absolute Auto 0.9 0.1 - 1.2 X10*3/uL [facility] Eosinophils Absolute Auto 0.2 0.0 - 0.4 X10*3/uL [facility] Basophils Absolute Auto 0.1 0.0 - 0.2 X10*3/uL [facility] NRBC Abs Auto 0.000 0.0 - 0.012 X10*3/uL [facility] Blood Venous blood specimen / Unknown 01/13/2025 12:30 PM EDT 01/13/2025 12:58 PM EDT us Jerri Salas MD LAB BLOOD ORDERABLES Final Res ult [facility] [address] [place] [address] [phone] * XR Hip 2 or 3 Views Right (01/13/2025 12:25 PM EDT) Anatomical Region Laterality Modality Lower Extremities, Hip Right Radiograp hic Imaging 01/13/2025 12:2 5 PM EDT Narrative 01/13/2025 12:44 PM EDT [address] [address] XRay Report Signed Patient: Yael Gudino MR#: [id number] : 1965 Acct:[id number] Age/Sex: 59 / F ADM Date: 01/13/25 Loc: [facility] Attending Dr: Jerri Salas MD Ordering Physician: Jerri Salas Date of Service: 01/13/25 Procedure(s): XR hip RT min 2V Accession Number(s): [id number] cc: Jerri Salas Reason for Exam: pain with movement EXAMINATION: XR HIP 2 OR MORE VIEWS RIGHT HISTORY: pain with movement COMPARISON: There are no prior studies available for comparison. FINDINGS: Two views of the right hip are submitted. There is an oval lucency in the region of the lesser trochanter which is well circumscribed but without sclerotic margins. There may be additional smaller lesions in the intertrochanteric region. Osseous mineralization is otherwise normal. There is no fracture or dislocation. The joint space is maintained. The soft tissues are unremarkable. XR/XR hip RT min 2V IMPRESSION: Oval lucency in the region of the greater trochanter as described with possible additional lesions in the intertrochanteric region. Further evaluation with MRI is recommended. A preliminary report was sent to Dr. Salas on 01/13/2025 12:41 PM and immediately acknowledged. Electronically signed by: Elian Bauer MD 01/13/2025 12:41 PM EDT RP Dictated By: Elian Bauer MD Signed By: <Electronically signed by Elian Bauer MD in OV> 01/13/25 1241 DD/ 1225 TD/TT: 01/13/25 1226 Review Engineer: Procedure Note Donotuseinterpreter, Image - 01/13/2025 [place] [address] XRay Report Signed Patient: Yael Gudino MMR#: [id number] : 1965Acct:[id number] Age/Sex: 59 / FADM Date: 01/13/25 [facility]: Jerri Salas MD Ordering Physician: Jerri Salas Date of Service: 01/13/25 Procedure(s): XR hip RT min 2V Accession Number(s): [id number] cc: Jerri Salas Reason for Exam: pain with movement EXAMINATION: XR HIP 2 OR MORE VIEWS RIGHT HISTORY: pain with movement COMPARISON: There are no prior studies available for comparison. FINDINGS: Two views of the right hip are submitted. There is an oval lucency in the region of the lesser trochanter which is well circumscribed but without sclerotic margins. There may be additional smaller lesions in the intertrochanteric region. Osseous mineralization is otherwise normal. There is no fracture or dislocation. The joint space is maintained. The soft tissues are unremarkable. XR/XR hip RT min 2V IMPRESSION: Oval lucency in the region of the greater trochanter as described with possible additional lesions in the intertrochanteric region. Further evaluation with MRI is recommended. A preliminary report was sent to Dr. Salas on 01/13/2025 12:41 PM and immediately acknowledged. Electronically signed by: Elian Bauer MD 01/13/2025 12:41 PM EDT RP Dictated By: Elian Bauer MD Signed By: <Electronically signed by Elian Bauer MD in OV> 01/13/25 1241 DD/ 1225 TD/TT: 01/13/25 1226 Review Engineer: Jerri Salas MD IMG XR PROCEDURES Final Result documented in this encounter Visit Diagnoses Diagnosis Right hip pain- Primary Pain in joint, pelvic region and thigh SOB (shortness of breath) on exertion Shortness of breath Scalp lesion Unspecified disorder of skin and subcutaneous tissue Right foot pain Pain in soft tissues of limb Peripheral arterial disease Unspecified peripheral vascular disease Mild intermittent asthma in adult without complication Deep vein thrombosis (DVT) of proximal lower extremity, unspecified chronicity, unspecified laterality (HCC) S/P aortobifemoral bypass surgery Other postprocedural status Chronic anticoagulation Encounter for long-term (current) use of anticoagulants Screening for colon cancer Special screening for malignant neoplasms, colon Elevated platelet count Essential thrombocythemia documented in this encounter Additional Health Concerns Assessment Noted Time PHQ-9 Depression Total Score: 0 02/17/20 24 11:24 AM EDT documented as of this encounter Care Teams Director Food Safety Relationship Specialty Start Date End Date Alisia Ivory FNP [address] [place] [id number] PCP - General Family Medicine 12/10/21 documented as of this encounter
--- NOTE | ~2025-01-18 | MR_ITS ---
EXAMINATION: MRI of the right hip was performed without contrast TECHNIQUE: Multiplanar multisequence MR imaging through a lower extremity joint was performed without contrast INDICATION: Right hip pain Prior: X-ray on 01/13/2025 FINDINGS: Labrum:There is linear intermediate signal at the junction of labrum and acetabulum (coronal T2 fat-sat image ) concerning for tear. Articular Cartilage/Joint fluid: There is full-thickness or near full-thickness articular cartilage defect in the lateral femoral head 7 mm wide. There is delamination of articular cartilage and the suprafoveal portion of the femoral head 5 mm in length extending through slightly more than half of the cartilage thickness. There is no joint effusion. Ligament/Muscle/Tendon: The ligament teres is torn at the fovea and there is a small gap. There is minimal edema like signal in the soft tissues anterior to the gluteus minimus insertion on greater trochanter. There is trace fluid signal adjacent the hamstring origin. There is trace peritendinous fluid signal around the distal iliopsoas tendon near the lesser trochanter. Neurovascular: Major neurovascular structures are unremarkable and symmetrical. Deep and superficial soft tissues: There is no intrapelvic mass or ascites. Visualized bowel is grossly unremarkable. Subcutaneous soft tissues are within normal limits. There is no adenopathy. Bones/Marrow: There is a lesion in the lesser trochanter that was visible on recent x-ray is a lytic lesion. It measures 16 x 9 x 11 mm (CC by transverse by AP). On T1 imaging, it is slightly hyperintense to skeletal muscle with a low signal margin. However, the cortex is extremely thinned medially. On fluid sensitive sequences, it demonstrates intermediate signal. There is mild edema like signal in the adjacent marrow lesser trochanter. There is also edema like signal tracking along the medial periosteum. There is a second area of marrow signal change in the posterior facet of the lower greater trochanter that measures 11 x 13 x 10 mm (CC by transverse by AP). It is posterior inferior to the gluteus medius footprint. It does not have sclerotic margins. It is isointense to muscle T1 imaging, and mildly hyperintense on fluid sensitive sequences. In retrospect, there is a very subtle lytic lesion on the x-ray. There is a third lesion at the junction of the anterior femoral neck and greater trochanter 10 mm in diameter. It is isointense to muscle T1 imaging and mildly hyperintense on fluid sensitive sequences. There appear to be destructive changes in the adjacent cortex. There is a fourth similar lesion in the posterior proximal diaphysis of the femur. MR/MR hip RT wo con IMPRESSION: There are 4 indeterminate lesions in the intertrochanteric region of the right hip. 3 lesions appear more aggressive without sclerotic margins and at least one of the lesions demonstrate cortical destruction. Lesions are concerning for metastatic disease or myeloma. The lesion in the lesser trochanter is overall less aggressive due to mostly sclerotic margins. However, there is severe thinning of the medial cortex. Consider whole body bone scan and/or consultation for biopsy. Suspected superior labral tear at the junction with acetabulum. The graft moderate degenerative changes in the right femoral head with full-thickness cartilage loss involving lateral humeral head and a delamination of the suprafoveal cartilage extending through more than half the cartilage thickness. Ligamentum teres is torn at the fovea. There is mild tendinopathy of distal right gluteus minimus, distal iliopsoas, and proximal hamstring tendons. Electronically signed by: Christian Delgadillo MD 01/18/2025 04:26 PM EDT
--- OUTSIDE RECORDS SUMMARY | 2025-01-18 16:11 | XMS_ITS | Encounter Summary ---
Author Organization [employer] Address [address] [facility] [address] [place] [address] Care Team Providers Care Economic Research Analyst Name Role Phone [facility] Primary Care Provider [phone] Reason for Visit * Reason Onset Date Comments Results 01/16/2025 Encounter Details Date Type Department Care Team ([facility] st Contact Info) Description 01/16/2025 Telephone [facility] MEDICINE [address] [place], [place] [phone] [facility] [address] [place] [address] Results Social History Tobacco Use Types Packs/Day Years [...] encounter Miscellaneous Notes * Telephone Encounter - Tabby Beal RN - 01/16/2025 11:18 AM EDT TC placed to patient [phone] in regards to below message. Patient verbalized understanding andis aware she will receive a TC for scheduling of STAT MRI. Patient also advised of Cologuard test being ordered. Patient reports she has tried to complete a Cologuard in the past however they were unable to run her sample d/t I gave them too much . Patient agrees to re-trial Cologuard test and is aware to call customer service if she has any questions. Patient agrees to schedule mammogram (patient reports she has the phone number) and also agrees to call [facility] hematology to schedule an appointment (patient provided with phone number). Patient did not have any further questions. Patient to f/u PRN. ----- Message from Jerri Salas MD sent at 01/16/2025 8:02 AM EDT ----- Please inform patient of xray abnormality- new bright/lucent area, needs to be investigated for malignancy, stat hip MRI ordered. Also needs to get colon cancer and breast cancer screening updated. [facility], new Cologuard order placed. Also call hematology at [facility] for appoitmetn with blood doctor documented in this encounter Plan of Treatment Upcoming Encounters Date Type Department Care Team (Late st Contact Info) Description 02/20/2025 10:30 AM EST Office Visit [facility] MEDICINE [address] [place] [address] Alisia Ivory FNP [address] [place] [address] documented as of this encounter Visit Diagnoses Not on filedocumented in this encounter Additional Health Concerns Assessment Noted Time PHQ-9 Depression Total Score: 0 02/17/20 24 11:24 AM EDT documented as of this encounter Care Teams Economic Research Analyst Relationship Specialty Start Date End Date Alisia Ivory FNP [address] [place] [address] PCP - General Family Medicine 12/10/21 documented as of this encounter
--- OUTSIDE RECORDS SUMMARY | 2025-01-18 16:12 | XMS_ITS | Clinical Summary ---
Author Organization [employer] Address [address] [facility] 7t [place] [address] Care Team Providers Care Supervisor Mold Shop Name Role Phone [facility] Primary Care Provider [phone] Allergies Active Allergy Reactions Criticality Noted Date Comments Codeine 10/05/2020 Other reaction(s): Syncope Heparin Headache 05/20/2024 Other Reaction(s): Heparin therapy Lisinopril 10/05/2020 Other reaction(s): Facial swelling Medications atorvastatin (Lipitor) 40 MG tablet Take 1 tablet by mouth at bed time. 022 Active apixaban (Eliquis) 5 MG tabletIndicatio ns:Peripheral arterial disease Take 1 tablet (5 mg) by mouth every 12 (twelve) hours. 60 tablet 11 Active cloNIDine (Catapres) 0.2 MG tabletIndicatio ns:Peripheral arterial disease Take 1 tablet (0.2 mg) by mouth at bedtime. 90 tablet 3 024 2024 Active albuterol 108 (90 Base) MCG/ACT inhalerIndicati ons:Mild intermittent asthma in adult without complication Inhale 2 puffs every 6 (six) hours if needed for wheezing. 18 g 11 025 2025 Active Skin Protectants, Misc. (eucerin) creamIndication s:Peripheral arterial disease Apply topically if needed for dry skin. 99 g 3 025 2025 Active cyclobenzaprine (Flexeril) 10 MG tabletIndicatio ns:Chronic bilateral low back pain without sciatica TAKE 1 TABLET BY MOUTH IF NEEDED IN THE MORNING, AT NOON, AND AT BEDTIME FOR MUSCLE SPASMS; ((TAKE 1 TABLET 3 TIMES A DAY NEEDED)). 90 tablet 3 Active amLODIPine (Norvasc) 10 MG tablet TAKE 1 TABLET BY MOUTH AT BEDTIME. 90 tablet 1 025 Active gabapentin (Neurontin) 300 MG capsuleIndicati ons:Chronic bilateral low back pain without sciatica TAKE 1 OR 2 CAPSULES BY MOUTH 3 TIMES A DAY. 180 capsule 3 Active DULoxetine (Cymbalta) [address] capsuleIndicati ons:Chronic bilateral low back pain without sciatica TAKE ONE CAPSULE BY MOUTH EVERY DAY 90 capsule 3 Active docusate sodium (Colace) 100 MG capsule TAKE ONE CAPSULE BY MOUTH TWICE A DAY 180 capsule 3 025 Active Krysten Protect Moisture Barrier 12 % cream APPLY TOPICALLY IF NEEDED FOR DRY SKIN. Active Diclofenac Sodium 1 % gelIndications: Right foot pain Apply topically to affected areas twice daily 150 g 3 Active aspirin 81 MG EC tabletIndicatio ns:Peripheral arterial disease TAKE 1 TABLET BY MOUTH EVERY DAY 90 tablet 3 Active budesonide-form oterol (Symbicort) 160-4.5 MCG/ACT inhalerIndicati ons:Mild intermittent asthma in adult without complication 2 puffs every 4-6 hours as needed for cough or wheeze 1 each 11 Active Acetaminophen 500 MG capsule Take 2 capsules by mouth every 8 (eight) hours. 2024 Discontinued(T herapy completed) senna-docusate (Senokot S) 8.6-50 MG tablet Take 2 tablets by mouth at bed time. 2024 Discontinued(T herapy completed) naloxone (Narcan) 4 mg/0.1 mL nasal spray Administer 0.1 mL into affected nostril(s). 2024 Discontinued(T herapy completed) busPIRone (Buspar) 5 MG tablet Take 1 tablet by mouth every 12 (twelve) hours. 2024 Discontinued(T herapy completed) Chantix 0.5 MG tablet TAKE 1 TABLET (0.5MG) BY MOUTH ON DAYS 1-3, THEN 1 TABLET TWICE DAILY ON DAYS 4-7, THEN START 1MG TABLET PRESCRIPTION 022 2024 Discontinued(T herapy completed) nitrofurantoin, macrocrystal-mo nohydrate, (Macrobid) 100 MG capsule TAKE ONE CAPSULE BY MOUTH EVERY 12 HOURS FOR 7 DAYS MUST ADMINISTER WITH A MEAL/FOOD). 2024 Discontinued(T herapy completed) oxybutynin XL (Ditropan-XL) 10 MG 24 hr tablet TAKE 1 TABLET BY MOUTH DAILY (FOR OVER ACTIVE BLADDER). 2024 Discontinued(T herapy completed) nicotine (Nicoderm, Step 1) 21 MG/24HR patch APPLY 1 PATCH BY TRANSDERMAL ROUTE EVERY DAY AND REMOVE AT BEDTIME 2024 Discontinued(T herapy completed) Diclofenac Sodium 1 % gelIndications: Right foot pain Apply topically to affected areas twice daily 150 g 1 023 2024 Discontinued(R eorder (will not trigger notification to Pharmacy)) Docusate Sodium (DSS) 100 MG capsule TAKE 1 CAPSULE BY MOUTH TWICE A DAY 180 capsule 3 024 2024 Discontinued DULoxetine (Cymbalta) [address] capsuleIndicati ons:Chronic bilateral low back pain without sciatica TAKE 1 CAPSULE BY MOUTH EVERY DAY 90 capsule 3 024 2024 Discontinued aspirin 81 MG EC tabletIndicatio ns:Peripheral arterial disease TAKE 1 TABLET BY MOUTH EVERY DAY 90 tablet 3 024 2024 Discontinued(R eorder (will not trigger notification to Pharmacy)) budesonide-form oterol (Symbicort) 160-4.5 MCG/ACT inhalerIndicati ons:Mild intermittent asthma in adult without complication 2 puffs every 4-6 hours as needed for cough or wheeze 1 each 11 025 2024 Discontinued(R eorder (will not trigger notification to Pharmacy)) gabapentin (Neurontin) 300 MG capsuleIndicati ons:Chronic bilateral low back pain without sciatica TAKE 1 OR 2 CAPSULES BY MOUTH 3 TIMES A DAY. 180 capsule 3 025 2024 Discontinued Active Problems Problem Noted Date Diagnosed Date Cannabis use, unspecified, uncomplicated 025 Scalp lesion 01/16/2025 SOB (shortness of breath) on exertion 01/16/2025 Right hip pain 01/16/2025 Assessment & Plan (01/16/2025 7:59 AM EDT): R hip pain and limited range of motion, xray with new lucency visible, recommend MRI. This has been ordered and communicated to patient. Also with rise in alk phos, concerning for malignancy. Will up date screening, Cologuard re-ordered and urged to make ammo appointment muna. Bladder prolapse, female, acquired 01/12/2025 Chronic anticoagulation 01/12/2025 Assessment & Plan (01/16/2025 7:59 AM EDT): On this for history of multiple DVTs, in R lower extremity. D-dimer pending. Continue Eliquis and ASA. No reports of bleeding Class 1 obesity 01/12/2025 Cubital tunnel syndrome, bilateral 01/12/2025 De Quervain's tenosynovitis, right 01/12/2025 Nicotine dependence 01/12/2025 Numbness and tingling in right hand 01/12/2025 Right renal artery stenosis 01/12/2025 Smoker 01/12/2025 Trigger thumb, right thumb 01/12/2025 Urge incontinence 01/12/2025 Carpal tunnel syndrome on both sides 01/12/2025 Ganglion cyst of volar aspect of right wrist Chest pain 11/10/2023 Deep vein thrombosis (CMS/HCC) 11/10/2023 S/P aortobifemoral bypass surgery 10/28/2023 Assessment [...] Overview (10/15/2022): S/P femoral-femoral bypass graft 10[place]20[place] [facility] [place]. Se[place] Dr. Harris q. 6 months [...] with PEG scales at follow up visit [employer] contact up to date Depressive disorder 02/03/2021 Urinary incontinence 02/03/2021 Overview (10/15/2022): Hx of blood clot in R renal artery in 2017. Incontinent of urine since this time. Wears adult incontinence pads. Rx'd oxybutynin. Followed by [facility] [place] Essential hypertension 12/04/2020 Overview (02/17/2024): Amlodipine [...] Encounters Date Type Department Care Team Description 01/16/2025 Telephone [facility] [address] [place] [address] [facility] Results 01/13/2025 11:30 AM EDT Office Visit [facility] [address] [place] [address] Jerri Salas MD Right hip pain (Primary Dx); SOB (shortness of breath) on exertion; Scalp lesion; Right foot pain; Peripheral arterial disease (CMS/HCC); Mild intermittent asthma in adult without complication; Deep vein thrombosis (DVT) of proximal lower extremity, unspecified chronicity, unspecified laterality (CMS/HCC); S/P aortobifemoral bypass surgery; Chronic anticoagulation; Screening for colon cancer; Elevated platelet count 01/13/2025 Travel 01/11/2025 Telephone [facility] [address] [place] [address] [facility] Nurse Triage 01/11/2025 Refill [facility] [address] [place], [place] [phone] [facility] Chronic bilateral low back pain without sciatica 11/20/2024 Refill [facility] [address] [place] [address] [facility] from Last 3 Months Immunizations Immunization Administration [...] with others, in a hotel, in a intermediate, living outside on the street, on a [...] 01/13/2025 11:36 AM EDT Plan of Treatment Upcoming Encounters Date Type Department Care Team (Late st Contact Info) Description 02/20/2025 10:30 AM EST Office Visit [facility] [address] [place], [place] [phone] [facility], [facility] [address] [place] [address] Health Maintenance Due Date Last Done Comments [...] Procedure Name Priority Date/Time Associated Diagnosis Comments COMPREHENSIVE METABOLIC PANEL Routine 01/13/2025 12:30 PM EDT SOB (shortness of breath) on exertion CBC WITH AUTO DIFFERENTIAL Routine 01/13/2025 12:30 [...] Blood Count 13.9(H) 4.8 - 10.8 X10*3/uL [facility] Red Blood Count 4.89 4.20 - 5.50 X10*6/uL [facility] Hemoglobin 14.3 12.0 - 16.0 g/dl [facility] Hematocrit 43.6 37.0 - 47.0 % [facility] Mean Corpuscular Volume 89.2 80.0 - 98.0 fL [facility] Mean Corpuscular Hemoglobin 29.2 27.0 - 33.0 pg [facility] Mean Corpuscular HGB Conc 32.8 31.0 - 35.0 g/dl [facility] Red Cell Distribution Width 13.2 11.0 - 16.0 % [facility] Platelet Count 428(H) 160 - 400 X10*3/uL [facility] Mean Platelet Volume 9.0(L) 9.4 - 12.3 fL [facility] Neutrophils Percent Auto 61.5 45 - 73 % [facility] Imm Gran Pct Auto 0.5(H) 0.0 - 0.4 % [facility] Lymphocytes Percent Auto 29.7 20 - 40 % [facility] Monocytes Percent Auto 6.3 2 - 11 % [facility] Eosinophils Percent Auto 1.4 0 - 4 % [facility] Basophils Percent Auto 0.6 0 - 2 % [facility] NRBC Pct Auto 0.0 0.0 - 0.2 /100WBC [facility] Neutrophils Absolute Auto 8.6(H) 2.0 - 8.3 x10*3/uL [facility] Imm Gran Abs Auto 0.07(H) 0.00 - 0.03 X10*3/uL [facility] Lymphocytes Absolute Auto 4.1 1.2 - 4.9 X10*3/uL [facility] Monocytes Absolute Auto 0.9 0.1 - 1.2 X10*3/uL [facility] Eosinophils Absolute Auto 0.2 0.0 - 0.4 X10*3/uL [facility] Basophils Absolute Auto 0.1 0.0 - 0.2 X10*3/uL [facility] NRBC Abs Auto 0.000 0.0 - 0.012 X10*3/uL [facility] Blood Venous blood specimen / Unknown 01/13/2025 12:30 PM EDT 01/13/2025 12:58 PM EDT us Jerri Salas MD LAB BLOOD ORDERABLES Final Res ult [facility] [address] [place] [address] [phone] * (ABNORMAL) Comprehensive Metabolic Panel (01/13/2025 12:30 PM EDT) Sodium 140 135 - 145 mmol/L [facility] Potassium 4.3 3.3 - 5.1 mmol/L [facility] Chloride 104 96 - 108 mmol/L [facility] Carbon Dioxide 27 22 - 29 mmol/L [facility] Anion Gap 13 12 - 20 [facility] Urea Nitrogen (BUN) 9 9 - 16 mg/dL [facility] Creatinine, Serum 0.67 0.5 - 1.4 mg/dL [facility] Estimated Glomerular Filt Rate >60 [facility] Comment:Chronic Kidney Disea se: Estimated GFR < 60 mL/min/1.04g2Leojdc Kidney Disease: Estimated GFR < 15 mL/min/1.73m2 Glucose 87 60 - 115 mg/dL [facility] Calcium 9.4 8.4 - 10.2 mg/dL [facility] Bilirubin, Total 0.3 0.0 - 1.0 mg/dL [facility] Aspartate Amino Transferase 17 5 - 31 U/L [facility] Alanine Aminotransferase 11 0 - 31 U/L [facility] Total Protein 8.0 6.5 - 8.0 g/dL [facility] Albumin Level 4.2 3.5 - 5.0 g/dL [facility] Alkaline Phosphatase 179(H) 39 - 117 U/L [facility] Blood Venous blood specimen / Unknown 01/13/2025 12:30 PM EDT 01/13/2025 1:11 PM EDT us Jerri Salas MD LAB BLOOD ORDERABLES Final Res ult Performing Organization Address [facility]/ZIP Co de Phone Number [facility] [address] [place] [address] [phone] * XR Hip 2 or 3 Views Right (01/13/2025 12:25 PM EDT) Anatomical Region Laterality Modality Lower Extremities, Hip Right Radiograp hic Imaging 01/13/2025 12:2 5 PM EDT Narrative 01/13/2025 12:44 PM EDT [address] [address] XRay Report Signed Patient: Yael Gudino MR#: [id number] : 1965 Acct:[id number] Age/Sex: 59 / F ADM Date: 01/13/25 Loc: HO.HHCX Attending Dr: Jerri Salas MD Ordering Physician: Jerri Salas Date of Service: 01/13/25 Procedure(s): XR hip RT min 2V Accession Number(s): [id number] cc: Jerri Salas Reason for Exam: pain [...] 01/13/25 1241 DD/ 1225 TD/TT: 01/13/[address] Superintendent: Procedure Note Donotuseinterpreter, Image - 01/13/[address] [place] [address] XRay Report Signed Patient: Yael Gudino MMR#: [id number] : 1965Acct:[id number] Age/Sex: 59 / FADM Date: 01/13/25 Loc: HO.HHCX Attending Dr: Jerri Salas MD Ordering Physician: Jerri Salas Date of Service: 01/13/25 Procedure(s): XR hip RT min 2V Accession Number(s): [id number] cc: Jerri Salas Reason for Exam: pain [...] 01/13/25 1241 DD/ 1225 TD/TT: 01/13/[address] Superintendent: Jerri Salas MD IMG XR PROCEDURES Final Result * (ABNORMAL) Hepatitis Panel, General (10/13/2022 11:35 AM EDT) Hepatitis A Antibody Total REACTIVE( A) NON-REACT LEONELA [employer] [facility] Comment: For additional information, please refer to http://education.GreenVolts.Snoball/faq/DRI971 (This link is being provided for informational/ educational purposes only.) Hepatitis B Surface Antibody QL NON-REACT LEONELA NON-REACT LEONELA [employer] [place] [employer] Hepatitis B Surface Ag NON-REACT LEONELA NON-REACT LEONELA [employer] [place] [employer] Comment: For additional information, please refer to http://wildcraft.AddShoppers/faq/HHG507 (This link is being provided for informational/ educational purposes only.) Hepatitis B Core Antibody Total NON-REACT LEONELA NON-REACT LEONELA [employer] [place] [employer] Comment: For additional information, please refer to http://wildcraft.AddShoppers/faq/YKW844 (This link is being provided for informational/ educational purposes only.) Hepatitis C Antibody NON-REACT LEONELA NON-REACT LEONELA [employer] [place] [employer] Comment: HCV antibody was non-reactive. There is no laboratory evidence of HCV infection. In most cases, no further action is required. However, if recent HCV exposure is suspected, a test for HCV RNA (test code 69243) is suggested. For additional information please refer to http://wildcraft.AddShoppers/faq/VPW57g2 (This link is being provided for informational/ educational purposes only.) 10/13/2022 11:3 5 AM EDT 10/13/2022 11:36 AM EDT Narrative [facility] - 10/14/2022 5:35 PM EDT FASTING:NO FASTING: NO [facility] LAB BLOOD ORDERABLES Final Re sult [facility] [address], [place] [address] [employer] [place] [employer] [address] [place] [address] * Mammography Report 1 (02/13/2022 8:20 AM EDT) Anatomical Region Laterality Modality Breast Bilateral Mammography 02/13/2022 8:20 AM EDT Narrative 02/17/2022 9:44 AM EDT Refer to the Notes tab for result details [facility] Procedure: Mammography Report 1 Procedure Note Provider, MD Nishi - 07/13/2022 Refer to the Notes tab for result details [facility] Procedure: Mammography Report 1 [facility] CARE PROFESSIONALS IMG BI PROCEDURES Final Resul t * [...] along with historic and current clinical information. Machinist Wood : SEE COMMENT [facility] Comment: SILVIANO CAMPUZANO(ASCP) CT screening location: [place] [address] Interpretation/R esult: Negative for intraepithelial lesion or malignancy. [facility] LMP: NONE [facility] Prev. BX: NONE [facility] Prev. PAP: NONE [facility] SOURCE: None given [facility] Statement Of Adequacy: SEE COMMENT [facility] Comment: Satisfactory for evaluation. Endocervical/transformation zone component present. Age and/or menstrual status not provided 01/04/2021 Raina Cantu NP LAB PATHOLOGY ORDERABLES Final Result [facility] [address] * HPV mRNA E6/E7 (01/04/2021 12:00 AM EDT) HPV nRNA E6/E7 Not Detected Not Detected [facility] Comment: Methodology: Seismograph Supervisor-Mediated Amplification This assay detects E6/E7 viral messenger RNA (mRNA) from 14 high-risk HPV types (16,18,31,33,35,39,45,51,52,56,58,59,66,68). The analytical performance characteristics of this assay have been determined by [employer]. The modifications have not been cleared or approved by the FDA. This assay has been validated pursuant to the CLIA regulations and is used for clinical purposes. For additional information, please refer to http://education.AddShoppers/faq/NSA808g8 (This link if provided for information/ educational purposes only.) 01/04/2021 us Raina Cantu NP LAB BLOOD ORDERABLES Final Resu lt [facility] [address] * (ABNORMAL) LIPID PANEL, STANDARD (10/05/2020 [...] about testing for familial hypercholesterolemia, please call [email or web address] Client Services at [email or web address]. Marvin Rayo, et al. J National Lipid Association Recommendations [...] equation in the estimation of LDL-C. Charles GARCÍA et al. LESLEY. 2013;310(19): 3644-1005 (http://education.MIOX/faq/FYI197) Non-HDL Cholesterol 224(H) <130 mg/dL (calc) [facility] [...] a therapeutic option. Triglycerides 155(H) <150 mg/dL [facility] 10/05/2020 10:3 3 AM EDT us Mary Martin MD LAB BLOOD ORDERABLES Final Re sult Performing Organization Address [facility] de Phone Number [facility] [address] * HIV 1/2 ANTIGEN/ANTIBODY,FOURTH GENERATION W/RFL (10/05/2020 10:31 AM EDT) [facility] HIV-1/2 ANTIGEN AND ANTIBODIES, 4TH GENERATION W/ REFLEX NON-REACT LEONELA NON-REACT LEONELA [facility] Comment: HIV-1 antigen and HIV-1/HIV-2 [...] purpose. For additional information please refer to http://education.GreenVolts.Snoball/faq/TAL164 (This link is being provided for informational/ educational purposes only.) The performance of this assay has not been clinically validated in patients less than 2 years old. 10/05/2020 10:3 1 AM EDT us Mary Martin MD LAB BLOOD ORDERABLES Final Re sult Performing Organization Address [facility] Co de Phone Number [facility] [address] from Last 3 Months or Most Recently Relevant to Health Maintenance Insurance MEDICARE * Guarantor: Yael Gudino Account Type Relation to Patient Date of Phone Billing Address Personal/Family Self [address] Care Teams Supervisor [employer] Shop Relationship Specialty Start Date End Date Alisia Ivory FNP [address] [place], [place] PCP - General Family Medicine 12/10/21
--- OUTSIDE RECORDS SUMMARY | 2025-01-18 16:12 | XMS_ITS | Encounter Summary ---
Author Organization [employer] Address [address] [facility] 7 [place] [address] Care Team Providers Care Central Office Equipment Installer Name Role Phone [facility] Primary Care Provider [phone] Reason for Visit * Reason Onset Date Comments Med Refill 10/14/2023 Encounter Details Date Type Department Care Team ([facility] st Contact Info) Description 10/14/2023 Telephone [facility] [address] [place], [place] [phone] [facility] [address] [place] [address] Med Refill Social History Tobacco Use Types [...] Preferred Pharmacy [facility] documented in this encounter Plan of Treatment Upcoming Encounters Date Type Department Care Team (Late st Contact Info) Description 02/20/2025 10:30 AM EST Office Visit [facility] [address] [place], [place] [phone] [place], Alisia, [place] [address] [place], [place] [phone] documented as of this encounter Visit Diagnoses Not on filedocumented in this encounter Additional Health Concerns Assessment Noted Time PHQ-9 Depression Total Score: 0 11/20/19 23 11:22 AM EDT documented as of this encounter Care Teams Central Office Equipment Installer Relationship Specialty Start Date End Date Alisia Ivory FNP [address] [place] [address] PCP - General Family Medicine 12/10/21 documented as of this encounter
--- OUTSIDE RECORDS SUMMARY | 2025-01-18 16:12 | XMS_ITS | Encounter Summary ---
Author Organization [employer] Address 75 [facility] 7t [place] [address] Care Team Providers Care Riveter Hand Name Role Phone [place] [facility] Primary Care Provider [phone] Encounter Details Date Type Department Care Team ([facility] st Contact Info) Description 10/28/2023 Telephone [facility] [address] [place], [place] [phone] [place] [facility] [address] [place] [address] Social History Tobacco Use Types Packs/Day Years [...] with others, in a hotel, in a jail, living outside on the street, on a [...] as of this encounter Plan of Treatment Upcoming Encounters Date Type Department Care Team (Late st Contact Info) Description 02/20/2025 10:30 AM EST Office Visit [facility] [address] [place] [address] Alisia Ivory FNP [address] [place] [address] documented as of this encounter Visit Diagnoses Not on filedocumented in this encounter Additional Health Concerns Assessment Noted Time PHQ-9 Depression Total Score: 0 11/20/19 23 11:22 AM EDT documented as of this encounter Care Teams Riveter Hand Relationship Specialty Start Date End Date Alisia Ivory FNP [address] [place] [address] PCP - General Family Medicine 12/10/21 documented as of this encounter
--- OUTSIDE RECORDS SUMMARY | 2025-01-18 16:12 | XMS_ITS | Encounter Summary ---
Author Organization [employer] Address [address] [facility] 7t [place] [address] Care Team Providers Care Ticket Writer Name Role Phone [facility] Primary Care Provider [phone] Encounter Details Date Type Department Care Team [...] Description 02/20/2025 10:30 AM EST Office Visit [facility] MED[facility]INE [address] [place] [address] Alisia Ivory FNP [address] [place] [address] documented as of this encounter Visit Diagnoses Not on filedocumented in this encounter Additional Health Concerns Assessment Noted Time PHQ-9 Depression Total Score: 0 02/17/20 24 11:24 AM EDT documented as of this encounter Care Teams Ticket Writer Relationship Specialty Start Date End Date Alisia Ivory FNP [address] [place] [address] PCP - General Family Medicine 12/10/21 documented as of this encounter
== END 2025-01-18 15:07 | disposition home or self-care (01) ==
LOC: HO.MRI 15:06
PROVIDERS: PCP Registered Nurse; Visit Provider General Practice
DX: M25.551 Pain in right hip (principal)
CPT/HCPCS: 73721

== ENCOUNTER → 2025-01-18 15:06 | Outpatient (BNV) | payer MEDICARE, MEDICAID, SELFPAY | PROVIDERS: PCP Registered Nurse; Visit Provider Radiology Diagnostic Radiology | DX: M25.551 Pain in right hip (principal); M76.11 Psoas tendinitis, right hip; D48.0 Neoplasm of uncertain behavior of bone and articular cartilage | CPT/HCPCS: 73721 ==

== ENCOUNTER 2025-02-07 12:54 | Outpatient (REF) | payer MEDICARE, MEDICAID, SELFPAY ==
--- NOTE | ~2025-02-07 | US_ITS ---
EXAMINATION: US SOFT TISSUE HEAD AND NECK, LIMITED. CLINICAL INFORMATION: Soft tissue lesion, right scalp. COMPARISON: None available. TECHNIQUE: Linear transducer shearer-scale and color Doppler examination with attention to the right scalp region. FINDINGS: There is a 2.2 x 2.3 x 1.5 cm well-defined hypoechoic soft tissue lesion in the region of concern beneath the skin with flow on color Doppler interrogation. US/US soft tiss head and/or neck IMPRESSION: 2.2 x 2.3 x 1.5 cm vascularized soft tissue lesion beneath the right scalp region.. Electronically signed by: Vicente Soto MD 02/07/2025 01:42 PM EDT
--- OUTSIDE RECORDS SUMMARY | 2025-02-07 16:31 | XMS_ITS | Encounter Summary ---
Author Organization [employer] Address [address] [facility] 7 [place] [address] Care Team Providers Care Aquaculture Farmer Name Role Phone [facility] Primary Care Provider [phone] Reason for Visit * Reason Onset Date Comments Med Refill 10/14/2023 Encounter Details Date Type Department Care Team ([facility] st Contact Info) Description 10/14/2023 Telephone [facility] [address] [place], [place] [phone] [facility] [address] [place] [address] Med Refill Social History Tobacco Use Types [...] with others, in a hotel, in a detention, living outside on the street, on a [...] Preferred Pharmacy [facility] documented in this encounter Plan of Treatment Upcoming Encounters Date Type Department Care Team (Late st Contact Info) Description 02/20/2025 10:30 AM EST Office Visit [facility] [address] [place], [place] [phone] Fidelity, Alisia, CLINICAL OUTCOMES MANAGER [address] [place], [place] [phone] documented as of this encounter Visit Diagnoses Not on filedocumented in this encounter Additional Health Concerns Assessment Noted Time PHQ-9 Depression Total Score: 0 11/20/19 23 11:22 AM EDT documented as of this encounter Care Teams Aquaculture Farmer Relationship Specialty Start Date End Date Alisia Ivory FNP [address] [place] [address] PCP - General Family Medicine 12/10/21 documented as of this encounter
--- OUTSIDE RECORDS SUMMARY | 2025-02-07 16:31 | XMS_ITS | Encounter Summary ---
Author Organization [employer] Address [address] [facility] [address] [place] [address] Care Team Providers Care Broke Beater Name Role Phone [facility] Primary Care Provider [phone] Encounter Details Date Type Department Care Team ([facility] st Contact Info) Description 10/28/2023 Telephone [facility] [address] [place], [place] [phone] [facility] [address] [place] [address] Social History Tobacco Use Types Packs/Day Years [...] with others, in a hotel, in a [facility], living outside on the street, on a [...] Description 02/20/2025 10:30 AM EST Office Visit [facility] [address] [place] [address] Alisia Ivory FNP [address] [place] [address] documented as of this encounter Visit Diagnoses Not on filedocumented in this encounter Additional Health Concerns Assessment Noted Time PHQ-9 Depression Total Score: 0 11/20/19 23 11:22 AM EDT documented as of this encounter Care Teams Broke Beater Relationship Specialty Start Date End Date Alisia Ivory FNP [address] [place] [id number] PCP - General Family Medicine 12/10/21 documented as of this encounter
--- OUTSIDE RECORDS SUMMARY | 2025-02-07 16:31 | XMS_ITS | Encounter Summary ---
Author Organization [employer] Address [address] [facility] 7t [place] [address] Care Team Providers Care Medical Chemist Name Role Phone [place] [facility] Primary Care Provider [phone] Encounter Details Date Type Department Care Team ([facility] st Contact Info) Description 02/07/2025 Orders Only [facility] [address] [place], [place] [phone] Jerri Salas MD [address] [place] [address] Social History Tobacco Use Types Packs/Day Years [...] Description 02/20/2025 10:30 AM EST Office Visit [facility] [address] [place] [address] [facility] [address] [place], [place] [phone] documented as of this encounter Procedures Procedure Name Priority Date/Time Associated Diagnosis Comments US HEAD NECK SOFT TISSUE Routine 02/07/2025 1:19 PM EDT documented in this encounter Results * US Head Neck Soft Tissue (02/07/2025 1:19 PM EDT) Anatomical Region Laterality Modality Head, Neck Ultrasound 02/07/2025 1:19 PM EDT Narrative 02/07/2025 1:44 PM EDT [address] [address] Ultrasound Report Signed Patient: Yael Gudino MR#: [id number] : 1965 Acct:[id number] Age/Sex: 59 / F ADM Date: 02/07/25 Loc: HO.US Attending Dr: Jerri Salas MD Ordering Physician: Jerri Salas Date of Service: 02/07/25 Procedure(s): US soft tiss head and/or neck Accession Number(s): [id number] cc: Jerri Salas; [facility] Reason for Exam: 8MM NON TENDER FIXED LESION, RT SCALP EXAMINATION: US SOFT TISSUE HEAD AND NECK, LIMITED. CLINICAL INFORMATION: Soft tissue lesion, right scalp. COMPARISON: None available. TECHNIQUE: Linear transducer shearer-scale and color Doppler examination with attention to the right scalp region. FINDINGS: There is a 2.2 x 2.3 x 1.5 cm well-defined hypoechoic soft tissue lesion in the region of concern beneath the skin with flow on color Doppler interrogation. US/US soft tiss head and/or neck IMPRESSION: 2.2 x 2.3 x 1.5 cm vascularized soft tissue lesion beneath the right scalp region.. Electronically signed by: Vicente Soto MD 02/07/2025 01:42 PM EDT Dictated By: Vicente Barrett MD Signed By: <Electronically signed by Vicente Morrow MD in OV> 02/07/25 1342 DD/ 1319 TD/TT: 02/07/25 1323 Tree Pruner: Procedure Note Donotuseinterpreter, Image - 02/07/2025 [place] [address] Ultrasound Report Signed Patient: Yael Gudino [facility]#: [id number] : 1965Acct:[id number] Age/Sex: 59 / FADM Date: 02/07/25 Loc: HO.US Attending Dr: Jerri Salas MD Ordering Physician: Jerri Salas Date of Service: 02/07/25 Procedure(s): US soft tiss head and/or neck Accession Number(s): [id number] cc: Jerri Salas; [facility] Reason for Exam: 8MM NON TENDER FIXED LESION, RT SCALP EXAMINATION: US SOFT TISSUE HEAD AND NECK, LIMITED. CLINICAL INFORMATION: Soft tissue lesion, right scalp. COMPARISON: None available. TECHNIQUE: Linear transducer shearer-scale and color Doppler examination with attention to the right scalp region. FINDINGS: There is a 2.2 x 2.3 x 1.5 cm well-defined hypoechoic soft tissue lesion in the region of concern beneath the skin with flow on color Doppler interrogation. US/US soft tiss head and/or neck IMPRESSION: 2.2 x 2.3 x 1.5 cm vascularized soft tissue lesion beneath the right scalp region.. Electronically signed by: Vicente Soto MD 02/07/2025 01:42 PM EDT RP Dictated By: Vicente Barrett MD Signed By: <Electronically signed by Vicente Morrow MDin OV> 02/07/25 1342 DD/ 1319 TD/TT: 02/07/25 1323 Tree Pruner: us Jerri Salas MD IMG US PROCEDURES Edited Resul t - Final documented in this encounter Visit Diagnoses Not on filedocumented in this encounter Additional Health Concerns Assessment Noted Time PHQ-9 Depression Total Score: 0 02/17/20 24 11:24 AM EDT documented as of this encounter Care Teams Medical Chemist Relationship Specialty Start Date End Date Alisia Ivory FNP [address] [place] [id number] PCP - General Family Medicine 12/10/21 documented as of this encounter
--- OUTSIDE RECORDS SUMMARY | 2025-02-07 16:32 | XMS_ITS | Clinical Summary ---
Author Organization [employer] Address [address] [place] [address] Care Team Prov[address] Care [address] Commissioner Name Role Phone [facility] Primary Care Provider [phone] Allergies Active Allergy Reactions Criticality Noted Date [...] every 12 (twelve) hours. 60 tablet 11 024 Active cloNIDine (Catapres) 0.2 MG tabletIndicatio ns:Peripheral [...] skin. 99 g 3 025 2025 Active amLODIPine (Norvasc) 10 MG tablet TAKE [...] MOUTH TWICE A DAY 180 capsule 3 Active Krysten Protect Moisture Barrier 12 % [...] cough or wheeze 1 each 11 Active cyclobenzaprine (Flexeril) 10 MG tabletIndicatio ns:Chronic bilateral low back pain without sciatica TAKE 1 TABLET BY MOUTH IF NEEDED IN THE MORNING, AT NOON, AND AT BEDTIME FOR MUSCLE SPASMS; ((TAKE 1 TABLET 3 TIMES A DAY NEEDED)). 90 tablet 3 Active Acetaminophen 500 MG capsule Take 2 capsules by mouth every 8 (eight) hours. 2024 Discontinued(T herapy completed) senna-docusate (Senokot S) 8.6-50 MG tablet Take 2 tablets by mouth at bed time. 2024 Discontinued(T herapy completed) naloxone (Narcan) 4 mg/0.1 mL nasal spray Administer 0.1 mL into affected nostril(s). 022 2024 Discontinued(T herapy completed) busPIRone (Buspar) 5 [...] DAY. 180 capsule 3 025 2024 Discontinued cyclobenzaprine (Flexeril) 10 MG tabletIndicatio ns:Chronic bilateral low back pain without sciatica TAKE 1 TABLET BY MOUTH IF NEEDED IN THE MORNING, AT NOON, AND AT BEDTIME FOR MUSCLE SPASMS; ((TAKE 1 TABLET 3 TIMES A DAY NEEDED)). 90 tablet 3 025 2024 Discontinued Active Problems Problem Noted Date Diagnosed Date Cannabis use, unspecified, uncomplicated Scalp lesion 01/16/2025 SOB (shortness of breath) [...] Overview (10/15/2022): S/P femoral-femoral bypass graft 10/2021 [facility]. Se[place] Dr. Harris q. 6 months [...] with PEG scales at follow up visit RESIDENT SURGEON contact up to date Depressive disorder 02/03/2021 Urinary incontinence 02/03/2021 Overview (10/15/2022): Hx of blood clot in R renal artery in 2017. Incontinent of urine since this time. Wears adult incontinence pads. Rx'd oxybutynin. Followed by [facility] [place] Essential hypertension 12/04/2020 Overview (02/17/2024): Amlodipine [...] Encounters Date Type Department Care Team Description 02/07/2025 Orders Only [facility] [address] [place] [address] Jerri Salas MD 01/21/2025 Refill [facility] [address] [place] [address] Alisia Ivory FNP Chronic bilateral low back pain without sciatica 01/20/2025 Results Follow-Up [facility] [address] [place] [address] Jerri Salas MD MR Hip w/o Contrast Right 01/16/2025 Telephone [facility] [address] [place] [address] Alisia Ivory FNP Results 01/13/2025 11:30 AM EDT Office Visit [facility] [address] [place] [address] Jerri Salas MD Right hip pain (Primary Dx); SOB (shortness of breath) on exertion; Scalp lesion; Right foot pain; Peripheral arterial disease (CMS/HCC); Mild intermittent asthma in adult without complication; Deep vein thrombosis (DVT) of proximal lower extremity, unspecified chronicity, unspecified laterality (CMS/HCC); S/P aortobifemoral bypass surgery; Chronic anticoagulation; Screening for colon cancer; Elevated platelet count 01/13/2025 Travel 01/11/2025 Telephone [facility] [address] [place] [address] Alisia Ivory FNP Nurse Triage 01/11/2025 Refill [facility] [address] [place] [address] Alisia Ivory FNP Chronic bilateral low back pain without sciatica 11/20/2024 Refill [facility] [address] [place] [address] Alisia Ivory FNP from Last 3 Months [...] with others, in a hotel, in a correction, living outside on the street, on a [...] Description 02/20/2025 10:30 AM EST Office Visit [facility] [address] [place] [address] [place], Harris, RESIDENT ASSISTANT CNA [address] [place], [place] [phone] Health Maintenance Due Date Last Done Comments [...] SOFT TISSUE Routine 02/07/2025 1:19 PM EDT MR HIP WO CONTRAST RIGHT STAT 01/18/2025 3:15 PM EDT Right hip pain COMPREHENSIVE METABOLIC PANEL Routine 01/13/2025 12:30 PM [...] Recently Relevant to Health Maintenance Results * US Head Neck Soft Tissue (02/07/2025 1:19 PM EDT) Anatomical Region Laterality Modality Head, Neck Ultrasound 02/07/2025 1:19 PM EDT Narrative 02/07/2025 1:44 PM EDT [address] [address] Ultrasound Report Signed Patient: Yael Gudino MR#: [id number] : 1965 Acct:[id number] Age/Sex: 59 / F ADM Date: 02/07/25 Loc: HO.US Attending Dr: Jerri Salas MD Ordering Physician: Jerri Salas Date of Service: 02/07/25 Procedure(s): US soft tiss head and/or neck Accession Number(s): [id number] cc: Jerri Salas; [facility] Reason for Exam: 8MM NON TENDER [...] OV> 02/07/25 1342 DD/ 1319 TD/TT: 02/07/25 132 Lead Shipper: Procedure Note Donotuseinterpreter, Image - 02/07/2025 [place] [address] Ultrasound Report Signed Patient: Yael Gudino MMR#: [id number] : 1965Acct:[id number] Age/Sex: 59 / FADM Date: 02/07/25 Loc: .US Attending Dr: Jerri Salas MD Ordering Physician: Jerri Salas Date of Service: 02/07/25 Procedure(s): US soft tiss head and/or neck Accession Number(s): [id number] cc: Jerri Salas; [facility] Reason for Exam: 8MM NON TENDER [...] OV> 02/07/25 1342 DD/ 1319 TD/TT: 02/07/25 132 Lead Shipper: us Jerri Salas MD IMG US PROCEDURES Edited Resul t - Final * MR Hip w/o Contrast Right (01/18/2025 3:15 PM EDT) Anatomical Region Laterality Modality Magnetic Resonan ce 01/18/2025 3:15 PM EDT Narrative 01/18/2025 4:29 PM EDT [address] [address] Magnetic Resonance Report Signed Patient: Yael Gudino MR#: [id number] : 1965 Acct:[id number] Age/Sex: 59 / F ADM Date: 01/18/25 Loc: HO.MRI Attending Dr: Jerri Salas MD Ordering Physician: Jerri Salas Date of Service: 01/18/25 Procedure(s): MR hip RT wo con Accession Number(s): [id number] cc: Jerri Salas; [facility] Reason for Exam: PAIN EXAMINATION: MRI of the right hip was performed without contrast TECHNIQUE: Multiplanar multisequence MR imaging through a lower extremity joint was performed without contrast INDICATION: Right hip pain Prior: X-ray on 01/13/2025 FINDINGS: Labrum:There is linear intermediate signal at the junction of labrum and acetabulum (coronal T2 fat-sat image ) concerning for tear. Articular Cartilage/Joint fluid: There is full-thickness or near full-thickness articular cartilage defect in the lateral femoral head 7 mm wide. There is delamination of articular cartilage and the suprafoveal portion of the femoral head 5 mm in length extending through slightly more than half of the cartilage thickness. There is no joint effusion. Ligament/Muscle/Tendon: The ligament teres is torn at the fovea and there is a small gap. There is minimal edema like signal in the soft tissues anterior to the gluteus minimus insertion on greater trochanter. There is trace fluid signal adjacent the hamstring origin. There is trace peritendinous fluid signal around the distal iliopsoas tendon near the lesser trochanter. Neurovascular: Major neurovascular structures are unremarkable and symmetrical. Deep and superficial soft tissues: There is no intrapelvic mass or ascites. Visualized bowel is grossly unremarkable. Subcutaneous soft tissues are within normal limits. There is no adenopathy. Bones/Marrow: There is a lesion in the lesser trochanter that was visible on recent x-ray is a lytic lesion. It measures 16 x 9 x 11 mm (CC by transverse by AP). On T1 imaging, it is slightly hyperintense to skeletal muscle with a low signal margin. However, the cortex is extremely thinned medially. On fluid sensitive sequences, it demonstrates intermediate signal. There is mild edema like signal in the adjacent marrow lesser trochanter. There is also edema like signal tracking along the medial periosteum. There is a second area of marrow signal change in the posterior facet of the lower greater trochanter that measures 11 x 13 x 10 mm (CC by transverse by AP). It is posterior inferior to the gluteus medius footprint. It does not have sclerotic margins. It is isointense to muscle T1 imaging, and mildly hyperintense on fluid sensitive sequences. In retrospect, there is a very subtle lytic lesion on the x-ray. There is a third lesion at the junction of the anterior femoral neck and greater trochanter 10 mm in diameter. It is isointense to muscle T1 imaging and mildly hyperintense on fluid sensitive sequences. There appear to be destructive changes in the adjacent cortex. There is a fourth similar lesion in the posterior proximal diaphysis of the femur. MR/MR hip RT wo con IMPRESSION: There are 4 indeterminate lesions in the intertrochanteric region of the right hip. 3 lesions appear more aggressive without sclerotic margins and at least one of the lesions demonstrate cortical destruction. Lesions are concerning for metastatic disease or myeloma. The lesion in the lesser trochanter is overall less aggressive due to mostly sclerotic margins. However, there is severe thinning of the medial cortex. Consider whole body bone scan and/or consultation for biopsy. Suspected superior labral tear at the junction with acetabulum. The graft moderate degenerative changes in the right femoral head with full-thickness cartilage loss involving lateral humeral head and a delamination of the suprafoveal cartilage extending through more than half the cartilage thickness. Ligamentum teres is torn at the fovea. There is mild tendinopathy of distal right gluteus minimus, distal iliopsoas, and proximal hamstring tendons. Electronically signed by: Christian Delgadillo MD 01/18/2025 04:26 PM EDT Dictated By: Christian Delgadillo MD Signed By: <Electronically signed by Christian Delgadillo MD in OV> 01/18/25 1626 DD/ 1515 TD/TT: 01/18/25 1530 Lead Shipper: Procedure Note Donotcaininterpreter, Image - 01/18/[address] [address] Magnetic Resonance Report Signed Patient: Yael Gudino [facility]#: [id number] : 1965Acct:[id number] Age/Sex: 59 / FADM Date: 01/18/25 Loc: HO.MRI Attending Dr: Jerri Salas MD Ordering Physician: Jerri Salas Date of Service: 01/18/25 Procedure(s): MR hip RT wo con Accession Number(s): [id number] cc: Jerri Salas; [facility] Reason for Exam: PAIN EXAMINATION: MRI of the right hip was performed without contrast TECHNIQUE: Multiplanar multisequence MR imaging through a lower extremity joint was performed without contrast INDICATION: Right hip pain Prior: X-ray on 01/13/2025 FINDINGS: Labrum:There is linear intermediate signal at the junction of labrum and acetabulum (coronal T2 fat-sat image ) concerning for tear. Articular Cartilage/Joint fluid: There is full-thickness or near full-thickness articular cartilage defect in the lateral femoral head 7 mm wide. There is delamination of articular cartilage and the suprafoveal portion of the femoral head 5 mm in length extending through slightly more than half of the cartilage thickness. There is no joint effusion. Ligament/Muscle/Tendon: The ligament teres is torn at the fovea and there is a small gap. There is minimal edema like signal in the soft tissues anterior to the gluteus minimus insertion on greater trochanter. There is trace fluid signal adjacent the hamstring origin. There is trace peritendinous fluid signal around the distal iliopsoas tendon near the lesser trochanter. Neurovascular: Major neurovascular structures are unremarkable and symmetrical. Deep and superficial soft tissues: There is no intrapelvic mass or ascites. Visualized bowel is grossly unremarkable. Subcutaneous soft tissues are within normal limits. There is no adenopathy. Bones/Marrow: There is a lesion in the lesser trochanter that was visible on recent x-ray is a lytic lesion. It measures 16 x 9 x 11 mm (CC by transverse by AP). On T1 imaging, it is slightly hyperintense to skeletal muscle with a low signal margin. However, the cortex is extremely thinned medially. On fluid sensitive sequences, it demonstrates intermediate signal. There is mild edema like signal in the adjacent marrow lesser trochanter. There is also edema like signal tracking along the medial periosteum. There is a second area of marrow signal change in the posterior facet of the lower greater trochanter that measures 11 x 13 x 10 mm (CC by transverse by AP). It is posterior inferior to the gluteus medius footprint. It does not have sclerotic margins. It is isointense to muscle T1 imaging, and mildly hyperintense on fluid sensitive sequences. In retrospect, there is a very subtle lytic lesion on the x-ray. There is a third lesion at the junction of the anterior femoral neck and greater trochanter 10 mm in diameter. It is isointense to muscle T1 imaging and mildly hyperintense on fluid sensitive sequences. There appear to be destructive changes in the adjacent cortex. There is a fourth similar lesion in the posterior proximal diaphysis of the femur. MR/MR hip RT wo con IMPRESSION: There are 4 indeterminate lesions in the intertrochanteric region of the right hip. 3 lesions appear more aggressive without sclerotic margins and at least one of the lesions demonstrate cortical destruction. Lesions are concerning for metastatic disease or myeloma. The lesion in the lesser trochanter is overall less aggressive due to mostly sclerotic margins. However, there is severe thinning of the medial cortex. Consider whole body bone scan and/or consultation for biopsy. Suspected superior labral tear at the junction with acetabulum. The graft moderate degenerative changes in the right femoral head with full-thickness cartilage loss involving lateral humeral head and a delamination of the suprafoveal cartilage extending through more than half the cartilage thickness. Ligamentum teres is torn at the fovea. There is mild tendinopathy of distal right gluteus minimus, distal iliopsoas, and proximal hamstring tendons. Electronically signed by: Christian Delgadillo MD 01/18/2025 04:26 PM EDT Dictated By: Christian Delgadillo MD Signed By: <Electronically signed by Christian Delgadillo MD in OV> 01/18/25 1626 DD/ 1515 TD/TT: 01/18/25 1530 Lead Shipper: us Jerri Salas MD IMG MRI PROCEDURES Final Resul t * (ABNORMAL) CBC auto differential (01/13/2025 12:30 PM EDT) White Blood Count 13.9(H) 4.8 - 10.8 X10*3/uL [facility] Red Blood Count 4.89 4.20 - 5.50 X10*6/uL [facility] Hemoglobin 14.3 12.0 - 16.0 g/dl [facility] Hematocrit 43.6 37.0 - 47.0 % [facility] Mean Corpuscular Volume 89.2 80.0 - 98.0 fL [facility] Mean Corpuscular Hemoglobin 29.2 27.0 - 33.0 pg [facility] Mean Corpuscular HGB Conc 32.8 31.0 - 35.0 g/dl [facility] Red Cell Distribution Width 13.2 11.0 - 16.0 % [facility] Platelet Count 428(H) 160 - 400 X10*3/uL [facility] Mean Platelet Volume 9.0(L) 9.4 - 12.3 fL [facility] Neutrophils Percent Auto 61.5 45 - 73 % [facility] Imm Gran Pct Auto 0.5(H) 0.0 - 0.4 % [facility] Lymphocytes Percent Auto 29.7 20 - 40 % [facility] Monocytes Percent Auto 6.3 2 - 11 % [facility] Eosinophils Percent Auto 1.4 0 - 4 % [facility] Basophils Percent Auto 0.6 0 - 2 % [facility] NRBC Pct Auto 0.0 0.0 - 0.2 /100WBC [facility] Neutrophils Absolute Auto 8.6(H) 2.0 - 8.3 x10*3/uL [facility] Imm Gran Abs Auto 0.07(H) 0.00 - 0.03 X10*3/uL [facility] Lymphocytes Absolute Auto 4.1 1.2 - 4.9 X10*3/uL [facility] Monocytes Absolute Auto 0.9 0.1 - 1.2 X10*3/uL [facility] Eosinophils Absolute Auto 0.2 0.0 - 0.4 X10*3/uL [facility] Basophils Absolute Auto 0.1 0.0 - 0.2 X10*3/uL [facility] NRBC Abs Auto 0.000 0.0 - 0.012 X10*3/uL [facility] Blood Venous blood specimen / Unknown 01/13/2025 12:30 PM EDT 01/13/2025 12:58 PM EDT us Jerri Salas MD LAB BLOOD ORDERABLES Final Res ult [facility] [address] [place] [phone] * (ABNORMAL) Comprehensive Metabolic Panel (01/13/2025 12:30 PM EDT) Sodium 140 135 - 145 mmol/L [facility] Potassium 4.3 3.3 - 5.1 mmol/L [facility] Chloride 104 96 - 108 mmol/L [facility] Carbon Dioxide 27 22 - 29 mmol/L [facility] Anion Gap 13 12 - 20 [facility] Urea Nitrogen (BUN) 9 9 - 16 mg/dL [facility] Creatinine, Serum 0.67 0.5 - 1.4 mg/dL [facility] Estimated Glomerular Filt Rate >60 [facility] Comment:Chronic Kidney Disea se: Estimated GFR < 60 mL/min/[id number] Kidney Disease: Estimated GFR < 15 mL/min/1.73m2 Glucose 87 60 - 115 mg/dL [facility] Calcium 9.4 8.4 - 10.2 mg/dL [facility] Bilirubin, Total 0.3 0.0 - 1.0 mg/dL [facility] Aspartate Amino Transferase 17 5 - 31 U/L [facility] Alanine Aminotransferase 11 0 - 31 U/L [facility] Total Protein 8.0 6.5 - 8.0 g/dL [facility] Albumin Level 4.2 3.5 - 5.0 g/dL [facility] Alkaline Phosphatase 179(H) 39 - 117 U/L [facility] Blood Venous blood specimen / Unknown 01/13/2025 12:30 PM EDT 01/13/2025 1:11 PM EDT us Jerri Salas MD LAB BLOOD ORDERABLES Final Res ult Performing Organization Address City/State/[facility] Co de Phone Number [facility] [address] [place] [phone] * XR Hip 2 or 3 Views Right (01/13/2025 12:25 PM EDT) Anatomical Region Laterality Modality Lower Extremities, Hip Right Radiograp hic Imaging 01/13/2025 12:2 5 PM EDT Narrative 01/13/2025 12:44 PM EDT [address] [address] XRay Report Signed Patient: Yael Gudino MR#: [id number] : 1965 Acct:[id number] Age/Sex: 59 / F ADM Date: 01/13/25 Loc: HO.HHCX Attending Dr: Jerri Salas MD Ordering Physician: Jerri Salas Date of Service: 01/13/25 Procedure(s): XR hip RT min 2V Accession Number(s): [id number] cc: Jerri Salas Reason for Exam: pain [...] 01/13/25 1241 DD/ 1225 TD/TT: 01/13/25 1226 Lead Shipper: Procedure Note Donotuseinterpreter, Image - 01/13/2025 [place] [address] XRay Report Signed Patient: Yael Gudino [facility]#: [id number] : 1965Acct:[id number] Age/Sex: 59 / FADM Date: 01/13/25 Loc: HO.HHCX Attending Dr: Jerri Salas MD Ordering Physician: Jerri Salas Date of Service: 01/13/25 Procedure(s): XR hip RT min 2V Accession Number(s): [id number] cc: Jerri Salas Reason for Exam: pain [...] 01/13/25 1241 DD/ 1225 TD/TT: 01/13/25 1226 Lead Shipper: Jerri Salas MD IMG XR PROCEDURES Final Result * (ABNORMAL) Hepatitis Panel, General (10/13/2022 11:35 AM EDT) Hepatitis A Antibody Total REACTIVE( A) NON-REACT LEONELA [employer] Comment: For additional information, please refer to http://[employer]ecMed/faq/HYE100 (This link is being provided for informational/ educational purposes only.) Hepatitis B Surface Antibody QL NON-REACT LEONELA NON-REACT LEONELA [facility] [employer] Hepatitis B Surface Ag NON-REACT LEONELA NON-REACT LEONELA [facility] Comment: For additional information, please refer to http://[employer]ec[employer]/faq/BUX360 (This link is being provided for informational/ educational purposes only.) Hepatitis B Core Antibody Total NON-REACT LEONELA NON-REACT LEONELA [facility] Comment: For additional information, please refer to http://[employer]/faq/KXU367 (This link is being provided for informational/ educational purposes only.) Hepatitis C Antibody NON-REACT LEONELA NON-REACT LEONELA [facility] [employer] Comment: HCV antibody was non-reactive. There is no laboratory evidence of HCV infection. In most cases, no further action is required. However, if recent HCV exposure is suspected, a test for HCV RNA (test code 82447) is suggested. For additional information please refer to http://[employer]ecMed/faq/FNZ56t8 (This link is being provided for informational/ educational purposes only.) 10/13/2022 11:3 5 AM EDT 10/13/2022 11:36 AM EDT Narrative [facility] - 10/14/2022 5:35 PM EDT FASTING:NO FASTING: NO [facility] LAB BLOOD ORDERABLES Final Re sult [facility] [address], [place] [address] [facility] [facility] [address] [place] [address] * Mammography Report 1 (02/13/2022 8:20 AM EDT) Anatomical Region Laterality Modality Breast Bilateral Mammography 02/13/2022 8:20 AM EDT Narrative 02/17/2022 9:44 AM EDT Refer to the Notes tab for result details [facility] Procedure: Mammography Report 1 Procedure Note Provider, MD Nishi - 07/13/2022 Refer to the Notes tab for result details [facility] Procedure: Mammography Report 1 [facility] RESIDENT ASSISTANT CNA IMG BI PROCEDURES Final Resul t * [...] along with historic and current clinical information. Gas Jockey : SEE COMMENT [facility] Comment: JXM, CT(ASCP) CT screening location: [address] [address] Interpretation/R esult: Negative for intraepithelial lesion or malignancy. [facility] LMP: NONE [facility]IV[facility] Prev. BX: NONE [facility]IV[facility] Prev. PAP: NONE [facility]IV[facility] SOURCE: None given [facility] Statement Of Adequacy: SEE COMMENT [facility] Comment: Satisfactory for evaluation. Endocervical/transformation zone component present. Age and/or menstrual status not provided 01/04/2021 Raina Cantu NP LAB PATHOLOGY ORDERABLES Final Result Performing Organization Address [facility] Phone Number [facility] [address] [place] [address], * HPV mRNA E6/E7 (01/04/2021 12:00 AM EDT) HPV nRNA E6/E7 Not Detected Not Detected [facility] Comment: Methodology: Authors Motivational-Mediated Amplification This assay detects E6/E7 viral messenger RNA (mRNA) from 14 high-risk HPV types (16,18,31,33,35,39,45,51,52,56,58,59,66,68). The analytical performance characteristics of this assay have been determined by [employer]. The modifications have not been cleared or approved by the FDA. This assay has been validated pursuant to the CLIA regulations and is used for clinical purposes. For additional information, please refer to http://education.WAY Systems/faq/BKH311u4 (This link if provided for information/ educational purposes only.) 01/04/2021 us Raina Cantu NP LAB BLOOD ORDERABLES Final Resu lt Performing Organization Address [facility] Phone Number [facility] [place] [address], * (ABNORMAL) LIPID PANEL, STANDARD (10/05/2020 10:33 [...] about testing for familial hypercholesterolemia, please call [employer] Client Services at [phone]. Marvin T, et al. J National Lipid [...] LDL-C. Charles GARCÍA et al. LESLEY. 2013;310(19): 6404-4763 (http://education.MyNewDeals.com/faq/HPQ426) Non-HDL Cholesterol 224(H) <130 mg/dL (calc) [facility] [...] MD LAB BLOOD ORDERABLES Final Re sult [facility] [address] * HIV 1/2 ANTIGEN/ANTIBODY,FOURTH GENERATION W/RFL [...] purpose. For additional information please refer to http://education.[employer] Systems/faq/NWF383 (This link is being provided for informational/ educational purposes only.) The performance of this assay has not been clinically validated in patients less than 2 years old. 10/05/2020 10:3 1 AM EDT us Mary Martin MD LAB BLOOD ORDERABLES Final Re sult [facility] formerly [facility] Anywhere [address] from Last 3 Months or Most Recently Relevant to Health Maintenance Insurance MEDICARE Care Teams Road Commissioner Relationship Specialty Start Date End Date Alisia Ivory FNP [address] [place] [id number] PCP - General Family Medicine 12/10/21
== END 2025-02-07 12:55 | disposition home or self-care (01) ==
LOC: HO.US 12:54
PROVIDERS: PCP Registered Nurse; Visit Provider General Practice
DX: L98.9 Disorder of the skin and subcutaneous tissue, unspecified (principal)
CPT/HCPCS: 76536

== ENCOUNTER → 2025-02-07 12:59 | Outpatient (BNV) | payer MEDICARE, MEDICAID, SELFPAY | PROVIDERS: PCP Registered Nurse; Visit Provider Radiology Diagnostic Radiology | DX: L98.9 Disorder of the skin and subcutaneous tissue, unspecified (principal) | CPT/HCPCS: 76536 ==

== ENCOUNTER → 2025-02-08 15:30 | Outpatient (BNV) | payer MEDICARE, MEDICAID, SELFPAY | PROVIDERS: PCP General Practice; Referring Provider General Practice; Visit Provider Internal Medicine | DX: D49.2 Neoplasm of unspecified behavior of bone, soft tissue, and skin (principal); D72.829 Elevated white blood cell count, unspecified; D75.839 Thrombocytosis, unspecified; M25.551 Pain in right hip; R63.4 Abnormal weight loss | CPT/HCPCS: 99205; G2211 ==

== ENCOUNTER 2025-02-28 14:22 | Outpatient (REF) | payer MEDICARE, MEDICAID, SELFPAY ==
--- OUTSIDE RECORDS SUMMARY | 2025-02-28 16:04 | XMS_ITS | Encounter Summary ---
Author Organization [employer] Address [address] [facility] 7t [place] [address] Care Team Providers Care Wire Taper Name Role Phone [place] [facility] Primary Care Provider [phone] Encounter Details Date Type Department Care Team ([facility] st Contact Info) Description 10/28/[address] [facility] MEDICINE [address] [place], [place] [phone] [place] [facility] [address] [place] [address] Social History Tobacco Use Types Packs/Day Years [...] 11:30 AM EST Telemedicine [facility] MEDICINE [address] [place] [address] Alisia Ivory FNP [address] [place] [address] documented as of this encounter Visit Diagnoses Not on filedocumented in this encounter Additional Health Concerns Assessment Noted Time PHQ-9 Depression Total Score: 0 11/20/19 23 11:22 AM EDT documented as of this encounter Care Teams Wire Taper Relationship Specialty Start Date End Date Alisia Ivory FNP [address] [place] [id number] PCP - General Family Medicine 12/10/21 documented as of this encounter
--- OUTSIDE RECORDS SUMMARY | 2025-02-28 16:04 | XMS_ITS | Encounter Summary ---
Author Organization [employer] Address [address] [facility] 7 [place] [address] Care Team Providers Care Medical Science Liaison Name Role Phone [facility] Primary Care Provider [phone] Reason for Visit * Reason Onset Date Comments Med Refill 10/14/2023 Encounter Details Date Type Department Care Team ([facility] st Contact Info) Description 10/14/2023 Telephone [facility] MEDICINE [address] [place], [place] [phone] [facility] 230 [place] [address] Med Refill Social History Tobacco Use Types [...] Preferred Pharmacy [facility] documented in this encounter Plan of Treatment Upcoming Encounters Date Type Department Care Team (Late st Contact Info) Description 03/01/2025 11:30 AM EST Telemedicine [facility] MED[facility]INE [address] [place], [place] [phone] [place] [address] [place], [place] [phone] documented as of this encounter Visit Diagnoses Not on filedocumented in this encounter Additional Health Concerns Assessment Noted Time PHQ-9 Depression Total Score: 0 11/20/19 23 11:22 AM EDT documented as of this encounter Care Teams Medical Science Liaison Relationship Specialty Start Date End Date Alisia Ivory FNP [address] [place] [address] PCP - General Family Medicine 12/10/21 documented as of this encounter
--- OUTSIDE RECORDS SUMMARY | 2025-02-28 16:04 | XMS_ITS | Encounter Summary ---
Author Organization [employer] Address [address] [facility] 7 [place] [address] Care Team Providers Care Sales Order Administrator Name Role Phone [facility] Primary Care Provider [phone] Reason for Visit * Reason Onset Date Comments chart prep 02/28/2025 Encounter Details Date Type Department Care Team ([facility] st Contact Info) Description 02/28/2025 Telephone [facility] [address] [place], [place] [phone] [facility] 230 [place], [place] [phone] chart prep Social History Tobacco Use Types Packs/Day Years [...] Telephone Encounter - Sara Caba MA - 02/28/2025 2:25 PM EST Chart Prep Labs: not done Images: done Referrals: appointment pending Vaccines due: n/a Screenings: colonoscopy and mammogram Overdue care gaps: SBIRT, SDOH, PHQ-9, and MEMO-7 documented in this encounter Plan of Treatment Upcoming Encounters Date Type Department Care Team (Late st Contact Info) Description 03/01/2025 11:30 AM EST Telemedicine [facility] [address] [place] [address] Alisia Ivory FNP [address] [place] [address] documented as of this encounter Visit Diagnoses Not on filedocumented in this encounter Additional Health Concerns Assessment Noted Time PHQ-9 Depression Total Score: 21 025 10:56 AM EST documented as of this encounter Care Teams Sales Order Administrator Relationship Specialty Start Date End Date Alisia Ivory FNP [address] [place] [address] PCP - General Family Medicine 12/10/21 documented as of this encounter
--- OUTSIDE RECORDS SUMMARY | 2025-02-28 16:05 | XMS_ITS | Clinical Summary ---
Author Organization [employer] Address [address] [place] [address] Care Team Providers Care Pointing Machine Operator Name Role Phone [facility] Primary Care Provider [phone] Allergies Active Allergy Reactions Criticality Noted Date [...] 60 capsule 11 02/21/20 25 026 Active cloNIDine (Catapres) 0.2 MG tabletIndicatio ns:Peripheral [...] to Pharmacy)) DULoxetine (Cymbalta) [address] capsuleIndicati ons:Chronic bilateral low back pain without sciatica TAKE ONE CAPSULE BY MOUTH EVERY DAY 90 capsule 3 01/12/20 25 025 Discontinued oxyCODONE (Roxicodone) 5 MG immediate release tabletIndicatio ns:Lytic bone lesion of hip Take 1 tablet (5 mg) by mouth every 6 (six) hours if needed for severe pain for up to 7 days. 28 tablet 02/21/20 25 025 Active Problems Problem Noted Date Diagnosed Date [...] Overview (10/15/2022): S/P femoral-femoral bypass graft 10/2021 [facility] Vascular. Sees Dr. Harris q. 6 months [...] with PEG scales at follow up visit [employer] [employer] contact up to date Depressive disorder 02/03/2021 Urinary incontinence 02/03/2021 Overview (10/15/2022): Hx of blood clot in R renal artery in 2017. Incontinent of urine since this time. Wears adult incontinence pads. Rx'd oxybutynin. Followed by [facility] urology Essential hypertension 12/04/2020 Overview (02/17/2024): Amlodipine [...] Encounters Date Type Department Care Team Description 02/28/2025 Telephone [facility] [address] [place] [address] Alisia Ivory FNP chart prep 02/24/2025 Refill [facility] [address] [place] [address] Alisia Ivory FNP Peripheral arterial disease 02/24/2025 Telephone [facility] [place] [address] [place] Call Back Request 02/22/2025 Telephone [facility] [address] Sara Mitchell [place] PCP message 02/20/2025 10:30 AM EST Office Visit [facility] [place] [address] DianelysAlisia amador [facility] Malignant neoplasm metastatic to bone (HCC) (Primary Dx); Lytic bone lesion of hip; Palpitations; Adjustment disorder with depressed mood; Encounter for vaccination; Encounter for immunization 02/20/2025 Travel 02/17/2025 Telephone [facility] [place] [address] Alisia Ivory FNP Chart Prep 02/07/2025 Orders Only [address] [place] [address] Jerri Salas MD 01/21/2025 Refill [facility] [place] [address] DianelysAlisia amador [facility] Chronic bilateral low back pain without sciatica 01/20/2025 Results [address]Up [address] [place] [address] Jerri Salas MD MR Hip w/o Contrast Right, PET CT WHOLE BODY 01/16/2025 Telephone [facility] [place] [address] DianelysAlisia amador FNP Results 01/13/2025 11:30 AM EDT Office Visit [facility] [place] [address] Jerri Salas MD Right hip pain (Primary Dx); SOB (shortness of breath) on exertion; Scalp lesion; Right foot pain; Peripheral arterial disease (CMS/HCC); Mild intermittent asthma in adult without complication; Deep vein thrombosis (DVT) of proximal lower extremity, unspecified chronicity, unspecified laterality (CMS/HCC); S/P aortobifemoral bypass surgery; Chronic anticoagulation; Screening for colon cancer; Elevated platelet count 01/13/2025 Travel 01/11/[address] [place] [address] [place] Nurse Triage 01/11/2025 Refill [facility] [address] [place] [address] Alisia Ivory, TRAIN SYSTEM OPERATOR Chronic bilateral low back pain without sciatica [...] with others, in a hotel, in a assisted, living outside on the street, on a [...] Info) Description 03/01/2025 11:30 AM EST Telemedicine [facility] [address] [place] [address] [facility] [address] [place] [address] Health Maintenance Due Date Last Done Comments [...] Anatomical Region Laterality Modality Computed Tomogra phy Jerri Salas MD IMG CT PROCEDURES Final Result * US Head Neck Soft Tissue (02/07/2025 1:19 PM EDT) Anatomical Region Laterality Modality Head, Neck Ultrasound 02/07/2025 1:19 PM EDT Narrative 02/07/2025 1:44 PM EDT [address] [address] Ultrasound Report Signed Patient: Yael Gudino MR#: [id number] : 1965 Acct:[id number] Age/Sex: 59 / F ADM Date: 02/07/25 Loc: HO.US Attending Dr: Jerri Salas MD Ordering Physician: Jerri Salas Date of Service: 02/07/25 Procedure(s): US soft tiss head and/or neck Accession Number(s): [id number] cc: Jerri Salas; [facility] Reason for Exam: 8MM NON TENDER FIXED [...] 02/07/25 1342 DD/ 1319 TD/TT: 02/07/25 1323 Stunt Performer: Procedure Note Donotuseinterpreter, Image - 02/07/[address] [address] Ultrasound Report Signed Patient: Yael Gudino MMR#: [id number] : 1965Acct:[id number] Age/Sex: 59 / FADM Date: 02/07/25 Loc: HO.US Attending Dr: Jerri Salas MD Ordering Physician: Jerri Salas Date of Service: 02/07/25 Procedure(s): US soft tiss head and/or neck Accession Number(s): [id number] cc: Jerri Salas; [facility] Reason for Exam: 8MM NON TENDER FIXED [...] 02/07/25 1342 DD/ 1319 TD/TT: 02/07/25 1323 Stunt Performer: Jerri Salas MD IMG US PROCEDURES Edited Resul t - Final * MR Hip w/o Contrast Right (01/18/2025 3:15 PM EDT) Anatomical Region Laterality Modality Magnetic Resonan ce 01/18/2025 3:15 PM EDT Narrative 01/18/2025 4:29 PM EDT [address] [address] Magnetic Resonance Report Signed Patient: Yael Gudino MR#: [id number] : 1965 Acct:[id number] Age/Sex: 59 / F ADM Date: 01/18/25 Loc: HO.MRI Attending Dr: Jerri Salas MD Ordering Physician: Jerri Salas Date of Service: 01/18/25 Procedure(s): MR hip RT wo con Accession Number(s): [id number] cc: Jerri Salas; Alisia Ivory [facility] Reason for Exam: PAIN EXAMINATION: MRI of [...] and proximal hamstring tendons. Electronically signed by: Chirstian Delgadillo MD 01/18/2025 04:26 PM EDT Dictated By: Christian Delgadillo MD Signed By: <Electronically signed by Christian Delgadillo MD in OV> 01/18/25 1626 DD/ 1515 TD/TT: 01/18/25 1530 Stunt Performer: Procedure Note Donotuseinterpreter, Image - 01/18/[address] [address] Magnetic Resonance Report Signed Patient: Yael Gudino [facility]#: [id number] : 1965Acct:[id number] Age/Sex: 59 / FADM Date: 01/18/25 Loc: HO.MRI Attending Dr: Jerri Salas MD Ordering Physician: Jerri Salas Date of Service: 01/18/25 Procedure(s): MR hip RT wo con Accession Number(s): [id number] cc: Jerri Salas; Alisia Ivory TRAIN SYSTEM OPERATOR Reason for Exam: PAIN EXAMINATION: MRI of [...] 01/18/25 1626 DD/ 1515 TD/TT: 01/18/25 1530 Stunt Performer: us Jerri Salas MD IM MRI PROCEDURES Final Resul t * (ABNORMAL) CBC auto differential (01/13/2025 12:30 PM EDT) White Blood Count 13.9(H) 4.8 - 10.8 X10*3/uL [facility] Red Blood Count 4.89 4.20 - 5.50 X10*6/uL [facility] Hemoglobin 14.3 12.0 - 16.0 g/dl [facility] Hematocrit 43.6 37.0 - 47.0 % [facility] Mean Corpuscular Volume 89.2 80.0 - 98.0 fL [facility] Mean Corpuscular Hemoglobin 29.2 27.0 - 33.0 pg [facility] Mean Corpuscular HGB Conc 32.8 31.0 - 35.0 g/dl [facility] Red Cell Distribution Width 13.2 11.0 - 16.0 % [facility] Platelet Count 428(H) 160 - 400 X10*3/uL [facility] Mean Platelet Volume 9.0(L) 9.4 - 12.3 fL [facility] Neutrophils Percent Auto 61.5 45 - 73 % [facility] Imm Gran Pct Auto 0.5(H) 0.0 - 0.4 % [facility] Lymphocytes Percent Auto 29.7 20 - 40 % [facility] Monocytes Percent Auto 6.3 2 - 11 % [facility] Eosinophils Percent Auto 1.4 0 - 4 % [facility] Basophils Percent Auto 0.6 0 - 2 % [facility] NRBC Pct Auto 0.0 0.0 - 0.2 /100WBC [facility] Neutrophils Absolute Auto 8.6(H) 2.0 - 8.3 x10*3/uL [facility] Imm Gran Abs Auto 0.07(H) 0.00 - 0.03 X10*3/uL [facility] Lymphocytes Absolute Auto 4.1 1.2 - 4.9 X10*3/uL [facility] Monocytes Absolute Auto 0.9 0.1 - 1.2 X10*3/uL [facility] Eosinophils Absolute Auto 0.2 0.0 - 0.4 X10*3/uL [facility] Basophils Absolute Auto 0.1 0.0 - 0.2 X10*3/uL [facility] NRBC Abs Auto 0.000 0.0 - 0.012 X10*3/uL [facility] Blood Venous blood specimen / Unknown 01/13/2025 12:30 PM EDT 01/13/2025 12:58 PM EDT Jerri Salas MD LAB BLOOD ORDERABLES Final Res ult Performing Organization Address City/[facility]/ZIP Co de Phone Number [facility] [address] [place] [address] [phone] * (ABNORMAL) Comprehensive Metabolic Panel (01/13/2025 12:30 PM EDT) Sodium 140 135 - 145 mmol/L [facility] Potassium 4.3 3.3 - 5.1 mmol/L [facility] Chloride 104 96 - 108 mmol/L [facility] Carbon Dioxide 27 22 - 29 mmol/L [facility] Anion Gap 13 12 - 20 [facility] Urea Nitrogen (BUN) 9 9 - 16 mg/dL [facility] Creatinine, Serum 0.67 0.5 - 1.4 mg/dL [facility] Estimated Glomerular Filt Rate >60 [facility] Comment:Chronic Kidney Disea se: Estimated GFR < 60 mL/min/1.64l2Ubivbw Kidney Disease: Estimated GFR < 15 mL/min/1.73m2 Glucose 87 60 - 115 mg/dL [facility] Calcium 9.4 8.4 - 10.2 mg/dL [facility] Bilirubin, Total 0.3 0.0 - 1.0 mg/dL [facility] Aspartate Amino Transferase 17 5 - 31 U/L [facility] Alanine Aminotransferase 11 0 - 31 U/L [facility] Total Protein 8.0 6.5 - 8.0 g/dL [facility] Albumin Level 4.2 3.5 - 5.0 g/dL [facility] Alkaline Phosphatase 179(H) 39 - 117 U/L [facility] Blood Venous blood specimen / Unknown 01/13/2025 12:30 PM EDT 01/13/2025 1:11 PM EDT Jerri Salas MD LAB BLOOD ORDERABLES Final Res ult [facility] [address] [place] [address] [phone] * XR Hip 2 or 3 Views Right (01/13/2025 12:25 PM EDT) Anatomical Region Laterality Modality Lower Extremities, Hip Right Radiograp hic Imaging 01/13/2025 12:2 5 PM EDT Narrative 01/13/2025 12:44 PM EDT [address] [address] XRay Report Signed Patient: Yael Gudino MR#: [id number] : 1965 Acct:[id number] Age/Sex: 59 / F ADM Date: 01/13/25 Loc: HO.HHCX Attending Dr: Jerri Salas MD Ordering Physician: Jerri Salas Date of Service: 01/13/25 Procedure(s): XR hip RT min 2V Accession Number(s): [id number] cc: Jerri Salas Reason for Exam: pain [...] 01/13/25 1241 DD/ 1225 TD/TT: 01/13/25 1226 Stunt Performer: Procedure Note Donotuseinterpreter, Image - 01/13/[address] [address] XRay Report Signed Patient: Yael Gudino MMR#: [id number] : 1965Acct:[id number] Age/Sex: 59 / FADM Date: 01/13/25 Loc: HO.HHCX Attending Dr: Jerri Salas MD Ordering Physician: Jerri Salas Date of Service: 01/13/25 Procedure(s): XR hip RT min 2V Accession Number(s): [id number] cc: Jerri Salas Reason for Exam: pain [...] MD 01/13/2025 12:41 PM EDT Dictated By: Elina Bauer MD Signed By: <Electronically signed by Elian Bauer MD in OV> 01/13/25 1241 DD/ 1225 TD/TT: 01/13/25 1226 Stunt Performer: Jerri Salas MD IMG XR PROCEDURES Final Result * (ABNORMAL) Hepatitis Panel, General (10/13/2022 11:35 AM EDT) Hepatitis A Antibody Total REACTIVE( A) NON-REACT LEONELA [facility] Comment: For additional information, please refer to http://eMoneyUnion.Nanosys/faq/CEU086 (This link is being provided for informational/ educational purposes only.) Hepatitis B Surface Antibody QL NON-REACT LEONELA NON-REACT LEONELA [facility] Hepatitis B Surface Ag NON-REACT LEONELA NON-REACT LEONELA [facility] Comment: For additional information, please refer to http://eMoneyUnion.Nanosys/faq/DQB842 (This link is being provided for informational/ educational purposes only.) Hepatitis B Core Antibody Total NON-REACT LEONELA NON-REACT LEONELA [facility] Comment: For additional information, please refer to http://Xyleme/faq/HZM351 (This link is being provided for informational/ educational purposes only.) Hepatitis C Antibody NON-REACT LEONELA NON-REACT LEONELA [facility] Comment: HCV antibody was non-reactive. There is no laboratory evidence of HCV infection. In most cases, no further action is required. However, if recent HCV exposure is suspected, a test for HCV RNA (test code 08237) is suggested. For additional information please refer to http://Xyleme/faq/AGK10s8 (This link is being provided for informational/ educational purposes only.) 10/13/2022 11:3 5 AM EDT 10/13/2022 11:36 AM EDT Narrative [facility] - 10/14/2022 5:35 PM EDT FASTING:NO FASTING: NO [facility] TRAIN SYSTEM OPERATOR LAB BLOOD ORDERABLES Final Re sult [facility] [address], [place] [address] [facility] [address] [place] [address] * Mammography Report 1 (02/13/2022 8:20 AM EDT) Anatomical Region Laterality Modality Breast Bilateral Mammography 02/13/2022 8:20 AM EDT Narrative 02/17/2022 9:44 AM EDT Refer to the Notes tab for result details [facility] Procedure: Mammography Report 1 Procedure Note ProviderNishi MD - 07/13/2022 Refer to the Notes tab for result details [facility] Procedure: Mammography Report 1 [facility] TRAIN SYSTEM OPERATOR IMG BI PROCEDURES Final Resul t * [...] along with historic and current clinical information. Vacation Planner : SEE COMMENT [facility] Comment: SILVIANO CAMPUZANO(ASCP) CT screening location: [place] [address] Interpretation/R esult: Negative for intraepithelial lesion or malignancy. [facility] LMP: NONE [facility] Prev. BX: NONE [facility]EN [facility] Prev. PAP: NONE [facility]EN [facility] SOURCE: None given [facility] Statement Of Adequacy: SEE COMMENT [facility] Comment: Satisfactory for evaluation. Endocervical/transformation zone component present. Age and/or menstrual status not provided 01/04/2021 Raina Cantu NP LAB PATHOLOGY ORDERABLES Final Result [facility] [address] * HPV mRNA E6/E7 (01/04/2021 12:00 AM EDT) HPV nRNA E6/E7 Not Detected Not Detected [facility] Comment: Methodology: Data Deliverables Manager-Mediated Amplification This assay detects E6/E7 viral messenger RNA (mRNA) from 14 high-risk HPV types (16,18,31,33,35,39,45,51,52,56,58,59,66,68). The analytical performance characteristics of this assay have been determined by [facility]. The modifications have not been cleared or approved by the FDA. This assay has been validated pursuant to the CLIA regulations and is used for clinical purposes. For additional information, please refer to http://education.Nanosys/faq/MXP482i1 (This link if provided for information/ educational purposes only.) 01/04/2021 us Raina Cantu SELF PROPELLED MINING MACHINE OPERATOR LAB BLOOD ORDERABLES Final Resu lt [facility] [address] * (ABNORMAL) LIPID PANEL, STANDARD (10/05/2020 [...] about testing for familial hypercholesterolemia, please call [facility] at [phone].INFO. Marvin T, et al. J National Lipid [...] LDL-C. Charles GARCÍA et al. LESLEY. 2013;310(19): 9327-7643 (http://education.[employer].ERMS Corporation/faq/TIO314) Non-HDL Cholesterol 224(H) <130 mg/dL (calc) [facility] [...] ORDERABLES Final Re sult Performing Organization Address [facility] de Phone Number [facility] [address] [place] [address], * HIV 1/2 ANTIGEN/ANTIBODY,FOURTH GENERATION W/RFL (10/05/2020 10:31 AM EDT) HIV-1/2 ANTIGEN AND ANTIBODIES, 4TH GENERATION W/ REFLEX NON-REACT LEONELA NON-REACT LEONELA [facility] Comment: HIV-1 antigen and HIV-1/HIV-2 [...] purpose. For additional information please refer to http://education.panpan.ERMS Corporation/faq/ETP060 (This link is being provided for informational/ educational purposes only.) The performance of this assay has not been clinically validated in patients less than 2 years old. 10/05/2020 10:3 1 AM EDT us Mary Martin MD LAB BLOOD ORDERABLES Final Re sult Performing Organization Address [facility]/ZIP Co de Phone Number [facility] [address] [place] [address] from Last 3 Months or Most Recently Relevant to Health Maintenance Insurance [place] [phone] * Guarantor: Yael Gudino Account Type Relation to Patient Date of Phone Billing Address Personal/Family Self [address] Care Teams Pointing Machine Operator Relationship Specialty Start Date End Date Alisia Ivory FNP [address] [place], [place] PCP - General Family Medicine 12/10/21
--- OUTSIDE RECORDS SUMMARY | 2025-02-28 16:05 | XMS_ITS | Encounter Summary ---
Author Organization [employer] Address [address] [facility] 7[address] [place] [address] Care Team Providers Care Professor Of Visual Arts Name Role Phone [facility] Primary Care Provider [phone] Reason for Visit * Reason Comments Med Refill Encounter Details Date Type Department Care Team ([facility] st Contact Info) Description 02/24/2025 Refill [facility] [address] [place], [place] [phone] [facility] [address] [place] [address] Peripheral arterial disease Social History Tobacco Use [...] Info) Description 03/01/2025 11:30 AM EST Telemedicine [facility] [address] [place] [address] Alisia Ivory [facility] [address] [place] [address] documented as of this encounter Visit Diagnoses Diagnosis Peripheral arterial disease Unspecified peripheral vascular disease documented in this encounter Additional Health Concerns Assessment Noted Time PHQ-9 Depression Total Score: 21 025 10:56 AM EST documented as of this encounter Care Teams Professor Of Visual Arts Relationship Specialty Start Date End Date Alisia Ivory FNP [address] [place] [address] PCP - General Family Medicine 12/10/21 documented as of this encounter
--- OUTSIDE RECORDS SUMMARY | 2025-02-28 16:05 | XMS_ITS | Encounter Summary ---
Author Organization [employer] Address [address] [facility] 7 [place] [address] Care Team Providers Care Principal Statistical Programmer Name Role Phone [facility] Primary Care Provider [phone] Reason for Visit * Reason Onset Date Comments Call Back Request 02/24/2025 Encounter Details Date Type Department Care Team ([facility] st Contact Info) Description 02/24/2025 Telephone [facility] [address] [place], [place] [phone] [facility] [address] [place] [address] Call Back Request Social History Tobacco Use [...] 12:09 PM EST TC placed to patient [phone] in regards to below message. Patient reports she applied to [facility] in [place] and they need her medical records/problem list. Patient was advised she will need to come to to sign a consent for her medical records/problem list to be sent to [facility]. Patient also reports PCP was to call [...] requesting a call back from nurse regarding [facility] home visit. Pt wanted to speak more about it with a nurse. Contact pt at [phone] documented in this encounter Plan of Treatment Upcoming Encounters Date Type Department Care Team (Late st Contact Info) Description 03/01/2025 11:30 AM EST Telemedicine [facility] [address] [place] [address] Alisia Ivory FNP [address] [place] [address] documented as of this encounter Visit Diagnoses Not on filedocumented in this encounter Additional Health Concerns Assessment Noted Time PHQ-9 Depression Total Score: 21 025 10:56 AM EST documented as of this encounter Care Teams Principal Statistical Programmer Relationship Specialty Start Date End Date Alisia Ivory FNP [address] [place] [address] PCP - General Family Medicine 12/10/21 documented as of this encounter
== END 2025-02-28 14:23 | disposition home or self-care (01) ==
LOC: HO.MAMMO 14:22
PROVIDERS: PCP General Practice; Visit Provider Registered Nurse
DX: Z12.31 Encounter for screening mammogram for malignant neoplasm of breast (principal)
CPT/HCPCS: 77063; 77067

== ENCOUNTER → 2025-02-28 14:45 | Outpatient (BNV) | payer MEDICARE, MEDICAID, SELFPAY | PROVIDERS: PCP General Practice; Visit Provider Internal Medicine | DX: Z12.31 Encounter for screening mammogram for malignant neoplasm of breast (principal) | CPT/HCPCS: 77063; 77067 ==

== ENCOUNTER 2025-03-03 11:26 | Day surgery (SDC) | payer MEDICARE, MEDICAID, SELFPAY ==
--- OUTSIDE RECORDS SUMMARY | 2025-02-27 10:15 | XMS_ITS | Encounter Summary ---
Author Organization [employer] Address [address] [facility] 7 [place] [address] Care Team Providers Care Epic Trainer Name Role Phone [facility] Primary Care Provider [phone] Reason for Visit * Reason Onset Date Comments Med Refill 10/14/2023 Encounter Details Date Type Department Care Team ([facility] st Contact Info) Description 10/14/2023 Telephone [facility] MEDICINE [address] [place], [place] [phone] [facility] [address] [place] [address] Med Refill Social History Tobacco Use Types [...] with others, in a hotel, in a custodial, living outside on the street, on a [...] Preferred Pharmacy [facility] documented in this encounter Plan of Treatment Upcoming Encounters Date Type Department Care Team (Late st Contact Info) Description 03/01/2025 11:30 AM EST Telemedicine [facility] MEDICINE [address] [place], [place] [phone] [place], [facility] [address] [place], [place] [phone] documented as of this encounter Visit Diagnoses Not on filedocumented in this encounter Additional Health Concerns Assessment Noted Time PHQ-9 Depression Total Score: 0 11/20/19 23 11:22 AM EDT documented as of this encounter Care Teams Epic Trainer Relationship Specialty Start Date End Date Alisia Ivory FNP [address] [place] [address] PCP - General Family Medicine 12/10/21 documented as of this encounter
--- OUTSIDE RECORDS SUMMARY | 2025-02-27 10:15 | XMS_ITS | Encounter Summary ---
Author Organization [employer] Address [address] [facility] 7t [place] [address] Care Team Providers Care Operations Research Scientist Name Role Phone [facility] Primary Care Provider [phone] Reason for Visit * Reason Comments Med Refill Encounter Details Date Type Department Care Team ([facility] st Contact Info) Description 02/24/2025 Refill [facility] MEDICINE [address] [place], [place] [phone] [facility] [address] [place], [place] [phone] Peripheral arterial disease Social History Tobacco Use Types Packs/Day Years Used Date Smoking Tobacco: Former Cigarettes 0.5 10 Q uit: 11/2023 Smokeless Tobacco: Never Alcohol Use Standard Drinks/Week Comments Never 0 (1 standard drink = 0.6 oz pur e alcohol) Depression Answer Date Recorded Patient Health Questionnaire-9 Score 21 02/20/2025 Patient Health Questionnaire-9 Score 21 02/20/2025 Last PHQ-9: Questionnaire Data Not on file 1 04/22/2024 Housing Stability Answer Date Recorded What is your housing situation today? I do not have housing (Staying with others, in a hotel, in a penitentiary, living outside on the street, on a [...] Answer Date Recorded Patient Health Questionnaire-2 Score 6 02/20/2025 Internet Access Answer Date Recorded Internet Access [...] Info) Description 03/01/2025 11:30 AM EST Telemedicine [facility] MEDICINE [address] [place] [address] Alisia Ivory [facility] [address] [place] [address] documented as of this encounter Visit Diagnoses Diagnosis Peripheral arterial disease Unspecified peripheral vascular disease documented in this encounter Additional Health Concerns Assessment Noted Time PHQ-9 Depression Total Score: 21 025 10:56 AM EST documented as of this encounter Care Teams Operations Research Scientist Relationship Specialty Start Date End Date Alisia Ivory FNP [address] [place] [address] PCP - General Family Medicine 12/10/21 documented as of this encounter
--- OUTSIDE RECORDS SUMMARY | 2025-02-27 10:15 | XMS_ITS | Encounter Summary ---
Author Organization [employer] Address [address] [facility] 7t [place] [address] Care Team Providers Care Calender Worker Helper Name Role Phone [place] VEGETABLE INSPECTOR Primary Care Provider [phone] Reason for Visit * Reason Onset Date Comments PCP message 02/22/2025 Encounter Details Date Type Department Care Team ([facility] st Contact Info) Description 02/22/2025 Telephone [facility] MEDICINE [address] [place] [address] Sara Caba MA PCP message Social History Tobacco Use Types Packs/Day Years [...] with others, in a hotel, in a residential, living outside on the street, on a [...] encounter Miscellaneous Notes * Telephone Encounter - Sara Caba MA - 02/22/2025 3:20 PM EST TC call was made regarding message from pcp, unable to contact pt. Mailbox is full. If pt returns call, please schedule Tele appointment in a week from today. * Telephone Encounter - Sara Caba MA - 02/22/2025 3:20 PM EST ----- Message from Alisia [place] sent at 02/22/2025 9:13 AM EST ----- Hi Myriam! Can you schedule her for a follow up )tele) in 1 week for chroic pain? OK to double book documented in this encounter Plan of Treatment Upcoming Encounters Date Type Department Care Team (Late st Contact Info) Description 03/01/2025 11:30 AM EST Telemedicine [facility] MEDICINE [address] [place] [address] [place] F[place] [address] [place] [address] documented as of this encounter Visit Diagnoses Not on filedocumented in this encounter Additional Health Concerns Assessment Noted Time PHQ-9 Depression Total Score: 21 025 10:56 AM EST documented as of this encounter Care Teams Calender Worker Helper Relationship Specialty Start Date End Date Alisia Ivory FNP [address] [place] [id number] PCP - General Family Medicine 12/10/21 documented as of this encounter
--- OUTSIDE RECORDS SUMMARY | 2025-02-27 10:15 | XMS_ITS | Clinical Summary ---
Author Organization [employer] Address [address] [facility] 7[address] [place] [address] Care Team Providers Care Cleaning Attendant Name Role Phone [facility] Primary Care Provider [phone] Allergies Active Allergy Reactions Criticality Noted Date Comments Codeine 10/05/2020 Other reaction(s): Syncope Heparin Headache 05/20/2024 Other Reaction(s): Heparin therapy Lisinopril 10/05/2020 Other reaction(s): Facial swelling Medications atorvastatin (Lipitor) 40 MG tablet Take 1 tablet by mouth at bed time. 11/27/19 22 Active albuterol 108 (90 Base) MCG/ACT inhalerIndicati ons:Mild intermittent asthma in adult without complication Inhale 2 puffs every 6 (six) hours if needed for wheezing. 18 g 11 05/20/19 25 026 Active Skin Protectants, Misc. (eucerin) creamIndication s:Peripheral arterial disease Apply topically if needed for dry skin. 99 g 3 05/20/19 25 026 Active amLODIPine (Norvasc) 10 MG tablet TAKE 1 TABLET BY MOUTH AT BEDTIME. 90 tablet 1 11/23/19 25 Active docusate sodium (Colace) 100 MG capsule TAKE ONE CAPSULE BY MOUTH TWICE A DAY 180 capsule 3 01/12/20 25 Active Krysten Protect Moisture Barrier 12 % cream APPLY TOPICALLY IF NEEDED FOR DRY SKIN. 05/23/19 25 Active Diclofenac Sodium 1 % gelIndications: Right foot pain Apply topically to affected areas twice daily 150 g 3 01/17/20 25 Active aspirin 81 MG EC tabletIndicatio ns:Peripheral arterial disease TAKE 1 TABLET BY MOUTH EVERY DAY 90 tablet 3 01/17/20 25 Active budesonide-form oterol (Symbicort) 160-4.5 MCG/ACT inhalerIndicati ons:Mild intermittent asthma in adult without complication 2 puffs every 4-6 hours as needed for cough or wheeze 1 each 01/17/20 25 Active cyclobenzaprine (Flexeril) 10 MG tabletIndicatio ns:Chronic bilateral low back pain without sciatica TAKE 1 TABLET BY MOUTH IF NEEDED IN THE MORNING, AT NOON, AND AT BEDTIME FOR MUSCLE SPASMS; ((TAKE 1 TABLET 3 TIMES A DAY NEEDED)). 90 tablet 3 01/24/20 25 Active gabapentin (Neurontin) 300 MG capsuleIndicati ons:Lytic bone lesion of hip TAKE 1 OR 2 CAPSULES BY MOUTH 3 TIMES A DAY 180 capsule 3 02/21/20 25 Active DULoxetine (Cymbalta) [address] capsuleIndicati ons:Lytic bone lesion of hip Take 2 capsules (120 mg) by mouth Once per day. Do not crush or chew. 60 capsule 11 02/21/20 25 026 Active oxyCODONE (Roxicodone) 5 MG immediate release tabletIndicatio ns:Lytic bone lesion of hip Take 1 tablet (5 mg) by mouth every 6 (six) hours if needed for severe pain for up to 7 days. 28 tablet 02/21/20 25 025 Active cloNIDine (Catapres) 0.2 MG tabletIndicatio ns:Peripheral arterial disease TAKE ONE TABLET BY MOUTH DAILY AT BEDTIME 90 tablet 3 02/25/20 25 Active Eliquis 5 MG tabletIndicatio ns:Peripheral arterial disease TAKE ONE TABLET BY MOUTH EVERY 12 HOURS 60 tablet 11 02/25/20 25 Active apixaban (Eliquis) 5 MG tabletIndicatio ns:Peripheral arterial disease Take 1 tablet (5 mg) by mouth every 12 (twelve) hours. 60 tablet 11 02/17/20 24 025 Discontinued cloNIDine (Catapres) 0.2 MG tabletIndicatio ns:Peripheral arterial disease Take 1 tablet (0.2 mg) by mouth at bedtime. 90 tablet 3 02/17/20 24 025 Discontinued gabapentin (Neurontin) 300 MG capsuleIndicati ons:Chronic bilateral low back pain without sciatica TAKE 1 OR 2 CAPSULES BY MOUTH 3 TIMES A DAY. 180 capsule 3 01/12/20 25 025 Discontinued(Re order (will not trigger notification to Pharmacy)) DULoxetine (Cymbalta) [address] Joseph ons:Chronic bilateral low back pain without sciatica TAKE ONE CAPSULE BY MOUTH EVERY DAY 90 capsule 3 01/12/20 25 025 Discontinued Active Problems Problem Noted Date Diagnosed [...] Overview (10/15/2022): S/P femoral-femoral bypass graft 10[place]20[place] [facility] [place]. Se[place] Dr. Harris q. 6 months [...] with PEG scales at follow up visit [employer]ICE PRESIDENT contact up to date Depressive disorder 02/03/2021 Urinary incontinence 02/03/2021 Overview (10/15/2022): Hx of blood clot in R renal artery in 2017. Incontinent of urine since this time. Wears adult incontinence pads. Rx'd oxybutynin. [place] [facility] [place] Essential hypertension 12/04/2020 Overview (02/17/2024): Amlodipine [...] Encounters Date Type Department Care Team Description 02/24/2025 Refill [facility] [address] [place] [address] Alisia Ivory FNP Peripheral arterial disease 02/24/2025 Telephone [facility] [address] [place] [address] Alisia Ivory FNP Call Back Request 02/22/2025 Telephone [facility] [place] [address] Sara Mitchell MA PCP message 02/20/2025 10:30 AM EST Office Visit [facility] [place] [address] Alisia Ivory FNP Malignant neoplasm metastatic to bone (HCC) (Primary Dx); Lytic bone lesion of hip; Palpitations; Adjustment disorder with depressed mood; Encounter for vaccination; Encounter for immunization 02/20/2025 Travel 02/17/2025 Telephone [facility] [place] [address] Alisia Ivory FNP Chart Prep 02/07/2025 Orders Only [facility] [place] [address] Jerri Salas MD 01/21/2025 Refill [facility] [place] [address] Alisia Ivory FNP Chronic bilateral low back pain without sciatica 01/20/2025 Results Follow-Up [facility] [place] [address] Jerri Salas MD MR Hip w/o Contrast Right, PET CT WHOLE BODY 01/16/2025 Telephone [facility] [place] [address] Alisia Ivory FNP Results 01/13/2025 11:30 AM EDT Office Visit [facility] [place] [address] Jerri Salas MD Right hip pain (Primary Dx); SOB (shortness of breath) on exertion; Scalp lesion; Right foot pain; Peripheral arterial disease (CMS/HCC); Mild intermittent asthma in adult without complication; Deep vein thrombosis (DVT) of proximal lower extremity, unspecified chronicity, unspecified laterality (CMS/HCC); S/P aortobifemoral bypass surgery; Chronic anticoagulation; Screening for colon cancer; Elevated platelet count 01/13/2025 Travel 01/11/2025 Telephone [facility] [place] [address] Alisia Ivory FNP Nurse Triage 01/11/[address] [place] [address] [place], [place], HEEL CEMENTER MACHINE Chronic bilateral low back pain without sciatica from Last 3 Months Immunizations Immunization Administration Dates Next Due Hep B, adult 05/11/2023,11/24/2022,10/24/2022 Influenza injectable quadriv alent preservative free 01/31/2021 Influenza, seasonal, injecta ble, preservative free 02/20/2025 Moderna Covid-19 Vaccine 12+ 11/19/2021, 07/03/2021,10/03/2020,2020 Pfizer Covid-19 Vaccine 12+ 02/20/2025 Pneumococcal Conjugate PCV 20 11/19/2022 Tdap 07/03/2021,10/11/2007 [...] Sign Reading Time Taken Comments Blood Pressure 118/78 02/20/2025 10:51 AM EST Pulse 93 02/20/2025 10:14 AM EST Temperature 35.5 C (95.9 F) 02/20/2025 10:14 AM EST Respiratory Rate 24 02/20/2025 10:14 AM EST Oxygen Saturation 98% 02/20/2025 10:14 AM EST Inhaled Oxygen Concentration - - Weight 77 kg (169 lb 11.2 oz) 02/20/2025 10:14 A M EST Height 162.6 cm (5' 4 ) 02/20/2025 10:14 AM EST Body Mass Index 29.13 02/20/2025 10:14 AM EST Plan of Treatment Upcoming Encounters Date Type Department Care Team (Late st Contact Info) Description 03/01/2025 11:30 AM EST Telemedicine [facility] [address] [place] [address] [facility] [address] [place] [address] Health Maintenance Due Date Last Done Comments CT Colonography 1965 Colonoscopy 1967 Colorectal Cancer Screening 1965 FIT DNA/Cologuard 1967 FIT 1967 FOBT 1965 Sigmoidoscopy 1965 Mammogram 02/13/2023 02/13/2022, 02/04/2021 SDOH Screening 05/10/2025 05/10/2024 Alcohol/Substance Use Screening 05/20/2025 05/20/2024 Depression Monitoring 08/20/2025 02/20/2025, 025 Lipid Panel 10/05/2025 10/05/2020 Cervical Cancer Screening 01/04/2026 HPV/Cotest 01/04/2026 01/04/2021 Pap Smear 01/04/2026 01/04/2021 Disability Screening 02/20/2026 02/20/2025 Tobacco Screening 02/22/2026 02/22/2025 DTaP/Tdap/Td Vaccines (3 - Td or Tdap) 07/04/2031 07/03/2021, 10/11/2007 RSV Patients and Patients Aged 60 years or older (1 - 1-dose 75+ series) 08/22/2042 HIV Screening Completed 10/05/2020 Zoster Vaccines Completed 10/18/2021, 08/17/2021 Hepatitis C Screening Completed 10/13/2022, 021 Pneumococcal Vaccine: 50+ Years Completed 11/19/2022 Hepatitis B Vaccines Completed 05/11/2023, 11/24/2022, 10/24/2022 COVID-19 Vaccine Completed 02/20/2025, 05/2021, 07/03/2021, Additional history exists Influenza Vaccine Completed 02/20/2025, 01/31/2021 HIB Vaccines Aged Out No longer eligi [...] Procedure Name Priority Date/Time Associated Diagnosis Comments PET CT WHOLE BODY STAT 02/12/2025 Lytic bone lesion of hip US HEAD NECK SOFT TISSUE Routine 02/07/2025 [...] Recently Relevant to Health Maintenance Results * PET CT WHOLE BODY (02/12/2025) Anatomical Region Laterality Modality Computed Tomogra phy us Jerri Salas MD IMG CT PROCEDURES Final Result * US Head Neck Soft Tissue (02/07/2025 1:19 PM EDT) Anatomical Region Laterality Modality Head, Neck Ultrasound 02/07/2025 1:19 PM EDT Narrative 02/07/2025 1:44 PM EDT [address] [address] Ultrasound Report Signed Patient: Yael Gudino MR#: [id number] : 1965 Acct:[id number] Age/Sex: 59 / F ADM Date: 02/07/25 Loc: HO.US Attending Dr: Jerri Salas MD Ordering Physician: Jerri Salas Date of Service: 02/07/25 Procedure(s): US soft tiss head and/or neck Accession Number(s): [id number] cc: Jerri Salas; [facility] Reason for Exam: 8MM NON TENDER [...] 02/07/25 1342 DD/ 1319 TD/TT: 02/07/25 1323 Founder Ceo & President: Procedure Note Donotuseinterpreter, Image - 02/07/[address] [address] Ultrasound Report Signed Patient: Yael Gudino MMR#: [id number] : 1965Acct:[id number] Age/Sex: 59 / FADM Date: 02/07/25 Loc: HO.US Attending Dr: Jerri Salas MD Ordering Physician: Jerri Salas Date of Service: 02/07/25 Procedure(s): US soft tiss head and/or neck Accession Number(s): [id number] cc: Jerri Salas; [facility] HEEL CEMENTER MACHINE Reason for Exam: 8MM NON TENDER FIXED [...] 02/07/25 1342 DD/ 1319 TD/TT: 02/07/25 1323 Founder Ceo & President: us Jerri Salas MD IMG US PROCEDURES Edited Resul t - Final * MR Hip w/o Contrast Right (01/18/2025 3:15 PM EDT) Anatomical Region Laterality Modality Magnetic Resonan ce 01/18/2025 3:15 PM EDT Narrative 01/18/2025 4:29 PM EDT [place] [address] Magnetic Resonance Report Signed Patient: Yael Gudino MR#: [id number] : 1965 Acct:[id number] Age/Sex: 59 / F ADM Date: 01/18/25 Loc: HO.MRI Attending Dr: Jerri Salas MD Ordering Physician: Jerri Salas Date of Service: 01/18/25 Procedure(s): MR hip RT wo con Accession Number(s): [id number] cc: Jerri Salas; [facility] HEEL CEMENTER MACHINE Reason for Exam: PAIN EXAMINATION: MRI of the right hip was performed without contrast TECHNIQUE: Multiplanar multisequence MR imaging through a lower extremity joint was performed without contrast INDICATION: Right hip pain Prior: X-ray on 01/13/2025 FINDINGS: Labrum:There is linear intermediate signal at the junction of labrum and acetabulum (coronal T2 fat-sat image 1428) concerning for tear. Articular Cartilage/Joint fluid: There [...] Christian Delgadillo MD 01/18/2025 04:26 PM EDT RP Dictated By: Christian Delgadillo MD Signed By: <Electronically signed by Christian Delgadillo MD in OV> 01/18/25 1626 DD/ 1515 TD/TT: 01/18/25 1530 Founder Ceo & President: Procedure Note Donotuseinterpreter, Image - 01/18/2025 [place] [address] Magnetic Resonance Report Signed Patient: Yael Gudino [facility]#: [id number] : 1965Acct:[id number] Age/Sex: 59 / FADM Date: 01/18/25 Loc: HO.MRI Attending Dr: Jerri Salas MD Ordering Physician: Jerri Salas Date of Service: 01/18/25 Procedure(s): MR hip RT wo con Accession Number(s): [id number] cc: Jerri Salas; [facility] Reason for Exam: PAIN EXAMINATION: MRI of the right hip was performed without contrast TECHNIQUE: Multiplanar multisequence MR imaging through a lower extremity joint was performed without contrast INDICATION: Right hip pain Prior: X-ray on 01/13/2025 FINDINGS: Labrum:There is linear intermediate signal at the junction of labrum and acetabulum (coronal T2 fat-sat image 14/28) concerning for tear. Articular Cartilage/Joint fluid: There [...] 01/18/25 1626 DD/ 1515 TD/TT: 01/18/25 1530 Founder Ceo & President: Jerri Salas MD [facility] [place] PROCEDURES Final Resul t * (ABNORMAL) CBC auto differential (01/13/2025 12:30 PM EDT) White Blood Count 13.9(H) 4.8 - 10.8 X10*3/uL [facility] Red Blood Count 4.89 4.20 - 5.50 X10*6/uL [facility] Hemoglobin 14.3 12.0 - 16.0 g/dl [facility] Hematocrit 43.6 37.0 - 47.0 % [facility] Mean Corpuscular Volume 89.2 80.0 - 98.0 fL [facility] Mean Corpuscular Hemoglobin 29.2 27.0 - 33.0 pg [facility] Mean Corpuscular HGB Conc 32.8 31.0 - 35.0 g/dl [facility] Red Cell Distribution Width 13.2 11.0 - 16.0 % [facility] Platelet Count 428(H) 160 - 400 X10*3/uL [facility] Mean Platelet Volume 9.0(L) 9.4 - 12.3 fL [facility] Neutrophils Percent Auto 61.5 45 - 73 % [facility] Imm Gran Pct Auto 0.5(H) 0.0 - 0.4 % [facility] Lymphocytes Percent Auto 29.7 20 - 40 % [facility] Monocytes Percent Auto 6.3 2 - 11 % [facility] Eosinophils Percent Auto 1.4 0 - 4 % [facility] Basophils Percent Auto 0.6 0 - 2 % [facility] NRBC Pct Auto 0.0 0.0 - 0.2 /100WBC [facility] Neutrophils Absolute Auto 8.6(H) 2.0 - 8.3 x10*3/uL [facility] Imm Gran Abs Auto 0.07(H) 0.00 - 0.03 X10*3/uL [facility] Lymphocytes Absolute Auto 4.1 1.2 - 4.9 X10*3/uL [facility] Monocytes Absolute Auto 0.9 0.1 - 1.2 X10*3/uL [facility] Eosinophils Absolute Auto 0.2 0.0 - 0.4 X10*3/uL [facility] Basophils Absolute Auto 0.1 0.0 - 0.2 X10*3/uL [facility] NRBC Abs Auto 0.000 0.0 - 0.012 X10*3/uL [facility] Blood Venous blood specimen / Unknown 01/13/2025 12:30 PM EDT 01/13/2025 12:58 PM EDT us Jerri Salas MD LAB BLOOD ORDERABLES Final Res ult Performing Organization Address [facility]/ZIP Co de Phone Number [facility] [address] [place] [address] [phone] * (ABNORMAL) Comprehensive Metabolic Panel (01/13/2025 12:30 PM EDT) Sodium 140 135 - 145 mmol/L [facility] Potassium 4.3 3.3 - 5.1 mmol/L [facility] Chloride 104 96 - 108 mmol/L [facility] Carbon Dioxide 27 22 - 29 mmol/L [facility] Anion Gap 13 12 - 20 [facility] Urea Nitrogen (BUN) 9 9 - 16 mg/dL [facility] Creatinine, Serum 0.67 0.5 - 1.4 mg/dL [facility] Estimated Glomerular Filt Rate >60 [facility] Comment:Chronic Kidney Disea se: Estimated GFR < 60 mL/min/1.78m1[place] Kidney Disease: Estimated GFR < 15 mL/min/1.73m2 Glucose 87 60 - 115 mg/dL [facility] Calcium 9.4 8.4 - 10.2 mg/dL [facility] Bilirubin, Total 0.3 0.0 - 1.0 mg/dL [facility] Aspartate Amino Transferase 17 5 - 31 U/L [facility] Alanine Aminotransferase 11 0 - 31 U/L [facility] Total Protein 8.0 6.5 - 8.0 g/dL [facility] Albumin Level 4.2 3.5 - 5.0 g/dL [facility] Alkaline Phosphatase 179(H) 39 - 117 U/L [facility] Blood Venous blood specimen / Unknown 01/13/2025 12:30 PM EDT 01/13/2025 1:11 PM EDT us Jerri Salas MD LAB BLOOD ORDERABLES Final Res ult Performing Organization Address [facility]/ZIP Co de Phone Number [facility] [address] [place] [address] [phone] * XR Hip 2 or 3 Views Right (01/13/2025 12:25 PM EDT) Anatomical Region Laterality Modality Lower Extremities, Hip Right Radiograp hic Imaging 01/13/2025 12:2 5 PM EDT Narrative 01/13/2025 12:44 PM EDT [facility] [address] [place] [address] XRay Report Signed Patient: Yael Gudino MR#: [id number] : 1965 Acct:[id number] Age/Sex: 59 / F ADM Date: 01/13/25 Loc: HO.HHCX Attending Dr: Jerri Salas MD Ordering Physician: Jerri Salas Date of Service: 01/13/25 Procedure(s): XR hip RT min 2V Accession Number(s): [id number] cc: Jerri Salas Reason for Exam: pain [...] 01/13/25 1241 DD/ 1225 TD/TT: 01/13/25 1226 Founder Ceo & President: Procedure Note Donotuseinterpreter, Image - 01/13/2025 [facility] [address] [place] [address] XRay Report Signed Patient: Yael Gudino MMR#: [id number] : 1965Acct:[id number] Age/Sex: 59 / FADM Date: 01/13/25 Loc: HO.HHCX Attending Dr: Jerri Salas MD Ordering Physician: Jerri Salas Date of Service: 01/13/25 Procedure(s): XR hip RT min 2V Accession Number(s): [id number] cc: Jerri Salas Reason for Exam: pain [...] 01/13/25 1241 DD/ 1225 TD/TT: 01/13/25 1226 Founder Ceo & President: Jerri Salas MD IMG XR PROCEDURES Final Result * (ABNORMAL) Hepatitis Panel, General (10/13/2022 11:35 AM EDT) Hepatitis A Antibody Total REACTIVE( A) NON-REACT LEONELA [facility] Comment: For additional information, please refer to http://education.Stylesight.Aethon/faq/ODH461 (This link is being provided for informational/ educational purposes only.) Hepatitis B Surface Antibody QL NON-REACT LEONELA NON-REACT LEONELA [facility] [employer] Hepatitis B Surface Ag NON-REACT LEONELA NON-REACT LEONELA [facility] [employer] Comment: For additional information, please refer to http://[facility].Kicksend/faq/BCG177 (This link is being provided for informational/ educational purposes only.) Hepatitis B Core Antibody Total NON-REACT LEONELA NON-REACT LEONELA [facility] [place] [facility] Comment: For additional information, please refer to http://[facility].Kicksend/faq/TER540 (This link is being provided for informational/ educational purposes only.) Hepatitis C Antibody NON-REACT LEONELA NON-REACT LEONELA [facility] [place] [facility] Comment: HCV antibody was non-reactive. There is no laboratory evidence of HCV infection. In most cases, no further action is required. However, if recent HCV exposure is suspected, a test for HCV RNA (test code 42971) is suggested. For additional information please refer to http://[facility].Kicksend/faq/CKC09e5 (This link is being provided for informational/ educational purposes only.) 10/13/2022 11:3 5 AM EDT 10/13/2022 11:36 AM EDT Narrative [facility] - 10/14/2022 5:35 PM EDT FASTING:NO FASTING: NO [facility] HEEL CEMENTER MACHINE LAB BLOOD ORDERABLES Final Re sult [facility] [address], [place] [address] [facility] [place] [employer] [address] [place] [address] * Mammography Report 1 (02/13/2022 8:20 AM EDT) Anatomical Region Laterality Modality Breast Bilateral Mammography 02/13/2022 8:20 AM EDT Narrative 02/17/2022 9:44 AM EDT Refer to the Notes tab for result details [facility] Procedure: Mammography Report 1 Procedure Note ProviderNishi MD - 07/13/2022 Refer to the Notes tab for result details [facility] Procedure: Mammography Report 1 [facility] HEEL CEMENTER MACHINE IMG BI PROCEDURES Final Resul t * [...] along with historic and current clinical information. Choir Director : SEE COMMENT [facility] Comment: JXM, CT(ASCP) CT screening location: [place] [address] Interpretation/R esult: Negative for intraepithelial lesion or malignancy. [facility] LMP: NONE [facility]IVEN [facility] Prev. BX: NONE [facility]IVEN [facility] Prev. PAP: NONE [facility]IVEN [facility] SOURCE: None given [facility] Statement Of Adequacy: SEE COMMENT [facility] Comment: Satisfactory for evaluation. Endocervical/transformation zone component present. Age and/or menstrual status not provided 01/04/2021 Raina Cantu NP LAB PATHOLOGY ORDERABLES Final Result [facility] [address] * HPV mRNA E6/E7 (01/04/2021 12:00 AM EDT) HPV nRNA E6/E7 Not Detected Not Detected [facility] Comment: Methodology: [employer]-Mediated Amplification This assay detects E6/E7 viral messenger RNA (mRNA) from 14 high-risk HPV types (16,18,31,33,35,39,45,51,52,56,58,59,66,68). The analytical performance characteristics of this assay have been determined by [facility]. The modifications have not been cleared or approved by the FDA. This assay has been validated pursuant to the CLIA regulations and is used for clinical purposes. For additional information, please refer to http://education.Kicksend/faq/RFW615e4 (This link if provided for information/ educational purposes only.) 01/04/2021 us Raina Cantu NP LAB BLOOD ORDERABLES Final Resu lt [facility] [address] * (ABNORMAL) LIPID PANEL, STANDARD (10/05/2020 [...] about testing for familial hypercholesterolemia, please call [facility] at [phone].INFO. Marvin Rayo, et al. J National Lipid Association Recommendations for Patient-Centered Management of Dyslipidemia: Part 1 Journal of Clinical Lipidology 2015;9(2), 129-169. Reference range: <100 Desirable range <100 mg/dL for primary prevention; <70 mg/dL for patients with CHD or diabetic patients with > or = 2 CHD risk factors. LDL-C is now calculated using the Charles-Meena calculation, which is a validated novel method providing better accuracy than the Friedewald equation in the estimation of LDL-C. Charles GARCÍA et al. LESLEY. 2013;310(19): 3905-6525 (http://education.OrSense.Aethon/faq/JEV509) Non-HDL Cholesterol 224(H) <130 mg/dL (calc) [facility] [...] a therapeutic option. Triglycerides 155(H) <150 mg/dL [facility] 10/05/2020 10:3 3 AM EDT us Mary Martin MD LAB BLOOD ORDERABLES Final Re sult Performing Organization Address [facility] de Phone Number [facility] [address] * HIV 1/2 ANTIGEN/ANTIBODY,FOURTH GENERATION W/RFL (10/05/2020 10:31 AM EDT) HIV-1/2 ANTIGEN AND ANTIBODIES, 4TH GENERATION W/ REFLEX NON-REACT LEONELA NON-REACT LEONELA [facility] Comment: HIV-1 antigen and HIV-1/HIV-2 [...] purpose. For additional information please refer to http://education.Stylesight.Aethon/faq/RST767 (This link is being provided for informational/ educational purposes only.) The performance of this assay has not been clinically validated in patients less than 2 years old. 10/05/2020 10:3 1 AM EDT us Mary Martin MD LAB BLOOD ORDERABLES Final Re sult Performing Organization Address [facility] Co de Phone Number [facility] [address] from Last 3 Months or Most Recently Relevant to Health Maintenance Insurance MEDICARE * Guarantor: Yael Gudino Account Type Relation to Patient Date of Phone Billing Address Personal/Family Self [address] Care Teams Cleaning Attendant Relationship Specialty Start Date End Date Alisia Ivory FNP [address] [place] [address] PCP - General Family Medicine 12/10/21
--- OUTSIDE RECORDS SUMMARY | 2025-02-27 10:15 | XMS_ITS | Encounter Summary ---
Author Organization [employer] Address [address] [facility] 7t [place] [address] Care Team Providers Care Director Name Role Phone [place] [facility] Primary Care Provider [phone] Encounter Details Date Type Department Care Team ([facility] st Contact Info) Description 10/28/[address] [facility] MED[facility]INE [address] [place], [place] [phone] [place] [address] [place] [address] Social History Tobacco Use Types Packs/Day Years [...] Info) Description 03/01/2025 11:30 AM EST Telemedicine [facility] [address] [place] [address] Alisia Ivory FNP [address] [place] [address] documented as of this encounter Visit Diagnoses Not on filedocumented in this encounter Additional Health Concerns Assessment Noted Time PHQ-9 Depression Total Score: 0 11/20/19 23 11:22 AM EDT documented as of this encounter Care Teams Director Relationship Specialty Start Date End Date Alisia Ivory FNP [address] [place] [address] PCP - General Family Medicine 12/10/21 documented as of this encounter
--- OUTSIDE RECORDS SUMMARY | 2025-02-27 10:15 | XMS_ITS | Encounter Summary ---
Author Organization [employer] Address [address] [facility] 7 [place] [address] Care Team Providers Care Supervisor Lace Tearing Name Role Phone [facility] Primary Care Provider [phone] Reason for Visit * Reason Onset Date Comments Call Back Request 02/24/2025 Encounter Details Date Type Department Care Team ([facility] st Contact Info) Description 02/24/2025 Telephone [facility] MED[facility]INE [address] [place], [place] [phone] [facility] 230 [place] [address] Call Back Request Social History Tobacco Use Types Packs/Day Years [...] with others, in a hotel, in a prison, living outside on the street, on a [...] Telephone Encounter - Tabby Beal RN - 02/24/2025 12:09 PM EST TC placed to patient [phone] in regards to below message. Patient reports she applied to [facility] in [place] and they need her medical records/problem list. Patient was advised she will need to come to to sign a consent for her medical records/problem list to be sent to [facility]. Patient also reports PCP was to call her this week to discuss her pain since starting oxycodone. RN notes documentation in chart of patient being contacted to schedule TV however patient did not answer.RN scheduled patient for TV on 03/01/25 at 11:30am. Patient agreed to appointment date and time. Patient to f/u PRN. * Telephone Encounter - Edmund Davis - 02/24/2025 10:57 AM EST Tc from pt requesting a call back from nurse regarding [facility] home visit. Pt wanted to speak more about it with a nurse. Contact pt at [phone] documented in this encounter Plan of Treatment Upcoming Encounters Date Type Department Care Team (Late st Contact Info) Description 03/01/2025 11:30 AM EST Telemedicine [facility] MEDICINE [address] [place] [address] Alisia Ivory FNP [address] [place] [address] documented as of this encounter Visit Diagnoses Not on filedocumented in this encounter Additional Health Concerns Assessment Noted Time PHQ-9 Depression Total Score: 21 025 10:56 AM EST documented as of this encounter Care Teams Supervisor Lace Tearing Relationship Specialty Start Date End Date Alisia Ivory FNP [address] [place] [address] PCP - General Family Medicine 12/10/21 documented as of this encounter
[2025-03-03] VITALS (17 sets, daily range): BP systolic 95–124; BP diastolic 40–71; PULSE 83–99; RESP 12–26; TEMP 36.3–36.9; O2SAT 95–99; BMI 29.2
--- NOTE | ~2025-03-03 | CT_ITS ---
History: Question of metastatic lesions PROCEDURES: 1. Limited preprocedure CT of the pelvis. Permanent images saved in PACS. 2. 12 g bone lesion biopsy of the right proximal femur CLINICIANS: Nav Acosta NP Preprocedural imaging reviewed with Anderson Benz MD MEDICATIONS: -Versed, Fentanyl , and lidocaine 1% SQ -Antibiotics: None -For additional details, please see nursing flowsheet. COMPLICATIONS: None ESTIMATED BLOOD LOSS: < 5 ml CONTRAST: None SPECIMENS: Approximately 3 12 g lesion samples placed in formalin. MODERATE SEDATION TIME: 45 min PROCEDURE NOTE: The procedure, risks, benefits, and alternatives were carefully explained to the patient and written informed consent was obtained. The patient was placed prone on the CT table. A timeout was performed. A limited CT of the pelvis was performed to localize right proximal femur and choose appropriate needle entry and trajectory. The patient was prepped and draped in usual sterile fashion. The skin, subcutaneous tissues, and periosteum were anesthetized with lidocaine. Under CT guidance, a 10-gauge bone biopsy needle with trocar was advanced into the proximal femur at the location of the lesion, approximately 3 samples were acquired utilizing a 12-gauge trocar through the 10-gauge trocar and the samples were placed in formalin. A dry dressing was applied and secured with Tegaderm. There were no immediate complications. The patient was stable after the procedure and was transferred to the post anesthesia care unit. The procedure was done under moderate sedation with a dedicated nurse for monitoring of vital signs. CT/CT biopsy bone deep Impression: CT-guided right proximal femur bone lesion biopsy This procedure was performed by Nav Acosta NP and supervised by Anderson Benz MD. Electronically signed by: Anderson Benz MD 03/07/2025 02:59 PM [facility] Workstation: [id number]
== END 2025-03-03 16:22 | disposition home or self-care (01) ==
PROVIDERS: PCP General Practice; Visit Provider Nurse Practitioner Family
DX: C79.51 Secondary malignant neoplasm of bone (principal); M25.551 Pain in right hip; R53.83 Other fatigue; I10 Essential (primary) hypertension; E78.5 Hyperlipidemia, unspecified; J45.909 Unspecified asthma, uncomplicated; M54.51 Vertebrogenic low back pain; Z80.7 Family history of other malignant neoplasms of lymphoid, hematopoietic and related tissues; Z80.3 Family history of malignant neoplasm of breast; Z86.718 Personal history of other venous thrombosis and embolism; Z79.01 Long term (current) use of anticoagulants; Z79.82 Long term (current) use of aspirin; Z79.899 Other long term (current) drug therapy; Z88.5 Allergy status to narcotic agent; Z88.8 Allergy status to other drugs, medicaments and biological substances; Z98.890 Other specified postprocedural states; Z87.891 Personal history of nicotine dependence; Z56.0 Unemployment, unspecified
CPT/HCPCS: 20225; 77012; 88307; 88311; 88341; 88342; 99152; 99153; J2003; J2250; J3010

== ENCOUNTER → 2025-03-03 13:35 | Outpatient (BNV) | payer MEDICARE, MEDICAID, SELFPAY | PROVIDERS: PCP General Practice | DX: M89.9 Disorder of bone, unspecified (principal) | CPT/HCPCS: 20225; 77012 ==

== ENCOUNTER 2025-03-08 12:04 | Outpatient (REF) | payer MEDICARE, MEDICAID, SELFPAY ==
--- NOTE | ~2025-03-08 | XR_ITS ---
EXAMINATION: XR HIP, RIGHT CLINICAL INFORMATION: Rule out pathological fracture COMPARISON: 01/13/2025 TECHNIQUE: AP and frog-leg lateral views of the right hip. FINDINGS: Again seen are multiple surgical clips projecting over the right hemipelvis and right hip joint. Again seen is a lytic lesion in the lesser trochanter. It appears increased in size since the prior examination. There is also a lytic lesion in the lateral proximal diaphysis that is more apparent on the current x-ray. There is a lytic lesion projecting in the base of the greater trochanter that appears increased in size. There is a lytic lesion at the base of the femoral neck that appears increased in size. Mild to moderate degenerative changes are present in the lower right SI joint. No fracture line is evident. XR/XR hip RT min 2V IMPRESSION: Multiple lytic lesions in the proximal right femur are increased when compared to the prior examination concerning for rapid progression of disease. No fracture is evident. Electronically signed by: Christian Delgadillo MD 03/09/2025 12:02 PM [facility]
--- OUTSIDE RECORDS SUMMARY | 2025-03-08 23:11 | XMS_ITS | Encounter Summary ---
Author Organization [employer] Address [address] [place] [address] Care Team Providers Care It Specialist Name Role Phone [place] [facility] Primary Care Provider [phone] Encounter Details Date Type Department Care Team ([facility] st Contact Info) Description 10/28/[address] [facility] [address] [place], [place] [phone] [place] [facility] [address] [place] [address] Social History Tobacco Use Types Packs/Day Years [...] with others, in a hotel, in a alf, living outside on the street, on a [...] documented as of this encounter Care Teams It Specialist Relationship Specialty Start Date End Date Alisia Ivory FNP [address] [place] [id number] PCP - General Family Medicine 12/10/21 documented as of this encounter
--- OUTSIDE RECORDS SUMMARY | 2025-03-08 23:11 | XMS_ITS | Encounter Summary ---
Author Organization [employer] Address [address] [place] [address] Care Team Providers Care Sr Community Manager Name Role Phone [place] [facility] Primary Care Provider [phone] Reason for Visit * Reason Onset Date Comments Prior Authorization 03/03/2025 [place] Request: Buprenorphine 10MCG/HR weekly patches Encounter Details Date Type Department Care Team ([facility] Contact Info) Description 03/03/2025 Telephone [facility] [address] [place], [place] [phone] [facility] [address] [place], [place] [phone] Prior Authorization ([place] Request: Buprenorphine 10MCG/HR weekly patches) Social History Tobacco Use Types Packs/Day Years [...] with others, in a hotel, in a retirement, living outside on the street, on a [...] encounter Miscellaneous Notes * Telephone Encounter - Wendy Talavera - 03/03/2025 1:35 PM EST [facility] initiated on [employer] for Buprenorphine 10MCG/HR weekly patches. Approval/denial pending. ([facility]: [id number]) BREE Rx #: [id number] documented in this encounter Plan of Treatment Not on file documented as of this encounter Visit Diagnoses Not on filedocumented in this encounter Additional Health Concerns Assessment Noted Time PHQ-9 Depression Total Score: 21 025 10:56 AM EST documented as of this encounter Care Teams Sr Community Manager Relationship Specialty Start Date End Date Alisia Ivory FNP [address] [place] [address] PCP - General Family Medicine 12/10/21 documented as of this encounter
--- OUTSIDE RECORDS SUMMARY | 2025-03-08 23:11 | XMS_ITS | Clinical Summary ---
Author Organization [employer] Address [address] [place] [address] Care Team Providers Care Outside Food Server Name Role Phone [facility] Primary Care Provider Allergies Active Allergy Reactions Criticality Noted Date Comments Codeine 10/05/2020 Other reaction(s): Syncope Heparin Headache 05/20/2024 Other Reaction(s): Heparin therapy Lisinopril 10/05/2020 Other reaction(s): Facial swelling Medications * This document contains information received from the source organization and may not represent a complete record from that organization. albuterol 108 (90 Base) MCG/ACT inhalerIndication s:Mild intermittent asthma in adult without complication Inhale 2 puffs every 6 (six) hours if needed for wheezing. 18 g 11 05/20/19 25 2025 Active Skin Protectants, Misc. (eucerin) creamIndications: Peripheral arterial disease Apply topically if needed for dry skin. 99 g 3 05/20/19 25 2025 Active amLODIPine (Norvasc) 10 MG tablet TAKE 1 TABLET BY MOUTH AT BEDTIME. 90 tablet 1 11/23/19 25 Active docusate sodium (Colace) 100 MG capsule TAKE ONE CAPSULE BY MOUTH TWICE A DAY 180 capsule 3 01/12/20 25 Active Krysten Protect Moisture Barrier 12 % cream APPLY TOPICALLY IF NEEDED FOR DRY SKIN. 05/23/19 25 Active Diclofenac Sodium 1 % gelIndications:Ri ght foot pain Apply topically to affected areas twice daily 150 g 3 01/17/20 25 Active aspirin 81 MG EC tabletIndications :Peripheral arterial disease TAKE 1 TABLET BY MOUTH EVERY DAY 90 tablet 3 01/17/20 25 Active budesonide-formot azul (Symbicort) 160-4.5 MCG/ACT inhalerIndication s:Mild intermittent asthma in adult without complication 2 puffs every 4-6 hours as needed for cough or wheeze 1 each 01/17/20 25 Active cyclobenzaprine (Flexeril) 10 MG tabletIndications :Chronic bilateral low back pain without sciatica TAKE 1 TABLET BY MOUTH IF NEEDED IN THE MORNING, AT NOON, AND AT BEDTIME FOR MUSCLE SPASMS; ((TAKE 1 TABLET 3 TIMES A DAY NEEDED)). 90 tablet 3 01/24/20 25 Active gabapentin (Neurontin) 300 MG capsuleIndication s:Lytic bone lesion of hip TAKE 1 OR 2 CAPSULES BY MOUTH 3 TIMES A DAY 180 capsule 3 02/21/20 25 Active DULoxetine (Cymbalta) [address] capsuleIndication s:Lytic bone lesion of hip Take 2 capsules (120 mg) by mouth Once per day. Do not crush or chew. 60 capsule 11 02/21/20 25 2025 Active Eliquis 5 MG tabletIndications :Peripheral arterial disease TAKE ONE TABLET BY MOUTH EVERY 12 HOURS 60 tablet 11 02/25/20 25 Active atorvastatin (Lipitor) 40 MG tabletIndications :Mixed hyperlipidemia Take 1 tablet (40 mg) by mouth Once per day. 90 tablet 3 03/01/20 25 2025 Active cloNIDine (Catapres) 0.2 MG tabletIndications :Adjustment disorder with depressed mood Take 1 tablet (0.2 mg) by mouth at bedtime. 90 tablet 3 03/01/20 25 Active buprenorphine (Butrans) 10 MCG/HRIndications :Malignant neoplasm metastatic to bone (HCC) Place 1 patch on the skin 1 (one) time per week. 4 patch 03/08/20 Active atorvastatin (Lipitor) 40 MG tablet Take 1 tablet by mouth at bed time. 11/27/19 22 2024 Discontinued(R eorder (will not trigger notification to Pharmacy)) apixaban (Eliquis) 5 MG tabletIndications :Peripheral arterial disease Take 1 tablet (5 mg) by mouth every 12 (twelve) hours. 60 tablet 11 02/17/20 24 2024 Discontinued cloNIDine (Catapres) 0.2 MG tabletIndications :Peripheral arterial disease Take 1 tablet (0.2 mg) by mouth at bedtime. 90 tablet 3 02/17/20 24 2024 Discontinued gabapentin (Neurontin) 300 MG capsuleIndication s:Chronic bilateral low back pain without sciatica TAKE 1 OR 2 CAPSULES BY MOUTH 3 TIMES A DAY. 180 capsule 3 01/12/20 25 2024 Discontinued(R eorder (will not trigger notification to Pharmacy)) DULoxetine (Cymbalta) [address] capsuleIndication s:Chronic bilateral low back pain without sciatica TAKE ONE CAPSULE BY MOUTH EVERY DAY 90 capsule 3 01/12/20 25 2024 Discontinued oxyCODONE (Roxicodone) 5 MG immediate release tabletIndications :Lytic bone lesion of hip Take 1 tablet (5 mg) by mouth every 6 (six) hours if needed for severe pain for up to 7 days. 28 tablet 02/21/20 25 2024 cloNIDine (Catapres) 0.2 MG tabletIndications :Peripheral arterial disease TAKE ONE TABLET BY MOUTH DAILY AT BEDTIME 90 tablet 3 02/25/20 25 2024 Discontinued(R eorder (will not trigger notification to Pharmacy)) buprenorphine (Butrans) 10 MCG/HRIndications :Malignant neoplasm metastatic to bone (HCC) Place 1 patch on the skin 1 (one) time per week. 2 patch 03/01/20 25 2024 Discontinued(R eorder (will not trigger notification to Pharmacy)) Active Problems Problem Noted Date Diagnosed Date Chronic pain due to neoplasm 03/03/2025 Cannabis use, unspecified, uncomplicated 025 Scalp lesion [...] Overview (10/15/2022): S/P femoral-femoral bypass graft 10/2021 [facility] Vascular. Sees Dr. Harris q. 6 months [...] with PEG scales at follow up visit ENGINEERING DESIGNER contact up to date Depressive disorder 02/03/2021 Urinary incontinence 02/03/2021 Overview (10/15/2022): Hx of blood clot in R renal artery in 2017. Incontinent of urine since this time. Wears adult incontinence pads. Rx'd oxybutynin. Followed by [facility] urology Essential hypertension 12/04/2020 Overview (02/17/2024): Amlodipine [...] 10/28/2023 02/17/2024 Cervical cancer screening 10/28/2023 Encounters * This document contains information received from the source organization and may not represent a complete record from that organization. Date Type Department Care Team Description 03/07/2025 Results Follow-Up [address] Guided Percutaneous Biopsy Bone Deep 03/06/2025 Refill [facility] [address] Alisia Ivory FNP Malignant neoplasm metastatic to bone (HCC) 03/03/2025 Telephone [facility] [place] [address] Alisia Ivory FNP Prior Authorization ([place] Request: Buprenorphine 10MCG/HR weekly patches) 03/01/2025 11:30 AM EST Telemedicine [facility] [place] [facility] [place] [address] Alisia Ivory FNP Malignant neoplasm metastatic to bone (HCC) (Primary Dx); Chronic pain due to neoplasm; Mixed hyperlipidemia; Adjustment disorder with depressed mood 03/01/2025 Travel 02/28/2025 Telephone [facility] [place] [address] Alisia Ivory FNP chart prep 02/24/2025 Refill [facility] [place] [address] Alisia Ivory FNP Peripheral arterial disease 02/24/2025 Telephone [facility] [place] [address] Alisia Ivory FNP Call Back Request 02/22/[address] [place] [address] Sara Mitchell MA PCP message 02/20/2025 10:30 AM EST Office Visit [facility] [place] [address] Alisia Ivory FNP Malignant neoplasm metastatic to bone (HCC) (Primary Dx); Lytic bone lesion of hip; Palpitations; Adjustment disorder with depressed mood; Encounter for vaccination; Encounter for immunization 02/20/2025 Travel 02/17/[address] [place] [address] Alisia Ivory FNP Chart Prep 02/07/2025 Orders Only [address] [place] [address] Jerri Salas MD 01/21/[address] [address] Alisia Ivory FNP Chronic bilateral low back pain without sciatica 01/20/2025 Results Follow-Up [address] [place] [address] Jerri Salas MD MR Hip w/o Contrast Right, PET CT WHOLE BODY 01/16/2025 Telephone [facility] [place] [address] Alisia Ivory FNP Results 01/13/2025 11:30 AM EDT Office Visit [facility] [place] [address] Jerri Salas MD Right hip pain (Primary Dx); SOB (shortness of breath) on exertion; Scalp lesion; Right foot pain; Peripheral arterial disease (CMS/HCC); Mild intermittent asthma in adult without complication; Deep vein thrombosis (DVT) of proximal lower extremity, unspecified chronicity, unspecified laterality (CMS/HCC); S/P aortobifemoral bypass surgery; Chronic anticoagulation; Screening for colon cancer; Elevated platelet count 01/13/2025 Travel 01/11/[address] [place] [address] Alisia Ivory FNP Nurse Triage 01/11/2025 Refill [facility] [address] [place] [address] [place] Chronic bilateral low back pain without [...] 02/20/2025 10:14 AM EST Plan of Treatment Health Maintenance Due Date Last Done Comments CT Colonography 1965 Colonoscopy 1967 Colorectal Cancer Screening 1965 FIT DNA/Cologuard 1967 FIT 1967 FOBT 1965 Sigmoidoscopy 1965 RSV Patients and Patients Aged 60 years or older (1 - Risk 50-74 years 1-dose series) 08/22/2017 SDOH Screening 05/10/2025 05/10/2024 Alcohol/Substance Use Screening 05/20/2025 05/20/2024 Depression Monitoring 08/20/2025 02/20/2025, 025 Lipid Panel 10/05/2025 10/05/2020 Cervical Cancer Screening 01/04/2026 HPV/Cotest 01/04/2026 01/04/2021 Pap Smear 01/04/2026 01/04/2021 Disability Screening 02/20/2026 02/20/2025 Mammogram 02/28/2026 02/28/2025, 01/19, 02/04/2021 Tobacco Screening 03/03/2026 03/03/2025 DTaP/Tdap/Td Vaccines (3 - Td or Tdap) 07/04/2031 07/03/2021, 10/11/2007 HIV Screening Completed 10/05/2020 Zoster Vaccines Completed [...] Procedure Name Priority Date/Time Associated Diagnosis Comments CT GUIDED PERCUTANEOUS BIOPSY BONE DEEP Routine 03/03/2025 1:36 PM EST BI MAMMOGRAM SCREENING TOMOSYNTHESIS BILATERAL Routine 02/28/2025 2:56 PM EST Encounter for screening mammogram for breast cancer PET CT WHOLE BODY STAT 02/12/2025 Lytic [...] Routine 10/13/2022 11:35 AM EDT Healthcare maintenance HPV MRNA E6/E7 Routine 01/04/2021 12:00 AM EDT THINPREP PAP Routine 01/04/2021 12:00 AM EDT LIPID PANEL, STANDARD Routine 10/05/2020 10:33 AM EDT HIV 1/2 ANTIGEN/ANTIBODY, FOURTH GENERATION W/RFL Routine 10/05/2020 10:31 AM EDT from Last 3 Months or Most Recently Relevant to Health Maintenance Results * CT Guided Percutaneous Biopsy Bone Deep (03/03/2025 1:36 PM EST) Anatomical Region Laterality Modality Computed Tomogra phy 03/03/2025 1:36 PM EST Narrative 03/07/2025 3:01 PM EST [address] [address] [address] Scan Report Signed Patient: Yael Gudino MR#: [id number] : 1965 Acct:[id number] Age/Sex: 59 / F ADM Date: 03/03/25 Loc: HO.SSS Attending Dr: Trina Nava INDUSTRIAL DESIGNER Ordering Physician: Trina Nava NP Date of Service: 03/03/25 Procedure(s): CT biopsy bone deep Accession Number(s): [id number] cc: Leah Morgan MD; Jerri Salas; Trina Nava NP Report Number: [id number]: Total DLP = 292.00 mGy-cm Reason for Exam: multiple bone lytic lesions, eval for primary ca History: Question of metastatic lesions PROCEDURES: 1. Limited preprocedure CT of the pelvis. Permanent images saved in PACS. 2. 12 g bone lesion biopsy of the right proximal femur CLINICIANS: Nav Acosta NP Preprocedural imaging reviewed with Anderson Benz MD MEDICATIONS: -Versed, Fentanyl , and lidocaine 1% SQ -Antibiotics: None -For additional details, please see nursing flowsheet. COMPLICATIONS: None ESTIMATED BLOOD LOSS: < 5 ml CONTRAST: None SPECIMENS: Approximately 3 12 g lesion samples placed in formalin. MODERATE SEDATION TIME: 45 min PROCEDURE NOTE: The procedure, risks, benefits, and alternatives were carefully explained to the patient and written informed consent was obtained. The patient was placed prone on the CT table. A timeout was performed. A limited CT of the pelvis was performed to localize right proximal femur and choose appropriate needle entry and trajectory. The patient was prepped and draped in usual sterile fashion. The skin, subcutaneous tissues, and periosteum were anesthetized with lidocaine. Under CT guidance, a 10-gauge bone biopsy needle with trocar was advanced into the proximal femur at the location of the lesion, approximately 3 samples were acquired utilizing a 12-gauge trocar through the 10-gauge trocar and the samples were placed in formalin. A dry dressing was applied and secured with Tegaderm. There were no immediate complications. The patient was stable after the procedure and was transferred to the post anesthesia care unit. The procedure was done under moderate sedation with a dedicated nurse for monitoring of vital signs. CT/CT biopsy bone deep Impression: CT-guided right proximal femur bone lesion biopsy This procedure was performed by Nav Acosta NP and supervised by Anderson Benz MD. Electronically signed by: Anderson Benz MD 03/07/2025 02:59 PM [facility] Workstation: [id number] Dictated By: Nav Acosta NP Signed By: <Electronically signed by Nav Acosta in OV> 03/07/25 1459 <Electronically signed by Anderson Benz MD in OV> 03/07/25 1501 DD/ 1336 TD/TT: 03/03/25 1434 Marketing Strategy Analyst: Procedure Note Ebony, Image - 03/07/[address] [place] [address] [address] Scan Report Signed Patient: Yael Gudino MMR#: [id number] : 1965Acct:[id number] Age/Sex: 59 / FADM Date: 03/03/25 Loc: HO.[facility] Attending Dr: Trina Nava NP Ordering Physician: Trina Nava NP Date of Service: 03/03/25 Procedure(s): CT biopsy bone deep Accession Number(s): [id number] cc: Leah Morgan MD; Jerri Salas; Trina Nava NP Report Number: [id number]: Total DLP = 292.00 mGy-cm Reason for Exam: multiple bone lytic lesions, eval for primary ca History: Question of metastatic lesions PROCEDURES: 1. Limited preprocedure CT of the pelvis. Permanent images saved in PACS. 2. 12 g bone lesion biopsy of the right proximal femur CLINICIANS: Nav Acosta NP Preprocedural imaging reviewed with Anderson Benz MD MEDICATIONS: -Versed, Fentanyl , and lidocaine 1% SQ -Antibiotics: None -For additional details, please see nursing flowsheet. COMPLICATIONS: None ESTIMATED BLOOD LOSS: < 5 ml CONTRAST: None SPECIMENS: Approximately 3 12 g lesion samples placed in formalin. MODERATE SEDATION TIME: 45 min PROCEDURE NOTE: The procedure, risks, benefits, and alternatives were carefully explained to the patient and written informed consent was obtained. The patient was placed prone on the CT table. A timeout was performed. A limited CT of the pelvis was performed to localize right proximal femur and choose appropriate needle entry and trajectory. The patient was prepped and draped in usual sterile fashion. The skin, subcutaneous tissues, and periosteum were anesthetized with lidocaine. Under CT guidance, a 10-gauge bone biopsy needle with trocar was advanced into the proximal femur at the location of the lesion, approximately 3 samples were acquired utilizing a 12-gauge trocar through the 10-gauge trocar and the samples were placed in formalin. A dry dressing was applied and secured with Tegaderm. There were no immediate complications. The patient was stable after the procedure and was transferred to the post anesthesia care unit. The procedure was done under moderate sedation with a dedicated nurse for monitoring of vital signs. CT/CT biopsy bone deep Impression: CT-guided right proximal femur bone lesion biopsy This procedure was performed by Nav Acosta NP and supervised by Anderson Benz MD. Electronically signed by: Anderson Benz MD 03/07/2025 02:59 PM EST Workstation: [id number] Dictated By: Nav Acosta NP Signed By: <Electronically signed by Nav Acosta in OV> 03/07/25 1459 <Electronically signed by Anderson Benz MD in OV> 03/07/25 1501 DD/ 1336 TD/TT: 03/03/25 1434 Marketing Strategy Analyst: [facility] External Provider IMG CT PROCEDURES Final Result * BI Mammogram Screening Tomosynthesis Bilateral (02/28/2025 2:56 PM EST) Anatomical Region Laterality Modality Breast Bilateral Mammography 02/28/2025 2:56 PM EST Narrative 03/03/2025 7:44 PM EST [address] [place] [address] Mammography Report Signed Patient: Yael Gudino MR#: [id number] : 1965 Acct:[id number] Age/Sex: 59 / F ADM Date: 02/28/25 Loc: HEATHER Attending Dr: Alisia Ivory AIDS NURSE Ordering Physician: Alisia Ivory Results: 1Nega tiphilippe Date of Service: 02/28/25 Follow Up: 1 Year From Orig ina Mammogram Procedure(s): MM tomosynthesis screening BI Accession Number(s): [id number] cc: Jerri Salas; Alisia Ivory Reason For Exam: Routine EXAMINATION: MM SCREENING DIGITAL BREAST TOMOSYNTHESIS, BILATERAL CLINICAL INFORMATION: Screening. Asymptomatic. COMPARISON: Mammography: Comparison is made with available priors TECHNIQUE: Digital breast mammography with tomosynthesis is performed in both the craniocaudal and mediolateral oblique views along with computer-aided detection (CAD). FINDINGS: There are scattered areas of fibroglandular density. There are no significant masses, abnormal calcifications, or other abnormalities. MM/MM tomosynthesis screening BI IMPRESSION: No mammographic evidence of malignancy. ASSESSMENT: BI-RADS Category 1: Negative RECOMMENDATION: Routine annual mammography screening. 1 year F/U This examination should not preclude the clinical evaluation of a suspicious palpable abnormality. This patient's information was entered into a reminder system with a target due date for their next mammogram. Electronically signed by: Lilia Blanton DO 03/03/2025 07:41 PM EST Dictated By: Lilia Blanton DO Signed By: <Electronically signed by Lilia Blanton DO in OV> 03/03/25 194 DD/ 1456 TD/TT: 02/28/25 1516 Marketing Strategy Analyst: Procedure Note Donotuseinterpreter, Image - [facility]03/[facility] [address] [place], [place] [address] Mammography Report Signed Patient: Yael Gudino [facility]#: [id number] : 1965Acct:[id number] Age/Sex: 59 / FADM Date: 02/28/25 Loc: MAMMO Attending Dr: Alisia Ivory AIDS NURSE Ordering Physician: Alisia Ivory FNPResults: 1Nega tive Date of Service: 02/28/25Follow Up: 1 Year From Orig inal Mammogram Procedure(s): MM tomosynthesis screening BI Accession Number(s): [id number] cc: Jerri Salsa; Alisia Ivory Reason For Exam: Routine EXAMINATION: MM SCREENING DIGITAL BREAST TOMOSYNTHESIS, BILATERAL CLINICAL INFORMATION: Screening. Asymptomatic. COMPARISON: Mammography: Comparison is made with available priors TECHNIQUE: Digital breast mammography with tomosynthesis is performed in both the craniocaudal and mediolateral oblique views along with computer-aided detection (CAD). FINDINGS: There are scattered areas of fibroglandular density. There are no significant masses, abnormal calcifications, or other abnormalities. MM/MM tomosynthesis screening BI IMPRESSION: No mammographic evidence of malignancy. ASSESSMENT: BI-RADS Category 1: Negative RECOMMENDATION: Routine annual mammography screening. 1 year F/U This examination should not preclude the clinical evaluation of a suspicious palpable abnormality. This patient's information was entered into a reminder system with a target due date for their next mammogram. Electronically signed by: Lilia Blanton DO 03/03/2025 07:41 PM [facility] Dictated By: Lilia Blanton DO Signed By: <Electronically signed by Lilia Blanton DO in OV> 03/03/251940 DD/ 1456 TD/TT: 02/28/25 1516 Marketing Strategy Analyst: [facility] AIDS NURSE IMG BI PROCEDURES Final Resul t * PET CT WHOLE BODY (02/12/2025) Anatomical Region Laterality Modality Computed Tomogra phy Jerri Salas MD IMG CT PROCEDURES Final Result * US Head Neck Soft Tissue (02/07/2025 1:19 PM EDT) Anatomical Region Laterality Modality Head, Neck Ultrasound 02/07/2025 1:19 PM EDT Narrative 02/07/2025 1:44 PM EDT [address] [address] Ultrasound Report Signed Patient: Yael Gudino MR#: [id number] : 1965 Acct:[id number] Age/Sex: 59 / F ADM Date: 02/07/25 Loc: . Attending Dr: Jerri Salas MD Ordering Physician: Jerri Salas Date of Service: 02/07/25 Procedure(s): US soft tiss head and/or neck Accession Number(s): [id number] cc: Jerri Salas; [facility] AIDS NURSE Reason for Exam: 8MM NON TENDER FIXED [...] 02/07/25 1342 DD/ 1319 TD/TT: 02/07/25 1323 Marketing Strategy Analyst: Procedure Note Donotuseinterpreter, Image - 02/07/2025 [place] [address] Ultrasound Report Signed Patient: Yael Gudino [facility]#: [id number] : 1965Acct:[id number] Age/Sex: 59 / FADM Date: 02/07/25 Loc: .US Attending Dr: Jerri Salas MD Ordering Physician: Jerri Salas Date of Service: 02/07/25 Procedure(s): US soft tiss head and/or neck Accession Number(s): [id number] cc: Jerri Salas; [facility] Reason for Exam: 8MM NON TENDER [...] 02/07/25 1342 DD/ 1319 TD/TT: 02/07/25 1323 Marketing Strategy Analyst: us Jerri Salas MD IMG US PROCEDURES Edited Resul t - Final * MR Hip w/o Contrast Right (01/18/2025 3:15 PM EDT) Anatomical Region Laterality Modality Magnetic Resonan ce 01/18/2025 3:15 PM EDT Narrative 01/18/2025 4:29 PM EDT [place] [address] Magnetic Resonance Report Signed Patient: Yael Gudino MR#: [id number] : 1965 Acct:[id number] Age/Sex: 59 / F ADM Date: 01/18/25 Loc: HO.MRI Attending Dr: Jerri Salas MD Ordering Physician: Jerri Salas Date of Service: 01/18/25 Procedure(s): MR hip RT wo con Accession Number(s): [id number] cc: Jerri Salas; [facility] Reason for Exam: PAIN EXAMINATION: MRI [...] 01/18/25 1626 DD/ 1515 TD/TT: 01/18/25 1530 Marketing Strategy Analyst: Procedure Note Donotuseinterpreter, Image - 01/18/2025 [place] [address] Magnetic Resonance Report Signed Patient: Yael Gudino [facility]#: [id number] : 1965Acct:[id number] Age/Sex: 59 / FADM Date: 01/18/25 Loc: HO.MRI Attending Dr: Jerri Salas MD Ordering Physician: Jerri Salas Date of Service: 01/18/25 Procedure(s): MR hip RT wo con Accession Number(s): [id number] cc: Jerri Salas; [facility] Reason for Exam: PAIN EXAMINATION: MRI [...] 01/18/25 1626 DD/ 1515 TD/TT: 01/18/25 1530 Marketing Strategy Analyst: us Jerri Salas MD IMG MRI PROCEDURES Final Resul t * (ABNORMAL) CBC auto differential (01/13/2025 12:30 PM EDT) White Blood Count 13.9(H) 4.8 - 10.8 X10*3/uL [facility] Red Blood Count 4.89 4.20 - 5.50 X10*6/uL [facility] Hemoglobin 14.3 12.0 - 16.0 g/dl [facility] Hematocrit 43.6 37.0 - 47.0 % [facility] Mean Corpuscular Volume 89.2 80.0 - 98.0 fL [facility] Mean Corpuscular Hemoglobin 29.2 27.0 - 33.0 pg [facility] Mean Corpuscular HGB Conc 32.8 31.0 - 35.0 g/dl [facility] Red Cell Distribution Width 13.2 11.0 - 16.0 % [facility] Platelet Count 428(H) 160 - 400 X10*3/uL [facility] Mean Platelet Volume 9.0(L) 9.4 - 12.3 fL [facility] Neutrophils Percent Auto 61.5 45 - 73 % [facility] Imm Gran Pct Auto 0.5(H) 0.0 - 0.4 % [facility] Lymphocytes Percent Auto 29.7 20 - 40 % [facility] Monocytes Percent Auto 6.3 2 - 11 % [facility] Eosinophils Percent Auto 1.4 0 - 4 % [facility] Basophils Percent Auto 0.6 0 - 2 % [facility] NRBC Pct Auto 0.0 0.0 - 0.2 /100WBC [facility] Neutrophils Absolute Auto 8.6(H) 2.0 - 8.3 x10*3/uL [facility] Imm Gran Abs Auto 0.07(H) 0.00 - 0.03 X10*3/uL [facility] Lymphocytes Absolute Auto 4.1 1.2 - 4.9 X10*3/uL [facility] Monocytes Absolute Auto 0.9 0.1 - 1.2 X10*3/uL [facility] Eosinophils Absolute Auto 0.2 0.0 - 0.4 X10*3/uL [facility] Basophils Absolute Auto 0.1 0.0 - 0.2 X10*3/uL [facility] NRBC Abs Auto 0.000 0.0 - 0.012 X10*3/uL [facility] Blood Venous blood specimen / Unknown 01/13/2025 12:30 PM EDT 01/13/2025 12:58 PM EDT us Jerri Salas MD LAB BLOOD ORDERABLES Final Res ult [facility] [address] [place] [address] [phone] * (ABNORMAL) Comprehensive Metabolic Panel (01/13/2025 12:30 PM EDT) Sodium 140 135 - 145 mmol/L [facility] Potassium 4.3 3.3 - 5.1 mmol/L [facility] [facility] Chloride 104 96 - 108 mmol/L [facility] Carbon Dioxide 27 22 - 29 mmol/L [facility] Anion Gap 13 12 - 20 [facility] Urea Nitrogen (BUN) 9 9 - 16 mg/dL [facility] Creatinine, Serum 0.67 0.5 - 1.4 mg/dL [facility] Estimated Glomerular Filt Rate >60 [facility] Comment:Chronic Kidney Disea se: Estimated GFR < 60 mL/min/1.52r7Afkxys Kidney Disease: Estimated GFR < 15 mL/min/1.73m2 Glucose 87 60 - 115 mg/dL [facility] Calcium 9.4 8.4 - 10.2 mg/dL [facility] Bilirubin, Total 0.3 0.0 - 1.0 mg/dL [facility] Aspartate Amino Transferase 17 5 - 31 U/L [facility] Alanine Aminotransferase 11 0 - 31 U/L [facility] Total Protein 8.0 6.5 - 8.0 g/dL [facility] Albumin Level 4.2 3.5 - 5.0 g/dL [facility] Alkaline Phosphatase 179(H) 39 - 117 U/L [facility] Blood Venous blood specimen / Unknown 01/13/2025 12:30 PM EDT 01/13/2025 1:11 PM EDT us Jerri Salas MD LAB BLOOD ORDERABLES Final Res ult Performing Organization Address City/State/[facility] Co de Phone Number [facility] [address] [place] [phone] * XR Hip 2 or 3 Views Right (01/13/2025 12:25 PM EDT) Anatomical Region Laterality Modality Lower Extremities, Hip Right Radiograp hic Imaging 01/13/2025 12:2 5 PM EDT Narrative 01/13/2025 12:44 PM EDT [facility] [address] [place] [address] XRay Report Signed Patient: Yael Gudino MR#: [id number] : 1965 Acct:[id number] Age/Sex: 59 / F ADM Date: 01/13/25 Loc: HO.HHCX Attending Dr: Jerri Salas MD Ordering Physician: Jerri Salas Date of Service: 01/13/25 Procedure(s): XR hip RT min 2V Accession Number(s): [id number] cc: Jerri Salas Reason for Exam: pain [...] 01/13/25 1241 DD/ 1225 TD/TT: 01/13/25 1226 Marketing Strategy Analyst: Procedure Note Donotuseinterpreter, Image - 01/13/[address] [address] XRay Report Signed Patient: Yael Gudino [facility]#: [id number] : 1965Acct:[id number] Age/Sex: 59 / FADM Date: 01/13/25 Loc: HO.HHCX Attending Dr: Jerri Salas MD Ordering Physician: Jerri Salas Date of Service: 01/13/25 Procedure(s): XR hip RT min 2V Accession Number(s): [id number] cc: Jerri Salas Reason for Exam: pain [...] 01/13/25 1241 DD/ 1225 TD/TT: 01/13/25 1226 Marketing Strategy Analyst: Jerri Salas MD IMG XR PROCEDURES Final Result * (ABNORMAL) Hepatitis Panel, General (10/13/2022 11:35 AM EDT) Hepatitis A Antibody Total REACTIVE( A) NON-REACT LENOELA [facility] Comment: For additional information, please refer to http://Amplify.LA.MindSet Rx/faq/GUH574 (This link is being provided for informational/ educational purposes only.) Hepatitis B Surface Antibody QL NON-REACT LEONELA NON-REACT LEONELA [facility] Hepatitis B Surface Ag NON-REACT LEONELA NON-REACT LEONELA [facility] Comment: For additional information, please refer to http://Amplify.LA.MindSet Rx/faq/MXB329 (This link is being provided for informational/ educational purposes only.) Hepatitis B Core Antibody Total NON-REACT LEONELA NON-REACT LEONELA [facility] Comment: For additional information, please refer to http://Amplify.LA.MindSet Rx/faq/ZIS405 (This link is being provided for informational/ educational purposes only.) Hepatitis C Antibody NON-REACT LEONELA NON-REACT LEONELA [facility] Comment: HCV antibody was non-reactive. There is no laboratory evidence of HCV infection. In most cases, no further action is required. However, if recent HCV exposure is suspected, a test for HCV RNA (test code 24851) is suggested. For additional information please refer to http://Amplify.LA.MindSet Rx/faq/DNH63g7 (This link is being provided for informational/ educational purposes only.) 10/13/2022 11:3 5 AM EDT 10/13/2022 11:36 AM EDT [facility] - 10/14/2022 5:35 PM EDT FASTING:NO FASTING: NO [facility] AIDS NURSE LAB BLOOD ORDERABLES Final Re sult [address], [place] [address] [facility] [address] [place] [phone] * THINPREP PAP (01/04/2021 12:00 AM EDT) Clinical Information: None given [facility] COMMENT SEE COMMENT [facility]OUNDAT[facility] ON [...] along with historic and current clinical information. Routing Machine Operator : SEE COMMENT [facility] Comment: SILVIANO CAMPUZANO(ASCP) CT screening location: [address] [address] Interpretation/R esult: Negative for intraepithelial lesion or malignancy. [facility] LMP: NONE GIVEN [facility] Prev. BX: NONE [facility]IVEN [facility] Prev. PAP: NONE [facility]IVEN [facility] ON [facility] SOURCE: None given [facility] Statement Of Adequacy: SEE COMMENT [facility] Comment: Satisfactory for evaluation. Endocervical/transformation zone component present. Age and/or menstrual status not provided 01/04/2021 Raina Cantu NP LAB PATHOLOGY ORDERABLES Final Result Performing Organization Address [facility] Phone Number [facility] [address] [place] [address], * HPV mRNA E6/E7 (01/04/2021 12:00 AM EDT) Pathologist [facility] HPV nRNA E6/E7 Not Detected Not Detected [facility] Comment: Methodology: Accounting File Clerk-Mediated Amplification This assay detects E6/E7 viral messenger RNA (mRNA) from 14 high-risk HPV types (16,18,31,33,35,39,45,51,52,56,58,59,66,68). The analytical performance characteristics of this assay have been determined by [facility]. The modifications have not been cleared or approved by the FDA. This assay has been validated pursuant to the CLIA regulations and is used for clinical purposes. For additional information, please refer to http://education.MindSet Rx/faq/INM204y8 (This link if provided for information/ educational purposes only.) 01/04/2021 Raina Cantu NP LAB BLOOD ORDERABLES Final Resu lt Performing Organization Address [facility] Phone Number [facility] [address] [place] [address], * (ABNORMAL) LIPID PANEL, STANDARD (10/05/2020 10:33 [...] about testing for familial hypercholesterolemia, please call sharing.it Client Services at 1.043.[employer].INFO. Marvin Rayo, et al. J National Lipid [...] LDL-C. Charles SS et al. LESLEY. 2013;310(19): 9781-5942 (http://education.Ubertesters/faq/JUZ934) Non-HDL Cholesterol 224(H) <130 mg/dL (calc) [facility]OUNDATION [...] a therapeutic option. Triglycerides 155(H) <150 mg/dL [facility] 10/05/2020 10:3 3 AM EDT us Mary Martin MD LAB BLOOD ORDERABLES Final Re sult [facility] [address] * HIV 1/2 ANTIGEN/ANTIBODY,FOURTH GENERATION W/RFL (10/05/2020 10:31 AM EDT) [facility] HIV-1/2 ANTIGEN AND ANTIBODIES, 4TH GENERATION W/ [...] purpose. For additional information please refer to http://education.MindSet Rx/faq/DWM892 (This link is being provided for informational/ educational purposes only.) The performance of this assay has not been clinically validated in patients less than 2 years old. 10/05/2020 10:3 1 AM EDT us Mary Martin MD LAB BLOOD ORDERABLES Final Re sult [facility] [address] from Last 3 Months or Most Recently Relevant to Health Maintenance Insurance [facility] STANDARD MEDICARE Care Teams Outside Food Server Relationship Specialty Start Date End Date Alisia Ivory FNP [address] [place] [phone] PCP - General Family Medicine 12/10/21
--- OUTSIDE RECORDS SUMMARY | 2025-03-08 23:11 | XMS_ITS | Encounter Summary ---
Author Organization [employer] Address [address] [facility] 7t [place] [address] Care Team Providers Care Manager R D Name Role Phone [facility] Primary Care Provider [phone] Encounter Details Date Type Department Care Team (Latest Contact Info) Description 03/07/2025 Results Follow-Up [facility] [address] [place] [address] Guided Percutaneous Biopsy Bone Deep Social History Tobacco Use Types Packs/Day Years [...] as of this encounter Care Teams Manager R D Relationship Specialty Start Date End Date Alisia Ivory FNP [address] [place] [address] PCP - General Family Medicine 12/10/21 documented as of this encounter
--- OUTSIDE RECORDS SUMMARY | 2025-03-08 23:11 | XMS_ITS | Encounter Summary ---
Author Organization [employer] Address [address] [facility] 7 [place] [address] Care Team Providers Care Capsule Filling Machine Operator Name Role Phone [facility] Primary Care Provider [phone] Reason for Visit * Reason Onset Date Comments Medication Question 03/06/2025 Encounter Details Date Type Department Care Team ([facility] st Contact Info) Description 03/06/2025 Refill [facility] [address] [place], [place] [phone] [facility] [address] [place] [address] Malignant neoplasm metastatic to bone (HCC) Social History Tobacco Use Types Packs/Day Years [...] encounter Miscellaneous Notes * Telephone Encounter - Cherie Cordon - 03/06/2025 3:26 PM EST TC from Jose E requesting clarification regarding the medication below. PA was approved, but the medication was sent with only 2 patches. Each package normally comes with 4 patches. Requesting clarification. Contact Pharmacy at [phone] documented in this encounter Plan of Treatment Not on file documented as of this encounter Visit Diagnoses Diagnosis Malignant neoplasm metastatic to bone (HCC) documented in this encounter Additional Health Concerns Assessment Noted Time PHQ-9 Depression Total Score: 21 025 10:56 AM EST documented as of this encounter Care Teams Capsule Filling Machine Operator Relationship Specialty Start Date End Date Alisia Ivory FNP [address] [place] [address] PCP - General Family Medicine 12/10/21 documented as of this encounter
--- OUTSIDE RECORDS SUMMARY | 2025-03-08 23:11 | XMS_ITS | Encounter Summary ---
Author Organization [employer] Address [address] [facility] 7 [place] [address] Care Team Providers Care Weaver Dobby Loom Name Role Phone [facility] Primary Care Provider [phone] Reason for Visit * Reason Onset Date Comments Med Refill 10/14/2023 Encounter Details Date Type Department Care Team ([facility] st Contact Info) Description 10/14/2023 Telephone [facility] [address] [place], [place] [phone] [facility] [address] [place] [address] Med Refill Social History Tobacco Use Types [...] Preferred Pharmacy [facility] documented in this encounter Plan of Treatment Not on file documented as of this encounter Visit Diagnoses Not on filedocumented in this encounter Additional Health Concerns Assessment Noted Time PHQ-9 Depression Total Score: 0 11/20/19 23 11:22 AM EDT documented as of this encounter Care Teams Weaver Dobby Loom Relationship Specialty Start Date End Date Alisia Ivory FNP [address] [place] [address] PCP - General Family Medicine 12/10/21 documented as of this encounter
== END 2025-03-08 12:05 | disposition home or self-care (01) ==
LOC: HO.XRAY 12:04
PROVIDERS: PCP Registered Nurse; Visit Provider Internal Medicine
DX: C79.51 Secondary malignant neoplasm of bone (principal)
CPT/HCPCS: 73502

== ENCOUNTER → 2025-03-08 12:10 | Outpatient (BNV) | payer MEDICARE, MEDICAID, SELFPAY | PROVIDERS: PCP Registered Nurse; Visit Provider Radiology Diagnostic Radiology | DX: M89.8X5 Other specified disorders of bone, thigh (principal) | CPT/HCPCS: 73502 ==

== ENCOUNTER → 2025-03-13 12:10 | Outpatient (REF) | payer MEDICARE, MEDICAID, SELFPAY ==
--- OUTSIDE RECORDS SUMMARY | 2025-03-13 16:14 | XMS_ITS | Encounter Summary ---
Author Organization [employer] Address [address] [facility] 7t [place] [address] Care Team Providers Care Hearing Aid Technician Name Role Phone [facility] Primary Care Provider [phone] Encounter Details Date Type Department Care Team ([facility] st Contact Info) Description 10/28/2023 Telephone [facility] [address] [place], [place] [phone] [facility] [address] [place] [address] Social History Tobacco Use Types Packs/Day Years [...] others, in a hotel, in a senior living, living outside on the street, on a [...] documented as of this encounter Care Teams Hearing Aid Technician Relationship Specialty Start Date End Date Alisia Ivory FNP [address] [place] [address] PCP - General Family Medicine 12/10/21 documented as of this encounter
--- OUTSIDE RECORDS SUMMARY | 2025-03-13 16:14 | XMS_ITS | Encounter Summary ---
Author Organization [employer] Address [address] [facility] 7 [place] [address] Care Team Providers Care Election Assistant Name Role Phone [facility] Primary Care Provider [phone] Reason for Visit * Reason Onset Date Comments Med Refill 10/14/2023 Encounter Details Date Type Department Care Team ([facility] st Contact Info) Description 10/14/2023 Telephone [facility] [address] [place], [place] [phone] [facility] [address] [place] [address] Med Refill Social History Tobacco Use Types [...] Pharmacy [facility] documented in this encounter Plan of Treatment Not on file documented as of this encounter Visit Diagnoses Not on filedocumented in this encounter Additional Health Concerns Assessment Noted Time PHQ-9 Depression Total Score: 0 11/20/19 23 11:22 AM EDT documented as of this encounter Care Teams Election Assistant Relationship Specialty Start Date End Date Alisia Ivory FNP [address] [place] [phone] PCP - General Family Medicine 12/10/21 documented as of this encounter
--- OUTSIDE RECORDS SUMMARY | 2025-03-13 16:14 | XMS_ITS | Encounter Summary ---
Author Organization [employer] Address [address] [facility] 7t [place] [address] Care Team Providers Care Property Clerk Name Role Phone [facility] Primary Care Provider [phone] Encounter Details Date Type Department Care Team ([facility] st Contact Info) Description 03/10/2025 Telephone [facility] [address] [place], [place] [phone] [facility] [address] [place], [place] [phone] Social History Tobacco Use Types Packs/Day Years [...] encounter Miscellaneous Notes * Telephone Encounter - [place] - 03/10/2025 12:26 PM EST Outgoing call placed to patient for status check after butrans patch. Pt reports she has not started taking yet but plans to this weekend. Reviewed instructions for use. Will check in next week. Patient verbalizes understanding and agrees to plan documented in this encounter Plan of Treatment Not on file documented as of this encounter Visit Diagnoses Not on filedocumented in this encounter Additional Health Concerns Assessment Noted Time PHQ-9 Depression Total Score: 21 025 10:56 AM EST documented as of this encounter Care Teams Property Clerk Relationship Specialty Start Date End Date Alisia Ivory FNP [address] [place] [address] PCP - General Family Medicine 12/10/21 documented as of this encounter
--- OUTSIDE RECORDS SUMMARY | 2025-03-13 16:14 | XMS_ITS | Clinical Summary ---
Author Organization [employer] Address [address] [facility] 7t [place] [address] Care Team Providers Care Stunner Name Role Phone [facility] Primary Care Provider [phone] Allergies Active Allergy Reactions Criticality Noted Date [...] Overview (10/15/2022): S/P femoral-femoral bypass graft 10/2021 [facility] [place]. Sees Dr. Harris q. 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 Incontinent of urine since this time. Wears adult incontinence pads. Rx'd oxybutynin. Follow[place] [facility] [place] Essential hypertension 12/04/2020 Overview (02/17/2024): Amlodipine [...] organization. Date Type Department Care Team Description 03/10/2025 Telephone [facility] [address] [place] [address] Alisia Ivory FNP 03/07/2025 Results Follow-Up [facility] [address] [place] [address] Mel Torres, RN CT Guided Percutaneous Biopsy Bone Deep 03/06/[address] [address] Alisia Ivory FNP Malignant neoplasm metastatic to bone (HCC) 03/03/[address] [address] Alisia Ivory FNP Prior Authorization ([place] Request: Buprenorphine 10MCG/HR weekly patches) 03/01/2025 11:30 AM EST Telemedicine [facility] [address] [place] [address] Alisia Ivory FNP Malignant neoplasm metastatic to bone (HCC) (Primary Dx); Chronic pain due to neoplasm; Mixed hyperlipidemia; Adjustment disorder with depressed mood 03/01/2025 Travel 02/28/2025 Telephone [facility] [address] [place] [address] Alisia Ivory FNP chart prep 02/24/2025 Refill [facility] [address] [place] [address] Alisia Ivory FNP Peripheral arterial disease 02/24/[address] [place] [address] Faber Alisia [facility] Call Back Request 02/22/2025 Telephone [facility] [place] [address] Sara Mitchell MA PCP message 02/20/2025 10:30 AM EST Office [address] [place] [address] Faber Alisia [facility] Malignant neoplasm metastatic to bone (HCC) (Primary Dx); Lytic bone lesion of hip; Palpitations; Adjustment disorder with depressed mood; Encounter for vaccination; Encounter for immunization 02/20/2025 Travel 02/17/2025 Telephone [facility] [place] [address] DianelysAlisia amador FNP Chart Prep 02/07/2025 Orders Only [address] [place] [address] Jerri Salas MD 01/21/2025 [address] [place] [address] FaberAlisia [facility] Chronic bilateral low back pain without sciatica 01/20/2025 Results Follow-Up [address] [place] [address] Jerri Salas MD MR Hip w/o Contrast Right, PET CT WHOLE BODY 01/16/2025 Telephone [facility] [place] [facility] [address] DianelysAlisia amador FNP Results 01/13/2025 11:30 AM EDT Office Visit [facility] [place] [place] [address] Jerri Salas MD Right hip pain (Primary Dx); SOB (shortness of breath) on exertion; Scalp lesion; Right foot pain; Peripheral arterial disease (CMS/HCC); Mild intermittent asthma in adult without complication; Deep vein thrombosis (DVT) of proximal lower extremity, unspecified chronicity, unspecified laterality (CMS/HCC); S/P aortobifemoral bypass surgery; Chronic anticoagulation; Screening for colon cancer; Elevated platelet count 01/13/2025 Travel 01/11/2025 Telephone [facility] [address] [place] [address] FaberAlisia FNP Nurse Triage 01/11/2025 Refill [facility] [address] [facility] [place] [place] [address] FaberAlisia amador FNP Chronic bilateral low back pain without [...] Procedure Name Priority Date/Time Associated Diagnosis Comments XR HIP 2 OR 3 VIEWS RIGHT Routine 03/08/2025 12:19 PM EST XR HIP 2 OR 3 VIEWS RIGHT Routine 03/08/2025 12:[address] GUIDED PERCUTANEOUS BIOPSY BONE DEEP Routine [...] Recently Relevant to Health Maintenance Results * XR Hip 2 or 3 Views Right (03/08/2025 12:19 PM EST) Only the most recent of3 resultswithin the time period is included. Anatomical Region Laterality Modality Lower Extremities, Hip Right Radiograp hic Imaging 03/08/2025 12:1 9 PM EST Narrative 03/10/2025 4:18 PM EST [facility] [address] [place] [address] XRay Report Signed Patient: Yael Gudino MR#: [id number] : 1965 Acct:[id number] Age/Sex: 59 / F ADM Date: 03/08/25 Loc: HO.ONC Attending Dr: Leah Morgan MD Ordering Physician: Leah Morgan MD Date of Service: 03/08/25 Procedure(s): XR hip RT min 2V Accession Number(s): [id number] cc: Leah Morgan MD; Jerri Salas Reason for Exam: Worsening pain, rule out pathological fracture EXAMINATION: XR HIP, RIGHT CLINICAL INFORMATION: Worsening pain, rule out pathological fracture COMPARISON: X-ray 01/13/2025. Correlation with MRI 01/18/2025 TECHNIQUE: Two views of the right hip. FINDINGS: Right hip articulation is maintained. Multiple lesions seen in the proximal femur, including lesion in the lesser trochanter, the proximal femoral diaphysis, and in the intertrochanteric region. These were evaluated on the recent MRI of 01/18/2025. No acute pathological fracture is identified by x-ray. The right pubic rami appear intact. Visualized portion of the right ilium is intact. Surgical clips projected over the hip. XR/XR hip RT min 2V IMPRESSION: Redemonstrated multiple lytic lesions in the proximal femur, evaluate on recent MRI of 01/18/2025. No radiographic evidence of pathological fracture is seen.. Clinically correlate. Follow-up/additional imaging as clinically indicated. Electronically signed by: Mark Anthony Powers MD 03/10/2025 04:14 PM EST Dictated By: Mark Anthony Powers MD Signed By: <Electronically signed by Mark Anthony Powers MD in OV> 03/10/25 1614 DD/ 1219 TD/TT: 03/08/25 1230 Artist Scientific: TANNER Procedure Note Donotuseinterpreter, Image - 03/10/2025 [facility] [address] [place] [address] XRay Report Signed Patient: Yael Gudino MMR#: [id number] : 1965Acct:[id number] Age/Sex: 59 / FADM Date: 03/08/25 Loc: HO.ONC Attending Dr: Leah Morgan MD Ordering Physician: Leah Morgan MD Date of Service: 03/08/25 Procedure(s): XR hip RT min 2V Accession Number(s): [id number] cc: Leah Morgan MD; Jerri Salas Reason for Exam: Worsening pain, rule out pathological fracture EXAMINATION: XR HIP, RIGHT CLINICAL INFORMATION: Worsening pain, rule out pathological fracture COMPARISON: X-ray 01/13/2025. Correlation with MRI 01/18/2025 TECHNIQUE: Two views of the right hip. FINDINGS: Right hip articulation is maintained. Multiple lesions seen in the proximal femur, including lesion in the lesser trochanter, the proximal femoral diaphysis, and in the intertrochanteric region. These were evaluated on the recent MRI of 01/18/2025. No acute pathological fracture is identified by x-ray. The right pubic rami appear intact. Visualized portion of the right ilium is intact. Surgical clips projected over the hip. XR/XR hip RT min 2V IMPRESSION: Redemonstrated multiple lytic lesions in the proximal femur, evaluate on recent MRI of 01/18/2025. No radiographic evidence of pathological fracture is seen.. Clinically correlate. Follow-up/additional imaging as clinically indicated. Electronically signed by: Mark Anthony Powers MD 03/10/2025 04:14 PM EST Dictated By: Mark Anthony Powers MD Signed By: <Electronically signed by Mark Anthony Powers MD in OV> 03/10/25 1614 DD/ 1219 TD/TT: 03/08/25 1230 Artist Scientific: TANNER us [facility] External Provider IMG XR PROCEDURES Final Result * CT Guided Percutaneous Biopsy Bone Deep (03/03/2025 1:36 PM EST) Anatomical Region Laterality Modality Computed Tomogra phy 03/03/2025 1:36 PM EST Narrative 03/07/2025 3:01 PM EST [address] [address] [address] Scan Report Signed Patient: Yael Gudino MR#: [id number] : 1965 Acct:[id number] Age/Sex: 59 / F ADM Date: 03/03/25 Loc: HO.[facility] Attending Dr: Trina Nava NP Ordering Physician: Trina Nava NP Date of Service: 03/03/25 Procedure(s): CT biopsy bone deep Accession Number(s): [id number] cc: Leah Morgan MD; Jerri Salas; Trina Nava NP Report Number: [id number]: Total DLP = 292.00 mGy-cm Reason for [...] by: Anderson Benz MD 03/07/2025 02:59 PM [facility] Workstation: [id number] Dictated By: Nav Acosta MARKETING OPERATIONS SPECIALIST Signed By: <Electronically signed by Nav Acosta in OV> 03/07/25 1459 <Electronically signed by Anderson Benz MD in OV> 03/07/25 1501 DD/ 1336 TD/TT: 03/03/25 1434 Artist Scientific: Procedure Note Donotuseinterpreter, Image - 03/07/[address] [place] [address] [address] Scan Report Signed Patient: Yael Gudino MMR#: [id number] : 1965Acct:[id number] Age/Sex: 59 / FADM Date: 03/03/25 Loc: [facility] Attending Dr: Trina Nava NP Ordering Physician: Trina Nava NP Date of Service: 03/03/25 Procedure(s): CT biopsy bone deep Accession Number(s): [id number] cc: Leah Morgan MD; Jerri Salas; Trina Nava NP Report Number: [id number]: Total DLP = 292.00 mGy-cm Reason for [...] Benz MD 03/07/2025 02:59 PM EST Workstation: [id number] Dictated By: Nav Acosta NP Signed By: <Electronically signed by Nav Acosta in OV> 03/07/25 1459 <Electronically signed by Anderson Benz MD in OV> 03/07/25 1501 DD/ 1336 TD/TT: 03/03/25 1434 Artist Scientific: [facility] External Provider IMG CT PROCEDURES Final Result * BI Mammogram Screening Tomosynthesis Bilateral (02/28/2025 2:56 PM EST) Anatomical Region Laterality Modality Breast Bilateral Mammography 02/28/2025 2:56 PM EST Narrative 03/03/2025 7:44 PM EST [address] [place], [place] [address] Mammography Report Signed Patient: Yael Gudino MR#: [id number] : 1965 Acct:[id number] Age/Sex: 59 / F ADM Date: 02/28/25 Loc: [facility] Attending Dr: Alisia Ivory VP OF GLOBAL MARKETING Ordering Physician: Alisia Ivory Results: 1Nega tive Date of Service: 02/28/25 Follow Up: 1 Year From Orig inal Mammogram Procedure(s): MM tomosynthesis screening BI Accession Number(s): [id number] cc: Jerri Salas; Alisia Ivory Reason For [...] by: Lilia Blanton DO 03/03/2025 07:41 PM [facility] Dictated By: Lilia Blanton DO Signed By: <Electronically signed by Lilia Blanton DO in OV> 03/03/25 1941 DD/ 1456 TD/TT: 02/28/25 1516 Artist Scientific: Procedure Note Donotuseinterpreter, Image - 03/03/2025 [facility] [address] [place] [address] Dr. [place], [place] [address] Mammography Report Signed Patient: Yael Gudino MMR#: [id number] : 1965Acct:[id number] Age/Sex: 59 / FADM Date: 02/28/25 Loc: HO.MAMMO Attending Dr: Alisia Ivory VP OF [employer]ET[employer] Ordering Physician: Alisia Ivory FNPResults: 1Nega tive Date of Service: 02/28/25Follow Up: 1 Year From Orig inal Mammogram Procedure(s): MM tomosynthesis screening BI Accession Number(s): [id number] cc: Jerri Salas; Alisia Ivory Reason For [...] by: Lilia Blanton DO 03/03/2025 07:41 PM [facility] Dictated By: Lilia Blanton DO Signed By: <Electronically signed by Lilia Blanton DO in OV> 03/03/25 1941 DD/ 1456 TD/TT: 02/28/25 1516 Artist Scientific: [facility] VP OF GLOBAL MARKETING IMG BI PROCEDURES Final Resul t * PET CT WHOLE BODY (02/12/2025) Anatomical Region Laterality Modality Computed Tomogra phy Jerri Salas MD IMG CT PROCEDURES Final Result * US Head Neck Soft Tissue (02/07/2025 1:19 PM EDT) Anatomical Region Laterality Modality Head, Neck Ultrasound 02/07/2025 1:19 PM EDT Narrative 02/07/2025 1:44 PM EDT [address] [address] Ultrasound Report Signed Patient: Yael Gudino MR#: [id number] : 1965 Acct:[id number] Age/Sex: 59 / F ADM Date: 02/07/25 Loc: HO.US Attending Dr: Jerri Salas MD Ordering Physician: Jerri Salas Date of Service: 02/07/25 Procedure(s): US soft tiss head and/or neck Accession Number(s): [id number] cc: Jerri Salas; [facility] Reason for Exam: 8MM NON TENDER FIXED [...] 02/07/25 1342 DD/ 1319 TD/TT: 02/07/25 1323 Artist Scientific: Procedure Note Donotuseinterpreter, Image - 02/07/[address] [address] Ultrasound Report Signed Patient: Yael Gudino MMR#: [id number] : 1965Acct:[id number] Age/Sex: 59 / FADM Date: 02/07/25 Loc: HO.US Attending Dr: Jerri Salas MD Ordering Physician: Jerri Salas Date of Service: 02/07/25 Procedure(s): US soft tiss head and/or neck Accession Number(s): [id number] cc: Jerri Salas; Alisia Ivory VP [employer]ET[employer] Reason for Exam: 8MM NON TENDER FIXED [...] 02/07/25 1342 DD/ 1319 TD/TT: 02/07/25 1323 Artist Scientific: Jerri Salas MD IMG US PROCEDURES Edited Resul t - Final * MR Hip w/o Contrast Right (01/18/2025 3:15 PM EDT) Anatomical Region Laterality Modality Magnetic Resonan ce 01/18/2025 3:15 PM EDT Narrative 01/18/2025 4:29 PM EDT [address] [address] Magnetic Resonance Report Signed Patient: Yael Gudino MR#: [id number] : 1965 Acct:[id number] Age/Sex: 59 / F ADM Date: 01/18/25 Loc: HO.MRI Attending Dr: Jerri Salas MD Ordering Physician: Jerri Salas Date of Service: 01/18/25 Procedure(s): MR hip RT wo con Accession Number(s): [id number] cc: Jerri Salas; [facility] Reason for Exam: PAIN EXAMINATION: MRI of [...] 01/18/25 1626 DD/ 1515 TD/TT: 01/18/25 1530 Artist Scientific: Procedure Note Donotuseinterpreter, Image - 01/18/[address] [address] Magnetic Resonance Report Signed Patient: Yael Gudino [facility]#: [id number] : 1965Acct:[id number] Age/Sex: 59 / FADM Date: 01/18/25 Loc: HO.MRI Attending Dr: Jerri Salas MD Ordering Physician: Jerri Salas Date of Service: 01/18/25 Procedure(s): MR hip RT wo con Accession Number(s): [id number] cc: Jerri Salas; [facility] Reason for Exam: PAIN EXAMINATION: MRI of [...] 01/18/25 1626 DD/ 1515 TD/TT: 01/18/25 1530 Artist Scientific: us Jerri Salas MD [facility] MRI PROCEDURES Final Resul t * (ABNORMAL) CBC auto differential (01/13/2025 12:30 PM EDT) White Blood Count 13.9(H) 4.8 - 10.8 X10*3/uL [facility] Red Blood Count 4.89 4.20 - 5.50 X10*6/uL [facility] Hemoglobin 14.3 12.0 - 16.0 g/dl [facility] Hematocrit 43.6 37.0 - 47.0 % [facility] Mean Corpuscular Volume 89.2 80.0 - 98.0 fL [facility] Mean Corpuscular Hemoglobin 29.2 27.0 - 33.0 pg [facility] Mean Corpuscular HGB Conc 32.8 31.0 - 35.0 g/dl [facility] Red Cell Distribution Width 13.2 11.0 - 16.0 % [facility] Platelet Count 428(H) 160 - 400 X10*3/uL [facility] Mean Platelet Volume 9.0(L) 9.4 - 12.3 fL [facility] Neutrophils Percent Auto 61.5 45 - 73 % [facility] Imm Gran Pct Auto 0.5(H) 0.0 - 0.4 % [facility] Lymphocytes Percent Auto 29.7 20 - 40 % [facility] Monocytes Percent Auto 6.3 2 - 11 % [facility] Eosinophils Percent Auto 1.4 0 - 4 % [facility] Basophils Percent Auto 0.6 0 - 2 % [facility] NRBC Pct Auto 0.0 0.0 - 0.2 /100WBC [facility] Neutrophils Absolute Auto 8.6(H) 2.0 - 8.3 x10*3/uL [facility] Imm Gran Abs Auto 0.07(H) 0.00 - 0.03 X10*3/uL [facility] Lymphocytes Absolute Auto 4.1 1.2 - 4.9 X10*3/uL [facility] Monocytes Absolute Auto 0.9 0.1 - 1.2 X10*3/uL [facility] Eosinophils Absolute Auto 0.2 0.0 - 0.4 X10*3/uL [facility] Basophils Absolute Auto 0.1 0.0 - 0.2 X10*3/uL [facility] NRBC Abs Auto 0.000 0.0 - 0.012 X10*3/uL [facility] Blood Venous blood specimen / Unknown 01/13/2025 12:30 PM EDT 01/13/2025 12:58 PM EDT us Jerri Salas MD LAB BLOOD ORDERABLES Final Res ult Performing Organization Address City/[facility]/ZIP Co de Phone Number [facility] [address] [place] [address] [phone] * (ABNORMAL) Comprehensive Metabolic Panel (01/13/2025 12:30 PM EDT) Sodium 140 135 - 145 mmol/L [facility] Potassium 4.3 3.3 - 5.1 mmol/L [facility] Chloride 104 96 - 108 mmol/L [facility] Carbon Dioxide 27 22 - 29 mmol/L [facility] Anion Gap 13 12 - 20 [facility] Urea Nitrogen (BUN) 9 9 - 16 mg/dL [facility] Creatinine, Serum 0.67 0.5 - 1.4 mg/dL [facility] Estimated Glomerular Filt Rate >60 [facility] Comment:Chronic Kidney Disea se: Estimated GFR < 60 mL/min/1.79q3Mxalim Kidney Disease: Estimated GFR < 15 mL/min/1.73m2 Glucose 87 60 - 115 mg/dL [facility] Calcium 9.4 8.4 - 10.2 mg/dL [facility] Bilirubin, Total 0.3 0.0 - 1.0 mg/dL [facility] Aspartate Amino Transferase 17 5 - 31 U/L [facility] Alanine Aminotransferase 11 0 - 31 U/L [facility] Total Protein 8.0 6.5 - 8.0 g/dL [facility] Albumin Level 4.2 3.5 - 5.0 g/dL [facility] Alkaline Phosphatase 179(H) 39 - 117 U/L [facility] Blood Venous blood specimen / Unknown 01/13/2025 12:30 PM EDT 01/13/2025 1:11 PM EDT us Jerri Salas MD LAB BLOOD ORDERABLES Final Res ult Performing Organization Address City/[facility]/ZIP Co de Phone Number [facility] [address] [place] [address] [phone] * (ABNORMAL) Hepatitis Panel, General (10/13/2022 11:35 AM EDT) Hepatitis A Antibody Total REACTIVE( A) NON-REACT LEONELA [facility] Comment: For additional information, please refer to http://[employer]/faq/DWP052 (This link is being provided for informational/ educational purposes only.) Hepatitis B Surface Antibody QL NON-REACT LEONELA NON-REACT LEONELA [facility] Hepatitis B Surface Ag NON-REACT LEONELA NON-REACT LEONELA [facility] [employer] Comment: For additional information, please refer to http://[employer]/faq/POO194 (This link is being provided for informational/ educational purposes only.) Hepatitis B Core Antibody Total NON-REACT LEONELA NON-REACT LEONELA [facility] Comment: For additional information, please refer to http://[employer]/faq/WKA895 (This link is being provided for informational/ educational purposes only.) Hepatitis C Antibody NON-REACT LEONELA NON-REACT LEONELA [facility] [employer] Comment: HCV antibody was non-reactive. There is no laboratory evidence of HCV infection. In most cases, no further action is required. However, if recent HCV exposure is suspected, a test for HCV RNA (test code 67499) is suggested. For additional information please refer to http://[employer]/faq/RBM17p7 (This link is being provided for informational/ educational purposes only.) 10/13/2022 11:3 5 AM EDT 10/13/2022 11:36 AM EDT Narrative [facility] - 10/14/2022 5:35 PM EDT FASTING:NO FASTING: NO [facility] LAB BLOOD ORDERABLES Final Re sult [facility] [address], [place] [address] [facility] [employer] [address] [place] [phone] * THINPREP PAP (01/04/2021 12:00 AM EDT) [...] along with historic and current clinical information. Post Graduate Internship : SEE COMMENT [facility] Comment: JXM, CT(ASCP) CT screening location: [address] [address] Interpretation/R esult: Negative for intraepithelial lesion or malignancy. [facility] LMP: NONE GIVEN [facility] Prev. BX: NONE GIVEN [facility] Prev. PAP: NONE GIVEN [facility] SOURCE: None given [facility] Statement Of Adequacy: SEE COMMENT [facility] Comment: Satisfactory for evaluation. Endocervical/transformation zone component present. Age and/or menstrual status not provided 01/04/2021 Raina Cantu NP LAB PATHOLOGY ORDERABLES Final Result [facility] [address] * HPV mRNA E6/E7 (01/04/2021 12:00 AM EDT) HPV nRNA E6/E7 Not Detected Not Detected [facility] Comment: Methodology: Psychiatric Therapist-Mediated Amplification This assay detects E6/E7 viral messenger RNA (mRNA) from 14 high-risk HPV types (16,18,31,33,35,39,45,51,52,56,58,59,66,68). The analytical performance characteristics of this assay have been determined by [facility]. The modifications have not been cleared or approved by the FDA. This assay has been validated pursuant to the CLIA regulations and is used for clinical purposes. For additional information, please refer to http://education.adQTop[employer]eejays/faq/LZY973f4 (This link if provided for information/ educational purposes only.) 01/04/2021 us Raina Cantu MARKETING OPERATIONS SPECIALIST LAB BLOOD ORDERABLES Final Resu lt [facility] [address] [place] [address], * (ABNORMAL) LIPID PANEL, STANDARD (10/05/2020 10:33 [...] about testing for familial hypercholesterolemia, please call [email or web address] Client Services at 1.128.[facility].INFO. Marvin T, et al. J National Lipid [...] LDL-C. Charles GARCÍA et al. LESLEY. 2013;310(19): 5160-3688 (http://education.brands4friends.Computerlogy/faq/NEV002) Non-HDL Cholesterol 224(H) <130 mg/dL (calc) [facility] [...] ORDERABLES Final Re sult Performing Organization Address [facility] Co de Phone Number [facility] [address] * HIV 1/2 ANTIGEN/ANTIBODY,FOURTH GENERATION W/RFL (10/05/2020 10:31 AM EDT) HIV-1/2 ANTIGEN AND ANTIBODIES, 4TH GENERATION W/ REFLEX NON-REACT LEONELA NON-REACT LEONELA [facility] Comment: HIV-1 antigen and HIV-1/HIV-2 [...] purpose. For additional information please refer to http://education.adQ.Computerlogy/faq/VKF604 (This link is being provided for informational/ educational purposes only.) The performance of this assay has not been clinically validated in patients less than 2 years old. 10/05/2020 10:3 1 AM EDT us Mary Martin MD LAB BLOOD ORDERABLES Final Re sult Performing Organization Address [facility] Co de Phone Number [facility] [address] from Last 3 Months or Most Recently Relevant to Health Maintenance Insurance STANDARD MEDICARE Care Teams Stunner Relationship Specialty Start Date End Date Alisia Ivory FNP [address] [place] [phone] PCP - General Family Medicine 12/10/21
--- OUTSIDE RECORDS SUMMARY | 2025-03-13 16:15 | XMS_ITS | Encounter Summary ---
Author Organization [employer] Address [address] [facility] 7 [place] [address] Care Team Providers Care Eye Care Professional Name Role Phone [facility] Primary Care Provider [phone] Reason for Visit * Reason Onset Date Comments Medication Question 03/06/2025 Encounter Details Date Type Department Care Team ([facility] st Contact Info) Description 03/06/2025 Refill [facility] MEDICINE [address] [place], [place] [phone] [facility] [address] [place] [address] Malignant neoplasm metastatic to bone (HCC) Social [...] with others, in a hotel, in a fpc, living outside on the street, on a [...] 4 patches. Requesting clarification. Contact Pharmacy at [phone] documented in this encounter Plan of Treatment Not on file documented as of this encounter Visit Diagnoses Diagnosis Malignant neoplasm metastatic to bone (HCC) documented in this encounter Additional Health Concerns Assessment Noted Time PHQ-9 Depression Total Score: 21 025 10:56 AM EST documented as of this encounter Care Teams Eye Care Professional Relationship Specialty Start Date End Date Alisia Ivory FNP [address] [place] [id number] PCP - General Family Medicine 12/10/21 documented as of this encounter
--- OUTSIDE RECORDS SUMMARY | 2025-03-13 16:15 | XMS_ITS | Encounter Summary ---
Author Organization [employer] Address [address] [facility] 7t [place] [address] Care Team Providers Care Deep Well Contractor Name Role Phone [facility] Primary Care Provider [phone] Encounter Details Date Type Department Care Team (Latest Contact Info) Description 03/07/2025 Results Follow-Up [facility] MEDICINE [address] [place] [address] Guided Percutaneous Biopsy [...] with others, in a hotel, in a half-way, living outside on the street, on a [...] documented as of this encounter Care Teams Deep Well Contractor Relationship Specialty Start Date End Date Alisia Ivory FNP [address] [place] [id number] PCP - General Family Medicine 12/10/21 documented as of this encounter
== END ==
LOC: HO.CARD 12:10
PROVIDERS: PCP Registered Nurse; Visit Provider Registered Nurse
DX: R00.2 Palpitations (principal)
CPT/HCPCS: 93225

== ENCOUNTER → 2025-03-13 12:16 | Outpatient (BNV) | payer MEDICARE, MEDICAID, SELFPAY | PROVIDERS: PCP Registered Nurse; Visit Provider Internal Medicine | DX: I49.3 Ventricular premature depolarization (principal) | CPT/HCPCS: 93227 ==

== ENCOUNTER 2025-03-24 08:29 | Outpatient (REF) | payer MEDICARE, MEDICAID, SELFPAY ==
--- NOTE | ~2025-03-24 | CT_ITS ---
EXAMINATION: CT SOFT TISSUE NECK WITH CONTRAST CLINICAL INFORMATION: Mass in submandibular, subglottic area. COMPARISON: Correlated to PET CT from an outside institution dated February 12, 2025. TECHNIQUE: Following the intravenous administration of 100 mL of Omnipaque 350 intravenous contrast, helical imaging was performed in the axial plane with generation of coronal and sagittal reformatted images. This CT examination was performed using dose optimization techniques as appropriate, variously including the following: *Automated exposure control *Adjustment of mA and/or kV according to patient size (this includes techniques or standardized protocols for targeted exams where dose is matched to indication/reason for exam; i.e. extremities or head) *Use of iterative reconstruction technique DLP: 290 mGy-cm FINDINGS: The patient is tilted on the CT scanner. There is no enhancing mass in the oral cavity and or sublingual/submandibular that corresponds to the increased uptake at the midline of the anterior oral cavity/mandible region. Skull base, nasopharynx, retropharynx, hypopharynx and larynx demonstrated no gross masses or fluid collections. Gps Navigation Installer spaces, parapharyngeal spaces and carotid spaces demonstrated no enhancing mass or fluid collection. Salivary glands demonstrated no enhancing mass or sialolithiasis. The vessels are patent. Mixed plaques in the left carotid bulb and proximal left ICA. Thyroid gland demonstrates no dominant nodule. No enhancing mass in the intraconal or extraconal compartments of the orbits. Mediastinal lymphadenopathy, the largest measures 15 mm. Calcified plaques in the thoracic aortic arch wall and the origin of the left subclavian artery and the brachiocephalic trunk. Paraseptal emphysematous changes in the upper lungs. No lytic or blastic lesions. Edentulous. No air-fluid levels in the paranasal sinuses. 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 Tympanic cavities and mastoid cells are aerated. Cervical spondylosis C4-5 and C5-6 level. Calcified plaques in the cavernous supracavernous segments of the ICAs. No intra-axial or extra-axial enhancing mass in the included segments of the cranium/brain. CT/CT soft tissue neck w IV con IMPRESSION: No enhancing mass to correspond to the increased uptake on the recent PET CT from an outside institution. Mediastinal lymphadenopathy. Electronically signed by: Vicente Soto MD 03/24/2025 09:06 AM EST
[2025-03-24] MEDS: iohexoL 350 MG/ML 100 ML INFUS..BTL 60 ML IV (08:49)
== END 2025-03-24 08:30 | disposition home or self-care (01) ==
LOC: HO.CT 08:29
PROVIDERS: PCP Registered Nurse; Visit Provider Internal Medicine
DX: C79.51 Secondary malignant neoplasm of bone (principal)
CPT/HCPCS: 70491; Q9967

== ENCOUNTER → 2025-03-24 08:32 | Outpatient (BNV) | payer MEDICARE, MEDICAID, SELFPAY | PROVIDERS: PCP Registered Nurse; Visit Provider Radiology Diagnostic Radiology | DX: R59.0 Localized enlarged lymph nodes (principal) | CPT/HCPCS: 70491 ==

== ENCOUNTER 2025-04-11 11:09 | Day surgery (SDC) | payer MEDICARE, MEDICAID, SELFPAY ==
--- OUTSIDE RECORDS SUMMARY | 2025-03-31 17:33 | XMS_ITS | Encounter Summary ---
Author Organization [employer] Address [address] [facility] 7 [place] [address] Care Team Providers Care Senior Technical Support Engineer Name Role Phone [facility] Primary Care Provider [phone] Reason for Visit * Reason Onset Date Comments Med Refill 10/14/2023 Encounter Details Date Type Department Care Team ([facility] st Contact Info) Description 10/14/2023 Telephone [facility] MEDICINE [address] [place], [place] [phone] [facility] [address] [place] [address] Med Refill Social History Tobacco Use Types [...] Preferred Pharmacy [facility] documented in this encounter Plan of Treatment Not on file documented as of this encounter Visit Diagnoses Not on filedocumented in this encounter Additional Health Concerns Assessment Noted Time PHQ-9 Depression Total Score: 0 11/20/19 23 11:22 AM EDT documented as of this encounter Care Teams Senior Technical Support Engineer Relationship Specialty Start Date End Date Alisia Ivory FNP [address] [place] [phone] PCP - General Family Medicine 12/10/21 documented as of this encounter
--- OUTSIDE RECORDS SUMMARY | 2025-03-31 17:33 | XMS_ITS | Encounter Summary ---
Author Organization [employer] Address [address] [facility] 7t [place] [address] Care Team Providers Care Laboratory Operations Coordinator Name Role Phone [place] [facility] Primary Care Provider [phone] Encounter Details Date Type Department Care Team ([facility] st Contact Info) Description 10/28/2023 Telephone [facility] MEDICINE [address] [place], [place] [phone] [place] [facility] [address] [place] [address] Social History Tobacco Use Types Packs/Day Years [...] documented as of this encounter Care Teams Laboratory Operations Coordinator Relationship Specialty Start Date End Date Alisia Ivory FNP [address] [place] [phone] PCP - General Family Medicine 12/10/21 documented as of this encounter
--- OUTSIDE RECORDS SUMMARY | 2025-03-31 17:33 | XMS_ITS | Clinical Summary ---
Author Organization [employer] Address [address] [facility] [address] [place] [address] Care Team Providers Care Consumer Product Advisor Name Role Phone [facility] Primary Care Provider [phone] Allergies Active Allergy Reactions Criticality Noted Date [...] MOUTH EVERY DAY 90 tablet 3 01/17/20 Active budesonide-formot azul (Symbicort) 160-4.5 MCG/ACT inhalerIndication s:Mild intermittent asthma in adult without complication 2 puffs every 4-6 hours as needed for cough or wheeze 1 each 11 01/17/20 Active cyclobenzaprine (Flexeril) 10 MG tabletIndications :Chronic [...] mouth at bedtime. 90 tablet 3 03/01/20 Active buprenorphine (Butrans) 10 MCG/HRIndications :Malignant neoplasm metastatic to bone (HCC) Place 1 patch on the skin 1 (one) time per week. 4 patch 03/08/20 Active buprenorphine (Butrans) 10 MCG/HRIndications :Malignant neoplasm metastatic to bone (HCC) Place 1 patch on the skin 1 (one) time per week. 2 patch 03/01/202024 Discontinued(R eorder (will not trigger notification to [...] Overview (10/15/2022): S/P femoral-femoral bypass graft 10/2021 [facility] Vascular. Sees Dr. Harris [...] with PEG scales at follow up visit [employer] contact up to date Depressive disorder 02/03/2021 Urinary incontinence 02/03/2021 Overview (10/15/2022): Hx of blood clot in R renal artery in 2017. Incontinent of urine since this time. Wears adult incontinence pads. Rx'd oxybutynin. Followed by [facility] urology Essential hypertension 12/04/2020 [...] organization. Date Type Department Care Team Description 03/30/2025 Telephone [facility] [address] [place] [address] Alisia Ivory FNP Durable Medical Equipment (DME: [employer] Items) 03/24/2025 Orders Only [facility] External Provider, [facility] 03/10/2025 Telephone [facility] [address] [place] [address] Alisia Ivory FNP 03/07/2025 Results Follow-Up [facility] [address] [place] [address] Guided Percutaneous Biopsy Bone Deep 03/06/2025 Refill [facility] [address], [place] [phone] Alisia Ivory FNP Malignant neoplasm metastatic to bone (HCC) 03/03/2025 Telephone [facility] [address] Alisia IvoryLAKE Prior Authorization ([place] Request: Buprenorphine 10MCG/HR weekly patches) 03/01/2025 11:30 AM EST Telemedicine [facility] [place] [address] Alisia Ivory [facility] Malignant neoplasm metastatic to bone (HCC) (Primary Dx); Chronic pain due to neoplasm; Mixed hyperlipidemia; Adjustment disorder with depressed mood 03/01/2025 Travel 02/28/2025 Telephone [facility] [place] [address] Alisia Ivory SENIOR CLINICAL STUDY MANAGER chart prep 02/24/2025 Refill [facility] [address] Alisia Ivory [facility] Peripheral arterial disease 02/24/2025 Telephone [facility] [place] [address] Dianelys Alisia SENIOR CLINICAL STUDY MANAGER Call Back Request 02/22/2025 Telephone [facility] [place] [address] Sara Caba MA PCP message 02/20/2025 10:30 AM EST Office Visit [facility] [place] [address] Alisia Ivory [facility] Malignant neoplasm metastatic to bone (HCC) (Primary Dx); Lytic bone lesion of hip; Palpitations; Adjustment disorder with depressed mood; Encounter for vaccination; Encounter for immunization 02/20/2025 Travel 02/17/2025 Telephone [facility] [place] [address] Alisia Ivory [facility] Chart Prep 02/07/2025 Orders Only [facility] [place] [address] Jerri Salas MD 01/21/2025 Refill [facility] [place] [address] Alisia Ivory [facility] Chronic bilateral low back pain without sciatica 01/20/2025 Results Follow-Up [facility] [place] [address] Jerri Salas MD MR Hip w/o Contrast Right, PET CT WHOLE BODY 01/16/2025 Telephone [facility] [address] [place] [address] Alisia Ivory FNP Results 01/13/2025 11:30 AM EDT Office Visit [address] [phone] Jerri Salas MD Right hip pain (Primary Dx); SOB (shortness of breath) on exertion; Scalp lesion; Right foot pain; Peripheral arterial disease (CMS/HCC); Mild intermittent asthma in adult without complication; Deep vein thrombosis (DVT) of proximal lower extremity, unspecified chronicity, unspecified laterality (CMS/HCC); S/P aortobifemoral bypass surgery; Chronic anticoagulation; Screening for colon cancer; Elevated platelet count 01/13/2025 Travel 01/11/2025 Telephone [facility] [address], [place] [phone] Alisia Ivory FNP Nurse Triage 01/11/[address] [address] Alisia Ivory FNP Chronic bilateral low back [...] Name Priority Date/Time Associated Diagnosis Comments CT SOFT TISSUE NECK W CONTRAST Routine 03/24/2025 8:36 AM EST XR HIP 2 OR 3 VIEWS [...] Relevant to Health Maintenance Results * CT Soft Tissue Neck w/ Contrast (03/24/2025 8:36 AM EST) Anatomical Region Laterality Modality Head, Neck Computed Tomogra phy 03/24/2025 8:36 AM EST Narrative 03/24/2025 9:09 AM EST [place] [address] CT Scan Report Signed Patient: Yael Gudino MR#: [id number] : 1965 Acct:[id number] Age/Sex: 59 / F ADM Date: 03/24/25 Loc: .CT Attending Dr: Leah Morgan MD Ordering Physician: Leah Morgan MD Date of Service: 03/24/25 Procedure(s): CT soft tissue neck w IV con Accession Number(s): [id number] cc: Leah Morgan MD; [facility] Report Number: [id number]: Total DLP = 290.00 mGy-cm Reason for Exam: mass in submandibular, subglottic area? EXAMINATION: CT SOFT TISSUE NECK WITH CONTRAST CLINICAL INFORMATION: Mass in submandibular, subglottic area. COMPARISON: Correlated to PET CT from an outside institution dated February 12, 2025. TECHNIQUE: Following the intravenous administration of 100 mL of Omnipaque 350 intravenous contrast, helical imaging was performed in the axial plane with generation of coronal and sagittal reformatted images. This CT examination was performed using dose optimization techniques as appropriate, variously including the following: *Automated exposure control *Adjustment of mA and/or kV according to patient size (this includes techniques or standardized protocols for targeted exams where dose is matched to indication/reason for exam; i.e. extremities or head) *Use of iterative reconstruction technique DLP: 290 mGy-cm FINDINGS: The patient is tilted on the CT scanner. There is no enhancing mass in the oral cavity and or sublingual/submandibular that corresponds to the increased uptake at the midline of the anterior oral cavity/mandible region. Skull base, nasopharynx, retropharynx, hypopharynx and larynx demonstrated no gross masses or fluid collections. Receptionist Scheduler spaces, parapharyngeal spaces and carotid spaces demonstrated no enhancing mass or fluid collection. Salivary glands demonstrated no enhancing mass or sialolithiasis. The vessels are patent. Mixed plaques in the left carotid bulb and proximal left ICA. Thyroid gland demonstrates no dominant nodule. No enhancing mass in the intraconal or extraconal compartments of the orbits. Mediastinal lymphadenopathy, the largest measures 15 mm. Calcified plaques in the thoracic aortic arch wall and the origin of the left subclavian artery and the brachiocephalic trunk. Paraseptal emphysematous changes in the upper lungs. No lytic or blastic lesions. Edentulous. No air-fluid levels in the paranasal sinuses. 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 Tympanic cavities and mastoid cells are aerated. Cervical spondylosis C4-5 and C5-6 level. Calcified plaques in the cavernous supracavernous segments of the ICAs. No intra-axial or extra-axial enhancing mass in the included segments of the cranium/brain. CT/CT soft tissue neck w IV con IMPRESSION: No enhancing mass to correspond to the increased uptake on the recent PET CT from an outside institution. Mediastinal lymphadenopathy. Electronically signed by: Vicente Soto MD 03/24/2025 09:06 AM [facility] Dictated By: Vicente Barrett MD Signed By: <Electronically signed by Vicente Morrow MD in OV> 03/24/2506 DD/ TD/TT: 03/24/2552 Pick Pack Worker: Procedure Note Donotuseinterpreter, Image - 03/24/[address] [address] [address] Scan Report Signed Patient: Yael Gudino [facility]#: [id number] : 1965Acct:[id number] Age/Sex: 59 / FADM Date: 03/24/25 Loc: HO.CT Attending Dr: Leah Morgan MD Ordering Physician: Leah Morgan MD Date of Service: 03/24/25 Procedure(s): CT soft tissue neck w IV con Accession Number(s): [id number] cc: Leah Morgan MD; [facility] Report Number: [id number]: Total DLP = 290.00 mGy-cm Reason for Exam: mass in submandibular, subglottic area? EXAMINATION: CT SOFT TISSUE NECK WITH CONTRAST CLINICAL INFORMATION: Mass in submandibular, subglottic area. COMPARISON: Correlated to PET CT from an outside institution dated February 12, 2025. TECHNIQUE: Following the intravenous administration of 100 mL of Omnipaque 350 intravenous contrast, helical imaging was performed in the axial plane with generation of coronal and sagittal reformatted images. This CT examination was performed using dose optimization techniques as appropriate, variously including the following: *Automated exposure control *Adjustment of mA and/or kV according to patient size (this includes techniques or standardized protocols for targeted exams where dose is matched to indication/reason for exam; i.e. extremities or head) *Use of iterative reconstruction technique DLP: 290 mGy-cm FINDINGS: The patient is tilted on the CT scanner. There is no enhancing mass in the oral cavity and or sublingual/submandibular that corresponds to the increased uptake at the midline of the anterior oral cavity/mandible region. Skull base, nasopharynx, retropharynx, hypopharynx and larynx demonstrated no gross masses or fluid collections. Receptionist Scheduler spaces, parapharyngeal spaces and carotid spaces demonstrated no enhancing mass or fluid collection. Salivary glands demonstrated no enhancing mass or sialolithiasis. The vessels are patent. Mixed plaques in the left carotid bulb and proximal left ICA. Thyroid gland demonstrates no dominant nodule. No enhancing mass in the intraconal or extraconal compartments of the orbits. Mediastinal lymphadenopathy, the largest measures 15 mm. Calcified plaques in the thoracic aortic arch wall and the origin of the left subclavian artery and the brachiocephalic trunk. Paraseptal emphysematous changes in the upper lungs. No lytic or blastic lesions. Edentulous. No air-fluid levels in the paranasal sinuses. 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 Tympanic cavities and mastoid cells are aerated. Cervical spondylosis C4-5 and C5-6 level. Calcified plaques in the cavernous supracavernous segments of the ICAs. No intra-axial or extra-axial enhancing mass in the included segments of the cranium/brain. CT/CT soft tissue neck w IV con IMPRESSION: No enhancing mass to correspond to the increased uptake on the recent PET CT from an outside institution. Mediastinal lymphadenopathy. Electronically signed by: Vicente Soto MD 03/24/2025 09:06 AM EST Dictated By: Vicente Barrett MD Signed By: <Electronically signed by Vicente Morrow MDin OV> 03/24/25 0906 DD/ 0836 TD/TT: 03/24/25 0852 Pick Pack Worker: [facility] External Provider IMG CT PROCEDURES Edited Result - Final * XR Hip 2 or 3 Views Right (03/08/2025 12:19 PM EST) Only the most recent of3 resultswithin the time period is included. Anatomical Region Laterality Modality Lower Extremities, Hip Right Radiograp hic Imaging 03/08/2025 12:1 9 PM EST Narrative 03/10/2025 4:18 PM EST [facility] [address] [place] [address] XRay Report Signed Patient: Yael Gudino MR#: [id number] : 1965 Acct:[id number] Age/Sex: 59 / F ADM Date: 03/08/25 Loc: HO.ONC Attending Dr: Leah Morgan MD Ordering Physician: Leah Morgan MD Date of Service: 03/08/25 Procedure(s): XR hip RT min 2V Accession Number(s): [id number] cc: Leah Morgan MD; Jerri Salas Reason [...] Mark Anthony Powers MD 03/10/2025 04:14 PM [facility] Dictated By: Mark Anthony Powers MD Signed By: <Electronically signed by Mark Anthony Powers MD in OV> 03/10/25 1614 DD/ 1219 TD/TT: 03/08/25 1230 Pick Pack Worker: Procedure Note Donotuseinterpreter, Image - 03/10/2025 [facility] [address] [place] [address] XRay Report Signed Patient: Yael Gudino MMR#: [id number] : 1965Acct:[id number] Age/Sex: 59 / FADM Date: 03/08/25 Loc: HO.ONC Attending Dr: Leah Morgan MD Ordering Physician: Leah Morgan MD Date of Service: 03/08/25 Procedure(s): XR hip RT min 2V Accession Number(s): [id number] cc: Leah Morgan MD; Jerri Salas Reason [...] 03/10/25 1614 DD/ 1219 TD/TT: 03/08/25 1230 Pick Pack Worker: TANNER [facility] External Provider IMG XR PROCEDURES Final Result * CT Guided Percutaneous Biopsy Bone Deep (03/03/2025 1:36 PM EST) Anatomical Region Laterality Modality Computed Tomogra phy 03/03/2025 1:36 PM EST Narrative 03/07/2025 3:01 PM EST [address] [address] [address] Scan Report Signed Patient: Yael Gudino MR#: [id number] : 1965 Acct:[id number] Age/Sex: 59 / F ADM Date: 03/03/25 Loc: HO.SSS Attending Dr: Trina Nava RETAIL SHIFT SUPERVISOR Ordering Physician: Trina Nava NP Date of Service: 03/03/25 Procedure(s): CT biopsy bone deep Accession Number(s): [id number] cc: Leah Morgan MD; Riky Salas Katarzyna NP Report Number: [id number]: Total DLP = 292.00 mGy-cm Reason for [...] by: Anderson Benz MD 03/07/2025 02:59 PM [facility] Workstation: [email or web address] Dictated By: Nav Acosta NP Signed By: <Electronically signed by Nav Acosta in OV> 03/07/25 1459 <Electronically signed by Anderson Benz MD in OV> 03/07/25 1501 DD/ 1336 TD/TT: 03/03/25 1434 Pick Pack Worker: Procedure Note Ebony, Image - 03/07/[address] [address] [address] Scan Report Signed Patient: Yael Gudino MMR#: [id number] : 1965Acct:[id number] Age/Sex: 59 / FADM Date: 03/03/25 Loc: HO.[facility] Attending Dr: Trina Nava NP Ordering Physician: Trina Nava NP Date of Service: 03/03/25 Procedure(s): CT biopsy bone deep Accession Number(s): [id number] cc: Leah Morgan MD; Jerri Salas; Trina Nava NP Report Number: [id number]: Total DLP = 292.00 mGy-cm Reason for [...] Benz MD 03/07/2025 02:59 PM EST Workstation: [email or web address] Dictated By: Nav Acosta NP Signed By: <Electronically signed by Nav Acosta in OV> 03/07/25 1459 <Electronically signed by Anderson Benz MD in OV> 03/07/25 1501 DD/ 1336 TD/TT: 03/03/25 1434 Pick Pack Worker: [facility] External Provider IMG CT PROCEDURES Final Result * BI Mammogram Screening Tomosynthesis Bilateral (02/28/2025 2:56 PM EST) Anatomical Region Laterality Modality Breast Bilateral Mammography 02/28/2025 2:56 PM EST Narrative 03/03/2025 7:44 PM EST [address] [place] [address] Mammography Report Signed Patient: Yael Gudino MR#: [id number] : 1965 Acct:[id number] Age/Sex: 59 / F ADM Date: 02/28/25 Loc: MAMMO Attending Dr: Alisia Ivory SENIOR CLINICAL STUDY MANAGER Ordering Physician: Alisia Ivory Results: 1Nega tiphilippe Date of Service: 02/28/25 Follow Up: 1 Year From Orig inal Mammogram Procedure(s): MM tomosynthesis screening BI Accession Number(s): [id number] cc: Jerri Salas; Alisia Ivory Reason For [...] 03/03/25 194 DD/ 1456 TD/TT: 02/28/25 1516 Pick Pack Worker: Procedure Note Donotuseinterpreter, Image - 03/03/2025 [facility] [address] [place] [address] Mammography Report Signed Patient: Yael Gudino MMR#: [id number] : 1965Acct:[id number] Age/Sex: 59 / FADM Date: 02/28/25 Loc: HEATHER Attending Dr: Alisia Ivory SENIOR CLINICAL STUDY MANAGER Ordering Physician: Alisia Ivory FNPResults: 1Nega tive Date of Service: 02/28/25Follow Up: 1 Year From Orig inal Mammogram Procedure(s): MM tomosynthesis screening BI Accession Number(s): [id number] cc: Jerri Salas; Alisia Ivory Reason For [...] Lilia Blanton DO 03/03/2025 07:41 PM EST RP Dictated By: Lilia Blanton DO Signed By: <Electronically signed by Lilia Blanton DO in OV> 03/03/251940 DD/ 1456 TD/TT: 02/28/25 1516 Pick Pack Worker: [facility] SENIOR CLINICAL STUDY MANAGER IMG BI PROCEDURES Final Resul t * PET CT WHOLE BODY (02/12/2025) Anatomical Region Laterality Modality Computed Tomogra phy Jerri Salas MD IMG CT PROCEDURES Final Result * US Head Neck Soft Tissue (02/07/2025 1:19 PM EDT) Anatomical Region Laterality Modality Head, Neck Ultrasound 02/07/2025 1:19 PM EDT Narrative 02/07/2025 1:44 PM EDT [address] [address] Ultrasound Report Signed Patient: Yael Gudino MR#: [id number] : 1965 Acct:[id number] Age/Sex: 59 / F ADM Date: 02/07/25 Loc: . Attending Dr: Jerri Salas MD Ordering Physician: Jerri Salas Date of Service: 02/07/25 Procedure(s): US soft tiss head and/or neck Accession Number(s): [id number] cc: Jerri Salas; [facility] SENIOR CLINICAL STUDY MANAGER Reason for Exam: 8MM NON TENDER FIXED [...] 02/07/25 1342 DD/ 1319 TD/TT: 02/07/25 1323 Pick Pack Worker: Procedure Note Donotuseinterpreter, Image - 02/07/2025 [place] [address] Ultrasound Report Signed Patient: Yael Gudino [facility]#: [id number] : 1965Acct:[id number] Age/Sex: 59 / FADM Date: 02/07/25 Loc: .US Attending Dr: Jerri Salas MD Ordering Physician: Jerri Salas Date of Service: 02/07/25 Procedure(s): US soft tiss head and/or neck Accession Number(s): [id number] cc: Jerri Salas; [facility] SENIOR CLINICAL STUDY MANAGER Reason for Exam: 8MM NON TENDER FIXED [...] 02/07/25 1342 DD/ 1319 TD/TT: 02/07/25 1323 Pick Pack Worker: us Jerri Salas MD IMG US PROCEDURES Edited Resul t - Final * MR Hip w/o Contrast Right (01/18/2025 3:15 PM EDT) Anatomical Region Laterality Modality Magnetic Resonan ce 01/18/2025 3:15 PM EDT Narrative 01/18/2025 4:29 PM EDT [place] [address] Magnetic Resonance Report Signed Patient: Yael Gudino MR#: [id number] : 1965 Acct:[id number] Age/Sex: 59 / F ADM Date: 01/18/25 Loc: HO.MRI Attending Dr: Jerri Salas MD Ordering Physician: Jerri Salas Date of Service: 01/18/25 Procedure(s): MR hip RT wo con Accession Number(s): [id number] cc: Jerri Salas; [facility] Reason for Exam: PAIN EXAMINATION: MRI [...] 01/18/25 1626 DD/ 1515 TD/TT: 01/18/25 1530 Pick Pack Worker: Procedure Note Donotuseinterpreter, Image - 01/18/2025 [place] [address] Magnetic Resonance Report Signed Patient: Yael Gudino MMR#: [id number] : 1965Acct:[id number] Age/Sex: 59 / FADM Date: 01/18/25 Loc: HO.MRI Attending Dr: Jerri Salas MD Ordering Physician: Jerri Salas Date of Service: 01/18/25 Procedure(s): MR hip RT wo con Accession Number(s): [id number] cc: Jerri Salas; [facility] Reason for Exam: PAIN EXAMINATION: MRI [...] 01/18/25 1626 DD/ 1515 TD/TT: 01/18/25 1530 Pick Pack Worker: us Jerri Salas MD IMG MRI PROCEDURES Final Resul t * (ABNORMAL) CBC auto differential (01/13/2025 12:30 PM EDT) White Blood Count 13.9(H) 4.8 - 10.8 X10*3/uL [facility] Red Blood Count 4.89 4.20 - 5.50 X10*6/uL [facility] Hemoglobin 14.3 12.0 - 16.0 g/dl [facility] Hematocrit 43.6 37.0 - 47.0 % [facility] Mean Corpuscular Volume 89.2 80.0 - 98.0 fL [facility] Mean Corpuscular Hemoglobin 29.2 27.0 - 33.0 pg [facility] Mean Corpuscular HGB Conc 32.8 31.0 - 35.0 g/dl [facility] Red Cell Distribution Width 13.2 11.0 - 16.0 % [facility] Platelet Count 428(H) 160 - 400 X10*3/uL [facility] Mean Platelet Volume 9.0(L) 9.4 - 12.3 fL [facility] Neutrophils Percent Auto 61.5 45 - 73 % [facility] Imm Gran Pct Auto 0.5(H) 0.0 - 0.4 % [facility] Lymphocytes Percent Auto 29.7 20 - 40 % [facility] Monocytes Percent Auto 6.3 2 - 11 % [facility] Eosinophils Percent Auto 1.4 0 - 4 % [facility] Basophils Percent Auto 0.6 0 - 2 % [facility] NRBC Pct Auto 0.0 0.0 - 0.2 /100WBC [facility] Neutrophils Absolute Auto 8.6(H) 2.0 - 8.3 x10*3/uL [facility] Imm Gran Abs Auto 0.07(H) 0.00 - 0.03 X10*3/uL [facility] Lymphocytes Absolute Auto 4.1 1.2 - 4.9 X10*3/uL [facility] Monocytes Absolute Auto 0.9 0.1 - 1.2 X10*3/uL [facility] Eosinophils Absolute Auto 0.2 0.0 - 0.4 X10*3/uL [facility] Basophils Absolute Auto 0.1 0.0 - 0.2 X10*3/uL [facility] NRBC Abs Auto 0.000 0.0 - 0.012 X10*3/uL [facility] Blood Venous blood specimen / Unknown 01/13/2025 12:30 PM EDT 01/13/2025 12:58 PM EDT us Jerri Salas MD LAB BLOOD ORDERABLES Final Res ult [facility] [address] [place] [address] [phone] * (ABNORMAL) Comprehensive Metabolic Panel (01/13/2025 12:30 PM EDT) Sodium 140 135 - 145 mmol/L [facility] Potassium 4.3 3.3 - 5.1 mmol/L [facility] Chloride 104 96 - 108 mmol/L [facility] Carbon Dioxide 27 22 - 29 mmol/L [facility] Anion Gap 13 12 - 20 [facility] Urea Nitrogen (BUN) 9 9 - 16 mg/dL [facility] Creatinine, Serum 0.67 0.5 - 1.4 mg/dL [facility] Estimated Glomerular Filt Rate >60 [facility] Comment:Chronic Kidney Disea se: Estimated GFR < 60 mL/min/1.01f9Iiajwt Kidney Disease: Estimated GFR < 15 mL/min/1.73m2 Glucose 87 60 - 115 mg/dL [facility] Calcium 9.4 8.4 - 10.2 mg/dL [facility] Bilirubin, Total 0.3 0.0 - 1.0 mg/dL [facility] Aspartate Amino Transferase 17 5 - 31 U/L [facility] Alanine Aminotransferase 11 0 - 31 U/L [facility] Total Protein 8.0 6.5 - 8.0 g/dL [facility] Albumin Level 4.2 3.5 - 5.0 g/dL [facility] Alkaline Phosphatase 179(H) 39 - 117 U/L [facility] Blood Venous blood specimen / Unknown 01/13/2025 12:30 PM EDT 01/13/2025 1:11 PM EDT us Jerri Salas MD LAB BLOOD ORDERABLES Final Res ult [facility] [address] [place], [place] [phone] * (ABNORMAL) Hepatitis Panel, General (10/13/2022 11:35 AM EDT) Hepatitis A Antibody Total REACTIVE( A) NON-REACT LEONELA [employer] Comment: For additional information, please refer to http://education.OSOYOU.com/faq/TRF727 (This link is being provided for informational/ educational purposes only.) Hepatitis B Surface Antibody QL NON-REACT LEONELA NON-REACT LEONELA [employer] Hepatitis B Surface Ag NON-REACT LEONELA NON-REACT LEONELA [employer] [facility] Comment: For additional information, please refer to http://[employer].OSOYOU.com/faq/ZJT357 (This link is being provided for informational/ educational purposes only.) Hepatitis B Core Antibody Total NON-REACT LEONELA NON-REACT LEONELA [employer] [facility] Comment: For additional information, please refer to http://[employer]/faq/VKI854 (This link is being provided for informational/ educational purposes only.) Hepatitis C Antibody NON-REACT LEONELA NON-REACT LEONELA [employer] [facility] Comment: HCV antibody was non-reactive. There is no laboratory evidence of HCV infection. In most cases, no further action is required. However, if recent HCV exposure is suspected, a test for HCV RNA (test code 45467) is suggested. For additional information please refer to http://[employer]/faq/VPJ41x9 (This link is being provided for informational/ educational purposes only.) 10/13/2022 11:3 5 AM EDT 10/13/2022 11:[address] [facility] - 10/14/2022 5:35 PM EDT FASTING:NO FASTING: NO [facility] LAB BLOOD ORDERABLES Final Re sult [facility] [address], [place] [address] [facility] [place] [employer] [address] [place] [address] * THINPREP PAP (01/04/2021 12:00 AM EDT) Clinical Information: None given [facility] COMMENT SEE COMMENT [facility]OUNDAT[facility] ON [...] along with historic and current clinical information. Leather Skinner : SEE COMMENT [facility] Comment: JXM, CT(ASCP) CT screening location: [place] [address] Interpretation/R esult: Negative for intraepithelial lesion or malignancy. [facility] LMP: NONE GIVEN [facility] SYSTEM Prev. BX: NONE GIVEN [facility] Prev. PAP: NONE GIVEN [facility]OUND[facility] ON LAB SYSTEM SOURCE: None given [facility] Statement Of Adequacy: SEE COMMENT [facility] Comment: Satisfactory for evaluation. Endocervical/transformation zone component present. Age and/or menstrual status not provided 01/04/2021 Raina Cantu NP LAB PATHOLOGY ORDERABLES Final Result Performing Organization Address [facility] de Phone Number [place] [address] * HPV mRNA E6/E7 (01/04/2021 12:00 AM EDT) Pathologist [facility] HPV nRNA E6/E7 Not Detected Not Detected [facility] Comment: Methodology: Fur Sorter-Mediated Amplification This assay detects E6/E7 viral messenger RNA (mRNA) from 14 high-risk HPV types (16,18,31,33,35,39,45,51,52,56,58,59,66,68). The analytical performance characteristics of this assay have been determined by [employer]. The modifications have not been cleared or approved by the FDA. This assay has been validated pursuant to the CLIA regulations and is used for clinical purposes. For additional information, please refer to http://education.Listar.Advice Wallet/faq/OAX133d2 (This link if provided for information/ educational purposes only.) 01/04/2021 Raina Cantu NP LAB BLOOD ORDERABLES Final Resu lt Performing Organization Address [facility] Co de Phone Number [address] * (ABNORMAL) LIPID PANEL, STANDARD (10/05/2020 10:33 AM EDT) Pathologist [facility] Chol/HDLC Ratio 6.0(H) <5.0 (calc) [facility] [...] about testing for familial hypercholesterolemia, please call [employer] at 1.965.[employer].INFO. Marvin Rayo, et al. J National Lipid [...] LDL-C. Charles GARCÍA et al. LESLEY. 2013;310(19): 1551-4745 (http://education.CTERA Networks/faq/CAS554) Non-HDL Cholesterol 224(H) <130 mg/dL (calc) FOUNDATION [...] MD LAB BLOOD ORDERABLES Final Re sult [facility] [address] [place] [address], * HIV 1/2 ANTIGEN/ANTIBODY,FOURTH GENERATION W/RFL (10/05/2020 10:31 AM EDT) HIV-1/2 ANTIGEN AND ANTIBODIES, 4TH GENERATION W/ REFLEX NON-REACT LEONELA NON-REACT LEONELA [facility] Comment: HIV-1 antigen and HIV-1/HIV-2 [...] purpose. For additional information please refer to http://education.OSOYOU.com/faq/IAN430 (This link is being provided for informational/ educational purposes only.) The performance of this assay has not been clinically validated in patients less than 2 years old. 10/05/2020 10:3 1 AM EDT us Mary Martin MD LAB BLOOD ORDERABLES Final Re sult [facility] from Last 3 Months or Most Recently Relevant to Health Maintenance Insurance [facility] STANDARD [place] [phone] Care Teams Consumer Product Advisor Relationship Specialty Start Date End Date Alisia Ivory FNP [address] [place] [address] PCP - General Family Medicine 12/10/21
--- OUTSIDE RECORDS SUMMARY | 2025-03-31 17:33 | XMS_ITS | Encounter Summary ---
Author Organization [facility] Address [address] [facility] [address] [place] [address] Care Team Providers Care Commercial Real Estate Manager Name Role Phone [facility] Primary Care Provider [phone] Encounter Details Date Type Department Care Team (Latest Contact Info) Description 03/07/2025 Results Follow-Up [facility] MEDICINE [address] [place] [address] Guided Percutaneous Biopsy [...] documented as of this encounter Care Teams Commercial Real Estate Manager Relationship Specialty Start Date End Date Alisia Ivory FNP [address] [place] [address] PCP - General Family Medicine 12/10/21 documented as of this encounter
--- OUTSIDE RECORDS SUMMARY | 2025-03-31 17:33 | XMS_ITS | Encounter Summary ---
Author Organization [employer] Address [address] [facility] 7 [place] [address] Care Team Providers Care Oil Program Compliance Specialist Name Role Phone [facility] Primary Care Provider [phone] Reason for Visit * Reason Onset Date Comments Durable Medical Equipment 03/30/2025 DME: Nehal panda Items Encounter Details Date Type Department Care Team ([facility] st Contact Info) Description 03/30/2025 Telephone [facility] MEDICINE [address] [place] [address] [facility] [address] [place] [address] Durable Medical Equipment (DME: Efrenple Items) Social History Tobacco Use Types Packs/Day Years [...] * Telephone Encounter - Wendy Talavera - 03/31/2025 2:17 PM EST DME orders for the requested items were generated and sent to Shadi via FAX, with supporting documentation. Confirmation was uploaded to Media. * Telephone Encounter - [place] - 03/31/2025 1:44 PM EST Outgoing call to patient for status check regarding pain. No answer. LVM. Please reattempt on Thursday to see if the butrans patch has been effective. If no relief please let her know we can go up on the dose. If she was unable to tolerate/has additional concerns please schedule for televisit (ok to double on Thu or see if there are Myriam slots available) Thank you! * Telephone Encounter - Radha De Oliveira RN - 03/30/2025 10:40 AM EST Please forward request to DME team if agreeable to below prescriptions given recent diagnoses * Telephone Encounter - Britney Albright - 03/30/2025 10:23 AM EST Tc from pt requesting a DME order for a bedside commode , bed and shower rails , shower chair that can fit narrow bathtub Contact pt at [phone] documented in this encounter Plan of Treatment Not on file documented as of this encounter Visit Diagnoses Not on filedocumented in this encounter Additional Health Concerns Assessment Noted Time PHQ-9 Depression Total Score: 21 025 10:56 AM EST documented as of this encounter Care Teams Oil Program Compliance Specialist Relationship Specialty Start Date End Date Alisia Ivory FNP [address] [place] [address] PCP - General Family Medicine 12/10/21 documented as of this encounter
[2025-04-10 15:38] VITALS: BMI 28.4
[2025-04-11] VITALS (12 sets, daily range): BP systolic 115–136; BP diastolic 63–90; PULSE 81–90; RESP 12–18; TEMP 36.1–36.2; O2SAT 94–97
--- NOTE | ~2025-04-11 | IR_ITS ---
CLINICAL HISTORY: Metastatic squamous cell carcinoma. The patient presents to interventional radiology for placement of a port for chemotherapy. PROCEDURES: 1. Real-time ultrasound-guided access into the right internal jugular vein after documentation of selected vessel patency, and permanent image storing in the patient records. 2. Placement of a 6.6 Niuean single-lumen port. CLINICIAN: Nav Acosta NP MEDICATIONS: - Versed , Fentanyl , Lidocaine 1% SQ -Antibiotics: Ancef 2g -For additional details, please see nursing flowsheet. Complications: None. Estimated blood loss: <5 ml Specimens: None. Contrast: None. Fluoroscopy dose: 4.0 mGy MODERATE SEDATION TIME: 35 min PROCEDURE NOTE: The procedure, risks, benefits, and alternatives were carefully explained to the patient and written informed consent was obtained. The patient was placed supine on the fluoroscopy table. A timeout was performed. The right neck and chest was prepped and draped in usual sterile fashion. Maximum barrier technique was utilized. Local anesthesia was administered to the access site with 1% lidocaine. Under ultrasound guidance, the right internal jugular vein was accessed with a 5 fr micropuncture set. A 0.035 in wire was advanced into the IVC. A peel-away sheath was advanced over the wire and into the SVC, and the wire was removed. Next, subcutaneous lidocaine was administered to the chest. The port pocket was created after the skin incision, utilizing blunt dissection. Using blunt dissection, a subcutaneous tunnel was created that connects from the port pocket to the venotomy site. Through the peel-away sheath, the 6.6 Niuean port catheter was placed. The catheter position was verified with fluoroscopy to be at the superior vena cava/right atrial junction. The port was connected to the catheter and was placed in the pocket. The port incision site was closed with interrupted 3-0 Vicryl subcutaneous sutures and surgical glue. Prior to closing the skin, 1 g of Ancef solution was placed in the pocket. The port was tested, flushed, and packed with heparin per routine protocol. The patient tolerated the procedure well. The patient was stable after the procedure and was transferred to the PACU. The procedure was performed under moderate sedation and with a dedicated nurse with continuous monitoring of vital signs. A permanent image of the ultrasound the neck and fluoroscopic image of the chest was saved and sent to PACS. FINDINGS: 1. Patent right internal jugular vein and 2. Placement of a 6.6 Niuean single lumen port. 3. Port flushes and aspirates very well with a 10 mL syringe. No pneumothorax. IR/IR us guide venous access IMPRESSION: Placement of a 6.6 Niuean single-lumen port. PLAN: - The patient will be discharged home when stable by sedation protocol. - Port may be used immediately. This procedure was performed by Nav Acosta NP and directly supervised by Anderson Benz M.D. Electronically signed by: Anderson Benz MD 04/13/2025 02:36 PM [facility] Workstation: [id number]
--- NOTE | ~2025-04-11 | IR_ITS ---
CLINICAL HISTORY: Metastatic squamous cell carcinoma. The patient presents to interventional radiology for placement of a port for chemotherapy. PROCEDURES: 1. Real-time ultrasound-guided access into the right internal jugular vein after documentation of selected vessel patency, and permanent image storing in the patient records. 2. Placement of a 6.6 Macanese single-lumen port. CLINICIAN: Nav Acosta NP MEDICATIONS: - Versed , Fentanyl , Lidocaine 1% SQ -Antibiotics: Ancef 2g -For additional details, please see nursing flowsheet. Complications: None. Estimated blood loss: <5 ml Specimens: None. Contrast: None. Fluoroscopy dose: 4.0 mGy MODERATE SEDATION TIME: 35 min PROCEDURE NOTE: The procedure, risks, benefits, and alternatives were carefully explained to the patient and written informed consent was obtained. The patient was placed supine on the fluoroscopy table. A timeout was performed. The right neck and chest was prepped and draped in usual sterile fashion. Maximum barrier technique was utilized. Local anesthesia was administered to the access site with 1% lidocaine. Under ultrasound guidance, the right internal jugular vein was accessed with a 5 fr micropuncture set. A 0.035 in wire was advanced into the IVC. A peel-away sheath was advanced over the wire and into the SVC, and the wire was removed. Next, subcutaneous lidocaine was administered to the chest. The port pocket was created after the skin incision, utilizing blunt dissection. Using blunt dissection, a subcutaneous tunnel was created that connects from the port pocket to the venotomy site. Through the peel-away sheath, the 6.6 Macanese port catheter was placed. The catheter position was verified with fluoroscopy to be at the superior vena cava/right atrial junction. The port was connected to the catheter and was placed in the pocket. The port incision site was closed with interrupted 3-0 Vicryl subcutaneous sutures and surgical glue. Prior to closing the skin, 1 g of Ancef solution was placed in the pocket. The port was tested, flushed, and packed with heparin per routine protocol. The patient tolerated the procedure well. The patient was stable after the procedure and was transferred to the PACU. The procedure was performed under moderate sedation and with a dedicated nurse with continuous monitoring of vital signs. A permanent image of the ultrasound the neck and fluoroscopic image of the chest was saved and sent to PACS. FINDINGS: 1. Patent right internal jugular vein and 2. Placement of a 6.6 Macanese single lumen port. 3. Port flushes and aspirates very well with a 10 mL syringe. No pneumothorax. IR/IR cvc insert tunnel w prt/questioned documents examiner IMPRESSION: Placement of a 6.6 Macanese single-lumen port. PLAN: - The patient will be discharged home when stable by sedation protocol. - Port may be used immediately. This procedure was performed by Nav Acosta NP and directly supervised by Anderson Benz M.D. Electronically signed by: Anderson Benz MD 04/13/2025 02:36 PM EST Workstation: [id number]
[2025-04-11 12:18] LABS: INTERNATIONAL NORM RATIO 1.3 (0.9-1.1); Prothrombin Time 15.9 SEC (11.2-13.5)
== END 2025-04-11 15:07 | disposition home or self-care (01) ==
PROVIDERS: Radiology Diagnostic Radiology; PCP General Practice; Visit Provider Internal Medicine
DX: C79.51 Secondary malignant neoplasm of bone (principal); C80.1 Malignant (primary) neoplasm, unspecified; Z80.3 Family history of malignant neoplasm of breast; Z80.7 Family history of other malignant neoplasms of lymphoid, hematopoietic and related tissues; Z86.718 Personal history of other venous thrombosis and embolism; R10.9 Unspecified abdominal pain; M54.51 Vertebrogenic low back pain; M47.816 Spondylosis without myelopathy or radiculopathy, lumbar region; I10 Essential (primary) hypertension; I73.9 Peripheral vascular disease, unspecified; J45.909 Unspecified asthma, uncomplicated; Z79.01 Long term (current) use of anticoagulants; Z79.82 Long term (current) use of aspirin; Z79.899 Other long term (current) drug therapy; Z88.5 Allergy status to narcotic agent; Z88.8 Allergy status to other drugs, medicaments and biological substances; Z98.890 Other specified postprocedural states; Z87.891 Personal history of nicotine dependence; F12.90 Cannabis use, unspecified, uncomplicated
CPT/HCPCS: 36415; 36561; 76937; 85610; 99152; 99153; C1769; C1788; J0690; J1642; J1644; J2003; J2250; J3010

== ENCOUNTER → 2025-04-11 12:26 | Outpatient (BNV) | payer MEDICARE, MEDICAID, SELFPAY | PROVIDERS: PCP General Practice | DX: C44.92 Squamous cell carcinoma of skin, unspecified (principal); C79.51 Secondary malignant neoplasm of bone | CPT/HCPCS: 36561; 76937 ==

== ENCOUNTER 2025-04-14 12:58 | Outpatient (AMB) | payer MEDICARE, MEDICAID, SELFPAY ==
[2025-04-14 13:01] VITALS: BP 126/68; PULSE 122
--- NOTE | 2025-04-14 13:01 | MHC.OFFVIS ---
Vital Signs 04/14/25 13:01 Height 5 ft 4 in BMI Reason not done Patient refused/unable BP 126/68 Blood Pressure Location Lt brachial Pulse 122 H Pulse Source Monitor Intake Visit Reasons: AROMATHERAPIST/Alisia Waverly/Palpitations Slot Technician Required: No Accompanied by: Other Relationship Allergies lisinopril Allergy (Severe, Verified 04/14/25 13:05) Facial Swelling, throat closing codeine (CODEINE) Adverse Reaction (Severe, Verified 04/14/25 13:05) blacked out Medication List - Last Reconciled 04/14/25 by [place] Brown NP acetaminophen 325 mg PO QID PRN amlodipine 1 tab PO DAILY apixaban (Eliquis) 5 mg PO BID aspirin 81 mg PO DAILY atorvastatin 40 mg PO DAILY chlorthalidone 25 mg PO QAM clonidine HCl 0.2 mg PO Q12H cyclobenzaprine 1 tab PO TID PRN docusate sodium (Colace) 100 mg PO BID duloxetine 60 mg PO DAILY gabapentin 100 mg PO BEDTIME gabapentin 300 - 600 mg PO TID ondansetron 8 mg PO Q8H PRN tramadol 50 mg PO Q8H PRN HPI Comments Details: This is a 59-year-old female patient referred to our office by a PCP for further evaluation of palpitations and shortness of breath. Patient with history of hypertension, hyperlipidemia, right leg DVT, fem-fem bypass in 2021, and recent diagnosis of metastasis cancer with unknown primary origin on chemotherapy following Oncology. Patient states that she has been having shortness of breath with exertion as well as palpitations for the past 3 years and 3 years ago patient was seen in the office for preop cardiac risk stratification where patient underwent a myocardial perfusion study that was normal. Most recently patient underwent a Holter study with PCP showing rare PVCs. Today, patient is continuing to report ongoing shortness of breath on exertion with palpitations and most recently about a week and half ago patient was at [facility] for flu pneumonia and was discharged on steroids and Tamiflu which patient completed 2 days ago. Patient is otherwise denying any exertional chest discomfort, dizziness, orthopnea, PND, leg edema, presyncope or syncope. Patient is reporting compliance with all medications. [facility] Medical History (Updated 04/14/25 @ 16:28 by [place] Brown NP) Nicotine dependence, cigarettes, uncomplicated Urge incontinence Urinary incontinence Trigger thumb, right thumb UTI (urinary tract infection) Carpal tunnel syndrome on both sides Numbness and tingling in right hand Spondylolisthesis of lumbar region Spondylosis of lumbar region without myelopathy or radiculopathy Vertebrogenic low back pain Early satiety Abdominal pain Chronic anticoagulation Other and unspecified hyperlipidemia PAD (peripheral artery disease) No natural teeth DVT (deep venous thrombosis) Bladder prolapse, female, acquired Post-menopausal COVID-19 vaccine administered Asthma Kidney injury Urinary incontinence Back pain Hypertension Surgical History History of surgery on left wrist History of surgery on right wrist S/P femoral-femoral bypass surgery S/P aortogram History of right oophorectomy History of kidney surgery Family History Father Lung cancer Mother Breast CA Maternal Aunt Breast CA Paternal Aunt Liver cancer Paternal Grandfather Lung cancer Son Hodgkin lymphoma Social History Household Members: Family Household Members Other:: mother Are you a primary critical care rn to a significant other at home: No Do you presently have visiting nurse or other home services: No Patient Tobacco Use Status: Former Tobacco user Tobacco use type: Smokeless Tobacco Years Smoked: (onset 14yo, 1/2ppd x 44yrs, 22pyh) e-Cigarette/Vaping Use: Never Used Second Hand Smoke Exposure: No Substance Use Type: Marijuana and Caffiene service: No Current occupational status: unemployed and disabled 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 Review of Systems Const Denies daytime sleepiness, Denies difficulty sleeping, Denies snoring, Denies stops breathing during sleep and Denies weakness Card Denies chest pain, Denies rapid heart rate, Denies irregular heart rhythm, Denies claudication, Denies leg edema, Denies lightheadedness, Denies palpitations, Reports dyspnea, Reports dyspnea on exertion, Denies orthopnea, Denies paroxysmal nocturnal dyspnea and Denies slow heart rate Resp Denies cough, Reports dyspnea, Reports dyspnea on exertion and Denies snoring GI Reports no additional complaints, Denies hematochezia, Denies change in stool character and Denies dyspepsia Musc Denies abnormal gait, Denies muscle weakness and Denies numbness Neuro Denies abnormal gait, Denies numbness and Denies weakness Endo Denies palpitations Physical Exam Vital Signs: Last Vital Signs Pulse 122 H 04/14/25 13:01 BP 126/68 04/14/25 13:01 Const General: cooperative, healthy appearing, comfortable and no acute distress Orientation/consciousness: patient oriented x3 HEENT Head: Yes normal to inspection Neck Neck: Yes normal visual inspection, Yes trachea midline and Yes supple Chest Chest palpation & inspection: normal inspection of the chest Resp Effort & Inspection: normal respiratory effort Auscultation: clear to auscultation bilaterally, no crackles, no rales, no rhonchi and no wheezes Cardio Jugular venous distension: no JVD Palpation: normal PMI Rate: tachycardic Rhythm: regular rhythm Heart sounds: S1 normal heart sound present, S2 normal heart sound present, no click, no gallops, no murmurs and no rubs Peripheral pulses: Peripheral pulses 2+ throughout GI Inspection: Yes normal to inspection Palpation (GI): Soft to palpation Auscultation: normal bowel sounds Skin General skin exam: no rashes or lesions noted Neuro General: patient oriented x3 Extrem General: Yes normal to inspection, No no pedal edema and No calf tenderness Psych Appearance: grossly normal Mental Status: mental status grossly normal Speech and movement: Normal speech and movement present Office Procedures EKG Details: EKG today shows sinus tachycardia, rate 122 beats per minute, nonspecific STT wave, low-voltage QRS, right axis deviation, [place], [place]. [id number], Complete Assessment & Plan Assessment & Plan (1) Shortness of breath: Code(s): R06.02 - Shortness of breath Category: Medical Plan: Patient with a history of chronic exertional dyspnea with palpitations however recently was in the hospital for flu pneumonia and completed her Tamiflu and steroids 2 days ago. Disease EKG showed sinus tachycardia with a heart rate of 122 beats per minute and this could be physiological from recent illness and medication. No reports of fever, nausea, or vomiting. No reported symptoms of chest discomfort. 03/13/2025-patient underwent a Holter study that showed underlying sinus rhythm with an average rate of 92 beats per minute, with rare PVCs. Patient had undergone an echo and a myocardial perfusion study back in 2021 for preop cardiac risk stratification which was normal. Clinically euvolemic and in no acute distress. Advised on adequate hydration and rest. We will plan to update the echocardiogram. We will also get a BNP to assess for electrolyte imbalance as well as renal dysfunction. We will also get a CBC to evaluate for anemia given recent chemotherapy. EKG otherwise with nonspecific ST-T. Further testings based on findings. (2) Palpitations: Code(s): R00.2 - Palpitations Plan: As above. (3) Chronic anticoagulation: Code(s): Z79.01 - detention (current) use of anticoagulants Category: Medical Plan: History of DVT and pgnmfmb-sq-gaakckz bypass. On Eliquis and aspirin therapy. No reported signs of bleeding. (4) Essential hypertension: Code(s): I10 - Essential (primary) hypertension Category: Medical Plan: Blood pressure today is well-controlled. Continue current regimen with a blood pressure goal less than 130/80. Advised on low-salt diet. (5) Other and unspecified hyperlipidemia: Code(s): E78.5 - Hyperlipidemia, unspecified Category: Medical Plan: Continue statin therapy. Advised on heart healthy diet, adequate hydration, rest, med compliance, and management of vascular risk factors. Follow up after echo. In the interim, patient will call the office with any concerns or change in symptoms. Advised to seek ER care in case of exertional chest pain not resolved with rest. This note was generated using voice recognition software. While every effort has been made to ensure accuracy and proper electronics instructor, there may be occasional errors that could affect the content or meaning of the described symptoms. Orders: Orders CA echo transthoracic complete Today R06.02 - Shortness of breath Complete Blood Count no Diff Today R06.02 - Shortness of breath AMB EKG-In Office Today R06.02 - Shortness of breath Basic Metabolic Panel Today R06.02 - Shortness of breath Coding Level of Care Code New Pt Level 4 (05533) Add On Problem Visit Only Diagnoses Shortness of breath R06.02 Palpitations R00.2 Chronic anticoagulation Z79.01 Essential hypertension I10 Other and unspecified hyperlipidemia E78.5 CPT Codes EKG - CPT: 70960-[id number], Complete ([id number]) Time Spent (min) 34 Comment Time spent in reviewing the chart, test results, assessment, counseling and documentation.
== END 2025-04-14 13:40 | disposition home or self-care (01) ==
LOC: HO.HCS 12:58
PROVIDERS: PCP General Practice; Referring Provider Registered Nurse
DX: R06.02 Shortness of breath (principal); R00.2 Palpitations; Z79.01 Long term (current) use of anticoagulants; I10 Essential (primary) hypertension; E78.5 Hyperlipidemia, unspecified
CPT/HCPCS: 93010; 99204; G2211

== ENCOUNTER → 2025-04-14 12:58 | Outpatient (BNVA) | payer MEDICARE, MEDICAID, SELFPAY | PROVIDERS: PCP General Practice; Referring Provider Registered Nurse | DX: R06.02 Shortness of breath (principal); R00.2 Palpitations; I10 Essential (primary) hypertension; E78.5 Hyperlipidemia, unspecified; Z87.891 Personal history of nicotine dependence; Z79.01 Long term (current) use of anticoagulants; Z79.82 Long term (current) use of aspirin; Z09 Encounter for follow-up examination after completed treatment for conditions other than malignant neoplasm | CPT/HCPCS: 93005; 99202 ==